=== PATIENT | female | born 1935 | race Two or more races ===

== ENCOUNTER 2018-07-23 11:12 | Inpatient (IN) | payer MEDICARE, OTHER ==
[~2018-07-23] VITALS: Ht 160 cm; Wt 68.5 kg
[~2018-07-23 11:12] MED LIST: AMLO2.5T5 PO; AMLO5TAB10 PO; ASPI325T8 PO; ATEN25TA PO; ATOR10TA60 PO; B12/1TAB PO; PANT40TA77 PO; SLOW RELEASE I142 MG PO; VALS320T2 PO
[2018-07-23 15:10] LABS: BILIRUBIN,URINE LARGE (NEG); CLARITY,URINE CLOUDY; COLOR,URINE ORANGE; PH,URINE 5.5; PROTEIN,URINE >=300 mg/dL (NEG-TRACE)
[2018-07-23 15:37] LABS: BACTERIA,URINE FEW /HPF (0-FEW); WBC,URINE OCC /HPF (0-4)
[2018-07-23 15:39] LABS: GRANULAR CASTS,URINE OCCASIONAL /HPF
[2018-07-23 16:00] LABS: BASO % 0 % (0-3); EOS # 0.1 x10^3/uL (0.0-0.7); EOS % 1 % (0-3); HEMATOCRIT 25.5 % (36.0-47.0); HEMOGLOBIN 8.8 g/dL (12.0-15.5); LYMPH # 0.7 x10^3/uL (1.0-4.8); LYMPH % 9 % (24-48); MEAN CORPUSCULAR HEMOGLOBIN 32 pg (25-35); MEAN CORPUSCULAR HGB CONC 35 g/dL (31-37); MEAN CORPUSCULAR VOLUME 92 fL (79-100); MONO # 0.7 x10^3/uL (0.0-1.1); MONO % 9 % (0-9); NEUT # 6.1 x10^3uL (1.8-7.7); NEUT % 81 % (31-73); PLATELET COUNT 27 x10^3/uL (140-400); RED BLOOD COUNT 2.77 x10^6/uL (3.50-5.40); WHITE BLOOD COUNT 7.6 x10^3/uL (4.0-11.0)
[2018-07-23 16:05] LABS: CALCIUM 8.5 mg/dL (8.5-10.1); CREATININE 2.9 mg/dL (0.6-1.0); GFR 15.5
[2018-07-23 16:11] LABS: ALBUMIN 2.8 g/dL (3.4-5.0); DIRECT BILIRUBIN 2.8 mg/dL (0.0-0.2); TOTAL BILIRUBIN 4.7 mg/dL (0.2-1.0); TOTAL PROTEIN 5.7 g/dL (6.4-8.2)
[2018-07-23] MEDS ORDERED: CONTRAST GIVEN. MC PRN (16:15)
[2018-07-23] MEDS ORDERED: IOHEXOL 300 MG/ML 100ML VIAL. IV ONE (16:15)
[2018-07-23 16:38] LABS: PLT ESTIMATE DECREASED (ADEQUATE)
--- NOTE | 2018-07-23 16:44 | RAD ---
PQRS Compliance Statement: One or more of the following individualized dose reduction techniques were utilized for this examination: 1. Automated exposure control 2. Adjustment of the mA and/or kV according to patient size 3. Use of iterative reconstruction technique CT ABDOMEN PELVIS WO CONTRAST Clinical Indication: ABD PAIN AND VOMITING Comparison: CT abdomen and pelvis with contrast May 25, 2012. Technique: Helical CT imaging of the abdomen and pelvis is performed without IV or oral contrast. Findings: Evaluation of solid organs and bowel is limited without oral and IV contrast, decreasing sensitivity for detection of pathology. Trace bilateral pleural effusions. Mild consolidations in the posterior lower lobes bilaterally may be compressive atelectasis or early pneumonia or scarring. There is coronary artery disease. Cardiac size upper limits of normal. Cholecystectomy. Liver, spleen, pancreas, adrenal glands, and kidneys are normal. Severe atherosclerotic calcification of the abdominal aorta and iliac arteries, no aneurysm. Stomach is not well distended, limiting evaluation. No dilated small bowel. Moderate sigmoid colon diverticulosis. The appendix is normal. There is scattered stool in the colon. No colon wall thickening. No abdominal adenopathy or free fluid. Urinary bladder is normal. Atrophic uterus. Mild pelvic free fluid, abnormal in a female patient of this age. Degenerative spondylosis of the thoracolumbar spine. There is minimal left convexity lumbar scoliosis. There is grade 1 anterolisthesis of L4 and L5 and L5 on S1. IMPRESSION: 1. Trace bilateral pleural effusions. 2. Mild consolidations in the posterior lower lobes may be compressive atelectasis or early pneumonia or scarring. 3. Mild pelvic free fluid, abnormal. Etiology uncertain. 4. Moderate sigmoid colon diverticulosis without diverticulitis. Electronically signed by: Lázaro Burns MD (07/23/2018 4:39 PM) [id number]
[2018-07-23] MEDS ORDERED: IV NORMAL SALINE 1000ML BAG 1,000 ML IV SCH (17:32)
[2018-07-23] MEDS ORDERED: MORPHINE SULFATE 4 MG/ML VIAL. IV PRN (17:45)
[2018-07-23] MEDS ORDERED: ONDANSETRON PF 4 MG/2 ML VIAL. IV PRN (17:45)
--- NOTE | 2018-07-23 18:44 | PHYS DOC ---
Past Medical History Past Medical History: Diabetes-Type II, High Cholesterol, Hypertension Past Surgical History: No Surgical History Additional Past Surgical Histo: cataract Alcohol Use: None Drug Use: None Adult General Chief Complaint Chief Complaint: BLOOD IN URINE HPI HPI 82-year-old female presenting to the emergency department today with hematuria worsening dark urine. She describes a lower abdominal pain is 3 out of 10 nonradiating earlier today but now does not have any pain. She is recently seen and had mild kidney injury without need from hypertension. But they reported she did not have a urinary tract infection before. Over the past 14 hours she has had a few episodes of nonbilious nonbloody vomiting. She denies any dark stool. Review of systems is negative for chest pain shortness of breath fevers chills. All other review of systems is negative unless otherwise noted in history of present illness. ED course: 82-year-old female presenting the emergency department today with darkening urine. CBC shows significant anemia. Platelet count is 27,000. Serum creatinine is elevated along with BUN. Bilirubin is elevated along with liver function tests. Urinalysis shows urine bilirubin and blood. I spoke with Dr. Wagoner who is on for Dr. cabral today. We will admit the patient to the hospital. Potentially ITP versus other thrombocytopenia etiologies. We will consult hematology oncology and nephrology. She accepted the patient for further treatment and care. CT showed atelectasis but no acute pathology. Review of Systems Review of Systems SEE ABOVE. Current Medications Current Medications Current Medications Medications (Trade) Dose Ordered Sig/[place] Start Time Stop Time Status Last Admin Dose Admin Info (CONTRAST GIVEN -- Rx MONITORING) 1 each PRN DAILY PRN 07/23/18 16:15 07/25/18 16:14 Iohexol (Omnipaque 300 Mg/ml) 75 ml 1X ONCE 07/23/18 16:15 07/23/18 16:16 DC Sodium Chloride 1,000 ml @ 100 mls/hr Q10H 07/23/18 17:32 07/23/18 23:31 Allergies Allergies Allergies Coded Allergies Type Severity Reaction Last Updated Verified Penicillins Allergy Intermediate RASH 07/23/18 Yes morphine Adverse Reaction Mild N/V 07/23/18 Yes Physical Exam Physical Exam SEE ABOVE Constitutional: Well developed, well nourished, no acute distress, non-toxic appearance. [] HENT: Normocephalic, atraumatic, bilateral external ears normal, oropharynx moist, no oral exudates, nose normal. [] Eyes: PERRLA, EOMI, conjunctiva normal, no discharge. [] Neck: Normal range of motion, no tenderness, supple, no stridor. [] Cardiovascular:Heart rate regular rhythm, no murmur [] Lungs & Thorax: Bilateral breath sounds clear to auscultation [] Abdomen: Bowel sounds normal, soft, no tenderness, no masses, no pulsatile masses. [] Skin: Warm, dry, no erythema, no rash. [] Back: No tenderness, no CVA tenderness. [] Extremities: No tenderness, no cyanosis, no clubbing, ROM intact, no edema. [] Neurologic: Alert and oriented X 3, normal motor function, normal sensory function, no focal deficits noted. [] Psychologic: Affect normal, judgement normal, mood normal. [] Current Patient Data Vital Signs Vital Signs Date Time Temp Pulse Resp B/P (MAP) Pulse Ox O2 Delivery O2 Flow Rate FiO2 07/23/18 16:03 60 157/70 (99) 94 Room Air 07/23/18 12:25 98.7 22 98.7 Lab Values Laboratory Tests Test 07/23/18 14:57 07/23/18 15:40 Urine Collection Type U cath Urine Color [place] Urine Clarity Cloudy Urine pH 5.5 Urine Specific [place] >=1.030 Urine Protein >=300 mg/dL (NEG-TRACE) Urine Glucose (UA) Negative mg/dL (NEG) Urine Ketones (Stick) Trace mg/dL (NEG) Urine Blood Large (NEG) Urine Nitrite (NEG) Urine Bilirubin Large (NEG) Urine Urobilinogen Dipstick 1.0 mg/dL (0.2 mg/dL) Urine Leukocyte Esterase (NEG) Urine RBC 6-10 /HPF (0-2) Urine WBC Occ /HPF (0-4) Urine Bacteria Few /HPF (0-FEW) Urine Granular Casts Occasional /HPF Urine Mucus Slight /LPF White Blood Count 7.6 x10^3/uL (4.0-11.0) Red Blood Count 2.77 x10^6/uL (3.50-5.40) L Hemoglobin 8.8 g/dL (12.0-15.5) L Hematocrit 25.5 % (36.0-47.0) L Mean Corpuscular Volume 92 fL (79-100) Mean Corpuscular Hemoglobin 32 pg (25-35) Mean Corpuscular Hemoglobin Concent 35 g/dL (31-37) Red Cell Distribution Width 14.0 % (11.5-14.5) Platelet Count 27 x10^3/uL (140-400) L Neutrophils (%) (Auto) 81 % (31-73) H Lymphocytes (%) (Auto) 9 % (24-48) L Monocytes (%) (Auto) 9 % (0-9) Eosinophils (%) (Auto) 1 % (0-3) Basophils (%) (Auto) 0 % (0-3) Neutrophils # (Auto) 6.1 x10^3uL (1.8-7.7) Lymphocytes # (Auto) 0.7 x10^3/uL (1.0-4.8) L Monocytes # (Auto) 0.7 x10^3/uL (0.0-1.1) Eosinophils # (Auto) 0.1 x10^3/uL (0.0-0.7) Basophils # (Auto) 0.0 x10^3/uL (0.0-0.2) Platelet Estimate Decreased (ADEQUATE) Sodium Level 134 mmol/L (136-145) L Potassium Level 5.0 mmol/L (3.5-5.1) Chloride Level 97 mmol/L (98-107) L Carbon Dioxide Level 27 mmol/L (21-32) Anion Gap 10 (6-14) Blood Urea Nitrogen 45 mg/dL (7-20) H Creatinine 2.9 mg/dL (0.6-1.0) H Estimated GFR (Cockcroft-Gault) 15.5 Glucose Level 93 mg/dL (70-99) Calcium Level 8.5 mg/dL (8.5-10.1) Total Bilirubin 4.7 mg/dL (0.2-1.0) H Direct Bilirubin 2.8 mg/dL (0.0-0.2) H Aspartate Amino Transferase (AST) 452 U/L (15-37) H Alanine Aminotransferase (ALT) 366 U/L (14-59) H Alkaline Phosphatase 244 U/L (46-116) H Total Protein 5.7 g/dL (6.4-8.2) L Albumin 2.8 g/dL (3.4-5.0) L Lipase 82 U/L (73-393) Laboratory Tests 07/23/18 15:40 Laboratory Tests 07/23/18 15:40 EKG EKG [] Radiology/Procedures Radiology/Procedures [] Course & Med Decision Making Course & Med Decision Making Pertinent Labs and Imaging studies reviewed. (See chart for details) [] Dragon Disclaimer Dragon Disclaimer This electronic medical record was generated, in whole or in part, using a voice recognition dictation system. Departure Departure Impression: Primary Impression: Thrombocytopenia Additional Impressions: Acute kidney injury Anemia Disposition: ADMITTED INPATIENT Admitting Physician: Sabina Wagoner Condition: STABLE Referrals: CATE VARELA MD (PCP) Problem Qualifiers TOSHA REEVES MD Jul 23, 2018 18:44
[2018-07-23 19:45] VITALS: BP 129/50
[2018-07-23] MEDS ORDERED: METO25TA4 PO (21:20)
[2018-07-23] MEDS: ACETAMINOPHEN 500 MG TABLET PO PRN (21:43)
--- NOTE | 2018-07-23 22:21 | NUR ---
Ernesto arrived around 1845 via bed from ED with Hematuria and FELIPE. She is Croatian speaking , but A/O x4. Several family members @ bedside. She can make most needs known.
[2018-07-23 23:00] VITALS: BP 149/52
[2018-07-24] MEDS ORDERED: CAND32TA4 PO (00:24)
[2018-07-24 03:00] VITALS: BP 141/55
[2018-07-24 05:23] LABS: BASO % 0 % (0-3); EOS # 0.2 x10^3/uL (0.0-0.7); EOS % 4 % (0-3); HEMATOCRIT 23.5 % (36.0-47.0); LYMPH # 0.8 x10^3/uL (1.0-4.8); LYMPH % 14 % (24-48); MEAN CORPUSCULAR HEMOGLOBIN 32 pg (25-35); MEAN CORPUSCULAR HGB CONC 34 g/dL (31-37); MEAN CORPUSCULAR VOLUME 93 fL (79-100); MONO # 0.6 x10^3/uL (0.0-1.1); MONO % 11 % (0-9); NEUT # 3.9 x10^3uL (1.8-7.7); NEUT % 72 % (31-73); RED BLOOD COUNT 2.53 x10^6/uL (3.50-5.40); RED CELL DISTRIBUTION WIDTH 14.2 % (11.5-14.5); WHITE BLOOD COUNT 5.5 x10^3/uL (4.0-11.0)
[2018-07-24 05:40] LABS: ALBUMIN 2.3 g/dL (3.4-5.0); ALBUMIN/GLOBULIN RATIO 0.8 (1.0-1.7); CALCIUM 8.2 mg/dL (8.5-10.1); CREATININE 3.2 mg/dL (0.6-1.0); GFR 13.8; POTASSIUM 4.3 mmol/L (3.5-5.1); TOTAL BILIRUBIN 3.4 mg/dL (0.2-1.0); TOTAL PROTEIN 5.1 g/dL (6.4-8.2)
[2018-07-24 06:19] LABS: PLATELET COUNT 21 x10^3/uL (140-400)
--- NOTE | 2018-07-24 06:36 | NUR ---
Around 0616 lab called w/ a critical platlet count of 21. Dr. Wagoner notified and gave no new orders. Since Dr. Rosales was consulted she wants them to take the lead.
[2018-07-24 07:00] VITALS: BP 158/55
[2018-07-24 09:59] LABS: LACTATE DEHYDROGENASE 466 U/L (81-234)
[2018-07-24 11:00] VITALS: BP 160/56
[2018-07-24] MEDS: IV NORMAL SALINE 1000ML BAG 1,000 ML IV SCH ×2 (11:45→15:18)
[2018-07-24] MEDS ORDERED: METO-239 PO (11:54)
[2018-07-24] MEDS ORDERED: CAND32TA19 PO (11:54)
--- NOTE | 2018-07-24 12:04 | PDOC ---
PROGRESS NOTES Subjective Subjective Patient reports some mild intermittent abdominal pain, no nausea or emesis. Objective Objective Vital Signs Date Time Temp Pulse Resp B/P (MAP) Pulse Ox O2 Delivery O2 Flow Rate FiO2 07/24/18 11:00 98.2 56 16 160/56 (90) 93 Room Air 98.2 Intake and Output 07/24/18 07:01 Intake Total 360 ml Balance 360 ml Intake Oral 360 ml # Voids 1 Physical Exam Abdomen: Normal bowel sounds, Soft, Other (mild diffuse TTP without guarding or rebound) Heart: Regular rate Extremities: No edema General: Alert, Oriented X3, No acute distress Lungs: Clear to auscultation Assessment Assessment Problems Medical Problems: (1) Acute kidney injury Status: Acute (2) Anemia Status: Acute (3) Thrombocytopenia Status: Acute Plan Plan of Care 1. Anemia with thrombocytopenia - new finding for her, mildly worse today compared to yesterday. Stable. Hold ASA, await Hematology consult. 2. Acute renal failure - no history of significant renal insufficiency, last Creatinine on office lab 06/15 was 0.8. Nursing reports patient does have good urine output and is continent. Continue IVF and po as tolerated, Renal consult pending. 3. Possible acute hepatitis - bilirubin and transaminases all elevated at admission, improved today. CT abdomen unremarkable for cause of this. Checking hepatitis panel. Consult GI for help with further management. 4. HTN - continue home meds. 5. DM2 - this has been diet-controlled for her, ADA diet ordered. Comment Review of Relevant I have reviewed the following items karen (where applicable) has been applied. Labs Laboratory Tests Test 07/23/18 14:57 07/23/18 15:40 07/24/18 04:05 07/24/18 07:00 Urine Collection Type U cath Urine Color [place] Urine Clarity Cloudy Urine pH 5.5 Urine Specific [place] >=1.030 Urine Protein >=300 mg/dL (NEG-TRACE) Urine Glucose (UA) Negative mg/dL (NEG) Urine Ketones (Stick) Trace mg/dL (NEG) Urine Blood Large (NEG) Urine Nitrite (NEG) Urine Bilirubin Large (NEG) Urine Urobilinogen Dipstick 1.0 mg/dL (0.2 mg/dL) Urine Leukocyte Esterase (NEG) Urine RBC 6-10 /HPF (0-2) Urine WBC Occ /HPF (0-4) Urine Bacteria Few /HPF (0-FEW) Urine Granular Casts Occasional /HPF Urine Mucus Slight /LPF White Blood Count 7.6 x10^3/uL (4.0-11.0) 5.5 x10^3/uL (4.0-11.0) Red Blood Count 2.77 x10^6/uL (3.50-5.40) 2.53 x10^6/uL (3.50-5.40) Hemoglobin 8.8 g/dL (12.0-15.5) 8.0 g/dL (12.0-15.5) Hematocrit 25.5 % (36.0-47.0) 23.5 % (36.0-47.0) Mean Corpuscular Volume 92 fL (79-100) 93 fL (79-100) Mean Corpuscular Hemoglobin 32 pg (25-35) 32 pg (25-35) Mean Corpuscular Hemoglobin Concent 35 g/dL (31-37) 34 g/dL (31-37) Red Cell Distribution Width 14.0 % (11.5-14.5) 14.2 % (11.5-14.5) Platelet Count 27 x10^3/uL (140-400) 21 x10^3/uL (140-400) Neutrophils (%) (Auto) 81 % (31-73) 72 % (31-73) Lymphocytes (%) (Auto) 9 % (24-48) 14 % (24-48) Monocytes (%) (Auto) 9 % (0-9) 11 % (0-9) Eosinophils (%) (Auto) 1 % (0-3) 4 % (0-3) Basophils (%) (Auto) 0 % (0-3) 0 % (0-3) Neutrophils # (Auto) 6.1 x10^3uL (1.8-7.7) 3.9 x10^3uL (1.8-7.7) Lymphocytes # (Auto) 0.7 x10^3/uL (1.0-4.8) 0.8 x10^3/uL (1.0-4.8) Monocytes # (Auto) 0.7 x10^3/uL (0.0-1.1) 0.6 x10^3/uL (0.0-1.1) Eosinophils # (Auto) 0.1 x10^3/uL (0.0-0.7) 0.2 x10^3/uL (0.0-0.7) Basophils # (Auto) 0.0 x10^3/uL (0.0-0.2) 0.0 x10^3/uL (0.0-0.2) Platelet Estimate Decreased (ADEQUATE) Sodium Level 134 mmol/L (136-145) 134 mmol/L (136-145) Potassium Level 5.0 mmol/L (3.5-5.1) 4.3 mmol/L (3.5-5.1) Chloride Level 97 mmol/L (98-107) 101 mmol/L (98-107) Carbon Dioxide Level 27 mmol/L (21-32) 26 mmol/L (21-32) Anion Gap 10 (6-14) 7 (6-14) Blood Urea Nitrogen 45 mg/dL (7-20) 51 mg/dL (7-20) Creatinine 2.9 mg/dL (0.6-1.0) 3.2 mg/dL (0.6-1.0) Estimated GFR (Cockcroft-Gault) 15.5 13.8 Glucose Level 93 mg/dL (70-99) 93 mg/dL (70-99) Calcium Level 8.5 mg/dL (8.5-10.1) 8.2 mg/dL (8.5-10.1) Total Bilirubin 4.7 mg/dL (0.2-1.0) 3.4 mg/dL (0.2-1.0) Direct Bilirubin 2.8 mg/dL (0.0-0.2) Aspartate Amino Transf (AST/SGOT) 452 U/L (15-37) 194 U/L (15-37) Alanine Aminotransferase (ALT/SGPT) 366 U/L (14-59) 231 U/L (14-59) Alkaline Phosphatase 244 U/L (46-116) 195 U/L (46-116) Total Protein 5.7 g/dL (6.4-8.2) 5.1 g/dL (6.4-8.2) Albumin 2.8 g/dL (3.4-5.0) 2.3 g/dL (3.4-5.0) Lipase 82 U/L (73-393) BUN/Creatinine Ratio 16 (6-20) Albumin/Globulin Ratio 0.8 (1.0-1.7) Reticulocyte Count (auto) 1.8 % (0.5-2.5) Iron Level 39 ug/dL (50-170) Total Iron Binding Capacity 219 ug/dL (250-450) Iron Saturation 18 % (15-34) Ferritin 425 ng/mL (8-252) Lactate Dehydrogenase 466 U/L (81-234) Laboratory Tests Test 07/23/18 14:57 07/23/18 15:40 07/24/18 04:05 07/24/18 07:00 Urine Collection Type U cath Urine Color [place] Urine Clarity Cloudy Urine pH 5.5 Urine Specific [place] >=1.030 Urine Protein >=300 mg/dL (NEG-TRACE) Urine Glucose (UA) Negative mg/dL (NEG) Urine Ketones (Stick) Trace mg/dL (NEG) Urine Blood Large (NEG) Urine Nitrite (NEG) Urine Bilirubin Large (NEG) Urine Urobilinogen Dipstick 1.0 mg/dL (0.2 mg/dL) Urine Leukocyte Esterase (NEG) Urine RBC 6-10 /HPF (0-2) Urine WBC Occ /HPF (0-4) Urine Bacteria Few /HPF (0-FEW) Urine Granular Casts Occasional /HPF Urine Mucus Slight /LPF White Blood Count 7.6 x10^3/uL (4.0-11.0) 5.5 x10^3/uL (4.0-11.0) Red Blood Count 2.77 x10^6/uL (3.50-5.40) 2.53 x10^6/uL (3.50-5.40) Hemoglobin 8.8 g/dL (12.0-15.5) 8.0 g/dL (12.0-15.5) Hematocrit 25.5 % (36.0-47.0) 23.5 % (36.0-47.0) Mean Corpuscular Volume 92 fL (79-100) 93 fL (79-100) Mean Corpuscular Hemoglobin 32 pg (25-35) 32 pg (25-35) Mean Corpuscular Hemoglobin Concent 35 g/dL (31-37) 34 g/dL (31-37) Red Cell Distribution Width 14.0 % (11.5-14.5) 14.2 % (11.5-14.5) Platelet Count 27 x10^3/uL (140-400) 21 x10^3/uL (140-400) Neutrophils (%) (Auto) 81 % (31-73) 72 % (31-73) Lymphocytes (%) (Auto) 9 % (24-48) 14 % (24-48) Monocytes (%) (Auto) 9 % (0-9) 11 % (0-9) Eosinophils (%) (Auto) 1 % (0-3) 4 % (0-3) Basophils (%) (Auto) 0 % (0-3) 0 % (0-3) Neutrophils # (Auto) 6.1 x10^3uL (1.8-7.7) 3.9 x10^3uL (1.8-7.7) Lymphocytes # (Auto) 0.7 x10^3/uL (1.0-4.8) 0.8 x10^3/uL (1.0-4.8) Monocytes # (Auto) 0.7 x10^3/uL (0.0-1.1) 0.6 x10^3/uL (0.0-1.1) Eosinophils # (Auto) 0.1 x10^3/uL (0.0-0.7) 0.2 x10^3/uL (0.0-0.7) Basophils # (Auto) 0.0 x10^3/uL (0.0-0.2) 0.0 x10^3/uL (0.0-0.2) Platelet Estimate Decreased (ADEQUATE) Sodium Level 134 mmol/L (136-145) 134 mmol/L (136-145) Potassium Level 5.0 mmol/L (3.5-5.1) 4.3 mmol/L (3.5-5.1) Chloride Level 97 mmol/L (98-107) 101 mmol/L (98-107) Carbon Dioxide Level 27 mmol/L (21-32) 26 mmol/L (21-32) Anion Gap 10 (6-14) 7 (6-14) Blood Urea Nitrogen 45 mg/dL (7-20) 51 mg/dL (7-20) Creatinine 2.9 mg/dL (0.6-1.0) 3.2 mg/dL (0.6-1.0) Estimated GFR (Cockcroft-Gault) 15.5 13.8 Glucose Level 93 mg/dL (70-99) 93 mg/dL (70-99) Calcium Level 8.5 mg/dL (8.5-10.1) 8.2 mg/dL (8.5-10.1) Total Bilirubin 4.7 mg/dL (0.2-1.0) 3.4 mg/dL (0.2-1.0) Direct Bilirubin 2.8 mg/dL (0.0-0.2) Aspartate Amino Transf (AST/SGOT) 452 U/L (15-37) 194 U/L (15-37) Alanine Aminotransferase (ALT/SGPT) 366 U/L (14-59) 231 U/L (14-59) Alkaline Phosphatase 244 U/L (46-116) 195 U/L (46-116) Total Protein 5.7 g/dL (6.4-8.2) 5.1 g/dL (6.4-8.2) Albumin 2.8 g/dL (3.4-5.0) 2.3 g/dL (3.4-5.0) Lipase 82 U/L (73-393) BUN/Creatinine Ratio 16 (6-20) Albumin/Globulin Ratio 0.8 (1.0-1.7) Reticulocyte Count (auto) 1.8 % (0.5-2.5) Iron Level 39 ug/dL (50-170) Total Iron Binding Capacity 219 ug/dL (250-450) Iron Saturation 18 % (15-34) Ferritin 425 ng/mL (8-252) Lactate Dehydrogenase 466 U/L (81-234) Medications Current Medications Iohexol (Omnipaque 300 Mg/ml) 75 ml 1X ONCE IV ; Start 07/23/18 at 16:15; Stop 07/23/18 at 16:16; Status DC Info (CONTRAST GIVEN -- Rx MONITORING) 1 each PRN DAILY PRN MC SEE COMMENTS; Start 07/23/18 at 16:15; Stop 07/25/18 at 16:14 Ondansetron HCl (Zofran) 4 mg PRN Q8HRS PRN IV NAUSEA/VOMITING Last administered on 07/23/18at 20:56; Start 07/23/18 at 17:45; Stop 07/24/18 at 17:44 Morphine Sulfate (Morphine Sulfate) 2 mg PRN Q2HR PRN IV PAIN; Start 07/23/18 at 17:45; Stop 07/23/18 at 17:45; Status DC Sodium Chloride 1,000 ml @ 100 mls/hr Q10H IV Last administered on 07/23/18at 20:57; Start 07/23/18 at 17:32; Stop 07/23/18 at 23:31; Status DC Acetaminophen (Tylenol) 1,000 mg PRN Q6HRS PRN PO MILD PAIN / TEMP Last administered on 07/23/18at 21:43; Start 07/23/18 at 21:30 Sodium Chloride 1,000 ml @ 100 mls/hr Q10H IV ; Start 07/24/18 at 11:45 Amlodipine Besylate (Norvasc) 5 mg DAILY PO ; Start 07/25/18 at 09:00; Status UNV Metoprolol Succinate (Toprol Xl) 25 mg DAILY PO ; Start 07/25/18 at 09:00; Status UNV Pantoprazole Sodium (Protonix) 40 mg DAILY PO ; Start 07/25/18 at 09:00; Status UNV Non-Formulary Medication (Candesartan Cilexetil (Atacand)) 1 tab DAILY PO ; Start 07/25/18 at 09:00; Status UNV Active Scripts Active Metoprolol Succinate ( Xl ) (Metoprolol Succinate) 25 Mg Tab.er.24h 1 Tab PO DAILY 30 Days Atacand (Candesartan Cilexetil) 32 Mg Tablet 1 Tab PO DAILY 30 Days Amlodipine Besylate 5 Mg Tablet 5 Mg PO DAILY Foltx Tablet (B12/Levomefolate Calcium/B-6) 1 Each Tablet 1 Each PO DAILY Reported Aspirin 325 Mg Tablet 1 Tab PO DAILY Atorvastatin Calcium 10 Mg Tablet 10 Mg PO HS Pantoprazole Sodium 40 Mg Tablet.dr 40 Mg PO DAILY Vitals/I & O Vital Sign - Last 24 Hours 07/23/18 07/23/18 07/23/18 07/23/18 12:25 12:39 13:03 13:33 Temp 98.7 98.7 Pulse 62 60 62 58 Resp 22 B/P (MAP) 167/72 (103) 152/64 (93) 146/67 (93) 121/58 (79) Pulse Ox 97 95 95 96 O2 Delivery Room Air Room Air Room Air Room Air 07/23/18 07/23/18 07/23/18 07/23/18 14:03 14:33 15:03 15:33 Pulse 58 60 62 62 B/P (MAP) 126/60 (82) 115/56 (75) 158/67 (97) 154/67 (96) Pulse Ox 97 95 93 94 O2 Delivery Room Air Room Air Room Air Room Air 07/23/18 07/23/18 07/23/18 07/23/18 16:03 18:05 19:45 20:22 Temp 98.7 98.7 Pulse 60 66 64 Resp 18 B/P (MAP) 157/70 (99) 163/69 (100) 129/50 (76) Pulse Ox 94 94 92 O2 Delivery Room Air Room Air Room Air Room Air 07/23/18 07/24/18 07/24/18 07/24/18 23:00 03:00 07:00 08:00 Temp 98.5 98.7 98.3 98.5 98.7 98.3 Pulse 61 59 61 Resp 16 18 16 B/P (MAP) 149/52 (84) 141/55 (83) 158/55 (89) Pulse Ox 94 95 93 O2 Delivery Room Air Room Air Room Air Room Air 07/24/18 11:00 Temp 98.2 98.2 Pulse 56 Resp 16 B/P (MAP) 160/56 (90) Pulse Ox 93 O2 Delivery Room Air Intake and Output 07/23/18 07/23/18 07/24/18 15:01 23:01 07:01 Intake Total 120 ml 240 ml Balance 120 ml 240 ml VIVIAN SINGLETARY MD Jul 24, 2018 12:04
[2018-07-24] MEDS ORDERED: NAPR-683 PO (12:05)
[2018-07-24] MEDS: PANTOPRAZOLE 40 MG TABLET.DR. PO SCH (12:24)
[2018-07-24] MEDS: METOPROLOL SUCC 24HR ER 25 MG TAB.ER.24H. PO SCH (12:24)
[2018-07-24] MEDS: amLODIPine BESYLATE 5 MG TABLET PO SCH (12:25)
--- NOTE | 2018-07-24 12:34 | HP ---
ADMIT DATE: 07/23/2018 CHIEF COMPLAINT: Hematuria. HISTORY OF PRESENT ILLNESS: The patient is an 82-year-old female who presented to the Emergency Room with the above complaint. She reported the onset of bright red blood in her urine on the day of admission. She had also been experiencing approximately 1-week history of some abdominal discomfort. This was sometimes on the left side and sometimes on the right side. She had occasional nausea, but no significant emesis with this. She also noticed that her urine seemed darker than normal. Initial evaluation in the Emergency Room included lab, which showed the patient to have a hemoglobin of 8.8 and a platelet count of 27, she was also found to be in acute renal failure with a BUN of 45 and a creatinine of 2.9. She also had significantly elevated bilirubin and liver transaminases. Treatment was started and she was admitted for further care. PAST MEDICAL HISTORY: Hypertension; diabetes mellitus type 2, diet controlled; GERD; hyperlipidemia; chronic back pain. PAST SURGICAL HISTORY: Laparoscopic cholecystectomy, cataract removal. ALLERGIES: The patient is allergic to PENICILLIN and MORPHINE. HOME MEDICATIONS: Atacand 32 mg daily, Norvasc 5 mg daily, Toprol-XL 25 mg daily, atorvastatin 10 mg daily, pantoprazole 40 mg daily, aspirin 325 mg daily, multivitamin daily, naproxen 375 mg 1 b.i.[address].- Dr. Pedraza started this medication at an office visit last month for treatment of the patient's chronic back pain. FAMILY HISTORY: Noncontributory. SOCIAL HISTORY: The patient is and lives with her daughter. She does not smoke cigarettes or drink alcohol to excess. REVIEW OF SYSTEMS: The patient denies fever or chills. She denies cough or shortness of breath. She denies chest pain or palpitations. She has very little abdominal pain at this time and denies nausea. She has not had a bowel movement for 2 days. She denies dysuria or increased urinary frequency. She has been taking her medications daily as prescribed. PHYSICAL EXAMINATION: GENERAL: The patient is alert and oriented x 3, resting comfortably in bed in no acute distress. HEENT: PERRL, EOMI, sclerae clear. Oropharynx: Mucous membranes moist. NECK: Supple, without lymphadenopathy. CHEST: Breath sounds clear to auscultation. CARDIOVASCULAR: Regular rhythm without murmur. ABDOMEN: Soft, normoactive bowel sounds are present. There is mild diffuse tenderness to palpation without guarding or rebound. EXTREMITIES: Bilateral lower extremities are without edema. ASSESSMENT AND PLAN: 1. Anemia with thrombocytopenia. This is a new finding for her. Her hemoglobin was 10.8 on office lab last month with platelets of 170, her counts are slightly worse today compared to yesterday. We will hold aspirin and await Hematology consult. 2. Acute renal failure. The patient does not have a history of significant renal insufficiency. Her last creatinine in our office lab was 0.8. Nursing reports that the patient does have a good urine output and is continent of her urine. We will continue IV fluids for hydration and encourage oral fluids also, a renal consult is pending. Urinalysis at admission was significant for blood and bilirubin in the urine, but only occasional white blood cells were seen. A urine culture has been ordered. No antibiotics are indicated at this time. 3. Possible acute hepatitis. The patient's bilirubin and transaminases were all significantly elevated at admission. They have improved overnight. A CT of the abdomen was unremarkable for possible cause for this. Hepatitis panel has been ordered. We will consult GI for help with further management. One possible cause of the patient's laboratory abnormalities could be the naproxen that she started taking last month as it can cause thrombocytopenia and transaminitis. We will hold this and follow her lab. 4. Hypertension. Continue home medication. 5. Diabetes mellitus type 2. This has been diet controlled for her. An ADA diet is ordered. VIVIAN SINGLETARY MD DR: MERCEDES/violet JOB#: [id number] / [id number] DOREEN
--- NOTE | 2018-07-24 14:04 | PDOC ---
GI PROGRESS NOTES Date Date/Time DATE: 07/24/18 TIME: 14:02 Objective Vitals Vital Signs Date Time Temp Pulse Resp B/P (MAP) Pulse Ox O2 Delivery O2 Flow Rate FiO2 07/24/18 12:25 56 160/56 07/24/18 12:24 56 160/56 07/24/18 11:00 98.2 56 16 160/56 (90) 93 Room Air 98.2 07/24/18 08:00 Room Air 07/24/18 07:00 98.3 61 16 158/55 (89) 93 Room Air 98.3 07/24/18 03:00 98.7 59 18 141/55 (83) 95 Room Air 98.7 07/23/18 23:00 98.5 61 16 149/52 (84) 94 Room Air 98.5 07/23/18 20:22 Room Air 07/23/18 19:45 98.7 64 18 129/50 (76) 92 Room Air 98.7 07/23/18 18:05 66 163/69 (100) 94 Room Air 07/23/18 16:03 60 157/70 (99) 94 Room Air 07/23/18 15:33 62 154/67 (96) 94 Room Air 07/23/18 15:03 62 158/67 (97) 93 Room Air 07/23/18 14:33 60 115/56 (75) 95 Room Air 07/23/18 14:03 58 126/60 (82) 97 Room Air Labs Labs Laboratory Tests Test 07/23/18 14:57 07/23/18 15:40 07/24/18 04:05 07/24/18 07:00 Urine Collection Type U cath Urine Color [place] Urine Clarity Cloudy Urine pH 5.5 Urine Specific [place] >=1.030 Urine Protein >=300 mg/dL (NEG-TRACE) Urine Glucose (UA) Negative mg/dL (NEG) Urine Ketones (Stick) Trace mg/dL (NEG) Urine Blood Large (NEG) Urine Nitrite (NEG) Urine Bilirubin Large (NEG) Urine Urobilinogen Dipstick 1.0 mg/dL (0.2 mg/dL) Urine Leukocyte Esterase (NEG) Urine RBC 6-10 /HPF (0-2) Urine WBC Occ /HPF (0-4) Urine Bacteria Few /HPF (0-FEW) Urine Granular Casts Occasional /HPF Urine Mucus Slight /LPF White Blood Count 7.6 x10^3/uL (4.0-11.0) 5.5 x10^3/uL (4.0-11.0) Red Blood Count 2.77 x10^6/uL (3.50-5.40) 2.53 x10^6/uL (3.50-5.40) Hemoglobin 8.8 g/dL (12.0-15.5) 8.0 g/dL (12.0-15.5) Hematocrit 25.5 % (36.0-47.0) 23.5 % (36.0-47.0) Mean Corpuscular Volume 92 fL (79-100) 93 fL (79-100) Mean Corpuscular Hemoglobin 32 pg (25-35) 32 pg (25-35) Mean Corpuscular Hemoglobin Concent 35 g/dL (31-37) 34 g/dL (31-37) Red Cell Distribution Width 14.0 % (11.5-14.5) 14.2 % (11.5-14.5) Platelet Count 27 x10^3/uL (140-400) 21 x10^3/uL (140-400) Neutrophils (%) (Auto) 81 % (31-73) 72 % (31-73) Lymphocytes (%) (Auto) 9 % (24-48) 14 % (24-48) Monocytes (%) (Auto) 9 % (0-9) 11 % (0-9) Eosinophils (%) (Auto) 1 % (0-3) 4 % (0-3) Basophils (%) (Auto) 0 % (0-3) 0 % (0-3) Neutrophils # (Auto) 6.1 x10^3uL (1.8-7.7) 3.9 x10^3uL (1.8-7.7) Lymphocytes # (Auto) 0.7 x10^3/uL (1.0-4.8) 0.8 x10^3/uL (1.0-4.8) Monocytes # (Auto) 0.7 x10^3/uL (0.0-1.1) 0.6 x10^3/uL (0.0-1.1) Eosinophils # (Auto) 0.1 x10^3/uL (0.0-0.7) 0.2 x10^3/uL (0.0-0.7) Basophils # (Auto) 0.0 x10^3/uL (0.0-0.2) 0.0 x10^3/uL (0.0-0.2) Platelet Estimate Decreased (ADEQUATE) Sodium Level 134 mmol/L (136-145) 134 mmol/L (136-145) Potassium Level 5.0 mmol/L (3.5-5.1) 4.3 mmol/L (3.5-5.1) Chloride Level 97 mmol/L (98-107) 101 mmol/L (98-107) Carbon Dioxide Level 27 mmol/L (21-32) 26 mmol/L (21-32) Anion Gap 10 (6-14) 7 (6-14) Blood Urea Nitrogen 45 mg/dL (7-20) 51 mg/dL (7-20) Creatinine 2.9 mg/dL (0.6-1.0) 3.2 mg/dL (0.6-1.0) Estimated GFR (Cockcroft-Gault) 15.5 13.8 Glucose Level 93 mg/dL (70-99) 93 mg/dL (70-99) Calcium Level 8.5 mg/dL (8.5-10.1) 8.2 mg/dL (8.5-10.1) Total Bilirubin 4.7 mg/dL (0.2-1.0) 3.4 mg/dL (0.2-1.0) Direct Bilirubin 2.8 mg/dL (0.0-0.2) Aspartate Amino Transf (AST/SGOT) 452 U/L (15-37) 194 U/L (15-37) Alanine Aminotransferase (ALT/SGPT) 366 U/L (14-59) 231 U/L (14-59) Alkaline Phosphatase 244 U/L (46-116) 195 U/L (46-116) Total Protein 5.7 g/dL (6.4-8.2) 5.1 g/dL (6.4-8.2) Albumin 2.8 g/dL (3.4-5.0) 2.3 g/dL (3.4-5.0) Lipase 82 U/L (73-393) BUN/Creatinine Ratio 16 (6-20) Albumin/Globulin Ratio 0.8 (1.0-1.7) Reticulocyte Count (auto) 1.8 % (0.5-2.5) Iron Level 39 ug/dL (50-170) Total Iron Binding Capacity 219 ug/dL (250-450) Iron Saturation 18 % (15-34) Ferritin 425 ng/mL (8-252) Lactate Dehydrogenase 466 U/L (81-234) Test 07/24/18 12:35 Prothrombin Time 16.0 SEC (11.7-14.0) Prothromb Time International Ratio 1.3 (0.8-1.1) Activated Partial Thromboplast Time 44 SEC (24-38) Assessment Assessment acute LFT abnormal with thrombocytopenia and ARF - etiology unclear but suggests drug or viral cause- full consult dictated RACHAEL BUSTOS MD Jul 24, 2018 14:04
[2018-07-24 15:00] VITALS: BP 141/57
[2018-07-24] MEDS: PSYLLIUM HUSK (SUGAR FREE) 1 PKT PACKET PO SCH (15:18)
[2018-07-24] MEDS: LOSARTAN POTASSIUM 50 MG TABLET. PO SCH (15:18)
--- NOTE | 2018-07-24 15:18 | PDOC2 ---
CONSULT Date of Consult Date of Consult DATE: 07/24/18 TIME: 15:07 Reason for Consult Reason for Consult: FELIPE Referring Physician Referring Physician: GEMINI Identification/Chief Complaint Chief Complaint THIS IS AN 82 YR WITH SOME ABD PAIN WITH NO DIARRHEA. SHE IS NOTED TO HAVE HEMATURIA WELL. IMAGING OF THE ABD IS NEGATIVE. SHE DOES NOTE HAVE ANY CKD OR PLATELET ABNORMALITIES FROM LABS A MONTH AGO. CURRENTLY HAS CR OF 3.2 AND THROMBOCYTOPENIA ALONG WITH ABNORMAL LFT'S. HOME MEDS HAVE INCLUDED NAPROXEN AND ATACAND. UA POS FOR BLOOD AND PROTEIN. NO OTHER HX. NO SKIN PROBLEMS REPORTED Source Source: Chart review, Patient History of Present Illness Reason for Visit: ABOVE Past Medical History Cardiovascular: HTN, Hyperlipidemia GI: Constipation, GERD Social History ALCOHOL: none Drugs: None Current Problem List Problem List Problems Medical Problems: (1) Acute kidney injury Status: Acute (2) Anemia Status: Acute (3) Thrombocytopenia Status: Acute Current Medications Current Medications Current Medications Iohexol (Omnipaque 300 Mg/ml) 75 ml 1X ONCE IV ; Start 07/23/18 at 16:15; Stop 07/23/18 at 16:16; Status DC Info (CONTRAST GIVEN -- Rx MONITORING) 1 each PRN DAILY PRN MC SEE COMMENTS; Start 07/23/18 at 16:15; Stop 07/25/18 at 16:14 Ondansetron HCl (Zofran) 4 mg PRN Q8HRS PRN IV NAUSEA/VOMITING Last administered on 07/23/18at 20:56; Start 07/23/18 at 17:45; Stop 07/24/18 at 17:44 Morphine Sulfate (Morphine Sulfate) 2 mg PRN Q2HR PRN IV PAIN; Start 07/23/18 at 17:45; Stop 07/23/18 at 17:45; Status DC Sodium Chloride 1,000 ml @ 100 mls/hr Q10H IV Last administered on 07/23/18at 20:57; Start 07/23/18 at 17:32; Stop 07/23/18 at 23:31; Status DC Acetaminophen (Tylenol) 1,000 mg PRN Q6HRS PRN PO MILD PAIN / TEMP Last administered on 07/23/18at 21:43; Start 07/23/18 at 21:30 Sodium Chloride 1,000 ml @ 100 mls/hr Q10H IV Last administered on 07/24/18at 11:45; Start 07/24/18 at 11:45 Amlodipine Besylate (Norvasc) 5 mg DAILY PO Last administered on 07/24/18at 12: 25; Start 07/24/18 at 12:30 Metoprolol Succinate (Toprol Xl) 25 mg DAILY PO Last administered on 07/24/18at 12:24; Start 07/24/18 at 12:30 Pantoprazole Sodium (Protonix) 40 mg DAILYAC PO Last administered on 07/24/18at 12:24; Start 07/24/18 at 12:30 Losartan Potassium (Cozaar) 100 mg DAILY PO ; Start 07/24/18 at 12:30 Psyllium Hydrophilic Mucilloid (Metamucil Fiber Packet) 1 pkt DAILY PO ; Start 07/24/18 at 16:00 Active Scripts Active Naprosyn (Naproxen) 500 Mg Tablet 1 Tab PO BID Metoprolol Succinate ( Xl ) (Metoprolol Succinate) 25 Mg Tab.er.24h 1 Tab PO DAILY 30 Days Atacand (Candesartan Cilexetil) 32 Mg Tablet 1 Tab PO DAILY 30 Days Amlodipine Besylate 5 Mg Tablet 5 Mg PO DAILY Foltx Tablet (B12/Levomefolate Calcium/B-6) 1 Each Tablet 1 Each PO DAILY Reported Aspirin 325 Mg Tablet 1 Tab PO DAILY Atorvastatin Calcium 10 Mg Tablet 10 Mg PO HS Pantoprazole Sodium 40 Mg Tablet.dr 40 Mg PO DAILY Allergies Allergies: Coded Allergies: Penicillins (Verified Allergy, Intermediate, RASH, 07/23/18) morphine (Verified Adverse Reaction, Mild, N/V, 07/23/18) ROS General: YES: Fatigue, Malaise, Appetite PSYCHOLOGICAL ROS: YES: Anxiety Eyes: Yes Decreased vision HEENT: YES: Neil ALLERGY AND IMMUNOLOGY: YES: Seasonal Allergies Respiratory: YES: Cough Cardiovascular: yes Lt [place] Gastrointestinal: Yes Nausea, Yes Constipation Genitourinary: YES Hematuria Musculoskeletal: Yes Muscular Weakness Neurological: Yes Weakness Skin: Yes Dry Skin Physical Exam General: Alert, Oriented X3, Cooperative, No acute distress HEENT: Atraumatic, PERRLA, EOMI, Mucous membr. moist/pink Lungs: Clear to auscultation Heart: Regular rate, Normal S1, Normal S2 Abdomen: Normal bowel sounds, Soft, No tenderness Skin: No rashes, No breakdown, No significant lesion Neuro: Normal speech Psych/Mental Status: Mental status NL, Mood NL MUSCULOSKELETAL: No joint tenderness, No deformity, No swelling Vitals VITALS Vital Signs Date Time Temp Pulse Resp B/P (MAP) Pulse Ox O2 Delivery O2 Flow Rate FiO2 07/24/18 12:25 56 160/56 07/24/18 11:00 98.2 16 93 Room Air 98.2 Labs Labs Laboratory Tests Test 07/23/18 14:57 07/23/18 15:40 07/24/18 04:05 07/24/18 07:00 Urine Collection Type U cath Urine Color [place] Urine Clarity Cloudy Urine pH 5.5 Urine Specific [place] >=1.030 Urine Protein >=300 mg/dL (NEG-TRACE) Urine Glucose (UA) Negative mg/dL (NEG) Urine Ketones (Stick) Trace mg/dL (NEG) Urine Blood Large (NEG) Urine Nitrite (NEG) Urine Bilirubin Large (NEG) Urine Urobilinogen Dipstick 1.0 mg/dL (0.2 mg/dL) Urine Leukocyte Esterase (NEG) Urine RBC 6-10 /HPF (0-2) Urine WBC Occ /HPF (0-4) Urine Bacteria Few /HPF (0-FEW) Urine Granular Casts Occasional /HPF Urine Mucus Slight /LPF White Blood Count 7.6 x10^3/uL (4.0-11.0) 5.5 x10^3/uL (4.0-11.0) Red Blood Count 2.77 x10^6/uL (3.50-5.40) 2.53 x10^6/uL (3.50-5.40) Hemoglobin 8.8 g/dL (12.0-15.5) 8.0 g/dL (12.0-15.5) Hematocrit 25.5 % (36.0-47.0) 23.5 % (36.0-47.0) Mean Corpuscular Volume 92 fL (79-100) 93 fL (79-100) Mean Corpuscular Hemoglobin 32 pg (25-35) 32 pg (25-35) Mean Corpuscular Hemoglobin Concent 35 g/dL (31-37) 34 g/dL (31-37) Red Cell Distribution Width 14.0 % (11.5-14.5) 14.2 % (11.5-14.5) Platelet Count 27 x10^3/uL (140-400) 21 x10^3/uL (140-400) Neutrophils (%) (Auto) 81 % (31-73) 72 % (31-73) Lymphocytes (%) (Auto) 9 % (24-48) 14 % (24-48) Monocytes (%) (Auto) 9 % (0-9) 11 % (0-9) Eosinophils (%) (Auto) 1 % (0-3) 4 % (0-3) Basophils (%) (Auto) 0 % (0-3) 0 % (0-3) Neutrophils # (Auto) 6.1 x10^3uL (1.8-7.7) 3.9 x10^3uL (1.8-7.7) Lymphocytes # (Auto) 0.7 x10^3/uL (1.0-4.8) 0.8 x10^3/uL (1.0-4.8) Monocytes # (Auto) 0.7 x10^3/uL (0.0-1.1) 0.6 x10^3/uL (0.0-1.1) Eosinophils # (Auto) 0.1 x10^3/uL (0.0-0.7) 0.2 x10^3/uL (0.0-0.7) Basophils # (Auto) 0.0 x10^3/uL (0.0-0.2) 0.0 x10^3/uL (0.0-0.2) Platelet Estimate Decreased (ADEQUATE) Sodium Level 134 mmol/L (136-145) 134 mmol/L (136-145) Potassium Level 5.0 mmol/L (3.5-5.1) 4.3 mmol/L (3.5-5.1) Chloride Level 97 mmol/L (98-107) 101 mmol/L (98-107) Carbon Dioxide Level 27 mmol/L (21-32) 26 mmol/L (21-32) Anion Gap 10 (6-14) 7 (6-14) Blood Urea Nitrogen 45 mg/dL (7-20) 51 mg/dL (7-20) Creatinine 2.9 mg/dL (0.6-1.0) 3.2 mg/dL (0.6-1.0) Estimated GFR (Cockcroft-Gault) 15.5 13.8 Glucose Level 93 mg/dL (70-99) 93 mg/dL (70-99) Calcium Level 8.5 mg/dL (8.5-10.1) 8.2 mg/dL (8.5-10.1) Total Bilirubin 4.7 mg/dL (0.2-1.0) 3.4 mg/dL (0.2-1.0) Direct Bilirubin 2.8 mg/dL (0.0-0.2) Aspartate Amino Transf (AST/SGOT) 452 U/L (15-37) 194 U/L (15-37) Alanine Aminotransferase (ALT/SGPT) 366 U/L (14-59) 231 U/L (14-59) Alkaline Phosphatase 244 U/L (46-116) 195 U/L (46-116) Total Protein 5.7 g/dL (6.4-8.2) 5.1 g/dL (6.4-8.2) Albumin 2.8 g/dL (3.4-5.0) 2.3 g/dL (3.4-5.0) Lipase 82 U/L (73-393) BUN/Creatinine Ratio 16 (6-20) Albumin/Globulin Ratio 0.8 (1.0-1.7) Reticulocyte Count (auto) 1.8 % (0.5-2.5) Iron Level 39 ug/dL (50-170) Total Iron Binding Capacity 219 ug/dL (250-450) Iron Saturation 18 % (15-34) Ferritin 425 ng/mL (8-252) Lactate Dehydrogenase 466 U/L (81-234) Test 07/24/18 12:35 Prothrombin Time 16.0 SEC (11.7-14.0) Prothromb Time International Ratio 1.3 (0.8-1.1) Activated Partial Thromboplast Time 44 SEC (24-38) Laboratory Tests Test 07/23/18 15:40 07/24/18 04:05 07/24/18 07:00 07/24/18 12:35 White Blood Count 7.6 x10^3/uL (4.0-11.0) 5.5 x10^3/uL (4.0-11.0) Red Blood Count 2.77 x10^6/uL (3.50-5.40) 2.53 x10^6/uL (3.50-5.40) Hemoglobin 8.8 g/dL (12.0-15.5) 8.0 g/dL (12.0-15.5) Hematocrit 25.5 % (36.0-47.0) 23.5 % (36.0-47.0) Mean Corpuscular Volume 92 fL (79-100) 93 fL (79-100) Mean Corpuscular Hemoglobin 32 pg (25-35) 32 pg (25-35) Mean Corpuscular Hemoglobin Concent 35 g/dL (31-37) 34 g/dL (31-37) Red Cell Distribution Width 14.0 % (11.5-14.5) 14.2 % (11.5-14.5) Platelet Count 27 x10^3/uL (140-400) 21 x10^3/uL (140-400) Neutrophils (%) (Auto) 81 % (31-73) 72 % (31-73) Lymphocytes (%) (Auto) 9 % (24-48) 14 % (24-48) Monocytes (%) (Auto) 9 % (0-9) 11 % (0-9) Eosinophils (%) (Auto) 1 % (0-3) 4 % (0-3) Basophils (%) (Auto) 0 % (0-3) 0 % (0-3) Neutrophils # (Auto) 6.1 x10^3uL (1.8-7.7) 3.9 x10^3uL (1.8-7.7) Lymphocytes # (Auto) 0.7 x10^3/uL (1.0-4.8) 0.8 x10^3/uL (1.0-4.8) Monocytes # (Auto) 0.7 x10^3/uL (0.0-1.1) 0.6 x10^3/uL (0.0-1.1) Eosinophils # (Auto) 0.1 x10^3/uL (0.0-0.7) 0.2 x10^3/uL (0.0-0.7) Basophils # (Auto) 0.0 x10^3/uL (0.0-0.2) 0.0 x10^3/uL (0.0-0.2) Platelet Estimate Decreased (ADEQUATE) Sodium Level 134 mmol/L (136-145) 134 mmol/L (136-145) Potassium Level 5.0 mmol/L (3.5-5.1) 4.3 mmol/L (3.5-5.1) Chloride Level 97 mmol/L (98-107) 101 mmol/L (98-107) Carbon Dioxide Level 27 mmol/L (21-32) 26 mmol/L (21-32) Anion Gap 10 (6-14) 7 (6-14) Blood Urea Nitrogen 45 mg/dL (7-20) 51 mg/dL (7-20) Creatinine 2.9 mg/dL (0.6-1.0) 3.2 mg/dL (0.6-1.0) Estimated GFR (Cockcroft-Gault) 15.5 13.8 Glucose Level 93 mg/dL (70-99) 93 mg/dL (70-99) Calcium Level 8.5 mg/dL (8.5-10.1) 8.2 mg/dL (8.5-10.1) Total Bilirubin 4.7 mg/dL (0.2-1.0) 3.4 mg/dL (0.2-1.0) Direct Bilirubin 2.8 mg/dL (0.0-0.2) Aspartate Amino Transf (AST/SGOT) 452 U/L (15-37) 194 U/L (15-37) Alanine Aminotransferase (ALT/SGPT) 366 U/L (14-59) 231 U/L (14-59) Alkaline Phosphatase 244 U/L (46-116) 195 U/L (46-116) Total Protein 5.7 g/dL (6.4-8.2) 5.1 g/dL (6.4-8.2) Albumin 2.8 g/dL (3.4-5.0) 2.3 g/dL (3.4-5.0) Lipase 82 U/L (73-393) BUN/Creatinine Ratio 16 (6-20) Albumin/Globulin Ratio 0.8 (1.0-1.7) Reticulocyte Count (auto) 1.8 % (0.5-2.5) Iron Level 39 ug/dL (50-170) Total Iron Binding Capacity 219 ug/dL (250-450) Iron Saturation 18 % (15-34) Ferritin 425 ng/mL (8-252) Lactate Dehydrogenase 466 U/L (81-234) Prothrombin Time 16.0 SEC (11.7-14.0) Prothromb Time International Ratio 1.3 (0.8-1.1) Activated Partial Thromboplast Time 44 SEC (24-38) Assessment/Plan Assessment/Plan IMP FELIPE-NO CKD ANEMIA THROMBOCYTOPENIA HEMATURIA PROTEINURIA ABNORMAL LFTS'S PLAN HYDRATE HOLD HOME NAPROXEN AND ATACAND CONCERNED ABOUT ONE OF THE TMA'S HEME/ONC TO SEE PT RENAL MORPHOLOGY WNL ON CT WILL FOLLOW REID APPLE MD Jul 24, 2018 15:18
[2018-07-24 19:00] VITALS: BP 165/61
[2018-07-24 23:00] VITALS: BP 155/57
[2018-07-24] MEDS: ACETAMINOPHEN 500 MG TABLET PO PRN (23:10)
[2018-07-24] MEDS: ONDANSETRON PF 4 MG/2 ML VIAL. IV PRN (23:10)
[2018-07-25] MEDS: IV NORMAL SALINE 1000ML BAG 1,000 ML IV SCH ×2 (02:39→11:54)
--- NOTE | 2018-07-25 02:52 | CONS ---
DATE OF CONSULTATION: 07/24/2018 TYPE OF REPORT: GI consultation. REFERRING PHYSICIAN: Sabina Wagoner M.D. CHIEF COMPLAINT: Abnormal liver function studies and abdominal discomfort. HISTORY OF PRESENT ILLNESS: This is an 82-year-old female who has no prior history of liver test abnormalities and describes a negative colonoscopy in the recent past. She has had recently some vague abdominal discomfort, not really severe pain and recently has had apparently dark stools and some blood in her urine. She also had an episode of nausea and vomiting over the last 2 days with some emesis that they thought might be dark, but no obvious bleeding was noted. These are all new findings and at time of admission was found to have some critical labs including kidney dysfunction, a critically low platelet count of 21,000 with a hemoglobin of 8 and chemistries that showed a bilirubin of 4.7, direct is 2.8, AST of 452, ALT of 344, alkaline phosphatase of 244 with a normal lipase and an elevated lactate dehydrogenase of 466. Her iron studies were borderline low. We were asked to see her regarding these issues. She and the family deny any history of hepatitis or liver function abnormalities and this is supported by laboratories. In reviewing her liver function studies from 2 years ago, they were essentially normal. Also, the platelet count, which was dramatically abnormal on this admission was normal back in 2017. Her discomfort is mostly in the mid or lower abdomen. She denies fever, chills or previous jaundice. PAST MEDICAL HISTORY: Diabetes, hypertension, history of GERD, hyperlipidemia, and back pain. PAST SURGICAL HISTORY: Cholecystectomy and cataract extraction. ALLERGIES: PENICILLIN and MORPHINE. MEDICATIONS: Include Atacand, Norvasc, atorvastatin, pantoprazole, aspirin and Naprosyn which was recently started. FAMILY HISTORY: Noncontributory. SOCIAL HISTORY: Does not smoke. Does not drink regularly. REVIEW OF SYSTEMS: CONSTITUTIONAL: No fever or chills. HEENT: No headache or blurred vision. PULMONARY: No shortness of breath or productive cough. CARDIOVASCULAR: No chest pain or pedal edema. GENITOURINARY: She has had hematuria without dysuria. NEUROLOGICAL: Denies seizures or paralysis. MUSCULOSKELETAL: Does have a history of chronic arthritis. PHYSICAL EXAMINATION: GENERAL: She is awake and alert. HEENT: Mildly icteric. VITAL SIGNS: Blood pressure is 160/56, pulse 56, respirations 16 and she is afebrile. CHEST: Clear. HEART: Regular rate and rhythm. ABDOMEN: Bowel sounds are present, soft, very minimal tenderness in the right mid abdomen. No point tenderness, no masses and no rebound. No obvious bruising or ecchymoses. EXTREMITIES: No cyanosis, clubbing or edema. Again, no petechiae or bruising is noted. NEUROLOGICAL: Alert and oriented. No gross deficits. LABORATORY DATA: Hemoglobin 8; white blood cell count is 5500 and platelet count is 21,000 and elevated monocytes at 11% is noted. Chemistries show sodium 134. The rest of the electrolytes are normal. BUN is 51 and creatinine 3.2. Iron 39, saturation 18%. Bilirubin was 4.7, now 3.4. Liver functions otherwise elevated as mentioned above. IMAGING STUDIES: Included a CT scan of the abdomen and pelvis. This was done without contrast due to renal dysfunction. It reveals some atelectasis and small pleural effusions. Sigmoid diverticulosis without inflammatory change. No other masses are noted. In particular, the liver appeared normal. ASSESSMENT: 1. Elevated transaminases, bilirubin in a pattern that is nonspecific. It does not appear to show any features of acute viral hepatitis, but this certainly needs to be excluded. More likely, this could be a drug reaction, particularly when you are putting a perspective of a new thrombocytopenia. Also, her renal function is also abnormal as well and this apparently is new and could be reflective of the recent use of nonsteroidal anti-inflammatory drugs or some other underlying cause. 2. Nausea, vomiting and some what appears to be coffee-ground emesis. This is stable now and is likely related to some underlying viral illness, medications and the bleeding itself is more likely spontaneous from a profoundly low platelet count. Underlying gastritis or peptic disease certainly is possible and empiric treatment is recommended with Protonix or similar agent. PLAN: 1. Agree with hepatitis panel. 2. We will defer to Hematology regarding further workup of her dramatically abnormal platelet count. I am suspicious this may be a drug or bowel related illness. 3. We will monitor her labs, but we will hold on any further GI testing at this time. RACHAEL BUSTOS MD DR: FEDERICA/violet JOB#: [id number] / [id number]
[2018-07-25 03:20] VITALS: BP 150/66
[2018-07-25 05:05] LABS: HEMATOCRIT 22.4 % (36.0-47.0); HEMOGLOBIN 7.5 g/dL (12.0-15.5); RED BLOOD COUNT 2.4 x10^6/uL (3.50-5.40); RED CELL DISTRIBUTION WIDTH 14.4 % (11.5-14.5); WHITE BLOOD COUNT 6.1 x10^3/uL (4.0-11.0)
[2018-07-25 05:34] LABS: ALBUMIN 2.2 g/dL (3.4-5.0); CALCIUM 7.4 mg/dL (8.5-10.1); CREATININE 3.3 mg/dL (0.6-1.0); GFR 13.3; POTASSIUM 4.2 mmol/L (3.5-5.1); TOTAL BILIRUBIN 1.7 mg/dL (0.2-1.0); TOTAL PROTEIN 4.4 g/dL (6.4-8.2)
--- NOTE | 2018-07-25 05:34 | CONS ---
DATE OF CONSULTATION: 07/24/2018 HEMATOLOGY ONCOLOGY CONSULTATION REQUESTING PHYSICIAN: Dr. Sabina Wagoner. REASON FOR CONSULTATION: Thrombocytopenia, anemia, elevated liver function tests and renal failure. HISTORY OF PRESENT ILLNESS: The patient is an 82-year-old female who reports having had back pain and she was evaluated by Dr. Nikko Pedraza in May 2018 and she was started on naproxen twice a day. She started developing abdominal discomfort, which is getting progressively worse, particularly in the right upper quadrant and hence, she stopped taking naproxen on 07/22/2018. She started noticing dark urine and possible hematuria. She has had nausea and vomiting. She denies any burning urination. She underwent evaluation in the Emergency Room on 07/23/2018, which revealed a hemoglobin of 8.8 with a platelet count of 27,000 and her liver function tests were significantly elevated with a total bilirubin of 4.7, direct bilirubin of 2.8, AST 452, ALT 366 and alkaline phosphatase of 244 with a total protein of 5.7 and albumin 2.8 and LDH of 466. Her creatinine was also elevated at 2.9 with a BUN of 45. I was asked to see the patient for further evaluation of thrombocytopenia. She denies hematemesis, melena or hematochezia. No hemoptysis. No significant loss of weight or loss of appetite. No fevers, chills or night sweats. PAST MEDICAL HISTORY: Diabetes, hypercholesterolemia, hypertension, cataracts. SOCIAL HISTORY: No smoking or alcohol abuse. FAMILY HISTORY: Positive for breast cancer in her sister. REVIEW OF SYSTEMS: A 12-point review of system was performed. Pertinent positives are mentioned in the history of present illness. Rest of the system review is negative. PHYSICAL EXAMINATION: GENERAL APPEARANCE: The patient is an 82-year-old female who is in no acute cardiorespiratory distress. VITAL SIGNS: Blood pressure 160/56, temperature 98.2, heart rate is 56. HEENT: Head: Atraumatic, normocephalic. Eyes: She has evidence of icterus. NECK: Supple. CHEST: Bilaterally symmetrical. No crepitations or rhonchi heard. HEART: S1, S2 normal. ABDOMEN: Soft. No tenderness, guarding or rigidity. No hepatosplenomegaly. CENTRAL NERVOUS SYSTEM: No focal deficits. LYMPHATICS: No lymphadenopathy. SKIN: No rashes. PSYCHOLOGIC: Mood and affect are appropriate. LABORATORY DATA: Her WBC and platelet counts were normal in May 2018. I reviewed the records from Dr. Sabina Wagoner. CBC on 07/23/2018 revealed a WBC of 7.6, hemoglobin 8.8, platelet count 27 and a followup CBC on 07/24/2018 revealed a hemoglobin of 8, platelet count 21 with a retic count of 1.8. Review of the chemistry revealed a creatinine of 2.9 on 07/23/2018 and 3.2 on 07/24/2018. Liver function tests on 07/23/2018 revealed a total bilirubin of 4.7, direct bilirubin of 2.8, AST 452, ALT 366, alkaline phosphatase 244, total protein of 5.7, albumin 2.8. Followup liver function tests on 07/24/2018 showed improvement with a total bilirubin of 3.4, AST 194, ALT 231, alkaline phosphatase is 195, total protein 5.1, albumin 2.3. LDH 466, ferritin 425. Iron 39, TIBC 219, iron saturation 18, ferritin 425. IMPRESSION AND PLAN: 1. Acute thrombocytopenia. Platelet counts were normal in May 2018. Reticulocyte count is normal and hence, I do not suspect a hemolytic process. I do not suspect thrombotic thrombocytopenic purpura or disseminated intravascular coagulation. Peripheral smear does not reveal any evidence of immature white cells or fragmented red cells. No clinical evidence of disseminated intravascular coagulation. I suspect the acute thrombocytopenia is a side effect of naproxen. She also has associated renal failure and hepatic failure, which could also be related to naproxen. Liver function tests have already been improving since the discontinuation of naproxen on 07/22/2018. I would continue to monitor for bleeding. There is no active bleeding at this time and hence, I would not transfuse platelets. I do not suspect a primary bone marrow disorder and hence, I will defer bone marrow biopsy for now. I discussed with Dr. Sabina Wagoner and I discussed with multiple family members. 2. Anemia. The patient has mild chronic anemia. Hemoglobin in May 2018 was about 10.2. I would continue to monitor iron studies performed on 07/24/2018 suggestive of anemia of chronic disease. I would continue to monitor. 3. B12 deficiency. Her B12 was 164 on 05/05/2016. I will check her B12 level today and if it is still low, I will initiate B12 supplementation. 4. Acute renal failure, which I suspect is due to naproxen. I agree to consult Nephrology to evaluate for other reasons. 5. Acute hepatitis, which I suspect is also likely from naproxen. However, I would consult Gastroenterology for an opinion. LUIGI BETTS MD DR: BIBI/violet JOB#: [id number] / [id number] SABINA Martinez MD
[2018-07-25] MEDS: PANTOPRAZOLE 40 MG TABLET.DR. PO SCH (07:27)
[2018-07-25] MEDS: ACETAMINOPHEN 500 MG TABLET PO PRN ×2 (07:27→21:44)
[2018-07-25 07:40] VITALS: BP 166/69
[2018-07-25] MEDS: LOSARTAN POTASSIUM 50 MG TABLET. PO SCH (09:17)
[2018-07-25] MEDS: amLODIPine BESYLATE 5 MG TABLET PO SCH (09:17)
[2018-07-25] MEDS: PSYLLIUM HUSK (SUGAR FREE) 1 PKT PACKET PO SCH (09:18)
[2018-07-25] MEDS: METOPROLOL SUCC 24HR ER 25 MG TAB.ER.24H. PO SCH (09:18)
[2018-07-25] MEDS ORDERED: MAGNESIUM HYDROXIDE 2,400 MG/30 ML ORAL.SUSP. PO PRN (10:15)
--- NOTE | 2018-07-25 10:22 | PDOC ---
GI PROGRESS NOTES Date Date/Time DATE: 07/25/18 TIME: 10:15 Subjective Subjective feeling better- still with some abd bloating and poor appetite but no n/v NO BM yet agree with Heme and Renal- likely drug reaction/side effect from Naprosyn including likely gastritis or PUD but such liver abnormalities are a little unusual Objective Vitals Vital Signs Date Time Temp Pulse Resp B/P (MAP) Pulse Ox O2 Delivery O2 Flow Rate FiO2 07/25/18 09:18 62 166/69 07/25/18 09:17 62 166/69 07/25/18 09:17 62 166/69 07/25/18 08:00 Room Air 07/25/18 07:40 97.7 62 20 166/69 (101) 95 Room Air 97.7 07/25/18 03:20 98.4 65 20 150/66 (94) 96 Room Air 98.4 07/24/18 23:00 97.9 69 20 155/57 (89) 95 Room Air 97.9 07/24/18 20:26 Room Air 07/24/18 19:00 98.3 62 20 165/61 (95) 95 Room Air 98.3 07/24/18 15:18 62 141/57 07/24/18 15:00 98.3 62 16 141/57 (85) 93 Room Air 98.3 07/24/18 12:25 56 160/56 07/24/18 12:24 56 160/56 07/24/18 11:00 98.2 56 16 160/56 (90) 93 Room Air 98.2 Labs Labs Laboratory Tests Test 07/24/18 12:35 07/25/18 04:25 07/25/18 05:00 07/25/18 07:57 Prothrombin Time 16.0 SEC (11.7-14.0) Prothromb Time International Ratio 1.3 (0.8-1.1) Activated Partial Thromboplast Time 44 SEC (24-38) Sodium Level 135 mmol/L (136-145) Potassium Level 4.2 mmol/L (3.5-5.1) Chloride Level 103 mmol/L (98-107) Carbon Dioxide Level 22 mmol/L (21-32) Anion Gap 10 (6-14) Blood Urea Nitrogen 52 mg/dL (7-20) Creatinine 3.3 mg/dL (0.6-1.0) Estimated GFR (Cockcroft-Gault) 13.3 BUN/Creatinine Ratio 16 (6-20) Glucose Level 98 mg/dL (70-99) Calcium Level 7.4 mg/dL (8.5-10.1) Magnesium Level 1.8 mg/dL (1.8-2.4) Total Bilirubin 1.7 mg/dL (0.2-1.0) Aspartate Amino Transf (AST/SGOT) 72 U/L (15-37) Alanine Aminotransferase (ALT/SGPT) 141 U/L (14-59) Alkaline Phosphatase 162 U/L (46-116) Lactate Dehydrogenase 344 U/L (81-234) Total Protein 4.4 g/dL (6.4-8.2) Albumin 2.2 g/dL (3.4-5.0) Albumin/Globulin Ratio 1.0 (1.0-1.7) White Blood Count 6.1 x10^3/uL (4.0-11.0) Red Blood Count 2.40 x10^6/uL (3.50-5.40) Hemoglobin 7.5 g/dL (12.0-15.5) Hematocrit 22.4 % (36.0-47.0) Mean Corpuscular Volume 93 fL (79-100) Mean Corpuscular Hemoglobin 31 pg (25-35) Mean Corpuscular Hemoglobin Concent 34 g/dL (31-37) Red Cell Distribution Width 14.4 % (11.5-14.5) Platelet Count 32 x10^3/uL (140-400) Glucose (Fingerstick) 90 mg/dL (70-99) Physical Exam Physical Exam chest- clear abd- soft mildly distended only mildly tender upper abd o/w normal - good bowel sounds Assessment Assessment acute LFT abnormal with thrombocytopenia and ARF - etiology unclear but suggests drug ( Naprosyn) or viral cause- CT was negative- await hepatitis profile but expect likely negative- recheck lfts in AM Dyspepsia- likely NSAIDS related gastritis or PUD- treat with PPI and stop NSAIDs- holding on EGD due to severe thrombocytopenia- but if not improved, would consider EGD once platelets over 40K Plan Plan recheck LFTs monitor RACHAEL BUSTOS MD Jul 25, 2018 10:22
[2018-07-25 10:47] VITALS: BP 147/66
--- NOTE | 2018-07-25 11:35 | PDOC ---
PROGRESS NOTES Subjective Subjective HPI - f/u of Acute thrombocytopenia ROS - had bloating and abd discomfort Objective Objective Vital Signs Date Time Temp Pulse Resp B/P (MAP) Pulse Ox O2 Delivery O2 Flow Rate FiO2 07/25/18 10:47 97.9 66 16 147/66 (93) 96 Room Air 97.9 Intake and Output 07/25/18 07:01 Intake Total 460 ml Output Total 300 ml Balance 160 ml Intake Oral 460 ml Output Urine Total 300 ml # Voids 4 Physical Exam Heart: Normal S1, Normal S2 General: Alert, Oriented X3 Lungs: Clear to auscultation Neuro: Normal speech Psych/Mental Status: Mental status NL Assessment Assessment Problems Medical Problems: (1) Acute kidney injury Status: Acute (2) Anemia Status: Acute (3) Thrombocytopenia Status: Acute IMPRESSION AND PLAN: 1. Acute thrombocytopenia. Platelet counts were normal in May 2018. Reticulocyte count is normal and hence, I do not suspect a hemolytic process. I do not suspect thrombotic thrombocytopenic purpura or disseminated intravascular coagulation. Peripheral smear does not reveal any evidence of immature white cells or fragmented red cells. No clinical evidence of disseminated intravascular coagulation. I suspect the acute thrombocytopenia is a side effect of naproxen. She also has associated renal failure and hepatic failure, which could also be related to naproxen. Liver function tests have already been improving since the discontinuation of naproxen on 07/22/2018. I would continue to monitor for bleeding. There is no active bleeding at this time and hence, I would not transfuse platelets. I do not suspect a primary bone marrow disorder and hence, I will defer bone marrow biopsy for now. I discussed with Dr. Sabina Wagoner and I discussed with multiple family members. Plt better at 32 on 07/25/18 2. Anemia. The patient has mild chronic anemia. Hemoglobin in May 2018 was about 10.2. I would continue to monitor iron studies performed on 07/24/2018 suggestive of anemia of chronic disease. I would continue to monitor. Hb 7.5, Retic 1.8 (hence no hemolysis), Low haptoglobin and mildly elevated LDH due to hepatitis. 3. B12 deficiency. Her B12 was 164 on 05/05/2016. Now normal. 4. Acute renal failure, which I suspect is due to naproxen. I d/w Dr Perdomo. 5. Acute hepatitis, which I suspect is also likely from naproxen. I d/w Dr Alford. Improving. Comment Review of Relevant I have reviewed the following items karen (where applicable) has been applied. Labs Laboratory Tests Test 07/23/18 14:57 07/23/18 15:40 07/24/18 04:05 07/24/18 07:00 Urine Collection Type U cath Urine Color [place] Urine Clarity Cloudy Urine pH 5.5 Urine Specific [place] >=1.030 Urine Protein >=300 mg/dL (NEG-TRACE) Urine Glucose (UA) Negative mg/dL (NEG) Urine Ketones (Stick) Trace mg/dL (NEG) Urine Blood Large (NEG) Urine Nitrite (NEG) Urine Bilirubin Large (NEG) Urine Urobilinogen Dipstick 1.0 mg/dL (0.2 mg/dL) Urine Leukocyte Esterase (NEG) Urine RBC 6-10 /HPF (0-2) Urine WBC Occ /HPF (0-4) Urine Bacteria Few /HPF (0-FEW) Urine Granular Casts Occasional /HPF Urine Mucus Slight /LPF White Blood Count 7.6 x10^3/uL (4.0-11.0) 5.5 x10^3/uL (4.0-11.0) Red Blood Count 2.77 x10^6/uL (3.50-5.40) 2.53 x10^6/uL (3.50-5.40) Hemoglobin 8.8 g/dL (12.0-15.5) 8.0 g/dL (12.0-15.5) Hematocrit 25.5 % (36.0-47.0) 23.5 % (36.0-47.0) Mean Corpuscular Volume 92 fL (79-100) 93 fL (79-100) Mean Corpuscular Hemoglobin 32 pg (25-35) 32 pg (25-35) Mean Corpuscular Hemoglobin Concent 35 g/dL (31-37) 34 g/dL (31-37) Red Cell Distribution Width 14.0 % (11.5-14.5) 14.2 % (11.5-14.5) Platelet Count 27 x10^3/uL (140-400) 21 x10^3/uL (140-400) Neutrophils (%) (Auto) 81 % (31-73) 72 % (31-73) Lymphocytes (%) (Auto) 9 % (24-48) 14 % (24-48) Monocytes (%) (Auto) 9 % (0-9) 11 % (0-9) Eosinophils (%) (Auto) 1 % (0-3) 4 % (0-3) Basophils (%) (Auto) 0 % (0-3) 0 % (0-3) Neutrophils # (Auto) 6.1 x10^3uL (1.8-7.7) 3.9 x10^3uL (1.8-7.7) Lymphocytes # (Auto) 0.7 x10^3/uL (1.0-4.8) 0.8 x10^3/uL (1.0-4.8) Monocytes # (Auto) 0.7 x10^3/uL (0.0-1.1) 0.6 x10^3/uL (0.0-1.1) Eosinophils # (Auto) 0.1 x10^3/uL (0.0-0.7) 0.2 x10^3/uL (0.0-0.7) Basophils # (Auto) 0.0 x10^3/uL (0.0-0.2) 0.0 x10^3/uL (0.0-0.2) Platelet Estimate Decreased (ADEQUATE) Sodium Level 134 mmol/L (136-145) 134 mmol/L (136-145) Potassium Level 5.0 mmol/L (3.5-5.1) 4.3 mmol/L (3.5-5.1) Chloride Level 97 mmol/L (98-107) 101 mmol/L (98-107) Carbon Dioxide Level 27 mmol/L (21-32) 26 mmol/L (21-32) Anion Gap 10 (6-14) 7 (6-14) Blood Urea Nitrogen 45 mg/dL (7-20) 51 mg/dL (7-20) Creatinine 2.9 mg/dL (0.6-1.0) 3.2 mg/dL (0.6-1.0) Estimated GFR (Cockcroft-Gault) 15.5 13.8 Glucose Level 93 mg/dL (70-99) 93 mg/dL (70-99) Calcium Level 8.5 mg/dL (8.5-10.1) 8.2 mg/dL (8.5-10.1) Total Bilirubin 4.7 mg/dL (0.2-1.0) 3.4 mg/dL (0.2-1.0) Direct Bilirubin 2.8 mg/dL (0.0-0.2) Aspartate Amino Transf (AST/SGOT) 452 U/L (15-37) 194 U/L (15-37) Alanine Aminotransferase (ALT/SGPT) 366 U/L (14-59) 231 U/L (14-59) Alkaline Phosphatase 244 U/L (46-116) 195 U/L (46-116) Total Protein 5.7 g/dL (6.4-8.2) 5.1 g/dL (6.4-8.2) Albumin 2.8 g/dL (3.4-5.0) 2.3 g/dL (3.4-5.0) Lipase 82 U/L (73-393) BUN/Creatinine Ratio 16 (6-20) Albumin/Globulin Ratio 0.8 (1.0-1.7) Reticulocyte Count (auto) 1.8 % (0.5-2.5) Haptoglobin <10 mg/dL (34-200) Iron Level 39 ug/dL (50-170) Total Iron Binding Capacity 219 ug/dL (250-450) Iron Saturation 18 % (15-34) Ferritin 425 ng/mL (8-252) Lactate Dehydrogenase 466 U/L (81-234) Vitamin B12 Level 1124 pg/mL (232-1245) Test 07/24/18 12:35 07/25/18 04:25 07/25/18 05:00 07/25/18 07:57 Prothrombin Time 16.0 SEC (11.7-14.0) Prothromb Time International Ratio 1.3 (0.8-1.1) Activated Partial Thromboplast Time 44 SEC (24-38) Sodium Level 135 mmol/L (136-145) Potassium Level 4.2 mmol/L (3.5-5.1) Chloride Level 103 mmol/L (98-107) Carbon Dioxide Level 22 mmol/L (21-32) Anion Gap 10 (6-14) Blood Urea Nitrogen 52 mg/dL (7-20) Creatinine 3.3 mg/dL (0.6-1.0) Estimated GFR (Cockcroft-Gault) 13.3 BUN/Creatinine Ratio 16 (6-20) Glucose Level 98 mg/dL (70-99) Calcium Level 7.4 mg/dL (8.5-10.1) Magnesium Level 1.8 mg/dL (1.8-2.4) Total Bilirubin 1.7 mg/dL (0.2-1.0) Aspartate Amino Transf (AST/SGOT) 72 U/L (15-37) Alanine Aminotransferase (ALT/SGPT) 141 U/L (14-59) Alkaline Phosphatase 162 U/L (46-116) Lactate Dehydrogenase 344 U/L (81-234) Total Protein 4.4 g/dL (6.4-8.2) Albumin 2.2 g/dL (3.4-5.0) Albumin/Globulin Ratio 1.0 (1.0-1.7) White Blood Count 6.1 x10^3/uL (4.0-11.0) Red Blood Count 2.40 x10^6/uL (3.50-5.40) Hemoglobin 7.5 g/dL (12.0-15.5) Hematocrit 22.4 % (36.0-47.0) Mean Corpuscular Volume 93 fL (79-100) Mean Corpuscular Hemoglobin 31 pg (25-35) Mean Corpuscular Hemoglobin Concent 34 g/dL (31-37) Red Cell Distribution Width 14.4 % (11.5-14.5) Platelet Count 32 x10^3/uL (140-400) Glucose (Fingerstick) 90 mg/dL (70-99) Laboratory Tests Test 07/24/18 12:35 07/25/18 04:25 07/25/18 05:00 07/25/18 07:57 Prothrombin Time 16.0 SEC (11.7-14.0) Prothromb Time International Ratio 1.3 (0.8-1.1) Activated Partial Thromboplast Time 44 SEC (24-38) Sodium Level 135 mmol/L (136-145) Potassium Level 4.2 mmol/L (3.5-5.1) Chloride Level 103 mmol/L (98-107) Carbon Dioxide Level 22 mmol/L (21-32) Anion Gap 10 (6-14) Blood Urea Nitrogen 52 mg/dL (7-20) Creatinine 3.3 mg/dL (0.6-1.0) Estimated GFR (Cockcroft-Gault) 13.3 BUN/Creatinine Ratio 16 (6-20) Glucose Level 98 mg/dL (70-99) Calcium Level 7.4 mg/dL (8.5-10.1) Magnesium Level 1.8 mg/dL (1.8-2.4) Total Bilirubin 1.7 mg/dL (0.2-1.0) Aspartate Amino Transf (AST/SGOT) 72 U/L (15-37) Alanine Aminotransferase (ALT/SGPT) 141 U/L (14-59) Alkaline Phosphatase 162 U/L (46-116) Lactate Dehydrogenase 344 U/L (81-234) Total Protein 4.4 g/dL (6.4-8.2) Albumin 2.2 g/dL (3.4-5.0) Albumin/Globulin Ratio 1.0 (1.0-1.7) White Blood Count 6.1 x10^3/uL (4.0-11.0) Red Blood Count 2.40 x10^6/uL (3.50-5.40) Hemoglobin 7.5 g/dL (12.0-15.5) Hematocrit 22.4 % (36.0-47.0) Mean Corpuscular Volume 93 fL (79-100) Mean Corpuscular Hemoglobin 31 pg (25-35) Mean Corpuscular Hemoglobin Concent 34 g/dL (31-37) Red Cell Distribution Width 14.4 % (11.5-14.5) Platelet Count 32 x10^3/uL (140-400) Glucose (Fingerstick) 90 mg/dL (70-99) Medications Current Medications Iohexol (Omnipaque 300 Mg/ml) 75 ml 1X ONCE IV ; Start 07/23/18 at 16:15; Stop 07/23/18 at 16:16; Status DC Info (CONTRAST GIVEN -- Rx MONITORING) 1 each PRN DAILY PRN MC SEE COMMENTS; Start 07/23/18 at 16:15; Stop 07/25/18 at 16:14 Ondansetron HCl (Zofran) 4 mg PRN Q8HRS PRN IV NAUSEA/VOMITING Last administered on 07/23/18at 20:56; Start 07/23/18 at 17:45; Stop 07/24/18 at 17:44 ; Status DC Morphine Sulfate (Morphine Sulfate) 2 mg PRN Q2HR PRN IV PAIN; Start 07/23/18 at 17:45; Stop 07/23/18 at 17:45; Status DC Sodium Chloride 1,000 ml @ 100 mls/hr Q10H IV Last administered on 07/23/18at 20:57; Start 07/23/18 at 17:32; Stop 07/23/18 at 23:31; Status DC Acetaminophen (Tylenol) 1,000 mg PRN Q6HRS PRN PO MILD PAIN / TEMP Last administered on 07/25/18 07:27; Start 07/23/18 at 21:30 Sodium Chloride 1,000 ml @ 100 mls/hr Q10H IV Last administered on 07/25/18 02:39; Start 07/24/18 at 11:45 Amlodipine Besylate (Norvasc) 5 mg DAILY PO Last administered on 07/25/18 09: 17; Start 07/24/18 at 12:30 Metoprolol Succinate (Toprol Xl) 25 mg DAILY PO Last administered on 07/25/18 09:18; Start 07/24/18 at 12:30 Pantoprazole Sodium (Protonix) 40 mg DAILYAC PO Last administered on 07/25/18 07:27; Start 07/24/18 at 12:30 Losartan Potassium (Cozaar) 100 mg DAILY PO Last administered on 07/25/18 09: 17; Start 07/24/18 at 12:30 Psyllium Hydrophilic Mucilloid (Metamucil Fiber Packet) 1 pkt DAILY PO Last administered on 07/25/18 09:18; Start 07/24/18 at 16:00 Ondansetron HCl (Zofran) 4 mg PRN Q8HRS PRN IV NAUSEA/VOMITING Last administered on 07/24/18at 23:10; Start 07/24/18 at 23:15 Magnesium Hydroxide (Milk Of Magnesia) 2,400 mg PRN DAILY PRN PO CONSTIPATION; Start 07/25/18 at 10:15 Active Scripts Active Naprosyn (Naproxen) 500 Mg Tablet 1 Tab PO BID Metoprolol Succinate ( Xl ) (Metoprolol Succinate) 25 Mg Tab.er.24h 1 Tab PO DAILY 30 Days Atacand (Candesartan Cilexetil) 32 Mg Tablet 1 Tab PO DAILY 30 Days Amlodipine Besylate 5 Mg Tablet 5 Mg PO DAILY Foltx Tablet (B12/Levomefolate Calcium/B-6) 1 Each Tablet 1 Each PO DAILY Reported Aspirin 325 Mg Tablet 1 Tab PO DAILY Atorvastatin Calcium 10 Mg Tablet 10 Mg PO HS Pantoprazole Sodium 40 Mg Tablet.dr 40 Mg PO DAILY Vitals/I & O Vital Sign - Last 24 Hours 07/24/18 07/24/18 07/24/18 07/24/18 12:24 12:25 15:00 15:18 Temp 98.3 98.3 Pulse 56 56 62 62 Resp 16 B/P (MAP) 160/56 160/56 141/57 (85) 141/57 Pulse Ox 93 O2 Delivery Room Air 07/24/18 07/24/18 07/24/18 07/25/18 19:00 20:26 23:00 03:20 Temp 98.3 97.9 98.4 98.3 97.9 98.4 Pulse 62 69 65 Resp 20 20 20 B/P (MAP) 165/61 (95) 155/57 (89) 150/66 (94) Pulse Ox 95 95 96 O2 Delivery Room Air Room Air Room Air Room Air 07/25/18 07/25/18 07/25/18 07/25/18 07:40 08:00 09:17 09:17 Temp 97.7 97.7 Pulse 62 62 62 Resp 20 B/P (MAP) 166/69 (101) 166/69 166/69 Pulse Ox 95 O2 Delivery Room Air Room Air 07/25/18 07/25/18 09:18 10:47 Temp 97.9 97.9 Pulse 62 66 Resp 16 B/P (MAP) 166/69 147/66 (93) Pulse Ox 96 O2 Delivery Room Air Intake and Output 07/24/18 07/24/18 07/25/18 15:01 23:01 07:01 Intake Total 220 ml 240 ml Output Total 300 ml Balance 220 ml 240 ml -300 ml LUIGI BETTS MD Jul 25, 2018 11:35
--- NOTE | 2018-07-25 11:43 | PDOC ---
Renal-Progress Notes Subjective Notes Notes NONE History of Present Illness Hx of present illness STABLE Vitals Vitals Vital Signs Date Time Temp Pulse Resp B/P (MAP) Pulse Ox O2 Delivery O2 Flow Rate FiO2 07/25/18 10:47 97.9 66 16 147/66 (93) 96 Room Air 97.9 Weight Weight [ ] I.O. Intake and Output Intake and Output 07/25/18 07:01 Intake Total 460 ml Output Total 300 ml Balance 160 ml Intake Oral 460 ml Output Urine Total 300 ml # Voids 4 Labs Labs Laboratory Tests Test 07/24/18 12:35 07/25/18 04:25 07/25/18 05:00 07/25/18 07:57 Prothrombin Time 16.0 SEC (11.7-14.0) Prothromb Time International Ratio 1.3 (0.8-1.1) Activated Partial Thromboplast Time 44 SEC (24-38) Sodium Level 135 mmol/L (136-145) Potassium Level 4.2 mmol/L (3.5-5.1) Chloride Level 103 mmol/L (98-107) Carbon Dioxide Level 22 mmol/L (21-32) Anion Gap 10 (6-14) Blood Urea Nitrogen 52 mg/dL (7-20) Creatinine 3.3 mg/dL (0.6-1.0) Estimated GFR (Cockcroft-Gault) 13.3 BUN/Creatinine Ratio 16 (6-20) Glucose Level 98 mg/dL (70-99) Calcium Level 7.4 mg/dL (8.5-10.1) Magnesium Level 1.8 mg/dL (1.8-2.4) Total Bilirubin 1.7 mg/dL (0.2-1.0) Aspartate Amino Transf (AST/SGOT) 72 U/L (15-37) Alanine Aminotransferase (ALT/SGPT) 141 U/L (14-59) Alkaline Phosphatase 162 U/L (46-116) Lactate Dehydrogenase 344 U/L (81-234) Total Protein 4.4 g/dL (6.4-8.2) Albumin 2.2 g/dL (3.4-5.0) Albumin/Globulin Ratio 1.0 (1.0-1.7) White Blood Count 6.1 x10^3/uL (4.0-11.0) Red Blood Count 2.40 x10^6/uL (3.50-5.40) Hemoglobin 7.5 g/dL (12.0-15.5) Hematocrit 22.4 % (36.0-47.0) Mean Corpuscular Volume 93 fL (79-100) Mean Corpuscular Hemoglobin 31 pg (25-35) Mean Corpuscular Hemoglobin Concent 34 g/dL (31-37) Red Cell Distribution Width 14.4 % (11.5-14.5) Platelet Count 32 x10^3/uL (140-400) Glucose (Fingerstick) 90 mg/dL (70-99) Review of Systems Constitutional: yes: weakness, alert, oriented Ears/Nose/Throat: Yes: no symptom reported Pulmonary: Yes no symptom reported Cardiovascular: Yes no symptom reported Gastrointestional: Yes: no symptom reported Genitourinary: Yes: hematuria Musculoskeletal: Yes: no symptom reported Skin: Yes no symptom reported Endocrine: Yes: no symptom reported Physical Exam General Appearance: no apparent distress Skin: warm Respiratory: bilateral CTA Heart: S1S2, RRR Abdomen: soft Genitourinary: bladder flat Extremities: pulses present Neurology: alert, oriented Assessment Assessment IMP FELIPE DUE TO NSAID AND ARB-NO CKD NOTED-CR AT 3.3 INCREASED LFTS'S DUE TO NSAIDS - BETTER HEMATURIA DUE TO ABOVE THROMBOCYTOPENIA PLAN AVOID NSAIDS STOP HER ARB ADD NORVASC IVF'S TO CONTINUE D/W ATTENDING WILL FOLLOW HEME/ONC FOLLOWING REID APPLE MD Jul 25, 2018 11:43
[2018-07-25] MEDS: BISACODYL 5 MG TABLET.DR. PO PRN (12:38)
--- NOTE | 2018-07-25 12:43 | PDOC ---
PROGRESS NOTES Subjective Subjective Patient reports abdominal bloating as no BM yet. Objective Objective Vital Signs Date Time Temp Pulse Resp B/P (MAP) Pulse Ox O2 Delivery O2 Flow Rate FiO2 07/25/18 10:47 97.9 66 16 147/66 (93) 96 Room Air 97.9 Intake and Output 07/25/18 07:01 Intake Total 460 ml Output Total 300 ml Balance 160 ml Intake Oral 460 ml Output Urine Total 300 ml # Voids 4 Physical Exam Abdomen: Normal bowel sounds, Soft, No tenderness Heart: Regular rate Extremities: No edema General: Alert, Oriented X3, No acute distress Lungs: Clear to auscultation Assessment Assessment Problems Medical Problems: (1) Acute kidney injury Status: Acute (2) Anemia Status: Acute (3) Thrombocytopenia Status: Acute Plan Plan of Care 1. Acute renal failure - lab stable but not much improvement, continue IVF per Renal. Holding ARB. 2. Acute hepatic failure - lab much improved. Hepatitis panel pending. 3. Thrombocytopenia - mildly better on lab. Dr Rosales following, feels Naprosyn may have caused her present problems. No evidence of active bleeding at this time. 4. constipation - continue fiber daily and add Dulcolax prn. 5. HTN - BP elevated without her ARB, will increase Amlodipine and follow. Comment Review of Relevant I have reviewed the following items karen (where applicable) has been applied. Labs Laboratory Tests Test 07/23/18 14:57 07/23/18 15:40 07/24/18 04:05 07/24/18 07:00 Urine Collection Type U cath Urine Color [place] Urine Clarity Cloudy Urine pH 5.5 Urine Specific [place] >=1.030 Urine Protein >=300 mg/dL (NEG-TRACE) Urine Glucose (UA) Negative mg/dL (NEG) Urine Ketones (Stick) Trace mg/dL (NEG) Urine Blood Large (NEG) Urine Nitrite (NEG) Urine Bilirubin Large (NEG) Urine Urobilinogen Dipstick 1.0 mg/dL (0.2 mg/dL) Urine Leukocyte Esterase (NEG) Urine RBC 6-10 /HPF (0-2) Urine WBC Occ /HPF (0-4) Urine Bacteria Few /HPF (0-FEW) Urine Granular Casts Occasional /HPF Urine Mucus Slight /LPF White Blood Count 7.6 x10^3/uL (4.0-11.0) 5.5 x10^3/uL (4.0-11.0) Red Blood Count 2.77 x10^6/uL (3.50-5.40) 2.53 x10^6/uL (3.50-5.40) Hemoglobin 8.8 g/dL (12.0-15.5) 8.0 g/dL (12.0-15.5) Hematocrit 25.5 % (36.0-47.0) 23.5 % (36.0-47.0) Mean Corpuscular Volume 92 fL (79-100) 93 fL (79-100) Mean Corpuscular Hemoglobin 32 pg (25-35) 32 pg (25-35) Mean Corpuscular Hemoglobin Concent 35 g/dL (31-37) 34 g/dL (31-37) Red Cell Distribution Width 14.0 % (11.5-14.5) 14.2 % (11.5-14.5) Platelet Count 27 x10^3/uL (140-400) 21 x10^3/uL (140-400) Neutrophils (%) (Auto) 81 % (31-73) 72 % (31-73) Lymphocytes (%) (Auto) 9 % (24-48) 14 % (24-48) Monocytes (%) (Auto) 9 % (0-9) 11 % (0-9) Eosinophils (%) (Auto) 1 % (0-3) 4 % (0-3) Basophils (%) (Auto) 0 % (0-3) 0 % (0-3) Neutrophils # (Auto) 6.1 x10^3uL (1.8-7.7) 3.9 x10^3uL (1.8-7.7) Lymphocytes # (Auto) 0.7 x10^3/uL (1.0-4.8) 0.8 x10^3/uL (1.0-4.8) Monocytes # (Auto) 0.7 x10^3/uL (0.0-1.1) 0.6 x10^3/uL (0.0-1.1) Eosinophils # (Auto) 0.1 x10^3/uL (0.0-0.7) 0.2 x10^3/uL (0.0-0.7) Basophils # (Auto) 0.0 x10^3/uL (0.0-0.2) 0.0 x10^3/uL (0.0-0.2) Platelet Estimate Decreased (ADEQUATE) Sodium Level 134 mmol/L (136-145) 134 mmol/L (136-145) Potassium Level 5.0 mmol/L (3.5-5.1) 4.3 mmol/L (3.5-5.1) Chloride Level 97 mmol/L (98-107) 101 mmol/L (98-107) Carbon Dioxide Level 27 mmol/L (21-32) 26 mmol/L (21-32) Anion Gap 10 (6-14) 7 (6-14) Blood Urea Nitrogen 45 mg/dL (7-20) 51 mg/dL (7-20) Creatinine 2.9 mg/dL (0.6-1.0) 3.2 mg/dL (0.6-1.0) Estimated GFR (Cockcroft-Gault) 15.5 13.8 Glucose Level 93 mg/dL (70-99) 93 mg/dL (70-99) Calcium Level 8.5 mg/dL (8.5-10.1) 8.2 mg/dL (8.5-10.1) Total Bilirubin 4.7 mg/dL (0.2-1.0) 3.4 mg/dL (0.2-1.0) Direct Bilirubin 2.8 mg/dL (0.0-0.2) Aspartate Amino Transf (AST/SGOT) 452 U/L (15-37) 194 U/L (15-37) Alanine Aminotransferase (ALT/SGPT) 366 U/L (14-59) 231 U/L (14-59) Alkaline Phosphatase 244 U/L (46-116) 195 U/L (46-116) Total Protein 5.7 g/dL (6.4-8.2) 5.1 g/dL (6.4-8.2) Albumin 2.8 g/dL (3.4-5.0) 2.3 g/dL (3.4-5.0) Lipase 82 U/L (73-393) BUN/Creatinine Ratio 16 (6-20) Albumin/Globulin Ratio 0.8 (1.0-1.7) Reticulocyte Count (auto) 1.8 % (0.5-2.5) Haptoglobin <10 mg/dL (34-200) Iron Level 39 ug/dL (50-170) Total Iron Binding Capacity 219 ug/dL (250-450) Iron Saturation 18 % (15-34) Ferritin 425 ng/mL (8-252) Lactate Dehydrogenase 466 U/L (81-234) Vitamin B12 Level 1124 pg/mL (232-1245) Test 07/24/18 12:35 07/25/18 04:25 07/25/18 05:00 07/25/18 07:57 Prothrombin Time 16.0 SEC (11.7-14.0) Prothromb Time International Ratio 1.3 (0.8-1.1) Activated Partial Thromboplast Time 44 SEC (24-38) Sodium Level 135 mmol/L (136-145) Potassium Level 4.2 mmol/L (3.5-5.1) Chloride Level 103 mmol/L (98-107) Carbon Dioxide Level 22 mmol/L (21-32) Anion Gap 10 (6-14) Blood Urea Nitrogen 52 mg/dL (7-20) Creatinine 3.3 mg/dL (0.6-1.0) Estimated GFR (Cockcroft-Gault) 13.3 BUN/Creatinine Ratio 16 (6-20) Glucose Level 98 mg/dL (70-99) Calcium Level 7.4 mg/dL (8.5-10.1) Magnesium Level 1.8 mg/dL (1.8-2.4) Total Bilirubin 1.7 mg/dL (0.2-1.0) Aspartate Amino Transf (AST/SGOT) 72 U/L (15-37) Alanine Aminotransferase (ALT/SGPT) 141 U/L (14-59) Alkaline Phosphatase 162 U/L (46-116) Lactate Dehydrogenase 344 U/L (81-234) Total Protein 4.4 g/dL (6.4-8.2) Albumin 2.2 g/dL (3.4-5.0) Albumin/Globulin Ratio 1.0 (1.0-1.7) White Blood Count 6.1 x10^3/uL (4.0-11.0) Red Blood Count 2.40 x10^6/uL (3.50-5.40) Hemoglobin 7.5 g/dL (12.0-15.5) Hematocrit 22.4 % (36.0-47.0) Mean Corpuscular Volume 93 fL (79-100) Mean Corpuscular Hemoglobin 31 pg (25-35) Mean Corpuscular Hemoglobin Concent 34 g/dL (31-37) Red Cell Distribution Width 14.4 % (11.5-14.5) Platelet Count 32 x10^3/uL (140-400) Glucose (Fingerstick) 90 mg/dL (70-99) Laboratory Tests Test 07/25/18 04:25 07/25/18 05:00 07/25/18 07:57 Sodium Level 135 mmol/L (136-145) Potassium Level 4.2 mmol/L (3.5-5.1) Chloride Level 103 mmol/L (98-107) Carbon Dioxide Level 22 mmol/L (21-32) Anion Gap 10 (6-14) Blood Urea Nitrogen 52 mg/dL (7-20) Creatinine 3.3 mg/dL (0.6-1.0) Estimated GFR (Cockcroft-Gault) 13.3 BUN/Creatinine Ratio 16 (6-20) Glucose Level 98 mg/dL (70-99) Calcium Level 7.4 mg/dL (8.5-10.1) Magnesium Level 1.8 mg/dL (1.8-2.4) Total Bilirubin 1.7 mg/dL (0.2-1.0) Aspartate Amino Transf (AST/SGOT) 72 U/L (15-37) Alanine Aminotransferase (ALT/SGPT) 141 U/L (14-59) Alkaline Phosphatase 162 U/L (46-116) Lactate Dehydrogenase 344 U/L (81-234) Total Protein 4.4 g/dL (6.4-8.2) Albumin 2.2 g/dL (3.4-5.0) Albumin/Globulin Ratio 1.0 (1.0-1.7) White Blood Count 6.1 x10^3/uL (4.0-11.0) Red Blood Count 2.40 x10^6/uL (3.50-5.40) Hemoglobin 7.5 g/dL (12.0-15.5) Hematocrit 22.4 % (36.0-47.0) Mean Corpuscular Volume 93 fL (79-100) Mean Corpuscular Hemoglobin 31 pg (25-35) Mean Corpuscular Hemoglobin Concent 34 g/dL (31-37) Red Cell Distribution Width 14.4 % (11.5-14.5) Platelet Count 32 x10^3/uL (140-400) Glucose (Fingerstick) 90 mg/dL (70-99) Medications Current Medications Iohexol (Omnipaque 300 Mg/ml) 75 ml 1X ONCE IV ; Start 07/23/18 at 16:15; Stop 07/23/18 at 16:16; Status DC Info (CONTRAST GIVEN -- Rx MONITORING) 1 each PRN DAILY PRN MC SEE COMMENTS; Start 07/23/18 at 16:15; Stop 07/25/18 at 16:14 Ondansetron HCl (Zofran) 4 mg PRN Q8HRS PRN IV NAUSEA/VOMITING Last administered on 07/23/18at 20:56; Start 07/23/18 at 17:45; Stop 07/24/18 at 17:44 ; Status DC Morphine Sulfate (Morphine Sulfate) 2 mg PRN Q2HR PRN IV PAIN; Start 07/23/18 at 17:45; Stop 07/23/18 at 17:45; Status DC Sodium Chloride 1,000 ml @ 100 mls/hr Q10H IV Last administered on 07/23/18at 20:57; Start 07/23/18 at 17:32; Stop 07/23/18 at 23:31; Status DC Acetaminophen (Tylenol) 1,000 mg PRN Q6HRS PRN PO MILD PAIN / TEMP Last administered on 07/25/18at 07:27; Start 07/23/18 at 21:30 Sodium Chloride 1,000 ml @ 100 mls/hr Q10H IV Last administered on 07/25/18at 11:54; Start 07/24/18 at 11:45 Amlodipine Besylate (Norvasc) 5 mg DAILY PO Last administered on 07/25/18at 09: 17; Start 07/24/18 at 12:30; Stop 07/25/18 at 11:47; Status DC Metoprolol Succinate (Toprol Xl) 25 mg DAILY PO Last administered on 07/25/18at 09:18; Start 07/24/18 at 12:30 Pantoprazole Sodium (Protonix) 40 mg DAILYAC PO Last administered on 07/25/18at 07:27; Start 07/24/18 at 12:30 Losartan Potassium (Cozaar) 100 mg DAILY PO Last administered on 07/25/18at 09: 17; Start 07/24/18 at 12:30; Stop 07/25/18 at 11:44; Status DC Psyllium Hydrophilic Mucilloid (Metamucil Fiber Packet) 1 pkt DAILY PO Last administered on 07/25/18at 09:18; Start 07/24/18 at 16:00 Ondansetron HCl (Zofran) 4 mg PRN Q8HRS PRN IV NAUSEA/VOMITING Last administered on 07/24/18at 23:10; Start 07/24/18 at 23:15 Magnesium Hydroxide (Milk Of Magnesia) 2,400 mg PRN DAILY PRN PO CONSTIPATION; Start 07/25/18 at 10:15 Amlodipine Besylate (Norvasc) 5 mg DAILY PO ; Start 07/26/18 at 09:00 Bisacodyl (Dulcolax Tab) 10 mg PRN DAILY PRN PO CONSTIPATION; Start 07/25/18 at 12:30 Active Scripts Active Naprosyn (Naproxen) 500 Mg Tablet 1 Tab PO BID Metoprolol Succinate ( Xl ) (Metoprolol Succinate) 25 Mg Tab.er.24h 1 Tab PO DAILY 30 Days Atacand (Candesartan Cilexetil) 32 Mg Tablet 1 Tab PO DAILY 30 Days Amlodipine Besylate 5 Mg Tablet 5 Mg PO DAILY Foltx Tablet (B12/Levomefolate Calcium/B-6) 1 Each Tablet 1 Each PO DAILY Reported Aspirin 325 Mg Tablet 1 Tab PO DAILY Atorvastatin Calcium 10 Mg Tablet 10 Mg PO HS Pantoprazole Sodium 40 Mg Tablet.dr 40 Mg PO DAILY Vitals/I & O Vital Sign - Last 24 Hours 07/24/18 07/24/18 07/24/18 07/24/18 15:00 15:18 19:00 20:26 Temp 98.3 98.3 98.3 98.3 Pulse 62 62 62 Resp 16 20 B/P (MAP) 141/57 (85) 141/57 165/61 (95) Pulse Ox 93 95 O2 Delivery Room Air Room Air Room Air 07/24/18 07/25/18 07/25/18 07/25/18 23:00 03:20 07:40 08:00 Temp 97.9 98.4 97.7 97.9 98.4 97.7 Pulse 69 65 62 Resp 20 20 20 B/P (MAP) 155/57 (89) 150/66 (94) 166/69 (101) Pulse Ox 95 96 95 O2 Delivery Room Air Room Air Room Air Room Air 07/25/18 07/25/18 07/25/18 07/25/18 09:17 09:17 09:18 10:47 Temp 97.9 97.9 Pulse 62 62 62 66 Resp 16 B/P (MAP) 166/69 166/69 166/69 147/66 (93) Pulse Ox 96 O2 Delivery Room Air Intake and Output 07/24/18 07/24/18 07/25/18 15:01 23:01 07:01 Intake Total 220 ml 240 ml Output Total 300 ml Balance 220 ml 240 ml -300 ml VIVIAN SINGLETARY MD Jul 25, 2018 12:43
[2018-07-25] MEDS ORDERED: amLODIPine BESYLATE 5 MG TABLET PO ONE (12:45)
[2018-07-25 19:00] VITALS: BP 163/57
[2018-07-25] MEDS: ONDANSETRON PF 4 MG/2 ML VIAL. IV PRN (21:45)
[2018-07-25 23:12] VITALS: BP 178/70
[2018-07-26 03:14] VITALS: BP 119/68
[2018-07-26] MEDS: IV NORMAL SALINE 1000ML BAG 1,000 ML IV SCH ×3 (05:50→19:23)
[2018-07-26 07:00] VITALS: BP 124/84
[2018-07-26] MEDS: PANTOPRAZOLE 40 MG TABLET.DR. PO SCH (07:33)
[2018-07-26 07:35] LABS: HEMOGLOBIN 7.7 g/dL (12.0-15.5); RED BLOOD COUNT 2.46 x10^6/uL (3.50-5.40); RED CELL DISTRIBUTION WIDTH 14.2 % (11.5-14.5); WHITE BLOOD COUNT 5.5 x10^3/uL (4.0-11.0)
[2018-07-26 08:09] LABS: ALBUMIN 2.2 g/dL (3.4-5.0); CALCIUM 7.8 mg/dL (8.5-10.1); DIRECT BILIRUBIN 0.9 mg/dL (0.0-0.2); GFR 14.9; POTASSIUM 4.3 mmol/L (3.5-5.1); TOTAL BILIRUBIN 1.3 mg/dL (0.2-1.0)
[2018-07-26] MEDS ORDERED: amLODIPine BESYLATE 5 MG TABLET PO SCH (09:00)
--- NOTE | 2018-07-26 09:00 | PDOC ---
PROGRESS NOTES Subjective Subjective f/u of Acute thrombocytopenia. ROS - abd pain better Objective Objective Vital Signs Date Time Temp Pulse Resp B/P (MAP) Pulse Ox O2 Delivery O2 Flow Rate FiO2 07/26/18 07:00 99.7 86 16 124/84 (97) 99.7 07/26/18 03:14 93 Room Air Intake and Output 07/26/18 07:01 Intake Total 540 ml Output Total 740 ml Balance -200 ml Intake Oral 540 ml Output Urine Total 740 ml # Voids 1 Physical Exam Heart: Normal S1, Normal S2 General: Alert, Oriented X3 Lungs: Clear to auscultation Neuro: Normal speech Psych/Mental Status: Mental status NL Assessment Assessment Problems Medical Problems: (1) Acute kidney injury Status: Acute (2) Anemia Status: Acute (3) Thrombocytopenia Status: Acute IMPRESSION AND PLAN: 1. Acute thrombocytopenia. Platelet counts were normal in May 2018. Reticulocyte count is normal and hence, I do not suspect a hemolytic process. I do not suspect thrombotic thrombocytopenic purpura or disseminated intravascular coagulation. Peripheral smear does not reveal any evidence of immature white cells or fragmented red cells. No clinical evidence of disseminated intravascular coagulation. I suspect the acute thrombocytopenia is a side effect of naproxen. She also has associated renal failure and hepatic failure, which could also be related to naproxen. Liver function tests have already been improving since the discontinuation of naproxen on 07/22/2018. I would continue to monitor for bleeding. There is no active bleeding at this time and hence, I would not transfuse platelets. I do not suspect a primary bone marrow disorder and hence, I will defer bone marrow biopsy for now. I discussed with Dr. Sabina Wagoner and I discussed with multiple family members. Plt better at 47 on 07/26/18. Retic 1.9, no hemolysis. 2. Anemia. The patient has mild chronic anemia. Hemoglobin in May 2018 was about 10.2. I would continue to monitor iron studies performed on 07/24/2018 suggestive of anemia of chronic disease. I would continue to monitor. Low haptoglobin and mildly elevated LDH due to hepatitis. 3. B12 deficiency. Her B12 was 164 on 05/05/2016. Now normal. 4. Acute renal failure, which I suspect is due to naproxen. I d/w Dr Perdomo. 5. Acute hepatitis, which I suspect is also likely from naproxen. I d/w Dr Alford. Improving. Comment Review of Relevant I have reviewed the following items karen (where applicable) has been applied. Labs Laboratory Tests Test 07/24/18 12:35 07/25/18 04:25 07/25/18 05:00 07/25/18 07:57 Prothrombin Time 16.0 SEC (11.7-14.0) Prothromb Time International Ratio 1.3 (0.8-1.1) Activated Partial Thromboplast Time 44 SEC (24-38) Sodium Level 135 mmol/L (136-145) Potassium Level 4.2 mmol/L (3.5-5.1) Chloride Level 103 mmol/L (98-107) Carbon Dioxide Level 22 mmol/L (21-32) Anion Gap 10 (6-14) Blood Urea Nitrogen 52 mg/dL (7-20) Creatinine 3.3 mg/dL (0.6-1.0) Estimated GFR (Cockcroft-Gault) 13.3 BUN/Creatinine Ratio 16 (6-20) Glucose Level 98 mg/dL (70-99) Calcium Level 7.4 mg/dL (8.5-10.1) Magnesium Level 1.8 mg/dL (1.8-2.4) Total Bilirubin 1.7 mg/dL (0.2-1.0) Aspartate Amino Transf (AST/SGOT) 72 U/L (15-37) Alanine Aminotransferase (ALT/SGPT) 141 U/L (14-59) Alkaline Phosphatase 162 U/L (46-116) Lactate Dehydrogenase 344 U/L (81-234) Total Protein 4.4 g/dL (6.4-8.2) Albumin 2.2 g/dL (3.4-5.0) Albumin/Globulin Ratio 1.0 (1.0-1.7) White Blood Count 6.1 x10^3/uL (4.0-11.0) Red Blood Count 2.40 x10^6/uL (3.50-5.40) Hemoglobin 7.5 g/dL (12.0-15.5) Hematocrit 22.4 % (36.0-47.0) Mean Corpuscular Volume 93 fL (79-100) Mean Corpuscular Hemoglobin 31 pg (25-35) Mean Corpuscular Hemoglobin Concent 34 g/dL (31-37) Red Cell Distribution Width 14.4 % (11.5-14.5) Platelet Count 32 x10^3/uL (140-400) Glucose (Fingerstick) 90 mg/dL (70-99) Test 07/25/18 20:23 07/26/18 06:45 07/26/18 06:54 07/26/18 07:17 Glucose (Fingerstick) 102 mg/dL (70-99) 86 mg/dL (70-99) Sodium Level 135 mmol/L (136-145) Potassium Level 4.3 mmol/L (3.5-5.1) Chloride Level 105 mmol/L (98-107) Carbon Dioxide Level 20 mmol/L (21-32) Anion Gap 10 (6-14) Blood Urea Nitrogen 47 mg/dL (7-20) Creatinine 3.0 mg/dL (0.6-1.0) Estimated GFR (Cockcroft-Gault) 14.9 Glucose Level 89 mg/dL (70-99) Calcium Level 7.8 mg/dL (8.5-10.1) Total Bilirubin 1.3 mg/dL (0.2-1.0) Direct Bilirubin 0.9 mg/dL (0.0-0.2) Aspartate Amino Transf (AST/SGOT) 39 U/L (15-37) Alanine Aminotransferase (ALT/SGPT) 100 U/L (14-59) Alkaline Phosphatase 148 U/L (46-116) Total Protein 5.0 g/dL (6.4-8.2) Albumin 2.2 g/dL (3.4-5.0) White Blood Count 5.5 x10^3/uL (4.0-11.0) Red Blood Count 2.46 x10^6/uL (3.50-5.40) Hemoglobin 7.7 g/dL (12.0-15.5) Hematocrit 23.0 % (36.0-47.0) Mean Corpuscular Volume 94 fL (79-100) Mean Corpuscular Hemoglobin 32 pg (25-35) Mean Corpuscular Hemoglobin Concent 34 g/dL (31-37) Red Cell Distribution Width 14.2 % (11.5-14.5) Platelet Count 47 x10^3/uL (140-400) Reticulocyte Count (auto) 1.9 % (0.5-2.5) Laboratory Tests Test 07/25/18 20:23 07/26/18 06:45 07/26/18 06:54 07/26/18 07:17 Glucose (Fingerstick) 102 mg/dL (70-99) 86 mg/dL (70-99) Sodium Level 135 mmol/L (136-145) Potassium Level 4.3 mmol/L (3.5-5.1) Chloride Level 105 mmol/L (98-107) Carbon Dioxide Level 20 mmol/L (21-32) Anion Gap 10 (6-14) Blood Urea Nitrogen 47 mg/dL (7-20) Creatinine 3.0 mg/dL (0.6-1.0) Estimated GFR (Cockcroft-Gault) 14.9 Glucose Level 89 mg/dL (70-99) Calcium Level 7.8 mg/dL (8.5-10.1) Total Bilirubin 1.3 mg/dL (0.2-1.0) Direct Bilirubin 0.9 mg/dL (0.0-0.2) Aspartate Amino Transf (AST/SGOT) 39 U/L (15-37) Alanine Aminotransferase (ALT/SGPT) 100 U/L (14-59) Alkaline Phosphatase 148 U/L (46-116) Total Protein 5.0 g/dL (6.4-8.2) Albumin 2.2 g/dL (3.4-5.0) White Blood Count 5.5 x10^3/uL (4.0-11.0) Red Blood Count 2.46 x10^6/uL (3.50-5.40) Hemoglobin 7.7 g/dL (12.0-15.5) Hematocrit 23.0 % (36.0-47.0) Mean Corpuscular Volume 94 fL (79-100) Mean Corpuscular Hemoglobin 32 pg (25-35) Mean Corpuscular Hemoglobin Concent 34 g/dL (31-37) Red Cell Distribution Width 14.2 % (11.5-14.5) Platelet Count 47 x10^3/uL (140-400) Reticulocyte Count (auto) 1.9 % (0.5-2.5) Microbiology 07/23/18 Urine Culture - Final, Complete 07/23/18 Urine Culture Result 1 (MARTHA) - Final, Complete Medications Current Medications Iohexol (Omnipaque 300 Mg/ml) 75 ml 1X ONCE IV ; Start 07/23/18 at 16:15; Stop 07/23/18 at 16:16; Status DC Info (CONTRAST GIVEN -- Rx MONITORING) 1 each PRN DAILY PRN MC SEE COMMENTS; Start 07/23/18 at 16:15; Stop 07/25/18 at 16:14; Status DC Ondansetron HCl (Zofran) 4 mg PRN Q8HRS PRN IV NAUSEA/VOMITING Last administered on 07/23/18at 20:56; Start 07/23/18 at 17:45; Stop 07/24/18 at 17:44 ; Status DC Morphine Sulfate (Morphine Sulfate) 2 mg PRN Q2HR PRN IV PAIN; Start 07/23/18 at 17:45; Stop 07/23/18 at 17:45; Status DC Sodium Chloride 1,000 ml @ 100 mls/hr Q10H IV Last administered on 07/23/18at 20:57; Start 07/23/18 at 17:32; Stop 07/23/18 at 23:31; Status DC Acetaminophen (Tylenol) 1,000 mg PRN Q6HRS PRN PO MILD PAIN / TEMP Last administered on 07/25/18at 21:44; Start 07/23/18 at 21:30 Sodium Chloride 1,000 ml @ 100 mls/hr Q10H IV Last administered on 07/26/18at 05:50; Start 07/24/18 at 11:45 Amlodipine Besylate (Norvasc) 5 mg DAILY PO Last administered on 07/25/18at 09: 17; Start 07/24/18 at 12:30; Stop 07/25/18 at 11:47; Status DC Metoprolol Succinate (Toprol Xl) 25 mg DAILY PO Last administered on 07/25/18at 09:18; Start 07/24/18 at 12:30 Pantoprazole Sodium (Protonix) 40 mg DAILYAC PO Last administered on 07/26/18at 07:33; Start 07/24/18 at 12:30 Losartan Potassium (Cozaar) 100 mg DAILY PO Last administered on 07/25/18at 09: 17; Start 07/24/18 at 12:30; Stop 07/25/18 at 11:44; Status DC Psyllium Hydrophilic Mucilloid (Metamucil Fiber Packet) 1 pkt DAILY PO Last administered on 07/25/18at 09:18; Start 07/24/18 at 16:00 Ondansetron HCl (Zofran) 4 mg PRN Q8HRS PRN IV NAUSEA/VOMITING Last administered on 07/25/18at 21:45; Start 07/24/18 at 23:15 Magnesium Hydroxide (Milk Of Magnesia) 2,400 mg PRN DAILY PRN PO CONSTIPATION 1ST CHOICE Last administered on 07/25/18at 13:18; Start 07/25/18 at 10:15 Amlodipine Besylate (Norvasc) 5 mg DAILY PO ; Start 07/26/18 at 09:00; Stop at 09:00; Status DC Bisacodyl (Dulcolax Tab) 10 mg PRN DAILY PRN PO CONSTIPATION 2ND CHOICE Last administered on 07/25/18at 12:38; Start 07/25/18 at 12:30 Amlodipine Besylate (Norvasc) 10 mg DAILY PO ; Start 07/26/18 at 09:00 Amlodipine Besylate (Norvasc) 5 mg 1X ONCE PO Last administered on 07/25/18at 12:38; Start 07/25/18 at 12:45; Stop 07/25/18 at 12:46; Status DC Active Scripts Active Naprosyn (Naproxen) 500 Mg Tablet 1 Tab PO BID Metoprolol Succinate ( Xl ) (Metoprolol Succinate) 25 Mg Tab.er.24h 1 Tab PO DAILY 30 Days Atacand (Candesartan Cilexetil) 32 Mg Tablet 1 Tab PO DAILY 30 Days Amlodipine Besylate 5 Mg Tablet 5 Mg PO DAILY Foltx Tablet (B12/Levomefolate Calcium/B-6) 1 Each Tablet 1 Each PO DAILY Reported Aspirin 325 Mg Tablet 1 Tab PO DAILY Atorvastatin Calcium 10 Mg Tablet 10 Mg PO HS Pantoprazole Sodium 40 Mg Tablet.dr 40 Mg PO DAILY Vitals/I & O Vital Sign - Last 24 Hours 07/25/18 07/25/18 07/25/18 07/25/18 09:17 09:17 09:18 10:47 Temp 97.9 97.9 Pulse 62 62 62 66 Resp 16 B/P (MAP) 166/69 166/69 166/69 147/66 (93) Pulse Ox 96 O2 Delivery Room Air 07/25/18 07/25/18 07/25/18 07/25/18 12:38 15:00 19:00 20:24 Temp 98.6 98.6 Pulse 66 63 Resp 20 B/P (MAP) 147/66 163/57 (92) Pulse Ox 93 O2 Delivery Room Air Room Air 07/25/18 07/26/18 07/26/18 23:12 03:14 07:00 Temp 98.0 98.5 99.7 98.0 98.5 99.7 Pulse 72 71 86 Resp 20 20 16 B/P (MAP) 178/70 (106) 119/68 (85) 124/84 (97) Pulse Ox 95 93 O2 Delivery Room Air Room Air Intake and Output 07/25/18 07/25/18 07/26/18 15:01 23:01 07:01 Intake Total 300 ml 240 ml Output Total 240 ml 500 ml Balance 300 ml 0 ml -500 ml LUIGI BETTS MD Jul 26, 2018 09:00
[2018-07-26] MEDS: PSYLLIUM HUSK (SUGAR FREE) 1 PKT PACKET PO SCH (09:03)
[2018-07-26] MEDS: amLODIPine BESYLATE 10 MG TABLET PO SCH (09:03)
[2018-07-26] MEDS: METOPROLOL SUCC 24HR ER 25 MG TAB.ER.24H. PO SCH (09:03)
[2018-07-26 11:00] VITALS: BP 132/60
--- NOTE | 2018-07-26 12:07 | PDOC ---
Subjective: Subjective: Family provides some translation - says she feels better, ate a little, does not have abd pain, and has stooled a couple times. Objective: Vital Signs: Vital Signs Date Time Temp Pulse Resp B/P (MAP) Pulse Ox O2 Delivery O2 Flow Rate FiO2 07/26/18 09:03 86 124/84 07/26/18 07:00 99.7 16 99.7 07/26/18 03:14 93 Room Air Labs: Laboratory Tests Test 07/25/18 20:23 07/26/18 06:45 07/26/18 06:54 07/26/18 07:17 Glucose (Fingerstick) 102 mg/dL 86 mg/dL Sodium Level 135 mmol/L Potassium Level 4.3 mmol/L Chloride Level 105 mmol/L Carbon Dioxide Level 20 mmol/L Anion Gap 10 Blood Urea Nitrogen 47 mg/dL Creatinine 3.0 mg/dL Estimated GFR (Cockcroft-Gault) 14.9 Glucose Level 89 mg/dL Calcium Level 7.8 mg/dL Total Bilirubin 1.3 mg/dL Direct Bilirubin 0.9 mg/dL Aspartate Amino Transf (AST/SGOT) 39 U/L Alanine Aminotransferase (ALT/SGPT) 100 U/L Alkaline Phosphatase 148 U/L Lactate Dehydrogenase 304 U/L Total Protein 5.0 g/dL Albumin 2.2 g/dL White Blood Count 5.5 x10^3/uL Red Blood Count 2.46 x10^6/uL Hemoglobin 7.7 g/dL Hematocrit 23.0 % Mean Corpuscular Volume 94 fL Mean Corpuscular Hemoglobin 32 pg Mean Corpuscular Hemoglobin Concent 34 g/dL Red Cell Distribution Width 14.2 % Platelet Count 47 x10^3/uL Reticulocyte Count (auto) 1.9 % Test 07/26/18 11:52 Glucose (Fingerstick) 93 mg/dL PE: GEN: NAD LUNGS: room air NEURO/PSYCH: sleeping, not awakened A/P: Abnormal LFTs - better, viral Hep neg, liver unremarkable on CT, s/p cholecystectomy Thrombocytopenia - better (plt 47) FELIPE Dyspepsia - better, on PPI and off NSAIDs Chronic anemia - denies bleeding -- ?all related to Naproxen - labs and abd discomfort improving Other per Dr. Rivera. NETTA WEEKS Jul 26, 2018 12:07
--- NOTE | 2018-07-26 14:30 | PDOC ---
PROGRESS NOTES Subjective Subjective Patient c/o abd fullness. patient Hgb slowly improved. Objective Objective Vital Signs Date Time Temp Pulse Resp B/P (MAP) Pulse Ox O2 Delivery O2 Flow Rate FiO2 07/26/18 11:00 98.1 72 16 132/60 (84) 95 98.1 07/26/18 03:14 Room Air Intake and Output 07/26/18 07:01 Intake Total 540 ml Output Total 740 ml Balance -200 ml Intake Oral 540 ml Output Urine Total 740 ml # Voids 1 Physical Exam Abdomen: Normal bowel sounds, Other (mild tender) Heart: Regular rate General: Alert Lungs: Clear to auscultation Assessment Assessment Problems Medical Problems: (1) Acute kidney injury Status: Acute (2) Anemia Status: Acute (3) Thrombocytopenia Status: Acute Acute renal failure Acute hepatic failure Thrombocytopenia Debilitation HTN Plan Plan of Care Increase activity PT/OT eval and treat recheck labs in am Comment Review of Relevant I have reviewed the following items karen (where applicable) has been applied. Labs Laboratory Tests Test 07/25/18 04:25 07/25/18 05:00 07/25/18 07:57 07/25/18 20:23 Sodium Level 135 mmol/L (136-145) Potassium Level 4.2 mmol/L (3.5-5.1) Chloride Level 103 mmol/L (98-107) Carbon Dioxide Level 22 mmol/L (21-32) Anion Gap 10 (6-14) Blood Urea Nitrogen 52 mg/dL (7-20) Creatinine 3.3 mg/dL (0.6-1.0) Estimated GFR (Cockcroft-Gault) 13.3 BUN/Creatinine Ratio 16 (6-20) Glucose Level 98 mg/dL (70-99) Calcium Level 7.4 mg/dL (8.5-10.1) Magnesium Level 1.8 mg/dL (1.8-2.4) Total Bilirubin 1.7 mg/dL (0.2-1.0) Aspartate Amino Transf (AST/SGOT) 72 U/L (15-37) Alanine Aminotransferase (ALT/SGPT) 141 U/L (14-59) Alkaline Phosphatase 162 U/L (46-116) Lactate Dehydrogenase 344 U/L (81-234) Total Protein 4.4 g/dL (6.4-8.2) Albumin 2.2 g/dL (3.4-5.0) Albumin/Globulin Ratio 1.0 (1.0-1.7) White Blood Count 6.1 x10^3/uL (4.0-11.0) Red Blood Count 2.40 x10^6/uL (3.50-5.40) Hemoglobin 7.5 g/dL (12.0-15.5) Hematocrit 22.4 % (36.0-47.0) Mean Corpuscular Volume 93 fL (79-100) Mean Corpuscular Hemoglobin 31 pg (25-35) Mean Corpuscular Hemoglobin Concent 34 g/dL (31-37) Red Cell Distribution Width 14.4 % (11.5-14.5) Platelet Count 32 x10^3/uL (140-400) Glucose (Fingerstick) 90 mg/dL (70-99) 102 mg/dL (70-99) Test 07/26/18 06:45 07/26/18 06:54 07/26/18 07:17 07/26/18 11:52 Sodium Level 135 mmol/L (136-145) Potassium Level 4.3 mmol/L (3.5-5.1) Chloride Level 105 mmol/L (98-107) Carbon Dioxide Level 20 mmol/L (21-32) Anion Gap 10 (6-14) Blood Urea Nitrogen 47 mg/dL (7-20) Creatinine 3.0 mg/dL (0.6-1.0) Estimated GFR (Cockcroft-Gault) 14.9 Glucose Level 89 mg/dL (70-99) Calcium Level 7.8 mg/dL (8.5-10.1) Total Bilirubin 1.3 mg/dL (0.2-1.0) Direct Bilirubin 0.9 mg/dL (0.0-0.2) Aspartate Amino Transf (AST/SGOT) 39 U/L (15-37) Alanine Aminotransferase (ALT/SGPT) 100 U/L (14-59) Alkaline Phosphatase 148 U/L (46-116) Lactate Dehydrogenase 304 U/L (81-234) Total Protein 5.0 g/dL (6.4-8.2) Albumin 2.2 g/dL (3.4-5.0) White Blood Count 5.5 x10^3/uL (4.0-11.0) Red Blood Count 2.46 x10^6/uL (3.50-5.40) Hemoglobin 7.7 g/dL (12.0-15.5) Hematocrit 23.0 % (36.0-47.0) Mean Corpuscular Volume 94 fL (79-100) Mean Corpuscular Hemoglobin 32 pg (25-35) Mean Corpuscular Hemoglobin Concent 34 g/dL (31-37) Red Cell Distribution Width 14.2 % (11.5-14.5) Platelet Count 47 x10^3/uL (140-400) Reticulocyte Count (auto) 1.9 % (0.5-2.5) Glucose (Fingerstick) 86 mg/dL (70-99) 93 mg/dL (70-99) Laboratory Tests Test 07/25/18 20:23 07/26/18 06:45 07/26/18 06:54 07/26/18 07:17 Glucose (Fingerstick) 102 mg/dL (70-99) 86 mg/dL (70-99) Sodium Level 135 mmol/L (136-145) Potassium Level 4.3 mmol/L (3.5-5.1) Chloride Level 105 mmol/L (98-107) Carbon Dioxide Level 20 mmol/L (21-32) Anion Gap 10 (6-14) Blood Urea Nitrogen 47 mg/dL (7-20) Creatinine 3.0 mg/dL (0.6-1.0) Estimated GFR (Cockcroft-Gault) 14.9 Glucose Level 89 mg/dL (70-99) Calcium Level 7.8 mg/dL (8.5-10.1) Total Bilirubin 1.3 mg/dL (0.2-1.0) Direct Bilirubin 0.9 mg/dL (0.0-0.2) Aspartate Amino Transf (AST/SGOT) 39 U/L (15-37) Alanine Aminotransferase (ALT/SGPT) 100 U/L (14-59) Alkaline Phosphatase 148 U/L (46-116) Lactate Dehydrogenase 304 U/L (81-234) Total Protein 5.0 g/dL (6.4-8.2) Albumin 2.2 g/dL (3.4-5.0) White Blood Count 5.5 x10^3/uL (4.0-11.0) Red Blood Count 2.46 x10^6/uL (3.50-5.40) Hemoglobin 7.7 g/dL (12.0-15.5) Hematocrit 23.0 % (36.0-47.0) Mean Corpuscular Volume 94 fL (79-100) Mean Corpuscular Hemoglobin 32 pg (25-35) Mean Corpuscular Hemoglobin Concent 34 g/dL (31-37) Red Cell Distribution Width 14.2 % (11.5-14.5) Platelet Count 47 x10^3/uL (140-400) Reticulocyte Count (auto) 1.9 % (0.5-2.5) Test 07/26/18 11:52 Glucose (Fingerstick) 93 mg/dL (70-99) Microbiology 07/23/18 Urine Culture - Final, Complete 07/23/18 Urine Culture Result 1 (MARTHA) - Final, Complete Medications Current Medications Iohexol (Omnipaque 300 Mg/ml) 75 ml 1X ONCE IV ; Start 07/23/18 at 16:15; Stop 07/23/18 at 16:16; Status DC Info (CONTRAST GIVEN -- Rx MONITORING) 1 each PRN DAILY PRN MC SEE COMMENTS; Start 07/23/18 at 16:15; Stop 07/25/18 at 16:14; Status DC Ondansetron HCl (Zofran) 4 mg PRN Q8HRS PRN IV NAUSEA/VOMITING Last administered on 07/23/18at 20:56; Start 07/23/18 at 17:45; Stop 07/24/18 at 17:44 ; Status DC Morphine Sulfate (Morphine Sulfate) 2 mg PRN Q2HR PRN IV PAIN; Start 07/23/18 at 17:45; Stop 07/23/18 at 17:45; Status DC Sodium Chloride 1,000 ml @ 100 mls/hr Q10H IV Last administered on 07/23/18at 20:57; Start 07/23/18 at 17:32; Stop 07/23/18 at 23:31; Status DC Acetaminophen (Tylenol) 1,000 mg PRN Q6HRS PRN PO MILD PAIN / TEMP Last administered on 07/25/18at 21:44; Start 07/23/18 at 21:30 Sodium Chloride 1,000 ml @ 100 mls/hr Q10H IV Last administered on 07/26/18 09:01; Start 07/24/18 at 11:45 Amlodipine Besylate (Norvasc) 5 mg DAILY PO Last administered on 07/25/18 09: 17; Start 07/24/18 at 12:30; Stop 07/25/18 at 11:47; Status DC Metoprolol Succinate (Toprol Xl) 25 mg DAILY PO Last administered on 07/26/18 09:03; Start 07/24/18 at 12:30 Pantoprazole Sodium (Protonix) 40 mg DAILYAC PO Last administered on 07/26/18 07:33; Start 07/24/18 at 12:30 Losartan Potassium (Cozaar) 100 mg DAILY PO Last administered on 07/25/18 09: 17; Start 07/24/18 at 12:30; Stop 07/25/18 at 11:44; Status DC Psyllium Hydrophilic Mucilloid (Metamucil Fiber Packet) 1 pkt DAILY PO Last administered on 07/26/18 09:03; Start 07/24/18 at 16:00 Ondansetron HCl (Zofran) 4 mg PRN Q8HRS PRN IV NAUSEA/VOMITING Last administered on 07/25/18 21:45; Start 07/24/18 at 23:15 Magnesium Hydroxide (Milk Of Magnesia) 2,400 mg PRN DAILY PRN PO CONSTIPATION 1ST CHOICE Last administered on 07/25/18 13:18; Start 07/25/18 at 10:15 Amlodipine Besylate (Norvasc) 5 mg DAILY PO ; Start 07/26/18 at 09:00; Stop at 09:00; Status DC Bisacodyl (Dulcolax Tab) 10 mg PRN DAILY PRN PO CONSTIPATION 2ND CHOICE Last administered on 07/25/18 12:38; Start 07/25/18 at 12:30 Amlodipine Besylate (Norvasc) 10 mg DAILY PO Last administered on 07/26/18 09: 03; Start 07/26/18 at 09:00 Amlodipine Besylate (Norvasc) 5 mg 1X ONCE PO Last administered on 07/25/18 12:38; Start 07/25/18 at 12:45; Stop 1/27/19 at 12:46; Status DC Active Scripts Active Naprosyn (Naproxen) 500 Mg Tablet 1 Tab PO BID Metoprolol Succinate ( Xl ) (Metoprolol Succinate) 25 Mg Tab.er.24h 1 Tab PO DAILY 30 Days Atacand (Candesartan Cilexetil) 32 Mg Tablet 1 Tab PO DAILY 30 Days Amlodipine Besylate 5 Mg Tablet 5 Mg PO DAILY Foltx Tablet (B12/Levomefolate Calcium/B-6) 1 Each Tablet 1 Each PO DAILY Reported Aspirin 325 Mg Tablet 1 Tab PO DAILY Atorvastatin Calcium 10 Mg Tablet 10 Mg PO HS Pantoprazole Sodium 40 Mg Tablet.dr 40 Mg PO DAILY Vitals/I & O Vital Sign - Last 24 Hours 07/25/18 07/25/18 07/25/18 07/25/18 15:00 19:00 20:24 23:12 Temp 98.6 98.0 98.6 98.0 Pulse 63 72 Resp 20 20 B/P (MAP) 163/57 (92) 178/70 (106) Pulse Ox 93 95 O2 Delivery Room Air Room Air Room Air 07/26/18 07/26/18 07/26/18 07/26/18 03:14 07:00 09:03 09:03 Temp 98.5 99.7 98.5 99.7 Pulse 71 86 86 86 Resp 20 16 B/P (MAP) 119/68 (85) 124/84 (97) 124/84 124/84 Pulse Ox 93 O2 Delivery Room Air 07/26/18 11:00 Temp 98.1 98.1 Pulse 72 Resp 16 B/P (MAP) 132/60 (84) Pulse Ox 95 Intake and Output 07/25/18 07/25/18 07/26/18 15:01 23:01 07:01 Intake Total 300 ml 240 ml Output Total 240 ml 500 ml Balance 300 ml 0 ml -500 ml CATE VARELA MD Jul 26, 2018 14:30
[2018-07-26 15:00] VITALS: BP 130/66
[2018-07-26 19:00] VITALS: BP 172/64
[2018-07-26] MEDS: ACETAMINOPHEN 500 MG TABLET PO PRN (20:26)
[2018-07-26 23:00] VITALS: BP 112/58
[2018-07-27 03:00] VITALS: BP 146/58
[2018-07-27] MEDS: IV NORMAL SALINE 1000ML BAG 1,000 ML IV SCH ×2 (06:35→19:45)
[2018-07-27 06:39] LABS: HEMATOCRIT 22.9 % (36.0-47.0); HEMOGLOBIN 7.6 g/dL (12.0-15.5); RED BLOOD COUNT 2.44 x10^6/uL (3.50-5.40); RED CELL DISTRIBUTION WIDTH 14.5 % (11.5-14.5); WHITE BLOOD COUNT 4.5 x10^3/uL (4.0-11.0)
[2018-07-27 07:00] VITALS: BP 166/63
[2018-07-27 07:03] LABS: ALBUMIN 2.3 g/dL (3.4-5.0); ALBUMIN/GLOBULIN RATIO 0.9 (1.0-1.7); GFR 14.9; POTASSIUM 4.6 mmol/L (3.5-5.1); TOTAL BILIRUBIN 1.2 mg/dL (0.2-1.0)
--- NOTE | 2018-07-27 08:28 | NUR ---
SW following pt for anticipated dc needs. Chart reviewed and DW RN. Pt lives at home with family and is on Room Air. PT recommends HH. SW will set up HH if ordered by Physician.
[2018-07-27] MEDS: amLODIPine BESYLATE 10 MG TABLET PO SCH (08:29)
[2018-07-27] MEDS: BISACODYL 5 MG TABLET.DR. PO PRN (08:30)
[2018-07-27] MEDS: METOPROLOL SUCC 24HR ER 25 MG TAB.ER.24H. PO SCH (08:30)
[2018-07-27] MEDS: PSYLLIUM HUSK (SUGAR FREE) 1 PKT PACKET PO SCH (08:30)
[2018-07-27] MEDS: PANTOPRAZOLE 40 MG TABLET.DR. PO SCH (08:30)
--- NOTE | 2018-07-27 08:59 | PDOC ---
PROGRESS NOTES Subjective Subjective HPI - f/u of Acute thrombocytopenia ROS - had bloating Objective Objective Vital Signs Date Time Temp Pulse Resp B/P (MAP) Pulse Ox O2 Delivery O2 Flow Rate FiO2 07/27/18 08:30 72 166/63 07/27/18 07:00 98.5 20 95 Room Air 98.5 Intake and Output 07/27/18 07:01 Intake Total 2960 ml Balance 2960 ml Intake Oral 760 ml IV Total 2200 ml # Voids 2 # Bowel Movements 1 Physical Exam Heart: Normal S1, Normal S2 General: Alert, Oriented X3 Lungs: Clear to auscultation Neuro: Normal speech Psych/Mental Status: Mental status NL Assessment Assessment Problems Medical Problems: (1) Acute kidney injury Status: Acute (2) Anemia Status: Acute (3) Thrombocytopenia Status: Acute IMPRESSION AND PLAN: 1. Acute thrombocytopenia. Platelet counts were normal in May 2018. Reticulocyte count is normal and hence, I do not suspect a hemolytic process. I do not suspect thrombotic thrombocytopenic purpura or disseminated intravascular coagulation. Peripheral smear does not reveal any evidence of immature white cells or fragmented red cells. No clinical evidence of disseminated intravascular coagulation. I suspect the acute thrombocytopenia is a side effect of naproxen. She also has associated renal failure and hepatic failure, which could also be related to naproxen. Liver function tests have already been improving since the discontinuation of naproxen on 07/22/2018. I would continue to monitor for bleeding. There is no active bleeding at this time and hence, I would not transfuse platelets. I do not suspect a primary bone marrow disorder and hence, I will defer bone marrow biopsy for now. I discussed with Dr. Sabina Wagoner and I discussed with multiple family members. Plt better at 47 on 07/26/18. Retic 1.9, no hemolysis. Plt better at 55 on 07/27/18 2. Anemia. The patient has mild chronic anemia. Hemoglobin in May 2018 was about 10.2. I would continue to monitor iron studies performed on 07/24/2018 suggestive of anemia of chronic disease. I would continue to monitor. Low haptoglobin and mildly elevated LDH due to hepatitis. 3. B12 deficiency. Her B12 was 164 on 05/05/2016. Now normal. 4. Acute renal failure, which I suspect is due to naproxen. I d/w Dr Perdomo. 5. Acute hepatitis, which I suspect is also likely from naproxen. I d/w Dr Alford. Improving. T bili now 1.2 Comment Review of Relevant I have reviewed the following items karen (where applicable) has been applied. Labs Laboratory Tests Test 07/25/18 20:23 07/26/18 06:45 07/26/18 06:54 07/26/18 07:17 Glucose (Fingerstick) 102 mg/dL (70-99) 86 mg/dL (70-99) Sodium Level 135 mmol/L (136-145) Potassium Level 4.3 mmol/L (3.5-5.1) Chloride Level 105 mmol/L (98-107) Carbon Dioxide Level 20 mmol/L (21-32) Anion Gap 10 (6-14) Blood Urea Nitrogen 47 mg/dL (7-20) Creatinine 3.0 mg/dL (0.6-1.0) Estimated GFR (Cockcroft-Gault) 14.9 Glucose Level 89 mg/dL (70-99) Calcium Level 7.8 mg/dL (8.5-10.1) Total Bilirubin 1.3 mg/dL (0.2-1.0) Direct Bilirubin 0.9 mg/dL (0.0-0.2) Aspartate Amino Transf (AST/SGOT) 39 U/L (15-37) Alanine Aminotransferase (ALT/SGPT) 100 U/L (14-59) Alkaline Phosphatase 148 U/L (46-116) Lactate Dehydrogenase 304 U/L (81-234) Total Protein 5.0 g/dL (6.4-8.2) Albumin 2.2 g/dL (3.4-5.0) White Blood Count 5.5 x10^3/uL (4.0-11.0) Red Blood Count 2.46 x10^6/uL (3.50-5.40) Hemoglobin 7.7 g/dL (12.0-15.5) Hematocrit 23.0 % (36.0-47.0) Mean Corpuscular Volume 94 fL (79-100) Mean Corpuscular Hemoglobin 32 pg (25-35) Mean Corpuscular Hemoglobin Concent 34 g/dL (31-37) Red Cell Distribution Width 14.2 % (11.5-14.5) Platelet Count 47 x10^3/uL (140-400) Reticulocyte Count (auto) 1.9 % (0.5-2.5) Test 07/26/18 11:52 07/26/18 16:57 07/26/18 20:52 07/27/18 05:32 Glucose (Fingerstick) 93 mg/dL (70-99) 92 mg/dL (70-99) 104 mg/dL (70-99) White Blood Count 4.5 x10^3/uL (4.0-11.0) Red Blood Count 2.44 x10^6/uL (3.50-5.40) Hemoglobin 7.6 g/dL (12.0-15.5) Hematocrit 22.9 % (36.0-47.0) Mean Corpuscular Volume 94 fL (79-100) Mean Corpuscular Hemoglobin 31 pg (25-35) Mean Corpuscular Hemoglobin Concent 33 g/dL (31-37) Red Cell Distribution Width 14.5 % (11.5-14.5) Platelet Count 55 x10^3/uL (140-400) Test 07/27/18 05:35 07/27/18 07:55 Sodium Level 138 mmol/L (136-145) Potassium Level 4.6 mmol/L (3.5-5.1) Chloride Level 107 mmol/L (98-107) Carbon Dioxide Level 22 mmol/L (21-32) Anion Gap 9 (6-14) Blood Urea Nitrogen 45 mg/dL (7-20) Creatinine 3.0 mg/dL (0.6-1.0) Estimated GFR (Cockcroft-Gault) 14.9 BUN/Creatinine Ratio 15 (6-20) Glucose Level 94 mg/dL (70-99) Calcium Level 8.0 mg/dL (8.5-10.1) Total Bilirubin 1.2 mg/dL (0.2-1.0) Aspartate Amino Transf (AST/SGOT) 30 U/L (15-37) Alanine Aminotransferase (ALT/SGPT) 78 U/L (14-59) Alkaline Phosphatase 146 U/L (46-116) Total Protein 5.0 g/dL (6.4-8.2) Albumin 2.3 g/dL (3.4-5.0) Albumin/Globulin Ratio 0.9 (1.0-1.7) Glucose (Fingerstick) 95 mg/dL (70-99) Laboratory Tests Test 07/26/18 11:52 07/26/18 16:57 07/26/18 20:52 07/27/18 05:32 Glucose (Fingerstick) 93 mg/dL (70-99) 92 mg/dL (70-99) 104 mg/dL (70-99) White Blood Count 4.5 x10^3/uL (4.0-11.0) Red Blood Count 2.44 x10^6/uL (3.50-5.40) Hemoglobin 7.6 g/dL (12.0-15.5) Hematocrit 22.9 % (36.0-47.0) Mean Corpuscular Volume 94 fL (79-100) Mean Corpuscular Hemoglobin 31 pg (25-35) Mean Corpuscular Hemoglobin Concent 33 g/dL (31-37) Red Cell Distribution Width 14.5 % (11.5-14.5) Platelet Count 55 x10^3/uL (140-400) Test 07/27/18 05:35 07/27/18 07:55 Sodium Level 138 mmol/L (136-145) Potassium Level 4.6 mmol/L (3.5-5.1) Chloride Level 107 mmol/L (98-107) Carbon Dioxide Level 22 mmol/L (21-32) Anion Gap 9 (6-14) Blood Urea Nitrogen 45 mg/dL (7-20) Creatinine 3.0 mg/dL (0.6-1.0) Estimated GFR (Cockcroft-Gault) 14.9 BUN/Creatinine Ratio 15 (6-20) Glucose Level 94 mg/dL (70-99) Calcium Level 8.0 mg/dL (8.5-10.1) Total Bilirubin 1.2 mg/dL (0.2-1.0) Aspartate Amino Transf (AST/SGOT) 30 U/L (15-37) Alanine Aminotransferase (ALT/SGPT) 78 U/L (14-59) Alkaline Phosphatase 146 U/L (46-116) Total Protein 5.0 g/dL (6.4-8.2) Albumin 2.3 g/dL (3.4-5.0) Albumin/Globulin Ratio 0.9 (1.0-1.7) Glucose (Fingerstick) 95 mg/dL (70-99) Microbiology 07/23/18 Urine Culture - Final, Complete 07/23/18 Urine Culture Result 1 (MARTHA) - Final, Complete Medications Current Medications Iohexol (Omnipaque 300 Mg/ml) 75 ml 1X ONCE IV ; Start 07/23/18 at 16:15; Stop 07/23/18 at 16:16; Status DC Info (CONTRAST GIVEN -- Rx MONITORING) 1 each PRN DAILY PRN MC SEE COMMENTS; Start 07/23/18 at 16:15; Stop 07/25/18 at 16:14; Status DC Ondansetron HCl (Zofran) 4 mg PRN Q8HRS PRN IV NAUSEA/VOMITING Last administered on 07/23/18at 20:56; Start 07/23/18 at 17:45; Stop 07/24/18 at 17:44 ; Status DC Morphine Sulfate (Morphine Sulfate) 2 mg PRN Q2HR PRN IV PAIN; Start 07/23/18 at 17:45; Stop 07/23/18 at 17:45; Status DC Sodium Chloride 1,000 ml @ 100 mls/hr Q10H IV Last administered on 07/23/18at 20:57; Start 07/23/18 at 17:32; Stop 07/23/18 at 23:31; Status DC Acetaminophen (Tylenol) 1,000 mg PRN Q6HRS PRN PO MILD PAIN / TEMP Last administered on 07/26/18at 20:26; Start 07/23/18 at 21:30 Sodium Chloride 1,000 ml @ 100 mls/hr Q10H IV Last administered on 07/27/18at 06:35; Start 07/24/18 at 11:45 Amlodipine Besylate (Norvasc) 5 mg DAILY PO Last administered on 07/25/18at 09: 17; Start 07/24/18 at 12:30; Stop 07/25/18 at 11:47; Status DC Metoprolol Succinate (Toprol Xl) 25 mg DAILY PO Last administered on 07/27/18at 08:30; Start 07/24/18 at 12:30 Pantoprazole Sodium (Protonix) 40 mg DAILYAC PO Last administered on 07/27/18at 08:30; Start 07/24/18 at 12:30 Losartan Potassium (Cozaar) 100 mg DAILY PO Last administered on 07/25/18 09: 17; Start 07/24/18 at 12:30; Stop 07/25/18 at 11:44; Status DC Psyllium Hydrophilic Mucilloid (Metamucil Fiber Packet) 1 pkt DAILY PO Last administered on 07/27/18at 08:30; Start 07/24/18 at 16:00 Ondansetron HCl (Zofran) 4 mg PRN Q8HRS PRN IV NAUSEA/VOMITING Last administered on 07/25/18at 21:45; Start 07/24/18 at 23:15 Magnesium Hydroxide (Milk Of Magnesia) 2,400 mg PRN DAILY PRN PO CONSTIPATION 1ST CHOICE Last administered on 07/25/18at 13:18; Start 07/25/18 at 10:15 Amlodipine Besylate (Norvasc) 5 mg DAILY PO ; Start 07/26/18 at 09:00; Stop at 09:00; Status DC Bisacodyl (Dulcolax Tab) 10 mg PRN DAILY PRN PO CONSTIPATION 2ND CHOICE Last administered on 07/27/18at 08:30; Start 07/25/18 at 12:30 Amlodipine Besylate (Norvasc) 10 mg DAILY PO Last administered on 07/27/18at 08: 29; Start 07/26/18 at 09:00 Amlodipine Besylate (Norvasc) 5 mg 1X ONCE PO Last administered on 07/25/18at 12:38; Start 07/25/18 at 12:45; Stop 07/25/18 at 12:46; Status DC Active Scripts Active Naprosyn (Naproxen) 500 Mg Tablet 1 Tab PO BID Metoprolol Succinate ( Xl ) (Metoprolol Succinate) 25 Mg Tab.er.24h 1 Tab PO DAILY 30 Days Atacand (Candesartan Cilexetil) 32 Mg Tablet 1 Tab PO DAILY 30 Days Amlodipine Besylate 5 Mg Tablet 5 Mg PO DAILY Foltx Tablet (B12/Levomefolate Calcium/B-6) 1 Each Tablet 1 Each PO DAILY Reported Aspirin 325 Mg Tablet 1 Tab PO DAILY Atorvastatin Calcium 10 Mg Tablet 10 Mg PO HS Pantoprazole Sodium 40 Mg Tablet.dr 40 Mg PO DAILY Vitals/I & O Vital Sign - Last 24 Hours 07/26/18 07/26/18 07/26/18 07/26/18 09:03 09:03 11:00 15:00 Temp 98.1 98.4 98.1 98.4 Pulse 86 86 72 80 Resp 16 B/P (MAP) 124/84 124/84 132/60 (84) 130/66 (87) Pulse Ox 95 96 O2 Delivery Room Air 07/26/18 07/26/18 07/26/18 07/27/18 19:00 20:00 23:00 03:00 Temp 100.9 97.7 99.1 100.9 97.7 99.1 Pulse 72 63 69 Resp 20 20 20 B/P (MAP) 172/64 (100) 112/58 (76) 146/58 (87) Pulse Ox 95 97 95 O2 Delivery Room Air Room Air Room Air Room Air 07/27/18 07/27/18 07/27/18 07:00 08:29 08:30 Temp 98.5 98.5 Pulse 72 72 72 Resp 20 B/P (MAP) 166/63 (97) 166/63 166/63 Pulse Ox 95 O2 Delivery Room Air Intake and Output 07/26/18 07/26/18 07/27/18 15:01 23:01 07:01 Intake Total 1440 ml 1180 ml 340 ml Balance 1440 ml 1180 ml 340 ml LUIGI BETTS MD Jul 27, 2018 08:59
--- NOTE | 2018-07-27 10:15 | PDOC ---
SUBJECTIVE ROS Welsh speaking , son in the room as well c/o swelling in her hands and feet Rt > Lt . No Other complaints OBJECTIVE Vital Signs Vital Signs Date Time Temp Pulse Resp B/P (MAP) Pulse Ox O2 Delivery O2 Flow Rate FiO2 07/27/18 08:30 72 166/63 07/27/18 07:00 98.5 20 95 Room Air 98.5 I & 0 Intake and Output 07/27/18 07:01 Intake Total 2960 ml Balance 2960 ml Intake Oral 760 ml IV Total 2200 ml # Voids 2 # Bowel Movements 1 PHYSICAL EXAM Physical Exam GENERAL: no acute distress. HEENT: Mucous membranes moist. NECK: Supple, CHEST: clear to auscultation. CARDIOVASCULAR: Regular rhythm without murmur. ABDOMEN: Soft, EXTREMITIES: bilat LE + trace Rt > Lt , Rt hand swollen >Lt Skin No rash No Page DIAGNOSIS/ASSESSMENT Assessment & Plan FELIPE- Suspect ATN , stable renal function , may have Plateaued Due to NSAID(naproxen) along with Atacand at home Ct scan bdomen negative , UA positive for Blood , protein and few granular cast No past hx of CKD Repeat UA , monitor Edema- Still on IVF Stop IVF , encourage po intake Strict daily standing weight Abnormal LFT's- improving Thrombocytopenia - Plat low Hem following Discussed at great length with Pt and son with the help of RN COMMENT/RELEVANT DATA Meds Current Medications Medications (Trade) Dose Ordered Sig/[place] Start Time Stop Time Status Last Admin Dose Admin Acetaminophen (Tylenol) 1,000 mg PRN Q6HRS PRN 07/23/18 21:30 07/26/18 20:26 1,000 MG Amlodipine Besylate (Norvasc) 5 mg 1X ONCE 07/25/18 12:45 07/25/18 12:46 DC 07/25/18 12:38 5 MG Bisacodyl (Dulcolax Tab) 10 mg PRN DAILY PRN 07/25/18 12:30 07/27/18 08:30 10 MG Info (CONTRAST GIVEN -- Rx MONITORING) 1 each PRN DAILY PRN 07/23/18 16:15 07/25/18 16:14 DC Iohexol (Omnipaque 300 Mg/ml) 75 ml 1X ONCE 07/23/18 16:15 07/23/18 16:16 DC Losartan Potassium (Cozaar) 100 mg DAILY 07/24/18 12:30 07/25/18 11:44 DC 07/25/18 09:17 100 MG Magnesium Hydroxide (Milk Of Magnesia) 2,400 mg PRN DAILY PRN 07/25/18 10:15 07/25/18 13:18 2,400 MG Metoprolol Succinate (Toprol Xl) 25 mg DAILY 07/24/18 12:30 07/27/18 08:30 25 MG Morphine Sulfate (Morphine Sulfate) 2 mg PRN Q2HR PRN 07/23/18 17:45 07/23/18 17:45 DC Ondansetron HCl (Zofran) 4 mg PRN Q8HRS PRN 07/24/18 23:15 07/25/18 21:45 4 MG Pantoprazole Sodium (Protonix) 40 mg DAILYAC 07/24/18 12:30 07/27/18 08:30 40 MG Psyllium Hydrophilic Mucilloid (Metamucil Fiber Packet) 1 pkt DAILY 07/24/18 16:00 07/27/18 08:30 1 PKT Sodium Chloride 1,000 ml @ 100 mls/hr Q10H 07/24/18 11:45 07/27/18 06:35 100 MLS/HR Lab Laboratory Tests Test 07/26/18 11:52 07/26/18 16:57 07/26/18 20:52 07/27/18 05:32 Glucose (Fingerstick) 93 mg/dL (70-99) 92 mg/dL (70-99) 104 mg/dL (70-99) White Blood Count 4.5 x10^3/uL (4.0-11.0) Red Blood Count 2.44 x10^6/uL (3.50-5.40) Hemoglobin 7.6 g/dL (12.0-15.5) Hematocrit 22.9 % (36.0-47.0) Mean Corpuscular Volume 94 fL (79-100) Mean Corpuscular Hemoglobin 31 pg (25-35) Mean Corpuscular Hemoglobin Concent 33 g/dL (31-37) Red Cell Distribution Width 14.5 % (11.5-14.5) Platelet Count 55 x10^3/uL (140-400) Test 07/27/18 05:35 07/27/18 07:55 Sodium Level 138 mmol/L (136-145) Potassium Level 4.6 mmol/L (3.5-5.1) Chloride Level 107 mmol/L (98-107) Carbon Dioxide Level 22 mmol/L (21-32) Anion Gap 9 (6-14) Blood Urea Nitrogen 45 mg/dL (7-20) Creatinine 3.0 mg/dL (0.6-1.0) Estimated GFR (Cockcroft-Gault) 14.9 BUN/Creatinine Ratio 15 (6-20) Glucose Level 94 mg/dL (70-99) Calcium Level 8.0 mg/dL (8.5-10.1) Total Bilirubin 1.2 mg/dL (0.2-1.0) Aspartate Amino Transf (AST/SGOT) 30 U/L (15-37) Alanine Aminotransferase (ALT/SGPT) 78 U/L (14-59) Alkaline Phosphatase 146 U/L (46-116) Total Protein 5.0 g/dL (6.4-8.2) Albumin 2.3 g/dL (3.4-5.0) Albumin/Globulin Ratio 0.9 (1.0-1.7) Glucose (Fingerstick) 95 mg/dL (70-99) Results All relevant outside records, renal labs, imaging studies, telemetry/EKG's were reviewed. VANESSA ROMANO MD Jul 27, 2018 10:15
[2018-07-27 11:00] VITALS: BP 138/56
--- NOTE | 2018-07-27 11:49 | PDOC ---
Subjective: Subjective: Translation per family - feels bloated, has dark brown stools, ate a little, denies pain. Objective: Objective: Per RN - stooling daily, flushes before staff can see. Vital Signs: Vital Signs Date Time Temp Pulse Resp B/P (MAP) Pulse Ox O2 Delivery O2 Flow Rate FiO2 07/27/18 08:30 72 166/63 07/27/18 08:00 Room Air 07/27/18 07:00 98.5 20 95 98.5 Labs: Laboratory Tests Test 07/26/18 11:52 07/26/18 16:57 07/26/18 20:52 07/27/18 05:32 Glucose (Fingerstick) 93 mg/dL 92 mg/dL 104 mg/dL White Blood Count 4.5 x10^3/uL Red Blood Count 2.44 x10^6/uL Hemoglobin 7.6 g/dL Hematocrit 22.9 % Mean Corpuscular Volume 94 fL Mean Corpuscular Hemoglobin 31 pg Mean Corpuscular Hemoglobin Concent 33 g/dL Red Cell Distribution Width 14.5 % Platelet Count 55 x10^3/uL Test 07/27/18 05:35 07/27/18 07:55 Sodium Level 138 mmol/L Potassium Level 4.6 mmol/L Chloride Level 107 mmol/L Carbon Dioxide Level 22 mmol/L Anion Gap 9 Blood Urea Nitrogen 45 mg/dL Creatinine 3.0 mg/dL Estimated GFR (Cockcroft-Gault) 14.9 BUN/Creatinine Ratio 15 Glucose Level 94 mg/dL Calcium Level 8.0 mg/dL Total Bilirubin 1.2 mg/dL Aspartate Amino Transf (AST/SGOT) 30 U/L Alanine Aminotransferase (ALT/SGPT) 78 U/L Alkaline Phosphatase 146 U/L Total Protein 5.0 g/dL Albumin 2.3 g/dL Albumin/Globulin Ratio 0.9 Glucose (Fingerstick) 95 mg/dL PE: GEN: NAD, walking around room, family present LUNGS: room air HEART: RRR ABD: round, ?distended, non-tender NEURO/PSYCH: A & O �3 A/P: Abnormal LFTs - continuing to improve -viral Hep neg, liver unremarkable on CT, s/p cholecystectomy Thrombocytopenia - better (plt 55) FELIPE - stable (Cr 3) Chronic anemia - stable -denies bleeding, "dark brown stool" Bloating -- Feels more bloated today, will check KUB. NETTA WEEKS Jul 27, 2018 11:48
--- NOTE | 2018-07-27 13:02 | PDOC ---
PROGRESS NOTES Subjective Subjective Patient feeling somewhat better. Patient still having abdominal bloating but now tolerating diet. Patient having less nausea. Patient's laboratories have improved except for renal function has still remained poor despite IV hydration and discontinuation of nonsteroidal anti-inflammatories. Objective Objective Vital Signs Date Time Temp Pulse Resp B/P (MAP) Pulse Ox O2 Delivery O2 Flow Rate FiO2 07/27/18 11:00 98.2 63 18 138/56 (83) 96 Room Air 98.2 Intake and Output 07/27/18 07:01 Intake Total 2960 ml Balance 2960 ml Intake Oral 760 ml IV Total 2200 ml # Voids 2 # Bowel Movements 1 Physical Exam Abdomen: Normal bowel sounds Heart: Regular rate Extremities: No edema General: Alert Lungs: Clear to auscultation Assessment Assessment Problems Medical Problems: (1) Acute kidney injury Status: Acute (2) Anemia Status: Acute (3) Thrombocytopenia Status: Acute Acute renal failure Acute hepatic failure Thrombocytopenia Debilitation HTN Plan Plan of Care Advance diet PT/OT eval and treat Continue to monitor improvement of liver functions platelets and renal function Possible snow eval versus discharge with home health. Comment Review of Relevant I have reviewed the following items karen (where applicable) has been applied. Labs Laboratory Tests Test 07/25/18 20:23 07/26/18 06:45 07/26/18 06:54 07/26/18 07:17 Glucose (Fingerstick) 102 mg/dL (70-99) 86 mg/dL (70-99) Sodium Level 135 mmol/L (136-145) Potassium Level 4.3 mmol/L (3.5-5.1) Chloride Level 105 mmol/L (98-107) Carbon Dioxide Level 20 mmol/L (21-32) Anion Gap 10 (6-14) Blood Urea Nitrogen 47 mg/dL (7-20) Creatinine 3.0 mg/dL (0.6-1.0) Estimated GFR (Cockcroft-Gault) 14.9 Glucose Level 89 mg/dL (70-99) Calcium Level 7.8 mg/dL (8.5-10.1) Total Bilirubin 1.3 mg/dL (0.2-1.0) Direct Bilirubin 0.9 mg/dL (0.0-0.2) Aspartate Amino Transf (AST/SGOT) 39 U/L (15-37) Alanine Aminotransferase (ALT/SGPT) 100 U/L (14-59) Alkaline Phosphatase 148 U/L (46-116) Lactate Dehydrogenase 304 U/L (81-234) Total Protein 5.0 g/dL (6.4-8.2) Albumin 2.2 g/dL (3.4-5.0) White Blood Count 5.5 x10^3/uL (4.0-11.0) Red Blood Count 2.46 x10^6/uL (3.50-5.40) Hemoglobin 7.7 g/dL (12.0-15.5) Hematocrit 23.0 % (36.0-47.0) Mean Corpuscular Volume 94 fL (79-100) Mean Corpuscular Hemoglobin 32 pg (25-35) Mean Corpuscular Hemoglobin Concent 34 g/dL (31-37) Red Cell Distribution Width 14.2 % (11.5-14.5) Platelet Count 47 x10^3/uL (140-400) Reticulocyte Count (auto) 1.9 % (0.5-2.5) Test 07/26/18 11:52 07/26/18 16:57 07/26/18 20:52 07/27/18 05:32 Glucose (Fingerstick) 93 mg/dL (70-99) 92 mg/dL (70-99) 104 mg/dL (70-99) White Blood Count 4.5 x10^3/uL (4.0-11.0) Red Blood Count 2.44 x10^6/uL (3.50-5.40) Hemoglobin 7.6 g/dL (12.0-15.5) Hematocrit 22.9 % (36.0-47.0) Mean Corpuscular Volume 94 fL (79-100) Mean Corpuscular Hemoglobin 31 pg (25-35) Mean Corpuscular Hemoglobin Concent 33 g/dL (31-37) Red Cell Distribution Width 14.5 % (11.5-14.5) Platelet Count 55 x10^3/uL (140-400) Test 07/27/18 05:35 07/27/18 07:55 07/27/18 11:27 Sodium Level 138 mmol/L (136-145) Potassium Level 4.6 mmol/L (3.5-5.1) Chloride Level 107 mmol/L (98-107) Carbon Dioxide Level 22 mmol/L (21-32) Anion Gap 9 (6-14) Blood Urea Nitrogen 45 mg/dL (7-20) Creatinine 3.0 mg/dL (0.6-1.0) Estimated GFR (Cockcroft-Gault) 14.9 BUN/Creatinine Ratio 15 (6-20) Glucose Level 94 mg/dL (70-99) Calcium Level 8.0 mg/dL (8.5-10.1) Total Bilirubin 1.2 mg/dL (0.2-1.0) Aspartate Amino Transf (AST/SGOT) 30 U/L (15-37) Alanine Aminotransferase (ALT/SGPT) 78 U/L (14-59) Alkaline Phosphatase 146 U/L (46-116) Total Protein 5.0 g/dL (6.4-8.2) Albumin 2.3 g/dL (3.4-5.0) Albumin/Globulin Ratio 0.9 (1.0-1.7) Glucose (Fingerstick) 95 mg/dL (70-99) 99 mg/dL (70-99) Laboratory Tests Test 07/26/18 16:57 07/26/18 20:52 07/27/18 05:32 07/27/18 05:35 Glucose (Fingerstick) 92 mg/dL (70-99) 104 mg/dL (70-99) White Blood Count 4.5 x10^3/uL (4.0-11.0) Red Blood Count 2.44 x10^6/uL (3.50-5.40) Hemoglobin 7.6 g/dL (12.0-15.5) Hematocrit 22.9 % (36.0-47.0) Mean Corpuscular Volume 94 fL (79-100) Mean Corpuscular Hemoglobin 31 pg (25-35) Mean Corpuscular Hemoglobin Concent 33 g/dL (31-37) Red Cell Distribution Width 14.5 % (11.5-14.5) Platelet Count 55 x10^3/uL (140-400) Sodium Level 138 mmol/L (136-145) Potassium Level 4.6 mmol/L (3.5-5.1) Chloride Level 107 mmol/L (98-107) Carbon Dioxide Level 22 mmol/L (21-32) Anion Gap 9 (6-14) Blood Urea Nitrogen 45 mg/dL (7-20) Creatinine 3.0 mg/dL (0.6-1.0) Estimated GFR (Cockcroft-Gault) 14.9 BUN/Creatinine Ratio 15 (6-20) Glucose Level 94 mg/dL (70-99) Calcium Level 8.0 mg/dL (8.5-10.1) Total Bilirubin 1.2 mg/dL (0.2-1.0) Aspartate Amino Transf (AST/SGOT) 30 U/L (15-37) Alanine Aminotransferase (ALT/SGPT) 78 U/L (14-59) Alkaline Phosphatase 146 U/L (46-116) Total Protein 5.0 g/dL (6.4-8.2) Albumin 2.3 g/dL (3.4-5.0) Albumin/Globulin Ratio 0.9 (1.0-1.7) Test 07/27/18 07:55 07/27/18 11:27 Glucose (Fingerstick) 95 mg/dL (70-99) 99 mg/dL (70-99) Microbiology 07/23/18 Urine Culture - Final, Complete 07/23/18 Urine Culture Result 1 (MARTHA) - Final, Complete Medications Current Medications Iohexol (Omnipaque 300 Mg/ml) 75 ml 1X ONCE IV ; Start 07/23/18 at 16:15; Stop 07/23/18 at 16:16; Status DC Info (CONTRAST GIVEN -- Rx MONITORING) 1 each PRN DAILY PRN MC SEE COMMENTS; Start 07/23/18 at 16:15; Stop 07/25/18 at 16:14; Status DC Ondansetron HCl (Zofran) 4 mg PRN Q8HRS PRN IV NAUSEA/VOMITING Last administered on 07/23/18at 20:56; Start 07/23/18 at 17:45; Stop 07/24/18 at 17:44 ; Status DC Morphine Sulfate (Morphine Sulfate) 2 mg PRN Q2HR PRN IV PAIN; Start 07/23/18 at 17:45; Stop 07/23/18 at 17:45; Status DC Sodium Chloride 1,000 ml @ 100 mls/hr Q10H IV Last administered on 07/23/18at 20:57; Start 07/23/18 at 17:32; Stop 07/23/18 at 23:31; Status DC Acetaminophen (Tylenol) 1,000 mg PRN Q6HRS PRN PO MILD PAIN / TEMP Last administered on 07/26/18 20:26; Start 07/23/18 at 21:30 Sodium Chloride 1,000 ml @ 100 mls/hr Q10H IV Last administered on 07/27/18 06:35; Start 07/24/18 at 11:45 Amlodipine Besylate (Norvasc) 5 mg DAILY PO Last administered on 07/25/18 09: 17; Start 07/24/18 at 12:30; Stop 07/25/18 at 11:47; Status DC Metoprolol Succinate (Toprol Xl) 25 mg DAILY PO Last administered on 07/27/18 08:30; Start 07/24/18 at 12:30 Pantoprazole Sodium (Protonix) 40 mg DAILYAC PO Last administered on 07/27/18 08:30; Start 07/24/18 at 12:30 Losartan Potassium (Cozaar) 100 mg DAILY PO Last administered on 07/25/18 09: 17; Start 07/24/18 at 12:30; Stop 07/25/18 at 11:44; Status DC Psyllium Hydrophilic Mucilloid (Metamucil Fiber Packet) 1 pkt DAILY PO Last administered on 07/27/18 08:30; Start 07/24/18 at 16:00 Ondansetron HCl (Zofran) 4 mg PRN Q8HRS PRN IV NAUSEA/VOMITING Last administered on 07/25/18 21:45; Start 07/24/18 at 23:15 Magnesium Hydroxide (Milk Of Magnesia) 2,400 mg PRN DAILY PRN PO CONSTIPATION 1ST CHOICE Last administered on 07/25/18 13:18; Start 07/25/18 at 10:15 Amlodipine Besylate (Norvasc) 5 mg DAILY PO ; Start 07/26/18 at 09:00; Stop at 09:00; Status DC Bisacodyl (Dulcolax Tab) 10 mg PRN DAILY PRN PO CONSTIPATION 2ND CHOICE Last administered on 07/27/18 08:30; Start 07/25/18 at 12:30 Amlodipine Besylate (Norvasc) 10 mg DAILY PO Last administered on 1/29/19at 08: 29; Start 07/26/18 at 09:00 Amlodipine Besylate (Norvasc) 5 mg 1X ONCE PO Last administered on 07/25/18at 12:38; Start 07/25/18 at 12:45; Stop 07/25/18 at 12:46; Status DC Active Scripts Active Naprosyn (Naproxen) 500 Mg Tablet 1 Tab PO BID Metoprolol Succinate ( Xl ) (Metoprolol Succinate) 25 Mg Tab.er.24h 1 Tab PO DAILY 30 Days Atacand (Candesartan Cilexetil) 32 Mg Tablet 1 Tab PO DAILY 30 Days Amlodipine Besylate 5 Mg Tablet 5 Mg PO DAILY Foltx Tablet (B12/Levomefolate Calcium/B-6) 1 Each Tablet 1 Each PO DAILY Reported Aspirin 325 Mg Tablet 1 Tab PO DAILY Atorvastatin Calcium 10 Mg Tablet 10 Mg PO HS Pantoprazole Sodium 40 Mg Tablet.dr 40 Mg PO DAILY Vitals/I & O Vital Sign - Last 24 Hours 07/26/18 07/26/18 07/26/18 07/26/18 15:00 19:00 20:00 23:00 Temp 98.4 100.9 97.7 98.4 100.9 97.7 Pulse 80 72 63 Resp 20 20 B/P (MAP) 130/66 (87) 172/64 (100) 112/58 (76) Pulse Ox 96 95 97 O2 Delivery Room Air Room Air Room Air Room Air 07/27/18 07/27/18 07/27/18 07/27/18 03:00 07:00 08:00 08:29 Temp 99.1 98.5 99.1 98.5 Pulse 69 72 72 Resp 20 20 B/P (MAP) 146/58 (87) 166/63 (97) 166/63 Pulse Ox 95 95 O2 Delivery Room Air Room Air Room Air 07/27/18 07/27/18 08:30 11:00 Temp 98.2 98.2 Pulse 72 63 Resp 18 B/P (MAP) 166/63 138/56 (83) Pulse Ox 96 O2 Delivery Room Air Intake and Output 07/26/18 07/26/18 07/27/18 15:01 23:01 07:01 Intake Total 1440 ml 1180 ml 340 ml Balance 1440 ml 1180 ml 340 ml CATE VARELA MD Jul 27, 2018 13:02
--- NOTE | 2018-07-27 14:17 | RAD ---
EXAM: Chest, single view. HISTORY: Short of breath. COMPARISON: 07/01/2016 FINDINGS: A frontal view of the chest is obtained. There are small left greater than right pleural effusions with bilateral basilar atelectasis or interstitial infiltrate. There is no pneumothorax. The heart is normal in size. IMPRESSION: Small left greater than right pleural effusions with bilateral basilar atelectasis or interstitial infiltrate. Electronically signed by: Marita Hair MD (07/27/2018 2:13 PM) [place] [id number]
[2018-07-27 15:00] VITALS: BP 149/50
--- NOTE | 2018-07-27 15:12 | RAD ---
EXAM: Supine AP view of the abdomen DATE: 07/27/2018 11:49 AM INDICATION: bloating COMPARISON: 07/23/2018 FINDINGS: No abnormal small or large bowel dilatation. No evidence for bowel obstruction. Moderate colonic stool content. No abnormal soft tissue mass effect. No suspicious calcifications are seen. Evaluation for free intraperitoneal gas is limited on this supine exam. Cholecystectomy clips are seen. Degenerative changes of the spine are noted. IMPRESSION: 1. No evidence for bowel obstruction. Electronically signed by: Jamarcus Mccullough MD (07/27/2018 3:07 PM) [id number]
[2018-07-27 15:36] LABS: BILIRUBIN,URINE SMALL (NEG); CLARITY,URINE CLEAR; COLOR,URINE YELLOW; NITRITE,URINE NEGATIVE (NEG); PH,URINE 5.5; PROTEIN,URINE >=300 mg/dL (NEG-TRACE)
[2018-07-27 15:57] LABS: BACTERIA,URINE 0 /HPF (0-FEW); SQUAMOUS EPITHELIAL CELL,UR OCC /LPF; WBC,URINE OCC /HPF (0-4)
[2018-07-27 15:58] LABS: GRANULAR CASTS,URINE OCCASIONAL /HPF; HYALINE CASTS, URINE OCCASIONAL /HPF
[2018-07-27 15:59] LABS: RBC,URINE 20-40 /HPF (0-2)
[2018-07-27 19:00] VITALS: BP 156/63
[2018-07-27 23:00] VITALS: BP 151/55
[2018-07-28 03:00] VITALS: BP 140/41
[2018-07-28] MEDS: PANTOPRAZOLE 40 MG TABLET.DR. PO SCH (07:24)
[2018-07-28 07:39] VITALS: BP 170/61
[2018-07-28] MEDS: ACETAMINOPHEN 500 MG TABLET PO PRN (08:42)
[2018-07-28] MEDS: amLODIPine BESYLATE 10 MG TABLET PO SCH (08:42)
[2018-07-28] MEDS: PSYLLIUM HUSK (SUGAR FREE) 1 PKT PACKET PO SCH (08:43)
[2018-07-28] MEDS: BISACODYL 5 MG TABLET.DR. PO PRN (08:43)
[2018-07-28] MEDS: METOPROLOL SUCC 24HR ER 25 MG TAB.ER.24H. PO SCH (08:43)
[2018-07-28 10:11] LABS: HEMATOCRIT 23.7 % (36.0-47.0); RED BLOOD COUNT 2.5 x10^6/uL (3.50-5.40); RED CELL DISTRIBUTION WIDTH 14.6 % (11.5-14.5); WHITE BLOOD COUNT 5.2 x10^3/uL (4.0-11.0)
[2018-07-28 10:28] LABS: CALCIUM 8.2 mg/dL (8.5-10.1); CREATININE 2.6 mg/dL (0.6-1.0); GFR 17.5; POTASSIUM 4.5 mmol/L (3.5-5.1)
--- NOTE | 2018-07-28 10:29 | RAD ---
2 view chest 07/28/2018 CLINICAL INDICATION: Short of air. COMPARISON: Single view chest 07/27/2018 FINDINGS: Poor depth of inspiration. Slight worsening of bilateral pleural effusions with adjacent compressive atelectasis. No pneumothorax. No focal consolidation. There is multilevel thoracic and lumbar spondylosis with grade 1 anterolisthesis L4-L5. Calcified atheromatous plaque of the thoracic aorta. IMPRESSION: 1. Slight progression in small bilateral pleural effusions. 2. Bibasilar atelectasis. Electronically signed by: Cliff Ugalde MD (07/28/2018 10:24 AM) [facility]
[2018-07-28] MEDS ORDERED: POLYETHYLENE GLYCOL 3350 17 GM PACKET. PO PRN (11:30)
--- NOTE | 2018-07-28 11:31 | PDOC ---
Subjective: Subjective: Family translates - feels a little bloated after eating. No abd pain - feels better overall. Hasn't stooled yet today but did yesterday. Objective: Vital Signs: Vital Signs Date Time Temp Pulse Resp B/P (MAP) Pulse Ox O2 Delivery O2 Flow Rate FiO2 07/28/18 08:43 75 170/61 07/28/18 08:00 Room Air 07/28/18 07:39 98.2 18 94 98.2 Labs: Laboratory Tests Test 07/27/18 15:01 07/28/18 09:57 Urine Collection Type Unknown Urine Color Yellow Urine Clarity Clear Urine pH 5.5 Urine Specific [place] 1.020 Urine Protein >=300 mg/dL Urine Glucose (UA) Negative mg/dL Urine Ketones (Stick) Negative mg/dL Urine Blood Large Urine Nitrite Negative Urine Bilirubin Small Urine Urobilinogen Dipstick 1.0 mg/dL Urine Leukocyte Esterase Negative Urine RBC 20-40 /HPF Urine WBC Occ /HPF Urine Squamous Epithelial Cells Occ /LPF Urine Bacteria 0 /HPF Urine Hyaline Casts Occasional /HPF Urine Granular Casts Occasional /HPF Urine Mucus Slight /LPF White Blood Count 5.2 x10^3/uL Red Blood Count 2.50 x10^6/uL Hemoglobin 8.0 g/dL Hematocrit 23.7 % Mean Corpuscular Volume 95 fL Mean Corpuscular Hemoglobin 32 pg Mean Corpuscular Hemoglobin Concent 34 g/dL Red Cell Distribution Width 14.6 % Platelet Count 81 x10^3/uL Sodium Level 137 mmol/L Potassium Level 4.5 mmol/L Chloride Level 107 mmol/L Carbon Dioxide Level 22 mmol/L Anion Gap 8 Blood Urea Nitrogen 41 mg/dL Creatinine 2.6 mg/dL Estimated GFR (Cockcroft-Gault) 17.5 Glucose Level 106 mg/dL Calcium Level 8.2 mg/dL Imaging: CXR IMPRESSION: 1. Slight progression in small bilateral pleural effusions. 2. Bibasilar atelectasis. KUB FINDINGS: No abnormal small or large bowel dilatation. No evidence for bowel obstruction. Moderate colonic stool content. No abnormal soft tissue mass effect. No suspicious calcifications are seen. Evaluation for free intraperitoneal gas is limited on this supine exam. Cholecystectomy clips are seen. Degenerative changes of the spine are noted. IMPRESSION: 1. No evidence for bowel obstruction. PE: GEN: NAD, up to recliner LUNGS: CTAB HEART: RRR ABD: ?distended (stable compared to yesterday), soft, non-tender NEURO/PSYCH: A & O �3 A/P: Abnormal LFTs - improved (last checked 07/27) Thrombocytopenia, FELIPE - improving Chronic anemia - stable Post-prandial bloating - on PPI -- Monitor LFTs, continue PPI, add Miralax if she wants. NETTA WEEKS Jul 28, 2018 11:31
[2018-07-28 11:41] VITALS: BP 155/58
[2018-07-28 12:01] LABS: ALBUMIN 2.4 g/dL (3.4-5.0); DIRECT BILIRUBIN 0.7 mg/dL (0.0-0.2); TOTAL BILIRUBIN 1.2 mg/dL (0.2-1.0)
--- NOTE | 2018-07-28 12:54 | PDOC2 ---
KATIA GALARZA GUEST SERVICES COORDINATOR 07/28/18 1254: UROLOGY CONSULT Date of Consult Date of Consult DATE: 07/28/18 TIME: 12:49 Reason for Consult Reason for Consult: Gross Hematuria Identification/Chief Complaint Chief Complaint Gross Hematuria Source Source: Caregiver, Chart review, Patient History of Present Illness Reason for Visit: This pleasant 82 year old female was admitted through the ER for complaints of bright red urine, abd pain, and FELIPE. A CT scan was done without contrast but they could find no obvious causes on the imaging for the gross hematuria. She had this problem for almost two weeks and then the last time she saw it was on Thursday. Despite the gross hematuria, she does not have any pain with urination, frequency, nocturia or feelings of incomplete bladder emptying. She denies a history of kidney stones or other kidney problems until just this admission. Presently she is feeling quite well, but would like to know why she has blood in her urine. Past Medical History Cardiovascular: HTN, Hyperlipidemia GI: Constipation, GERD Social History No ALCOHOL: none Drugs: None Current Problem List Problems: (1) Hematuria Current Medications Current Medications Current Medications Polyethylene Glycol (miraLAX PACKET) 17 gm PRN DAILY PRN PO CONSTIPATION; Start 07/28/18 at 11:30 Allergies Allergies: Coded Allergies: Penicillins (Verified Allergy, Intermediate, RASH, 07/23/18) morphine (Verified Adverse Reaction, Mild, N/V, 07/23/18) ROS Review Of Systems: CONSTITUTIONAL: No fever or chills EYES: No recent changes SKIN: No rash or itching CARDIOVASCULAR: No chest pain, syncope, palpitations, or edema RESPIRATORY: No SOB or cough GASTROINTESTINAL: No nausea, vomiting or abdominal pain NEUROLOGICAL: No headaches or weakness ENDOCRINE: No cold or heat intolerance GENITOURINARY: + Gross Hematuria, currently resolved. MUSCULOSKELETAL: No back pain or joint pain LYMPHATICS: No enlarged lymph nodes PSYCHIATRIC: No anxiety or depression Physical Exam Physical Exam: General: Pleasant, no acute distress, well groomed Eyes: conjunctiva anicteric, eyes full range of motion ENT: moist oral mucosa, normal dentition Neck: Trachea midline, no masses Respiratory: unlabored breathing, not using accessory muscles Abdomen: nontender, nondistended, no hepatosplenomegaly, no masses Skin: no rashes or skin lesions on visualized skin Psych: normal mood, affect. Alert and oriented x 3. Vitals VITALS Vital Signs Date Time Temp Pulse Resp B/P (MAP) Pulse Ox O2 Delivery O2 Flow Rate FiO2 07/28/18 11:41 98.4 65 18 155/58 (90) 97 Room Air 98.4 Labs Labs Laboratory Tests Test 07/26/18 16:57 07/26/18 20:52 07/27/18 05:32 07/27/18 05:35 Glucose (Fingerstick) 92 mg/dL (70-99) 104 mg/dL (70-99) White Blood Count 4.5 x10^3/uL (4.0-11.0) Red Blood Count 2.44 x10^6/uL (3.50-5.40) Hemoglobin 7.6 g/dL (12.0-15.5) Hematocrit 22.9 % (36.0-47.0) Mean Corpuscular Volume 94 fL (79-100) Mean Corpuscular Hemoglobin 31 pg (25-35) Mean Corpuscular Hemoglobin Concent 33 g/dL (31-37) Red Cell Distribution Width 14.5 % (11.5-14.5) Platelet Count 55 x10^3/uL (140-400) Sodium Level 138 mmol/L (136-145) Potassium Level 4.6 mmol/L (3.5-5.1) Chloride Level 107 mmol/L (98-107) Carbon Dioxide Level 22 mmol/L (21-32) Anion Gap 9 (6-14) Blood Urea Nitrogen 45 mg/dL (7-20) Creatinine 3.0 mg/dL (0.6-1.0) Estimated GFR (Cockcroft-Gault) 14.9 BUN/Creatinine Ratio 15 (6-20) Glucose Level 94 mg/dL (70-99) Calcium Level 8.0 mg/dL (8.5-10.1) Total Bilirubin 1.2 mg/dL (0.2-1.0) Aspartate Amino Transf (AST/SGOT) 30 U/L (15-37) Alanine Aminotransferase (ALT/SGPT) 78 U/L (14-59) Alkaline Phosphatase 146 U/L (46-116) Total Protein 5.0 g/dL (6.4-8.2) Albumin 2.3 g/dL (3.4-5.0) Albumin/Globulin Ratio 0.9 (1.0-1.7) Test 07/27/18 07:55 07/27/18 11:27 07/27/18 15:01 07/28/18 09:57 Glucose (Fingerstick) 95 mg/dL (70-99) 99 mg/dL (70-99) Urine Collection Type Unknown Urine Color Yellow Urine Clarity Clear Urine pH 5.5 Urine Specific [place] 1.020 Urine Protein >=300 mg/dL (NEG-TRACE) Urine Glucose (UA) Negative mg/dL (NEG) Urine Ketones (Stick) Negative mg/dL (NEG) Urine Blood Large (NEG) Urine Nitrite Negative (NEG) Urine Bilirubin Small (NEG) Urine Urobilinogen Dipstick 1.0 mg/dL (0.2 mg/dL) Urine Leukocyte Esterase Negative (NEG) Urine RBC 20-40 /HPF (0-2) Urine WBC Occ /HPF (0-4) Urine Squamous Epithelial Cells Occ /LPF Urine Bacteria 0 /HPF (0-FEW) Urine Hyaline Casts Occasional /HPF Urine Granular Casts Occasional /HPF Urine Mucus Slight /LPF White Blood Count 5.2 x10^3/uL (4.0-11.0) Red Blood Count 2.50 x10^6/uL (3.50-5.40) Hemoglobin 8.0 g/dL (12.0-15.5) Hematocrit 23.7 % (36.0-47.0) Mean Corpuscular Volume 95 fL (79-100) Mean Corpuscular Hemoglobin 32 pg (25-35) Mean Corpuscular Hemoglobin Concent 34 g/dL (31-37) Red Cell Distribution Width 14.6 % (11.5-14.5) Platelet Count 81 x10^3/uL (140-400) Sodium Level 137 mmol/L (136-145) Potassium Level 4.5 mmol/L (3.5-5.1) Chloride Level 107 mmol/L (98-107) Carbon Dioxide Level 22 mmol/L (21-32) Anion Gap 8 (6-14) Blood Urea Nitrogen 41 mg/dL (7-20) Creatinine 2.6 mg/dL (0.6-1.0) Estimated GFR (Cockcroft-Gault) 17.5 Glucose Level 106 mg/dL (70-99) Calcium Level 8.2 mg/dL (8.5-10.1) Total Bilirubin 1.2 mg/dL (0.2-1.0) Direct Bilirubin 0.7 mg/dL (0.0-0.2) Aspartate Amino Transf (AST/SGOT) 28 U/L (15-37) Alanine Aminotransferase (ALT/SGPT) 66 U/L (14-59) Alkaline Phosphatase 152 U/L (46-116) Total Protein 5.0 g/dL (6.4-8.2) Albumin 2.4 g/dL (3.4-5.0) Laboratory Tests Test 07/27/18 15:01 07/28/18 09:57 Urine Collection Type Unknown Urine Color Yellow Urine Clarity Clear Urine pH 5.5 Urine Specific [place] 1.020 Urine Protein >=300 mg/dL (NEG-TRACE) Urine Glucose (UA) Negative mg/dL (NEG) Urine Ketones (Stick) Negative mg/dL (NEG) Urine Blood Large (NEG) Urine Nitrite Negative (NEG) Urine Bilirubin Small (NEG) Urine Urobilinogen Dipstick 1.0 mg/dL (0.2 mg/dL) Urine Leukocyte Esterase Negative (NEG) Urine RBC 20-40 /HPF (0-2) Urine WBC Occ /HPF (0-4) Urine Squamous Epithelial Cells Occ /LPF Urine Bacteria 0 /HPF (0-FEW) Urine Hyaline Casts Occasional /HPF Urine Granular Casts Occasional /HPF Urine Mucus Slight /LPF White Blood Count 5.2 x10^3/uL (4.0-11.0) Red Blood Count 2.50 x10^6/uL (3.50-5.40) Hemoglobin 8.0 g/dL (12.0-15.5) Hematocrit 23.7 % (36.0-47.0) Mean Corpuscular Volume 95 fL (79-100) Mean Corpuscular Hemoglobin 32 pg (25-35) Mean Corpuscular Hemoglobin Concent 34 g/dL (31-37) Red Cell Distribution Width 14.6 % (11.5-14.5) Platelet Count 81 x10^3/uL (140-400) Sodium Level 137 mmol/L (136-145) Potassium Level 4.5 mmol/L (3.5-5.1) Chloride Level 107 mmol/L (98-107) Carbon Dioxide Level 22 mmol/L (21-32) Anion Gap 8 (6-14) Blood Urea Nitrogen 41 mg/dL (7-20) Creatinine 2.6 mg/dL (0.6-1.0) Estimated GFR (Cockcroft-Gault) 17.5 Glucose Level 106 mg/dL (70-99) Calcium Level 8.2 mg/dL (8.5-10.1) Total Bilirubin 1.2 mg/dL (0.2-1.0) Direct Bilirubin 0.7 mg/dL (0.0-0.2) Aspartate Amino Transf (AST/SGOT) 28 U/L (15-37) Alanine Aminotransferase (ALT/SGPT) 66 U/L (14-59) Alkaline Phosphatase 152 U/L (46-116) Total Protein 5.0 g/dL (6.4-8.2) Albumin 2.4 g/dL (3.4-5.0) Images Images IMPRESSION: 1. Trace bilateral pleural effusions. 2. Mild consolidations in the posterior lower lobes may be compressive atelectasis or early pneumonia or scarring. 3. Mild pelvic free fluid, abnormal. Etiology uncertain. 4. Moderate sigmoid colon diverticulosis without diverticulitis. Assessment/Plan Assessment/Plan Gross Hematuria with negative urine culture-Recommend cystoscopy as an outpatient. Will coordinate with medical scheduler to arrange. CTU not possible at this point due to elevated creatinine. LUZ ALARCON MD 07/28/18 1637: UROLOGY CONSULT Assessment/Plan Assessment/Plan agree w h/p. will send urine cytology. fu for cysto as OP next week. KATIA GALARZA APRN Jul 28, 2018 12:54 LUZ ALARCON MD Jul 28, 2018 16:37
--- NOTE | 2018-07-28 13:45 | PDOC ---
SUBJECTIVE ROS Serbian speaking , family in room No new complaints, feels hand swelling btter Both feet swelling +, OBJECTIVE Vital Signs Vital Signs Date Time Temp Pulse Resp B/P (MAP) Pulse Ox O2 Delivery O2 Flow Rate FiO2 07/28/18 11:41 98.4 65 18 155/58 (90) 97 Room Air 98.4 I & 0 Intake and Output 07/28/18 07:01 Intake Total 720 ml Balance 720 ml Intake Oral 720 ml # Voids 3 # Bowel Movements 1 PHYSICAL EXAM Physical Exam GENERAL: no acute distress. HEENT: Mucous membranes moist. NECK: Supple, CHEST: clear to auscultation. CARDIOVASCULAR: Regular rhythm without murmur. ABDOMEN: Soft, EXTREMITIES: bilat LE edema trace Skin No rash No Page DIAGNOSIS/ASSESSMENT Assessment & Plan FELIPE- Suspect ATN , improved today Due to NSAID(naproxen) along with Atacand at home Ct scan abdomen negative , No past hx of CKD , I had discussed possibility of renal bx with family and Pt if no improvement in renal function Currently has low Plat, Cr improving Repeat UA - micr hematuria +, Protein +, Few Granular cast Edema- Stopped IVF yesterday Stable Micr hematuria- Repeat UA as well CT scan unremarkable, consulted urology Abnormal LFT's- improving Thrombocytopenia - Plat low , stable Hem following Discussed at great length with family, Pt and RN As per RN anticipated dc today- recommend close follow up of renal function with PCP Follow COMMENT/RELEVANT DATA Meds Current Medications Medications (Trade) Dose Ordered Sig/[place] Start Time Stop Time Status Last Admin Dose Admin Acetaminophen (Tylenol) 1,000 mg PRN Q6HRS PRN 07/23/18 21:30 07/28/18 08:42 1,000 MG Amlodipine Besylate (Norvasc) 5 mg 1X ONCE 07/25/18 12:45 07/25/18 12:46 DC 07/25/18 12:38 5 MG Bisacodyl (Dulcolax Tab) 10 mg PRN DAILY PRN 07/25/18 12:30 07/28/18 08:43 10 MG Info (CONTRAST GIVEN -- Rx MONITORING) 1 each PRN DAILY PRN 07/23/18 16:15 07/25/18 16:14 DC Iohexol (Omnipaque 300 Mg/ml) 75 ml 1X ONCE 07/23/18 16:15 07/23/18 16:16 DC Losartan Potassium (Cozaar) 100 mg DAILY 07/24/18 12:30 07/25/18 11:44 DC 07/25/18 09:17 100 MG Magnesium Hydroxide (Milk Of Magnesia) 2,400 mg PRN DAILY PRN 07/25/18 10:15 07/25/18 13:18 2,400 MG Metoprolol Succinate (Toprol Xl) 25 mg DAILY 07/24/18 12:30 07/28/18 08:43 25 MG Morphine Sulfate (Morphine Sulfate) 2 mg PRN Q2HR PRN 07/23/18 17:45 07/23/18 17:45 DC Ondansetron HCl (Zofran) 4 mg PRN Q8HRS PRN 07/24/18 23:15 07/25/18 21:45 4 MG Pantoprazole Sodium (Protonix) 40 mg DAILYAC 07/24/18 12:30 07/28/18 07:24 40 MG Polyethylene Glycol (miraLAX PACKET) 17 gm PRN DAILY PRN 07/28/18 11:30 Psyllium Hydrophilic Mucilloid (Metamucil Fiber Packet) 1 pkt DAILY 07/24/18 16:00 07/28/18 08:43 1 PKT Sodium Chloride 1,000 ml @ 100 mls/hr Q10H 07/24/18 11:45 07/27/18 20:09 DC 07/27/18 06:35 100 MLS/HR Lab Laboratory Tests Test 07/27/18 15:01 07/28/18 09:57 Urine Collection Type Unknown Urine Color Yellow Urine Clarity Clear Urine pH 5.5 Urine Specific [place] 1.020 Urine Protein >=300 mg/dL (NEG-TRACE) Urine Glucose (UA) Negative mg/dL (NEG) Urine Ketones (Stick) Negative mg/dL (NEG) Urine Blood Large (NEG) Urine Nitrite Negative (NEG) Urine Bilirubin Small (NEG) Urine Urobilinogen Dipstick 1.0 mg/dL (0.2 mg/dL) Urine Leukocyte Esterase Negative (NEG) Urine RBC 20-40 /HPF (0-2) Urine WBC Occ /HPF (0-4) Urine Squamous Epithelial Cells Occ /LPF Urine Bacteria 0 /HPF (0-FEW) Urine Hyaline Casts Occasional /HPF Urine Granular Casts Occasional /HPF Urine Mucus Slight /LPF White Blood Count 5.2 x10^3/uL (4.0-11.0) Red Blood Count 2.50 x10^6/uL (3.50-5.40) Hemoglobin 8.0 g/dL (12.0-15.5) Hematocrit 23.7 % (36.0-47.0) Mean Corpuscular Volume 95 fL (79-100) Mean Corpuscular Hemoglobin 32 pg (25-35) Mean Corpuscular Hemoglobin Concent 34 g/dL (31-37) Red Cell Distribution Width 14.6 % (11.5-14.5) Platelet Count 81 x10^3/uL (140-400) Sodium Level 137 mmol/L (136-145) Potassium Level 4.5 mmol/L (3.5-5.1) Chloride Level 107 mmol/L (98-107) Carbon Dioxide Level 22 mmol/L (21-32) Anion Gap 8 (6-14) Blood Urea Nitrogen 41 mg/dL (7-20) Creatinine 2.6 mg/dL (0.6-1.0) Estimated GFR (Cockcroft-Gault) 17.5 Glucose Level 106 mg/dL (70-99) Calcium Level 8.2 mg/dL (8.5-10.1) Total Bilirubin 1.2 mg/dL (0.2-1.0) Direct Bilirubin 0.7 mg/dL (0.0-0.2) Aspartate Amino Transf (AST/SGOT) 28 U/L (15-37) Alanine Aminotransferase (ALT/SGPT) 66 U/L (14-59) Alkaline Phosphatase 152 U/L (46-116) Total Protein 5.0 g/dL (6.4-8.2) Albumin 2.4 g/dL (3.4-5.0) Results All relevant outside records, renal labs, imaging studies, telemetry/EKG's were reviewed. VANESSA ROMANO MD Jul 28, 2018 13:45
--- NOTE | 2018-07-28 17:04 | DS ---
DATE OF DISCHARGE: 07/28/2018 ADMITTING DIAGNOSIS: Acute renal failure. SECONDARY DIAGNOSIS: 1. Severe thrombocytopenia. 2. Anemia. 3. Liver failure. 4. Hypertension. 5. Type 2 diabetes. 6. Osteoarthritis. DISMISSAL DIAGNOSIS: 1. Acute renal failure. 2. Severe thrombocytopenia. 3. Anemia. 4. Liver failure. 5. Hypertension. 6. Type 2 diabetes. 7. Osteoarthritis. HISTORY OF PRESENT ILLNESS AND HOSPITAL COURSE: The patient is an 82-year-old female who presented with hematuria, abdominal discomfort and constipation. She was found to be in renal failure upon evaluation of laboratories as well to have significant thrombocytopenia and anemia. Due to these findings, she was admitted for further evaluation. Initial evaluation showed the only reason for renal failure, thrombocytopenia and liver abnormalities was medication reaction to naproxen sodium. This medication was discontinued and the patient was hydrated and PT and OT modalities were begun. She returned to the point where she was able to take care of herself with family assistance and discharge with home health was planned. The patient's renal function improved to a creatinine of 2.6 from a high creatinine of 3.3. The patient's CBC revealed platelet count of 81,000 from a low of 21,000 and hemoglobin improved from a low of 7.5 at 8 prior to discharge. The patient was now tolerating diet and having bowel movements. DISCHARGE MEDICATIONS: The patient will be discharged to home on the following medications: Amlodipine 5 mg daily, atorvastatin 10 mg daily, folic acid, vitamins daily, metoprolol 25 mg extended release daily, pantoprazole 40 mg daily. Aspirin, Atacand and Naprosyn were discontinued. DISCHARGE INSTRUCTIONS: She will follow up in the office in 1-2 weeks for recheck of laboratory. CATE VARELA MD DR: REESE/violet JOB#: [id number] / [id number]
[2018-08-16] MEDS ORDERED: HYDR-2868 PO (18:06)
[2018-08-16] MEDS ORDERED: FURO40TA4 PO (18:06)
[2018-08-17] MEDS ORDERED: FERR325T72 PO (09:21)
[2018-08-17] MEDS ORDERED: HYDR-2868 PO (10:44)
[2018-08-17] MEDS ORDERED: FURO40TA4 PO (10:44)
== END 2018-07-28 15:13 | disposition home health service (06) | DRG 441 ==
LOC: ER 11:12 → 5 NORTH 17:35
PROVIDERS: ADMIT Family Medicine; ATTEND Family Medicine
DX: K71.10 Toxic liver disease with hepatic necrosis, without coma (principal); N17.0 Acute kidney failure with tubular necrosis; J98.11 Atelectasis; D69.6 Thrombocytopenia, unspecified; D64.9 Anemia, unspecified; I12.9 Hypertensive chronic kidney disease with stage 1 through stage 4 chronic kidney disease, or unspecified chronic kidney disease; E11.22 Type 2 diabetes mellitus with diabetic chronic kidney disease; R80.9 Proteinuria, unspecified; E53.8 Deficiency of other specified B group vitamins; E78.00 Pure hypercholesterolemia, unspecified; E78.5 Hyperlipidemia, unspecified; G89.29 Other chronic pain; K21.9 Gastro-esophageal reflux disease without esophagitis; K57.30 Diverticulosis of large intestine without perforation or abscess without bleeding; M54.9 Dorsalgia, unspecified; K29.70 Gastritis, unspecified, without bleeding; Z90.49 Acquired absence of other specified parts of digestive tract; K59.00 Constipation, unspecified; M19.90 Unspecified osteoarthritis, unspecified site; R31.0 Gross hematuria; T39.395A Adverse effect of other nonsteroidal anti-inflammatory drugs [NSAID], initial encounter; Z80.3 Family history of malignant neoplasm of breast; T39.315A Adverse effect of propionic acid derivatives, initial encounter
CPT/HCPCS: 36415; 71045; 71046; 74018; 74176; 80048; 80053; 80076; 81001; 82607; 82728; 82962; 83010; 83540; 83550; 83615; 83690; 83735; 85025; 85027; 85045; 85610; 85730; 86705; 86709; 86803; 87086; 87340; J2405; J7030; 97116; 97530; 97535; G0378

== ENCOUNTER 2018-08-31 18:16 | Inpatient (IN) | payer MEDICARE, OTHER ==
[~2018-08-31] VITALS: Ht 142.2 cm; Wt 61.3 kg
[~2018-08-31 18:16] MED LIST changes: +CAND32TA19 PO; +CAND32TA4 PO; +FERR325T72 PO; +FURO40TA4 PO; +HYDR-2868 PO; +METO-239 PO; +METO25TA4 PO; +NAPR-683 PO; +PANT40TA5 PO; -PANT40TA77 PO
[2018-08-31 18:40] LABS: BASO % 1 % (0-3); EOS # 0.1 x10^3/uL (0.0-0.7); EOS % 2 % (0-3); HEMATOCRIT 30.6 % (36.0-47.0); HEMOGLOBIN 10.3 g/dL (12.0-15.5); LYMPH # 1.2 x10^3/uL (1.0-4.8); LYMPH % 17 % (24-48); MEAN CORPUSCULAR HEMOGLOBIN 33 pg (25-35); MEAN CORPUSCULAR HGB CONC 34 g/dL (31-37); MEAN CORPUSCULAR VOLUME 98 fL (79-100); MONO # 0.5 x10^3/uL (0.0-1.1); MONO % 7 % (0-9); NEUT # 5.2 x10^3uL (1.8-7.7); NEUT % 74 % (31-73); PLATELET COUNT 142 x10^3/uL (140-400); RED BLOOD COUNT 3.12 x10^6/uL (3.50-5.40); RED CELL DISTRIBUTION WIDTH 15.9 % (11.5-14.5); WHITE BLOOD COUNT 7.1 x10^3/uL (4.0-11.0)
[2018-08-31] MEDS ORDERED: cloNIDine HCL 0.1 MG TABLET PO ONE (18:45)
[2018-08-31] MEDS ORDERED: LABETALOL 20 MG/4 ML DISP.SYRIN. IVP ONE (18:45)
[2018-08-31 18:48] LABS: CALCIUM 9.1 mg/dL (8.5-10.1); CREATININE 0.9 mg/dL (0.6-1.0); GFR 59.7; POTASSIUM 4.1 mmol/L (3.5-5.1)
--- NOTE | 2018-08-31 18:49 | RAD ---
CT HEAD WO CONTRAST History: Headache, hypertension Comparison: July 01, 2016 Technique: Noncontrast CT imaging was performed of the head. Exposure: One or more of the following individualized dose reduction techniques were utilized for this examination: 1. Automated exposure control 2. Adjustment of the mA and/or kV according to patient size 3. Use of iterative reconstruction technique. Findings: No acute extra-axial or parenchymal hemorrhage is identified. There is no significant intra-axial mass effect, midline shift, or extra-axial fluid collection. The pearl-white differentiation of the major vascular territories is preserved. The ventricles, sulci, and cisterns are within normal limits in size and configuration. The mastoid air cells and the visualized paranasal sinuses are aerated. No acute calvarial abnormality is identified. There is atherosclerotic calcification carotid siphons bilaterally. Impression: 1. No acute intracranial abnormality is identified. Electronically signed by: John Casiano MD (08/31/2018 6:46 PM) [facility]
[2018-08-31 18:55] LABS: ALBUMIN 3.2 g/dL (3.4-5.0); ALBUMIN/GLOBULIN RATIO 0.9 (1.0-1.7); TOTAL BILIRUBIN 0.3 mg/dL (0.2-1.0); TOTAL PROTEIN 6.8 g/dL (6.4-8.2)
[2018-08-31 19:02] LABS: CREATINE KINASE 68 U/L (26-192)
[2018-08-31 19:13] LABS: BILIRUBIN,URINE NEGATIVE (NEG); CLARITY,URINE CLEAR; COLOR,URINE YELLOW; NITRITE,URINE NEGATIVE (NEG); PROTEIN,URINE >=300 mg/dL (NEG-TRACE); UROBILINOGEN,URINE 0.2 mg/dL (0.2 mg/dL)
[2018-08-31] MEDS ORDERED: hydrALAZINE 20 MG/ML VIAL. IVP ONE (19:15)
[2018-08-31 19:24] LABS: BACTERIA,URINE 0 /HPF (0-FEW); RBC,URINE >40 /HPF (0-2); SQUAMOUS EPITHELIAL CELL,UR OCC /LPF
[2018-08-31] MEDS ORDERED: ONDANSETRON PF 4 MG/2 ML VIAL. IV PRN (19:45)
[2018-08-31] MEDS ORDERED: fentaNYL PF VIAL 100 MCG/2 ML VIAL IV PRN (19:45)
[2018-08-31] MEDS ORDERED: ASPIRIN 325 MG TABLET PO ONE (19:45)
--- NOTE | 2018-08-31 19:47 | RAD ---
CHEST AP ONLY History: Hypertension Comparison: 08/16/2017 Findings: Single view of the chest is submitted. There is no infiltrate, pneumothorax, or effusion. The pericardial cardiac silhouette is somewhat enlarged although similar. There is again tortuous and possibly ectatic thoracic aorta, atherosclerotic calcification near the aortic arch. Impression: 1. There is again enlargement of the pericardial cardiac silhouette. There is again tortuous, possibly ectatic thoracic aorta. Electronically signed by: John Casiano MD (08/31/2018 7:44 PM) [facility]
--- NOTE | 2018-08-31 19:52 | PHYS DOC ---
Past Medical History Past Medical History: Diabetes-Type II, High Cholesterol, Hypertension Past Surgical History: Other Additional Past Surgical Histo: cataract Alcohol Use: None Drug Use: None Adult General Chief Complaint Chief Complaint: HYPERTENSION HPI HPI 82 y/o female presents with family with report of headache and left sided neck pain which started at 1000 today. Family reports checking patient's blood pressure and noting it was 215/90s. Patient denies trauma. Denies fever/ chills. Denies nausea or vomiting. Review of Systems Review of Systems Constitutional: Denies fever or chills [] Eyes: Denies change in visual acuity, redness, or eye pain [] HENT: Denies nasal congestion or sore throat [] Respiratory: Denies cough or shortness of breath [] Cardiovascular: Denies chest pain or palpitations GI: Denies abdominal pain, nausea, vomiting, or diarrhea [] : Denies dysuria or hematuria [] Musculoskeletal: Denies back pain or joint pain; reports neck pain Integument: Denies rash or skin lesions [] Neurologic: Reports headache; denies focal weakness or sensory changes [] Complete systems were reviewed and found to be within normal limits, except as documented in this note. Current Medications Current Medications Current Medications Medications (Trade) Dose Ordered Sig/[place] Start Time Stop Time Status Last Admin Dose Admin Aspirin (Darlyn Aspirin) 325 mg 1X ONCE 08/31/18 19:45 08/31/18 19:52 DC 08/31/18 20:33 325 MG Clonidine HCl (Catapres) 0.1 mg 1X ONCE 08/31/18 18:45 08/31/18 18:46 DC 08/31/18 19:10 0.1 MG Fentanyl Citrate (Fentanyl 2ml Vial) 25 mcg PRN Q2HRS PRN 08/31/18 19:45 09/01/18 09:16 DC Hydralazine HCl (Apresoline Inj) 10 mg PRN Q4HRS PRN 08/31/18 19:45 09/03/18 20:04 DC 09/02/18 18:40 10 MG Labetalol HCl (Normodyne Iv Push) 20 mg 1X ONCE 08/31/18 18:45 08/31/18 18:46 DC 08/31/18 19:11 20 MG Ondansetron HCl (Zofran) 4 mg PRN Q8HRS PRN 08/31/18 19:45 09/01/18 19:44 DC Allergies Allergies Allergies Coded Allergies Type Severity Reaction Last Updated Verified Penicillins Allergy Intermediate RASH 07/23/18 Yes morphine Adverse Reaction Mild N/V 07/23/18 Yes Physical Exam Physical Exam Constitutional: Well developed, well nourished, no acute distress, non-toxic appearance. [] HENT: Normocephalic, atraumatic, bilateral TMs normal, oropharynx moist, Eyes: PERRL, EOMI, conjunctiva normal, no discharge. [] Neck: Normal range of motion, no tenderness, supple Cardiovascular: Heart rate regular rhythm, no murmur [] Lungs & Thorax: Bilateral breath sounds clear to auscultation [] Abdomen: Soft, no tenderness Skin: Warm, dry, no erythema, no rash. [] Back: No tenderness, no CVA tenderness. [] Extremities: No tenderness, ROM intact Neurologic: Alert and oriented X 3, normal motor function, normal sensory function, no focal deficits noted. [] Psychologic: Affect normal, judgement normal, mood normal. [] Current Patient Data Vital Signs Vital Signs Date Time Temp Pulse Resp B/P (MAP) Pulse Ox O2 Delivery O2 Flow Rate FiO2 08/31/18 19:34 70 18 97 08/31/18 19:11 237/104 08/31/18 18:32 98.4 Room Air 98.4 Lab Values Laboratory Tests Test 08/31/18 18:25 08/31/18 19:03 White Blood Count 7.1 x10^3/uL (4.0-11.0) Red Blood Count 3.12 x10^6/uL (3.50-5.40) L Hemoglobin 10.3 g/dL (12.0-15.5) L Hematocrit 30.6 % (36.0-47.0) L Mean Corpuscular Volume 98 fL (79-100) Mean Corpuscular Hemoglobin 33 pg (25-35) Mean Corpuscular Hemoglobin Concent 34 g/dL (31-37) Red Cell Distribution Width 15.9 % (11.5-14.5) H Platelet Count 142 x10^3/uL (140-400) Neutrophils (%) (Auto) 74 % (31-73) H Lymphocytes (%) (Auto) 17 % (24-48) L Monocytes (%) (Auto) 7 % (0-9) Eosinophils (%) (Auto) 2 % (0-3) Basophils (%) (Auto) 1 % (0-3) Neutrophils # (Auto) 5.2 x10^3uL (1.8-7.7) Lymphocytes # (Auto) 1.2 x10^3/uL (1.0-4.8) Monocytes # (Auto) 0.5 x10^3/uL (0.0-1.1) Eosinophils # (Auto) 0.1 x10^3/uL (0.0-0.7) Basophils # (Auto) 0.0 x10^3/uL (0.0-0.2) Sodium Level 136 mmol/L (136-145) Potassium Level 4.1 mmol/L (3.5-5.1) Chloride Level 100 mmol/L (98-107) Carbon Dioxide Level 27 mmol/L (21-32) Anion Gap 9 (6-14) Blood Urea Nitrogen 11 mg/dL (7-20) Creatinine 0.9 mg/dL (0.6-1.0) Estimated GFR (Cockcroft-Gault) 59.7 BUN/Creatinine Ratio 12 (6-20) Glucose Level 114 mg/dL (70-99) H Calcium Level 9.1 mg/dL (8.5-10.1) Magnesium Level 2.0 mg/dL (1.8-2.4) Total Bilirubin 0.3 mg/dL (0.2-1.0) Aspartate Amino Transferase (AST) 24 U/L (15-37) Alanine Aminotransferase (ALT) 17 U/L (14-59) Alkaline Phosphatase 107 U/L (46-116) Creatine Kinase 68 U/L (26-192) Creatine Kinase MB (Mass) 1.0 ng/mL (0.0-3.6) Creatine Kinase MB Relative Index % (0-4) Troponin I Quantitative 0.121 ng/mL (0.000-0.055) Total Protein 6.8 g/dL (6.4-8.2) Albumin 3.2 g/dL (3.4-5.0) L Albumin/Globulin Ratio 0.9 (1.0-1.7) L Urine Collection Type Unknown Urine Color Yellow Urine Clarity Clear Urine pH 7.0 Urine Specific [place] <=1.005 Urine Protein >=300 mg/dL (NEG-TRACE) Urine Glucose (UA) Negative mg/dL (NEG) Urine Ketones (Stick) Negative mg/dL (NEG) Urine Blood Moderate (NEG) Urine Nitrite Negative (NEG) Urine Bilirubin Negative (NEG) Urine Urobilinogen Dipstick 0.2 mg/dL (0.2 mg/dL) Urine Leukocyte Esterase Negative (NEG) Urine RBC >40 /HPF (0-2) Urine WBC 1-4 /HPF (0-4) Urine Squamous Epithelial Cells Occ /LPF Urine Bacteria 0 /HPF (0-FEW) Laboratory Tests 08/31/18 18:25 Laboratory Tests 08/31/18 18:25 EKG EKG @1828 NSR at 80bpm, NO ST elevation Radiology/Procedures Radiology/Procedures PROCEDURE: CT HEAD WO CONTRAST CT HEAD WO CONTRAST History: Headache, hypertension Comparison: July 01, 2016 Technique: Noncontrast CT imaging was performed of the head. Exposure: One or more of the following individualized dose reduction techniques were utilized for this examination: 1. Automated exposure control 2. Adjustment of the mA and/or kV according to patient size 3. Use of iterative reconstruction technique. Findings: No acute extra-axial or parenchymal hemorrhage is identified. There is no significant intra-axial mass effect, midline shift, or extra-axial fluid collection. The pearl-white differentiation of the major vascular territories is preserved. The ventricles, sulci, and cisterns are within normal limits in size and configuration. The mastoid air cells and the visualized paranasal sinuses are aerated. No acute calvarial abnormality is identified. There is atherosclerotic calcification carotid siphons bilaterally. Impression: 1. No acute intracranial abnormality is identified. Electronically signed by: John Casiano MD (08/31/2018 6:46 PM) [facility] PROCEDURE: CHEST AP ONLY CHEST AP ONLY History: Hypertension Comparison: 08/16/2017 Findings: Single view of the chest is submitted. There is no infiltrate, pneumothorax, or effusion. The pericardial cardiac silhouette is somewhat enlarged although similar. There is again tortuous and possibly ectatic thoracic aorta, atherosclerotic calcification near the aortic arch. Impression: 1. There is again enlargement of the pericardial cardiac silhouette. There is again tortuous, possibly ectatic thoracic aorta. Electronically signed by: John Casiano MD (08/31/2018 7:44 PM) [facility] Course & Med Decision Making Course & Med Decision Making Pertinent Labs and Imaging studies reviewed. (See chart for details) Elderly patient presents with repot of headache and left sided neck pain with associated elevated blood pressure. Patient neurologically intact. NIHSS 0. Labs obtained and posted to chart. CT head without acute process. CXR stable. Patient requiring admission for further evaluation and treatment. Discussed with Dr. Wagoner (who is covering for PCP- Dr. Pedraza) who is in agreement with admit. Discussed findings and plan with patient, who acknowledges understanding and agreement. Dragon Disclaimer Dragon Disclaimer This electronic medical record was generated, in whole or in part, using a voice recognition dictation system. Departure Departure Impression: Primary Impression: Hypertensive urgency Additional Impression: Elevated troponin Disposition: ADMITTED INPATIENT Admitting Physician: Sabina Wagoner (covering for Dr. Pedraza (PCP)) Condition: GUARDED Referrals: CATE PEDRAZA MD (PCP) Scripts Chlorthalidone (CHLORTHALIDONE ) 25 Mg Tablet 25 MG PO DAILY for DIURETIC for 30 Days, #30 TAB Prov: CATE PEDRAZA MD 09/02/18 Aspirin (ASPIRIN) 81 Mg Tab.chew 1 TAB PO DAILY for cad, #30 TAB 3 Refills Prov: CATE PEDRAZA MD 09/02/18 Candesartan Cilexetil (ATACAND) 32 Mg Tablet 32 MG PO DAILY for htn for 30 Days, #30 TAB Prov: CATE PEDRAZA MD 09/02/18 Amlodipine Besylate (AMLODIPINE BESYLATE) 5 Mg Tablet 5 MG PO DAILY for htn for 30 Days, #30 TAB Prov: CATE PEDRAZA MD 09/02/18 Critical Care Time Critical care time was 30 minutes which includes time at bedside, spent in discussion of patient's care with specialists and/or family members, with interpretation of laboratory and/or radiological studies and is exclusive of procedures. NIHSS Stroke Scale NIH Stroke Scale: NIH Stroke Scale Response (Comments) Value Level of Consciousness: 0 Alert/Responsive 0 LOC Questions: 0 Answers both correctly 0 LOC Commands: 0 Performs both tasks 0 Best Gaze: 0 Normal 0 Visual: 0 No visual loss 0 Facial Palsy: 0 Normal, symmetrical 0 Motor - Left Arm 0 No drift 0 Motor - Right Arm 0 No drift 0 Motor - Left Leg 0 No drift 0 Motor: Right Leg 0 No drift 0 Limb Ataxia: 0 Absent 0 Sensory: 0 No loss 0 Best Language: 0 Normal 0 Dysathria: 0 Normal 0 Extinction and Inattention: 0 Normal 0 Total 0 Problem Qualifiers CATE LOPEZ DO Aug 31, 2018 19:52
[2018-08-31 21:00] VITALS: BP 174/61
[2018-08-31] MEDS ORDERED: DEXTROSE 50% 25 GM / 50ML DISP.SYRIN. IV PRN (22:30)
[2018-08-31 22:45] VITALS: BP 125/62
[2018-08-31] MEDS ORDERED: CAND1TAB PO (22:58)
[2018-08-31 23:10] VITALS: BP 103/46
[2018-09-01] VITALS (9 sets, daily range): BP systolic 109–181; BP diastolic 44–76
--- NOTE | 2018-09-01 07:10 | EKG ---
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
[2018-09-01] MEDS ORDERED: INSULIN LISPRO 300 UNITS/3 ML INSULN.PEN. SQ SCH (08:00)
[2018-09-01] MEDS: ACETAMINOPHEN 500 MG TABLET PO PRN ×2 (09:32→21:05)
[2018-09-01] MEDS ORDERED: CAND32TA19 PO (09:34)
--- NOTE | 2018-09-01 09:40 | PDOC ---
PROGRESS NOTES Subjective Subjective Patient without complaint, denies pain. Objective Objective Vital Signs Date Time Temp Pulse Resp B/P (MAP) Pulse Ox O2 Delivery O2 Flow Rate FiO2 09/01/18 07:29 98.3 66 20 113/51 (71) 96 Room Air 98.3 Intake and Output 09/01/18 07:00 Intake Total 100 ml Balance 100 ml Intake Oral 100 ml Physical Exam Abdomen: Normal bowel sounds, Soft, No tenderness Heart: Regular rate Extremities: No edema General: Alert, Oriented X3, No acute distress Lungs: Clear to auscultation Assessment Assessment Problems Medical Problems: (1) Elevated troponin Status: Acute (2) Hypertensive urgency Status: Acute Plan Plan of Care 1. Hypertensive urgency - BP much improved overnight with prn meds. Will resume her usual Atacand today and add Amlodipine as patient reports home BP's for past week have been 170's to 180's on the Atacand alone. 2. elevated troponin - mild elevation, suspect due to strain with elevated BP. Patient without chest pain. No recent hx CAD. Recent echo was WNL. Will check one more troponin now. 3. DM2 - diet-controlled. 4. hx renal insufficiency - Lasix and HCTZ were d/c previously due to this. Renal function good on admit lab. 5. anemia - mild, stable. Comment Review of Relevant I have reviewed the following items karen (where applicable) has been applied. Labs Laboratory Tests Test 08/31/18 18:25 08/31/18 19:03 08/31/18 22:55 09/01/18 01:35 White Blood Count 7.1 x10^3/uL (4.0-11.0) Red Blood Count 3.12 x10^6/uL (3.50-5.40) Hemoglobin 10.3 g/dL (12.0-15.5) Hematocrit 30.6 % (36.0-47.0) Mean Corpuscular Volume 98 fL (79-100) Mean Corpuscular Hemoglobin 33 pg (25-35) Mean Corpuscular Hemoglobin Concent 34 g/dL (31-37) Red Cell Distribution Width 15.9 % (11.5-14.5) Platelet Count 142 x10^3/uL (140-400) Neutrophils (%) (Auto) 74 % (31-73) Lymphocytes (%) (Auto) 17 % (24-48) Monocytes (%) (Auto) 7 % (0-9) Eosinophils (%) (Auto) 2 % (0-3) Basophils (%) (Auto) 1 % (0-3) Neutrophils # (Auto) 5.2 x10^3uL (1.8-7.7) Lymphocytes # (Auto) 1.2 x10^3/uL (1.0-4.8) Monocytes # (Auto) 0.5 x10^3/uL (0.0-1.1) Eosinophils # (Auto) 0.1 x10^3/uL (0.0-0.7) Basophils # (Auto) 0.0 x10^3/uL (0.0-0.2) Sodium Level 136 mmol/L (136-145) Potassium Level 4.1 mmol/L (3.5-5.1) Chloride Level 100 mmol/L (98-107) Carbon Dioxide Level 27 mmol/L (21-32) Anion Gap 9 (6-14) Blood Urea Nitrogen 11 mg/dL (7-20) Creatinine 0.9 mg/dL (0.6-1.0) Estimated GFR (Cockcroft-Gault) 59.7 BUN/Creatinine Ratio 12 (6-20) Glucose Level 114 mg/dL (70-99) Calcium Level 9.1 mg/dL (8.5-10.1) Magnesium Level 2.0 mg/dL (1.8-2.4) Total Bilirubin 0.3 mg/dL (0.2-1.0) Aspartate Amino Transf (AST/SGOT) 24 U/L (15-37) Alanine Aminotransferase (ALT/SGPT) 17 U/L (14-59) Alkaline Phosphatase 107 U/L (46-116) Creatine Kinase 68 U/L (26-192) Creatine Kinase MB (Mass) 1.0 ng/mL (0.0-3.6) Creatine Kinase MB Relative Index % (0-4) Troponin I Quantitative 0.121 ng/mL (0.000-0.055) 0.143 ng/mL (0.000-0.055) 0.187 ng/mL (0.000-0.055) Total Protein 6.8 g/dL (6.4-8.2) Albumin 3.2 g/dL (3.4-5.0) Albumin/Globulin Ratio 0.9 (1.0-1.7) Urine Collection Type Unknown Urine Color Yellow Urine Clarity Clear Urine pH 7.0 Urine Specific [place] <=1.005 Urine Protein >=300 mg/dL (NEG-TRACE) Urine Glucose (UA) Negative mg/dL (NEG) Urine Ketones (Stick) Negative mg/dL (NEG) Urine Blood Moderate (NEG) Urine Nitrite Negative (NEG) Urine Bilirubin Negative (NEG) Urine Urobilinogen Dipstick 0.2 mg/dL (0.2 mg/dL) Urine Leukocyte Esterase Negative (NEG) Urine RBC >40 /HPF (0-2) Urine WBC 1-4 /HPF (0-4) Urine Squamous Epithelial Cells Occ /LPF Urine Bacteria 0 /HPF (0-FEW) Test 09/01/18 07:21 Glucose (Fingerstick) 82 mg/dL (70-99) Laboratory Tests Test 08/31/18 18:25 08/31/18 19:03 08/31/18 22:55 09/01/18 01:35 White Blood Count 7.1 x10^3/uL (4.0-11.0) Red Blood Count 3.12 x10^6/uL (3.50-5.40) Hemoglobin 10.3 g/dL (12.0-15.5) Hematocrit 30.6 % (36.0-47.0) Mean Corpuscular Volume 98 fL (79-100) Mean Corpuscular Hemoglobin 33 pg (25-35) Mean Corpuscular Hemoglobin Concent 34 g/dL (31-37) Red Cell Distribution Width 15.9 % (11.5-14.5) Platelet Count 142 x10^3/uL (140-400) Neutrophils (%) (Auto) 74 % (31-73) Lymphocytes (%) (Auto) 17 % (24-48) Monocytes (%) (Auto) 7 % (0-9) Eosinophils (%) (Auto) 2 % (0-3) Basophils (%) (Auto) 1 % (0-3) Neutrophils # (Auto) 5.2 x10^3uL (1.8-7.7) Lymphocytes # (Auto) 1.2 x10^3/uL (1.0-4.8) Monocytes # (Auto) 0.5 x10^3/uL (0.0-1.1) Eosinophils # (Auto) 0.1 x10^3/uL (0.0-0.7) Basophils # (Auto) 0.0 x10^3/uL (0.0-0.2) Sodium Level 136 mmol/L (136-145) Potassium Level 4.1 mmol/L (3.5-5.1) Chloride Level 100 mmol/L (98-107) Carbon Dioxide Level 27 mmol/L (21-32) Anion Gap 9 (6-14) Blood Urea Nitrogen 11 mg/dL (7-20) Creatinine 0.9 mg/dL (0.6-1.0) Estimated GFR (Cockcroft-Gault) 59.7 BUN/Creatinine Ratio 12 (6-20) Glucose Level 114 mg/dL (70-99) Calcium Level 9.1 mg/dL (8.5-10.1) Magnesium Level 2.0 mg/dL (1.8-2.4) Total Bilirubin 0.3 mg/dL (0.2-1.0) Aspartate Amino Transf (AST/SGOT) 24 U/L (15-37) Alanine Aminotransferase (ALT/SGPT) 17 U/L (14-59) Alkaline Phosphatase 107 U/L (46-116) Creatine Kinase 68 U/L (26-192) Creatine Kinase MB (Mass) 1.0 ng/mL (0.0-3.6) Creatine Kinase MB Relative Index % (0-4) Troponin I Quantitative 0.121 ng/mL (0.000-0.055) 0.143 ng/mL (0.000-0.055) 0.187 ng/mL (0.000-0.055) Total Protein 6.8 g/dL (6.4-8.2) Albumin 3.2 g/dL (3.4-5.0) Albumin/Globulin Ratio 0.9 (1.0-1.7) Urine Collection Type Unknown Urine Color Yellow Urine Clarity Clear Urine pH 7.0 Urine Specific [place] <=1.005 Urine Protein >=300 mg/dL (NEG-TRACE) Urine Glucose (UA) Negative mg/dL (NEG) Urine Ketones (Stick) Negative mg/dL (NEG) Urine Blood Moderate (NEG) Urine Nitrite Negative (NEG) Urine Bilirubin Negative (NEG) Urine Urobilinogen Dipstick 0.2 mg/dL (0.2 mg/dL) Urine Leukocyte Esterase Negative (NEG) Urine RBC >40 /HPF (0-2) Urine WBC 1-4 /HPF (0-4) Urine Squamous Epithelial Cells Occ /LPF Urine Bacteria 0 /HPF (0-FEW) Test 09/01/18 07:21 Glucose (Fingerstick) 82 mg/dL (70-99) Medications Current Medications Labetalol HCl (Normodyne Iv Push) 20 mg 1X ONCE IVP Last administered on at 19:11; Start 08/31/18 at 18:45; Stop 08/31/18 at 18:46; Status DC Clonidine HCl (Catapres) 0.1 mg 1X ONCE PO Last administered on 08/31/18at 19:10 ; Start 08/31/18 at 18:45; Stop 08/31/18 at 18:46; Status DC Hydralazine HCl (Apresoline Inj) 20 mg 1X ONCE IVP Last administered on at 21:30; Start 08/31/18 at 19:15; Stop 08/31/18 at 19:16; Status DC Ondansetron HCl (Zofran) 4 mg PRN Q8HRS PRN IV NAUSEA/VOMITING; Start 08/31/18 at 19:45; Stop 09/01/18 at 19:44 Fentanyl Citrate (Fentanyl 2ml Vial) 25 mcg PRN Q2HRS PRN IV PAIN; Start at 19:45; Stop 09/01/18 at 09:16; Status DC Hydralazine HCl (Apresoline Inj) 10 mg PRN Q4HRS PRN IVP ELEVATED BP, SEE COMMENTS; Start 08/31/18 at 19:45 Aspirin (Darlyn Aspirin) 325 mg 1X ONCE PO Last administered on 08/31/18at 20:33 ; Start 08/31/18 at 19:45; Stop 08/31/18 at 19:52; Status DC Insulin Human Lispro (HumaLOG) 0-5 UNITS TIDWMEALS SQ ; Start 09/01/18 at 08:00; Stop 09/01/18 at 09:16; Status DC Dextrose (Dextrose 50%-Water Syringe) 12.5 gm PRN Q15MIN PRN IV SEE COMMENTS; Start 08/31/18 at 22:30; Stop 09/01/18 at 09:16; Status DC Acetaminophen (Tylenol) 1,000 mg PRN Q6HRS PRN PO pain Last administered on 09/01at 09:32; Start 09/01/18 at 09:15 Atorvastatin Calcium (Lipitor) 10 mg HS PO ; Start 09/01/18 at 21:00; Status UNV Ferrous Sulfate (Feosol) 325 mg BID PO ; Start 09/01/18 at 21:00; Status UNV Pantoprazole Sodium (Protonix) 40 mg DAILY PO ; Start 09/02/18 at 09:00; Status UNV Non-Formulary Medication (B12/ Levomefolate Calcium/B-6 (Foltx Tablet)) 1 each DAILY PO ; Start 09/02/18 at 09:00; Status UNV Non-Formulary Medication (Candesartan Cilexetil (Atacand)) 16 mg DAILY PO ; Start 09/02/18 at 09:00; Status UNV Active Scripts Active Atacand (Candesartan Cilexetil) 32 Mg Tablet 16 Mg PO DAILY 30 Days Feosol (Ferrous Sulfate) 325 Mg Tablet 325 Mg PO BID 30 Days Foltx Tablet (B12/Levomefolate Calcium/B-6) 1 Each Tablet 1 Each PO DAILY Reported Atorvastatin Calcium 10 Mg Tablet 10 Mg PO HS Pantoprazole Sodium 40 Mg Tablet.dr 40 Mg PO DAILY Vitals/I & O Vital Sign - Last 24 Hours 08/31/18 08/31/18 08/31/18 08/31/18 18:32 19:04 19:10 19:11 Temp 98.4 98.4 Pulse 85 77 76 97 Resp 13 B/P (MAP) 252/116 (161) 237/104 237/104 Pulse Ox 99 O2 Delivery Room Air 08/31/18 08/31/18 08/31/18 08/31/18 19:19 19:34 19:49 20:04 Pulse 67 70 66 65 Resp 16 18 17 17 Pulse Ox 97 97 96 96 08/31/18 08/31/18 08/31/18 08/31/18 20:19 21:00 21:30 21:40 Temp 98.2 98.2 Pulse 64 63 63 Resp 19 20 B/P (MAP) 174/61 (98) 174/61 Pulse Ox 96 97 O2 Delivery Room Air Room Air 08/31/18 09/01/18 09/01/18 23:10 03:20 07:29 Temp 97.9 98.0 98.3 97.9 98.0 98.3 Pulse 75 69 66 Resp 18 20 20 B/P (MAP) 103/46 (65) 117/50 (72) 113/51 (71) Pulse Ox 97 96 96 O2 Delivery Room Air Room Air Room Air Intake and Output 08/31/18 08/31/18 09/01/18 15:00 23:00 07:00 Intake Total 0 ml 100 ml Balance 0 ml 100 ml VIVIAN SINGLETARY MD Sep 01, 2018 09:40
[2018-09-01] MEDS ORDERED: LOSARTAN POTASSIUM 50 MG TABLET. PO SCH ×2 (10:30)
[2018-09-01] MEDS: VITAMIN B12,B9,B6 COMPLEX 1 TABLET. PO SCH (10:45)
[2018-09-01] MEDS: FERROUS SULFATE 325 MG TABLET. PO SCH ×2 (10:45→21:05)
[2018-09-01] MEDS: PANTOPRAZOLE 40 MG TABLET.DR. PO SCH (10:46)
[2018-09-01] MEDS: amLODIPine BESYLATE 5 MG TABLET PO SCH (10:47)
--- NOTE | 2018-09-01 11:19 | HP ---
ADMIT DATE: 08/31/2018 CHIEF COMPLAINT: Elevated blood pressure. HISTORY OF PRESENT ILLNESS: The patient is an 82-year-old female who came to the Emergency Room with the above complaint. The patient had seen Dr. Pedraza for an office visit last month and had some adjustment of her hypertensive medication at that time. She had been taking the Atacand 16 mg daily as advised. Her home blood pressures had been in the 170s to 180s systolic. On the day of admission, her blood pressures were quite elevated and when the home health nurse saw her, they found her to have a systolic blood pressure over 200. They were advised to have the patient come to the Emergency Room. Initial evaluation there showed her to have a systolic blood pressure of 252. Treatment was started, and she was admitted for further care. PAST MEDICAL HISTORY: Hypertension, hyperlipidemia, congestive heart failure with mild diastolic dysfunction. Diabetes mellitus type 2, diet controlled. History of previous renal insufficiency, coronary artery disease, osteoarthritis. PAST SURGICAL HISTORY: Laparoscopic cholecystectomy, cataract surgery. FAMILY HISTORY: Noncontributory. SOCIAL HISTORY: The patient is a nonsmoker. She is . She lives at home with family members. REVIEW OF SYSTEMS: The patient has not had fever or chills. She has not had cough or shortness of breath. She has not had chest pain or palpitations. She denies abdominal pain, nausea or vomiting. PHYSICAL EXAMINATION: GENERAL: The patient is alert and oriented, resting comfortably in bed, in no acute distress, family member and the patient's nurse provide translation. HEENT: PERRL, EOMI, sclerae clear. Oropharynx: Mucous membranes moist. NECK: Supple, without lymphadenopathy. CHEST: Clear to auscultation. HEART: Regular rhythm without murmur. ABDOMEN: Soft, nontender, normoactive bowel sounds are present. EXTREMITIES: Without edema. ASSESSMENT AND PLAN: 1. Hypertensive urgency. The patient's blood pressure is much improved overnight with the use of p.r.n. medications. We will resume her Atacand today, substituting losartan at an equivalent dose per hospital formulary. We will add amlodipine 5 mg daily as the patient's blood pressure at home was apparently not well controlled with the Atacand previously. 2. Elevated troponin. The patient's troponin is very mildly elevated. It has increased to 0.187. The patient is without chest pain. Suspect that this elevation is due to cardiac strain with her elevated blood pressure. We will check 1 more troponin. Further evaluation only if troponin continues to increase. 3. Diabetes mellitus type 2. This is diet controlled. An ADA diet is ordered. 4. History of renal insufficiency. The patient's Lasix and hydrochlorothiazide were discontinued due to this. She has also been taken off all anti-inflammatory medication. Lab at admission shows a good renal function with a creatinine of 0.9 and an estimated GFR of 59.7. We will continue her with Tylenol for pain as needed. 5. Anemia. The patient was started on iron for this at her last hospitalization. Her hemoglobin is significantly improved. We will continue iron. VIVIAN SINGLETARY MD DR: MERCEDES/violet JOB#: [id number] / [id number] DOREEN
--- NOTE | 2018-09-01 12:19 | NUR ---
SS following for discharge planning. SS reviewed pt chart. Pt is from home and is currently on room air. Pt's RN informed SS that pt was previously on services with [facility]. SS will continue to follow for discharge planning.
--- NOTE | 2018-09-01 15:39 | PDOC ---
CARDIO Progress Notes Date and Time Date of Service 09/01/2018 Time of Evaluation 1510 Subjective Subjective: No Chest Pain, No shortness of breath, No Palpitations Vitals Vitals Vital Signs Date Time Temp Pulse Resp B/P (MAP) Pulse Ox O2 Delivery O2 Flow Rate FiO2 09/01/18 14:46 98.0 64 20 122/46 (71) 96 Room Air 98.0 Weight Weight [ ] Input and Output Intake and Output Intake and Output 09/01/18 07:00 Intake Total 100 ml Balance 100 ml Intake Oral 100 ml Laboratory Labs Laboratory Tests Test 08/31/18 18:25 08/31/18 19:03 08/31/18 22:55 09/01/18 01:35 White Blood Count 7.1 x10^3/uL (4.0-11.0) Red Blood Count 3.12 x10^6/uL (3.50-5.40) Hemoglobin 10.3 g/dL (12.0-15.5) Hematocrit 30.6 % (36.0-47.0) Mean Corpuscular Volume 98 fL (79-100) Mean Corpuscular Hemoglobin 33 pg (25-35) Mean Corpuscular Hemoglobin Concent 34 g/dL (31-37) Red Cell Distribution Width 15.9 % (11.5-14.5) Platelet Count 142 x10^3/uL (140-400) Neutrophils (%) (Auto) 74 % (31-73) Lymphocytes (%) (Auto) 17 % (24-48) Monocytes (%) (Auto) 7 % (0-9) Eosinophils (%) (Auto) 2 % (0-3) Basophils (%) (Auto) 1 % (0-3) Neutrophils # (Auto) 5.2 x10^3uL (1.8-7.7) Lymphocytes # (Auto) 1.2 x10^3/uL (1.0-4.8) Monocytes # (Auto) 0.5 x10^3/uL (0.0-1.1) Eosinophils # (Auto) 0.1 x10^3/uL (0.0-0.7) Basophils # (Auto) 0.0 x10^3/uL (0.0-0.2) Sodium Level 136 mmol/L (136-145) Potassium Level 4.1 mmol/L (3.5-5.1) Chloride Level 100 mmol/L (98-107) Carbon Dioxide Level 27 mmol/L (21-32) Anion Gap 9 (6-14) Blood Urea Nitrogen 11 mg/dL (7-20) Creatinine 0.9 mg/dL (0.6-1.0) Estimated GFR (Cockcroft-Gault) 59.7 BUN/Creatinine Ratio 12 (6-20) Glucose Level 114 mg/dL (70-99) Calcium Level 9.1 mg/dL (8.5-10.1) Magnesium Level 2.0 mg/dL (1.8-2.4) Total Bilirubin 0.3 mg/dL (0.2-1.0) Aspartate Amino Transf (AST/SGOT) 24 U/L (15-37) Alanine Aminotransferase (ALT/SGPT) 17 U/L (14-59) Alkaline Phosphatase 107 U/L (46-116) Creatine Kinase 68 U/L (26-192) Creatine Kinase MB (Mass) 1.0 ng/mL (0.0-3.6) Creatine Kinase MB Relative Index % (0-4) Troponin I Quantitative 0.121 ng/mL (0.000-0.055) 0.143 ng/mL (0.000-0.055) 0.187 ng/mL (0.000-0.055) Total Protein 6.8 g/dL (6.4-8.2) Albumin 3.2 g/dL (3.4-5.0) Albumin/Globulin Ratio 0.9 (1.0-1.7) Urine Collection Type Unknown Urine Color Yellow Urine Clarity Clear Urine pH 7.0 Urine Specific [place] <=1.005 Urine Protein >=300 mg/dL (NEG-TRACE) Urine Glucose (UA) Negative mg/dL (NEG) Urine Ketones (Stick) Negative mg/dL (NEG) Urine Blood Moderate (NEG) Urine Nitrite Negative (NEG) Urine Bilirubin Negative (NEG) Urine Urobilinogen Dipstick 0.2 mg/dL (0.2 mg/dL) Urine Leukocyte Esterase Negative (NEG) Urine RBC >40 /HPF (0-2) Urine WBC 1-4 /HPF (0-4) Urine Squamous Epithelial Cells Occ /LPF Urine Bacteria 0 /HPF (0-FEW) Test 09/01/18 07:21 09/01/18 11:00 Glucose (Fingerstick) 82 mg/dL (70-99) Troponin I Quantitative 0.699 ng/mL (0.000-0.055) Physical Exam HEENT: Neck Supple W Full Motion Chest: Symmetric LUNGS: Clear to Auscultation Heart: S1S2, RRR (SR) Abdomen: Soft N/T Extremities: No Calf Tenderness Neurology: alert, oriented, follow commands Assessment Assessment HPI: This is a pleasant 82 yo female admitted for complains high BP with home health nurse noted her SBP>200 and at some point noted at 252/116 initially at ED. She was only on atacand at home. She was discharge with hydralazine and norvasc and this appeared to be discontinued as an outpt due to leg swelling and placed on atacand. No further lasix as an outpt. I saw her recently due to minimal elevation in troponin in 08/17/18 when she was admitted noted with anemia ruled to be YASH and hypoglycemia with BG as low as 17. She has not been having any dizzy spells at home and actually doing well with home health therapy. No Cp even with exertion and no PARDO. No palpitations, nausea, jaw or arm pain. She had a fall prior to admission due to passing out but no trauma. GI evaluated her at that time but during that she did not have any intention for any endoscopy. She was also recently noted with significant thrombocytopenia which was deemed likely related to acute hepatitis and NSAID use. Per my recent conversation with her the last time It has been 7 yrs when she was told that she has CAD via [facility] but no intervention per her description. Again no cardiac symptoms disclosed and upon clarifying with her daughter and her they do want ischemic workup if it is warranted. There was probably a disconnect in terms of goals of care due to language barrier. Her BP overnight improved with hydralazine/labetolol IV and clonidine. She is currently on losartan and norvasc and her BP have been controlled. Assessments 1. Elevated troponin: 0.69 EKG SR without acute changes by comparison, suspect demand mediated. No cardiac symptoms. Recent EF and WM nml 2. HTN urgency: BB was not given before due to episodes of bradycardia. Hydralazine and lasix, norvasc from prior discharge. uncontrolled due to inadequate coverage. 3. CAD: LHC>7 yrs no intervention 4. Hx of Anemia: deemed from YASH. Hgb stable at 10 5. Hx of thrombocytopenia: deemed from acute hepatitis and NSAID. nml. 6. Hx of syncope: due to hypoglycemia 7. DM2; diet controlled, no episodes of hypoglycemia like before. 8. HLP: controlled now 9. Chronic diastolic CHF: compensated 10. Suspecting CKD3 with macroalbuminuria Recommendations 1. Trend troponin. Will consider for ischemic workup likely as MPI unless significant rise on troponin. 2. Orthostatic reading. Start on compression stocking. 3. Continue with losartan and norvasc. 4. Discussed with daughter in regards to their intentions in regards to goals of care and I believe there is a big disconnect in regards to this due to language barrier. Consider palliative team to be consulted to clarify goals of care with the pt and family moving forward 5. Pending intentions of family/pt in regards to conservative measures vs aggressive measures. outpt stress test and event monitor is a consideration. 6. Start on ECASA 81 mg and continue on statin. <Conclusion> The left ventricular systolic function is normal and the ejection fraction is within normal range. The Ejection Fraction is >55%. There is normal LV segmental wall motion. Doppler and Color Flow revealed mild aortic regurgitation. DATE: 08/17/18 1147 HARIS BROOKS APRN Sep 01, 2018 15:39
--- NOTE | 2018-09-01 16:15 | EKG ---
[facility] [address] [place] [address] Test Date: 2018-09-01 Test Time: 16:00:08 Pat Name: DEMI ZAVALA Department: Room: 209 1 Gender: F Security Threat Analyst: AT : 1935 Requested By: HARIS BROKOS Order Number: [id number] Reading MD: Ankit Zimmer MD Measurements Intervals [place] Rate: 67 P: 22 [place]: 214 QRS: -21 QRSD: 80 T: 37 QT: 412 QTc: 438 Interpretive Statements SINUS RHYTHM Electronically Signed On 09-02-2018 11:11:37 ADMINISTRATION SPECIALIST by Ankit Zimmer MD
[2018-09-01] MEDS: ASPIRIN ENTERIC COATED 81 MG TABLET.DR. PO SCH (17:37)
[2018-09-01] MEDS: ATORVASTATIN CALCIUM 10 MG TABLET. PO SCH (21:05)
[2018-09-02 03:00] VITALS: BP 193/73
[2018-09-02] MEDS: hydrALAZINE 20 MG/ML VIAL. IVP PRN ×2 (04:11→18:40)
[2018-09-02 07:00] VITALS: BP 118/48
[2018-09-02] MEDS ORDERED: REGADENOSON 0.4 MG/5 ML DISP.SYRIN. IV ONE (08:30)
[2018-09-02 11:00] VITALS: BP 166/70
[2018-09-02] MEDS: ACETAMINOPHEN 500 MG TABLET PO PRN ×2 (12:01→21:23)
[2018-09-02] MEDS: VITAMIN B12,B9,B6 COMPLEX 1 TABLET. PO SCH (12:01)
[2018-09-02] MEDS: ASPIRIN ENTERIC COATED 81 MG TABLET.DR. PO SCH (12:01)
[2018-09-02] MEDS: PANTOPRAZOLE 40 MG TABLET.DR. PO SCH (12:01)
[2018-09-02] MEDS: LOSARTAN POTASSIUM 50 MG TABLET. PO SCH (12:01)
[2018-09-02] MEDS: FERROUS SULFATE 325 MG TABLET. PO SCH ×2 (12:01→21:15)
[2018-09-02] MEDS: CHLORTHALIDONE 25 MG TABLET. PO SCH (12:02)
[2018-09-02] MEDS: amLODIPine BESYLATE 5 MG TABLET PO SCH (12:02)
--- NOTE | 2018-09-02 12:02 | RAD ---
MR#: [id number] Date of Study: 09/02/2018 Ordering Physician: HARIS BROOKS, Referring Physician: JAMES WRIGHT Tech: RUBÉN Mauro, ARRT (R) (N) APPROVED REPORT Test Type: Pharmacological Stress Nurse/Tech: Yolanda Tripp RN Test Indications: Elevated Trop, Chest Pain Cardiac History: Hypertension Medications: See Electronic Medical Record Medical History: See Electronic Medical Record Resting ECG: NSR Resting Heart Rate: 62 bpm Resting Blood Pressure: 167/55mmHg Pretest Chest Pain: No chest pain Nurse/Tech Notes S1S2, Lungs CTA Consent: The procedure was explained to the patient in lay terms. Informed consent was witnessed. Carlito eout was entered into [employer]. History and Stress Test performed by RT Kia (R) (N) Pharm. Details Pharmacologic stress testing was performed using 0.4mg per 5ml of regadenoson given intravenously ove r 7-10 seconds. Stress Symptoms Dyspnea, Nausea POST EXERCISE Reason for Termination: Infusion complete Max HR: 117 bpm Max Blood Pressure: 167/47mmHg Blood Pressure response to exercise: Normal blood pressure response during stress. Chest Pain: No. Arrhythmia: No. ST Change: No. INTERPRETATION Stress EKG Conclusion: Baseline EKG showed sinus rhythm. No ischemic changes at peak stress. No arr hythmias. Imaging Protocol IMAGE PROTOCOL: Rest Tc-99m/stress Tc-99m 1 day Rest: Stress: Viability: Radiopharm.Tc99m [id number] Sestamibi [id number] 33mCi Img Date 09/02/2018 09/02/2018 Inj-Img Mncd34gwy. 60min. Rest Admin Site:IV - Left WristAdministrator:RT Raisa Adam)(N) Stress Admin Site: IV - Left WristAdministrator: RT Raisa Adam)(N) STRESS DATA End Diast. Vol.76.0mlLVEDV index BSA45.0ml End Syst. Vol.18.0mlLVESV index BSA11.0ml Myocardial Emfz325.0gEject. Avetbkce55.0% Stress Scores Regional WT0.00Summed WT4.00 Regional WM0.00Summed WM0.00 Study quality was . Left Ventricular size was Normal at Rest and Stress. Lung uptake was . Left Ventricular ejection fraction is 67%. The rest and stress images show normal perfusion, normal contraction and thickening. LV Perf. Quant 17 Seg. SSS3.00 17 Seg. SRS3.00 17 Seg. SDS1.00 Stress Defect Extent (% LAD)0.00Rest Defect Extent (% LAD)0.00Rev. Defect Extent (% LAD)0.00 Stress Defect Extent (% LCX) 37.50Rest Defect Extent (% LCX)33.80Rev. Defect Extent (% LCX)0.00 Stress Defect Extent (% RCA)0.00Rest Defect Extent (% RCA)0.00Rev. Defect Extent (% RCA)0.00 Stress Defect Extent (% YADIRA)6.50Rest Defect Extent (% YADIRA)5.90Rev. Defect Extent (% YADIRA)0.00 Conclusion 1. Regadenoson cardioisotope stress test did not show any evidence of ischemia or infarct. 2. Normal left ventricular systolic function with ejection fraction calculated at 67%. 3. Low risk for cardiac events. Signed by : Marquise Dasilva, Electronically Approved : 09/02/2018 12:02:06
[2018-09-02] MEDS ORDERED: AMLO5TAB10 PO (13:29)
[2018-09-02 15:00] VITALS: BP 163/68
--- NOTE | 2018-09-02 16:59 | PDOC ---
PROGRESS NOTES Subjective Subjective Patient seen and examined She looks and feels better today. Objective Objective Vital Signs Date Time Temp Pulse Resp B/P (MAP) Pulse Ox O2 Delivery O2 Flow Rate FiO2 09/02/18 15:00 98.0 64 18 163/68 (99) 97 Room Air 98.0 Intake and Output 09/02/18 07:00 Intake Total 800 ml Output Total 700 ml Balance 100 ml Intake Oral 800 ml Output Urine Total 700 ml # Voids 1 Physical Exam Abdomen: Normal bowel sounds Heart: Regular rate General: No acute distress Lungs: Other (mildly decreased breath sounds) Assessment Assessment Problems Medical Problems: (1) Elevated troponin Status: Acute (2) Hypertensive urgency Status: Acute 1. Elevated troponin: 0.69 EKG SR without acute changes by comparison, demand mediated. Recent EF and WM nml. MPI testing today shows no reversible ischemia or previous infarct. Continuing medical treatment. 2. HTN urgency: BB was not given before due to episodes of bradycardia. Hydralazine and lasix, norvasc from prior discharge. Improving on present treatment. 3. CAD: LHC>7 yrs no intervention. Normal MPI. 4. Hx of Anemia: deemed from YASH. Hgb stable at 10 5. Hx of thrombocytopenia: deemed from acute hepatitis and NSAID. nml. 6. Hx of syncope: due to hypoglycemia 7. DM2; diet controlled, no episodes of hypoglycemia like before. 8. HLP: controlled now 9. Chronic diastolic CHF: compensated 10. Suspecting CKD3 with macroalbuminuria Comment Review of Relevant I have reviewed the following items karen (where applicable) has been applied. Labs Laboratory Tests Test 08/31/18 18:25 08/31/18 19:03 08/31/18 22:55 09/01/18 01:35 White Blood Count 7.1 x10^3/uL (4.0-11.0) Red Blood Count 3.12 x10^6/uL (3.50-5.40) Hemoglobin 10.3 g/dL (12.0-15.5) Hematocrit 30.6 % (36.0-47.0) Mean Corpuscular Volume 98 fL (79-100) Mean Corpuscular Hemoglobin 33 pg (25-35) Mean Corpuscular Hemoglobin Concent 34 g/dL (31-37) Red Cell Distribution Width 15.9 % (11.5-14.5) Platelet Count 142 x10^3/uL (140-400) Neutrophils (%) (Auto) 74 % (31-73) Lymphocytes (%) (Auto) 17 % (24-48) Monocytes (%) (Auto) 7 % (0-9) Eosinophils (%) (Auto) 2 % (0-3) Basophils (%) (Auto) 1 % (0-3) Neutrophils # (Auto) 5.2 x10^3uL (1.8-7.7) Lymphocytes # (Auto) 1.2 x10^3/uL (1.0-4.8) Monocytes # (Auto) 0.5 x10^3/uL (0.0-1.1) Eosinophils # (Auto) 0.1 x10^3/uL (0.0-0.7) Basophils # (Auto) 0.0 x10^3/uL (0.0-0.2) Sodium Level 136 mmol/L (136-145) Potassium Level 4.1 mmol/L (3.5-5.1) Chloride Level 100 mmol/L (98-107) Carbon Dioxide Level 27 mmol/L (21-32) Anion Gap 9 (6-14) Blood Urea Nitrogen 11 mg/dL (7-20) Creatinine 0.9 mg/dL (0.6-1.0) Estimated GFR (Cockcroft-Gault) 59.7 BUN/Creatinine Ratio 12 (6-20) Glucose Level 114 mg/dL (70-99) Calcium Level 9.1 mg/dL (8.5-10.1) Magnesium Level 2.0 mg/dL (1.8-2.4) Total Bilirubin 0.3 mg/dL (0.2-1.0) Aspartate Amino Transf (AST/SGOT) 24 U/L (15-37) Alanine Aminotransferase (ALT/SGPT) 17 U/L (14-59) Alkaline Phosphatase 107 U/L (46-116) Creatine Kinase 68 U/L (26-192) Creatine Kinase MB (Mass) 1.0 ng/mL (0.0-3.6) Creatine Kinase MB Relative Index % (0-4) Troponin I Quantitative 0.121 ng/mL (0.000-0.055) 0.143 ng/mL (0.000-0.055) 0.187 ng/mL (0.000-0.055) Total Protein 6.8 g/dL (6.4-8.2) Albumin 3.2 g/dL (3.4-5.0) Albumin/Globulin Ratio 0.9 (1.0-1.7) Urine Collection Type Unknown Urine Color Yellow Urine Clarity Clear Urine pH 7.0 Urine Specific [place] <=1.005 Urine Protein >=300 mg/dL (NEG-TRACE) Urine Glucose (UA) Negative mg/dL (NEG) Urine Ketones (Stick) Negative mg/dL (NEG) Urine Blood Moderate (NEG) Urine Nitrite Negative (NEG) Urine Bilirubin Negative (NEG) Urine Urobilinogen Dipstick 0.2 mg/dL (0.2 mg/dL) Urine Leukocyte Esterase Negative (NEG) Urine RBC >40 /HPF (0-2) Urine WBC 1-4 /HPF (0-4) Urine Squamous Epithelial Cells Occ /LPF Urine Bacteria 0 /HPF (0-FEW) Test 09/01/18 07:21 09/01/18 11:00 09/01/18 16:00 09/01/18 21:55 Glucose (Fingerstick) 82 mg/dL (70-99) Troponin I Quantitative 0.699 ng/mL (0.000-0.055) 0.803 ng/mL (0.000-0.055) 0.760 ng/mL (0.000-0.055) Laboratory Tests Test 09/01/18 21:55 Troponin I Quantitative 0.760 ng/mL (0.000-0.055) Medications Current Medications Labetalol HCl (Normodyne Iv Push) 20 mg 1X ONCE IVP Last administered on at 19:11; Start 08/31/18 at 18:45; Stop 08/31/18 at 18:46; Status DC Clonidine HCl (Catapres) 0.1 mg 1X ONCE PO Last administered on 08/31/18at 19:10 ; Start 08/31/18 at 18:45; Stop 08/31/18 at 18:46; Status DC Hydralazine HCl (Apresoline Inj) 20 mg 1X ONCE IVP Last administered on at 21:30; Start 08/31/18 at 19:15; Stop 08/31/18 at 19:16; Status DC Ondansetron HCl (Zofran) 4 mg PRN Q8HRS PRN IV NAUSEA/VOMITING; Start 08/31/18 at 19:45; Stop 09/01/18 at 19:44; Status DC Fentanyl Citrate (Fentanyl 2ml Vial) 25 mcg PRN Q2HRS PRN IV PAIN; Start at 19:45; Stop 09/01/18 at 09:16; Status DC Hydralazine HCl (Apresoline Inj) 10 mg PRN Q4HRS PRN IVP ELEVATED BP, SEE COMMENTS Last administered on 09/02/18 04:11; Start 08/31/18 at 19:45 Aspirin (Darlyn Aspirin) 325 mg 1X ONCE PO Last administered on 08/31/18 20:33 ; Start 08/31/18 at 19:45; Stop 08/31/18 at 19:52; Status DC Insulin Human Lispro (HumaLOG) 0-5 UNITS TIDWMEALS SQ ; Start 09/01/18 at 08:00; Stop 09/01/18 at 09:16; Status DC Dextrose (Dextrose 50%-Water Syringe) 12.5 gm PRN Q15MIN PRN IV SEE COMMENTS; Start 08/31/18 at 22:30; Stop 09/01/18 at 09:16; Status DC Acetaminophen (Tylenol) 1,000 mg PRN Q6HRS PRN PO pain Last administered on 09/02 12:01; Start 09/01/18 at 09:15 Atorvastatin Calcium (Lipitor) 10 mg HS PO Last administered on 09/01/18at 21:05 ; Start 09/01/18 at 21:00 Ferrous Sulfate (Feosol) 325 mg BID PO Last administered on 09/02/18 12:01; Start 09/01/18 at 10:30 Pantoprazole Sodium (Protonix) 40 mg DAILYAC PO Last administered on 09/02/18 12:01; Start 09/01/18 at 10:30 Vitamin B Complex (Folbic Tablet) 1 tab DAILY PO Last administered on 09/02/18 12:01; Start 09/01/18 at 10:30 Losartan Potassium (Cozaar) 100 mg DAILY PO ; Start 09/01/18 at 10:30; Stop at 10:30; Status DC Amlodipine Besylate (Norvasc) 5 mg DAILY PO Last administered on 09/02/18at 12:02 ; Start 09/01/18 at 10:30 Losartan Potassium (Cozaar) 50 mg DAILY PO Last administered on 09/01/18at 10:47 ; Start 09/01/18 at 10:30; Stop 09/02/18 at 06:57; Status DC Aspirin (Ecotrin) 81 mg DAILYWBKFT PO Last administered on 09/02/18at 12:01; Start 09/01/18 at 17:00 Losartan Potassium (Cozaar) 100 mg DAILY PO Last administered on 09/02/18 12:01 ; Start 09/02/18 at 09:00 Chlorthalidone (Thalitone) 25 mg DAILY PO Last administered on 09/02/18 12:02; Start 09/02/18 at 09:00 Regadenoson (Lexiscan) 0.4 mg 1X ONCE IV Last administered on 09/02/18 08:30; Start 09/02/18 at 08:30; Stop 09/02/18 at 08:31; Status DC Active Scripts Active Amlodipine Besylate 5 Mg Tablet 5 Mg PO DAILY 30 Days Atacand (Candesartan Cilexetil) 32 Mg Tablet 16 Mg PO DAILY 30 Days Feosol (Ferrous Sulfate) 325 Mg Tablet 325 Mg PO BID 30 Days Foltx Tablet (B12/Levomefolate Calcium/B-6) 1 Each Tablet 1 Each PO DAILY Reported Atorvastatin Calcium 10 Mg Tablet 10 Mg PO HS Pantoprazole Sodium 40 Mg Tablet.dr 40 Mg PO DAILY Vitals/I & O Vital Sign - Last 24 Hours 09/01/18 09/01/18 09/01/18 09/01/18 17:05 17:10 17:15 19:00 Temp 97.9 97.9 Pulse 64 66 66 65 Resp 18 B/P (MAP) 165/72 (103) 155/73 (100) 150/73 (98) 181/76 (111) Pulse Ox 97 O2 Delivery Room Air 09/01/18 09/01/18 09/02/18 09/02/18 20:00 22:20 03:00 04:11 Temp 98.2 97.8 98.2 97.8 Pulse 59 60 60 Resp 18 18 B/P (MAP) 161/73 (102) 193/73 (113) 193/73 Pulse Ox 97 97 O2 Delivery Room Air Room Air Room Air 09/02/18 09/02/18 09/02/18 09/02/18 07:00 08:00 11:00 12:01 Temp 98.1 97.7 98.1 97.7 Pulse 66 61 61 Resp 18 18 B/P (MAP) 118/48 (71) 166/70 (102) 166/70 Pulse Ox 96 98 O2 Delivery Room Air Room Air Room Air 09/02/18 09/02/18 12:02 15:00 Temp 98.0 98.0 Pulse 61 64 Resp 18 B/P (MAP) 166/70 163/68 (99) Pulse Ox 97 O2 Delivery Room Air Intake and Output 09/01/18 09/01/18 09/02/18 15:00 23:00 07:00 Intake Total 800 ml 0 ml Output Total 300 ml 400 ml Balance 500 ml -400 ml SOPHIA ANTONIO MD Sep 02, 2018 16:59
--- NOTE | 2018-09-02 18:30 | NUR ---
While explaining discharge instructions patient requested for me to check her blood pressure. Blood pressure on the right 185/82 and 204/72 on the left. Discussed with Dr. Pedraza, discharge canceled. PRN hydralazine given.
[2018-09-02] MEDS ORDERED: CAND32TA19 PO (19:10)
[2018-09-02] MEDS ORDERED: ASPI-630 PO (19:12)
[2018-09-02] MEDS ORDERED: CHLO25TA10 PO (19:12)
[2018-09-02 19:57] VITALS: BP 158/69
--- NOTE | 2018-09-02 21:05 | DS ---
DATE OF DISCHARGE: 09/02/2018 ADMITTING DIAGNOSIS: Hypertensive urgency. DISMISSAL DIAGNOSIS: Hypertensive urgency. SECONDARY DIAGNOSES: 1. Elevated troponin. 2. Type 2 diabetes, diet controlled. 3. History of renal insufficiency. 4. Mild anemia. HISTORY OF PRESENT ILLNESS AND HOSPITAL COURSE: This patient is an 82-year-old female, came in with elevated blood pressures and elevated troponin. Due to the elevated troponin, she was admitted for cardiac evaluation. She underwent stress testing, which was negative with thallium stress test. Her blood pressure came down well with addition blood pressure medication of amlodipine. She was back to baseline; therefore, plans to discharge to home were made. DISCHARGE MEDICATIONS: She was discharged on the following medications: Amlodipine 5 mg daily, atorvastatin 10 mg daily, Atacand 16 mg daily, vitamin B complex daily, iron 325 b.i.d., pantoprazole 40 mg daily. DISCHARGE INSTRUCTIONS: She will [facility] in 1-2 weeks. CATE VARELA MD DR: REESE/violet JOB#: [id number] / [id number]
[2018-09-02] MEDS: ATORVASTATIN CALCIUM 10 MG TABLET. PO SCH (21:15)
[2018-09-02 22:19] VITALS: BP 132/64
[2018-09-03 02:48] VITALS: BP 127/71
[2018-09-03 07:00] VITALS: BP_SYST 189; BP_SYST 83; BP_DIAS 46; BP_DIAS 83
[2018-09-03] MEDS: PANTOPRAZOLE 40 MG TABLET.DR. PO SCH (09:45)
[2018-09-03] MEDS: ASPIRIN ENTERIC COATED 81 MG TABLET.DR. PO SCH (09:46)
[2018-09-03] MEDS: VITAMIN B12,B9,B6 COMPLEX 1 TABLET. PO SCH (09:46)
[2018-09-03] MEDS: amLODIPine BESYLATE 5 MG TABLET PO SCH (09:46)
[2018-09-03] MEDS: FERROUS SULFATE 325 MG TABLET. PO SCH (09:47)
[2018-09-03] MEDS: CHLORTHALIDONE 25 MG TABLET. PO SCH (09:48)
[2018-09-03] MEDS: LOSARTAN POTASSIUM 50 MG TABLET. PO SCH (09:48)
[2018-09-03 11:20] VITALS: BP 158/71
[2018-09-03 15:22] VITALS: BP 163/72
--- NOTE | 2018-09-03 15:59 | NUR ---
SS following up with discharge planning. SS phoned and faxed clinical to [facility], ; fax [phone]. If discharge med list received pt's RN instructed to fax discharge orders to [facility].
[2018-09-03 16:23] VITALS: BP 159/74
[2018-09-03] MEDS ORDERED: amLODIPine BESYLATE 5 MG TABLET PO ONE (16:30)
[2018-09-04] MEDS ORDERED: amLODIPine BESYLATE 10 MG TABLET PO SCH (09:00)
== END 2018-09-03 18:00 | disposition home health service (06) | DRG 305 ==
LOC: ER 18:16 → 2 NORTH 19:48
PROVIDERS: ADMIT Family Medicine; ATTEND Family Medicine
DX: I16.0 Hypertensive urgency (principal); I50.32 Chronic diastolic (congestive) heart failure; I11.0 Hypertensive heart disease with heart failure; D64.9 Anemia, unspecified; D69.6 Thrombocytopenia, unspecified; E11.22 Type 2 diabetes mellitus with diabetic chronic kidney disease; E78.00 Pure hypercholesterolemia, unspecified; E78.5 Hyperlipidemia, unspecified; I13.0 Hypertensive heart and chronic kidney disease with heart failure and stage 1 through stage 4 chronic kidney disease, or unspecified chronic kidney disease; I25.10 Atherosclerotic heart disease of native coronary artery without angina pectoris; N18.9 Chronic kidney disease, unspecified; M19.90 Unspecified osteoarthritis, unspecified site; Z88.0 Allergy status to penicillin; Z88.8 Allergy status to other drugs, medicaments and biological substances
CPT/HCPCS: 36415; 70450; 71045; 78452; 80053; 81001; 82553; 82962; 83735; 84484; 85025; 93005; 93017; 96374; A9500; J0360; J1815; J2785; J3490; 99291-25

== ENCOUNTER 2018-09-04 20:46 | Emergency (ER) | payer MEDICARE, OTHER ==
[~2018-09-04] VITALS: Ht 152.4 cm; Wt 61.2 kg
[~2018-09-04 20:46] MED LIST changes: +ASPI-630 PO; +CAND1TAB PO; +CHLO25TA10 PO
[2018-09-04] MEDS ORDERED: amLODIPine BESYLATE 5 MG TABLET PO ONE (22:45)
[2018-09-04 22:53] LABS: BASO # 0.1 x10^3/uL (0.0-0.2); BASO % 1 % (0-3); EOS # 0.1 x10^3/uL (0.0-0.7); EOS % 2 % (0-3); HEMATOCRIT 30.7 % (36.0-47.0); HEMOGLOBIN 10.7 g/dL (12.0-15.5); LYMPH # 1.3 x10^3/uL (1.0-4.8); LYMPH % 17 % (24-48); MEAN CORPUSCULAR HEMOGLOBIN 34 pg (25-35); MEAN CORPUSCULAR HGB CONC 35 g/dL (31-37); MEAN CORPUSCULAR VOLUME 97 fL (79-100); MONO # 0.5 x10^3/uL (0.0-1.1); MONO % 7 % (0-9); NEUT # 5.8 x10^3uL (1.8-7.7); NEUT % 74 % (31-73); PLATELET COUNT 175 x10^3/uL (140-400); RED BLOOD COUNT 3.17 x10^6/uL (3.50-5.40); RED CELL DISTRIBUTION WIDTH 15.1 % (11.5-14.5); WHITE BLOOD COUNT 7.8 x10^3/uL (4.0-11.0)
--- NOTE | 2018-09-04 22:58 | PHYS DOC ---
Past Medical History Past Medical History: Diabetes-Type II, High Cholesterol, Hypertension Past Surgical History: Other Additional Past Surgical Histo: cataract Alcohol Use: None Drug Use: None Adult General Chief Complaint Chief Complaint: HYPERTENSION HPI HPI Patient is a 82 year old female presenting with hypertension. She was just in the hospital recently for hypertensive urgency she tonight had a mild headache on the right side of her head and then at one point she had just felt weak and was comes lightheaded no chest pain feeling checked her blood pressure was over 200 to the emergency room for evaluation he feels a little bit better. Review of Systems Review of Systems Constitutional: Denies fever or chills [] Eyes: Denies change in visual acuity, redness, or eye pain [] HENT: Denies nasal congestion or sore throat [] Respiratory: Denies cough or shortness of breath [] Cardiovascular: No additional information not addressed in HPI [] All other systems were reviewed and found to be within normal limits, except as documented in this note. Current Medications Current Medications Current Medications Medications (Trade) Dose Ordered Sig/[place] Start Time Stop Time Status Last Admin Dose Admin Amlodipine Besylate (Norvasc) 10 mg 1X ONCE 09/04/18 22:45 09/04/18 22:46 DC 09/04/18 22:50 10 MG Allergies Allergies Allergies Coded Allergies Type Severity Reaction Last Updated Verified Penicillins Allergy Intermediate RASH 07/23/18 Yes morphine Adverse Reaction Mild N/V 07/23/18 Yes Physical Exam Physical Exam Constitutional: Well developed, well nourished, no acute distress, non-toxic appearance. [] HENT: Normocephalic, atraumatic, bilateral external ears normal, oropharynx moist, no oral exudates, nose normal. [] Eyes: PERRLA, EOMI, conjunctiva normal, no discharge. [] Neck: Normal range of motion, no tenderness, supple, no stridor. [] Cardiovascular:Heart rate regular rhythm, no murmur [] Lungs & Thorax: Bilateral breath sounds clear to auscultation [] Abdomen: Bowel sounds normal, soft, no tenderness, no masses, no pulsatile masses. [] Skin: Warm, dry, no erythema, no rash. [] Back: No tenderness, no CVA tenderness. [] Extremities: No tenderness, no cyanosis, no clubbing, ROM intact, no edema. [] Neurologic: Alert and oriented X 3, normal motor function, normal sensory function, no focal deficits noted. [] Psychologic: Affect normal, judgement normal, mood normal. [] Current Patient Data Vital Signs Vital Signs Date Time Temp Pulse Resp B/P (MAP) Pulse Ox O2 Delivery O2 Flow Rate FiO2 09/04/18 23:40 60 18 97 09/04/18 22:50 206/93 09/04/18 20:50 97.9 Room Air 97.9 Lab Values Laboratory Tests Test 09/04/18 21:15 White Blood Count 7.8 x10^3/uL (4.0-11.0) Red Blood Count 3.17 x10^6/uL (3.50-5.40) L Hemoglobin 10.7 g/dL (12.0-15.5) L Hematocrit 30.7 % (36.0-47.0) L Mean Corpuscular Volume 97 fL (79-100) Mean Corpuscular Hemoglobin 34 pg (25-35) Mean Corpuscular Hemoglobin Concent 35 g/dL (31-37) Red Cell Distribution Width 15.1 % (11.5-14.5) H Platelet Count 175 x10^3/uL (140-400) Neutrophils (%) (Auto) 74 % (31-73) H Lymphocytes (%) (Auto) 17 % (24-48) L Monocytes (%) (Auto) 7 % (0-9) Eosinophils (%) (Auto) 2 % (0-3) Basophils (%) (Auto) 1 % (0-3) Neutrophils # (Auto) 5.8 x10^3uL (1.8-7.7) Lymphocytes # (Auto) 1.3 x10^3/uL (1.0-4.8) Monocytes # (Auto) 0.5 x10^3/uL (0.0-1.1) Eosinophils # (Auto) 0.1 x10^3/uL (0.0-0.7) Basophils # (Auto) 0.1 x10^3/uL (0.0-0.2) Sodium Level 126 mmol/L (136-145) L Potassium Level 4.1 mmol/L (3.5-5.1) Chloride Level 90 mmol/L (98-107) L Carbon Dioxide Level 26 mmol/L (21-32) Anion Gap 10 (6-14) Blood Urea Nitrogen 13 mg/dL (7-20) Creatinine 0.6 mg/dL (0.6-1.0) Estimated GFR (Cockcroft-Gault) 95.2 BUN/Creatinine Ratio 22 (6-20) H Glucose Level 132 mg/dL (70-99) H Calcium Level 8.8 mg/dL (8.5-10.1) Total Bilirubin 0.7 mg/dL (0.2-1.0) Aspartate Amino Transferase (AST) 39 U/L (15-37) H Alanine Aminotransferase (ALT) 21 U/L (14-59) Alkaline Phosphatase 127 U/L (46-116) H Troponin I Quantitative 0.628 ng/mL (0.000-0.055) Total Protein 6.8 g/dL (6.4-8.2) Albumin 3.4 g/dL (3.4-5.0) Albumin/Globulin Ratio 1.0 (1.0-1.7) Laboratory Tests 09/04/18 21:15 Laboratory Tests 09/04/18 21:15 EKG EKG @2111; Hr 70. Normal sinus rhythm. Possible inverted t waves in aVL however significant baseline artifact. Compared to previous EKG from 08/31/18 with inverted T waves in aVL.] Radiology/Procedures Radiology/Procedures [] Course & Med Decision Making Course & Med Decision Making Pertinent Labs and Imaging studies reviewed. (See chart for details) []82-year-old with long-standing poorly controlled hypertension presenting with elevated blood pressure, in the emergency room improve down to the 160's range. Troponin is better than it was just a couple of days ago patient had no chest pain no EKG changes. We gave BP agent in the emergency room and she improved. I recommended that she increase her amlodipine from 5-10 and that she follow-up with Dr. Pedraaz later this week for reevaluation of her blood pressure as well as her sodium which is mild to moderately low could be from chlorthalidone recommended a mild increase in her sodium intake recheck sodium later this week with her primary there comfortable with the plan she is ambulatory safely in the emergency room and will be discharged home with family. Dragon Disclaimer Dragon Disclaimer This electronic medical record was generated, in whole or in part, using a voice recognition dictation system. Departure Departure Impression: Primary Impression: Hypertension Disposition: 01 HOME, SELF-CARE Condition: STABLE Referrals: CATE PEDRAZA MD (PCP) Patient Instructions: Hypertension Additional Instructions: INCREASE AMLODIPINE FROM 5 TO TEN MG A DAY , AND THEN SEE YOUR DOCTOR IN THREE TO FOUR DAYS. DARREL PATIÑO MD Sep 04, 2018 22:58
[2018-09-04 23:00] LABS: CALCIUM 8.8 mg/dL (8.5-10.1); CREATININE 0.6 mg/dL (0.6-1.0); GFR 95.2; POTASSIUM 4.1 mmol/L (3.5-5.1)
[2018-09-04 23:06] LABS: ALBUMIN 3.4 g/dL (3.4-5.0); TOTAL BILIRUBIN 0.7 mg/dL (0.2-1.0); TOTAL PROTEIN 6.8 g/dL (6.4-8.2)
[2018-09-04 23:40] VITALS: BP 154/69
--- NOTE | 2018-09-05 08:44 | EKG ---
[facility] [address] [place] [id number] Test Date: 2018-09-04 Test Time: 21:11:30 Pat Name: DEMI ZAVALA Department: Room: Gender: F [employer]: : [id number] Requested By: DARREL PATIÑO Order Number: [id number] Reading MD: Ankit Zimmer MD Measurements Intervals Logan Rate: 70 P: 0 CT: 176 QRS: -26 QRSD: 96 T: 68 QT: 398 QTc: 433 Interpretive Statements SINUS RHYTHM NON-SPECIFIC ST/T CHANGES LAD Electronically Signed On 09-14-2018 22:10:28 CDT by Ankit Zimmer MD
== END 2018-09-04 23:44 | disposition home or self-care (01) ==
LOC: ER 20:46
DX: I10 Essential (primary) hypertension (principal); R51 Headache; R42 Dizziness and giddiness; E11.9 Type 2 diabetes mellitus without complications; E78.00 Pure hypercholesterolemia, unspecified; Z88.0 Allergy status to penicillin; Z88.5 Allergy status to narcotic agent
CPT/HCPCS: 36415; 80053; 84484; 85025; 93005; 99284

== ENCOUNTER 2018-09-14 00:52 | Inpatient (IN) | payer MEDICARE, OTHER ==
[2018-09-14] VITALS (9 sets, daily range): BP systolic 81–150; BP diastolic 32–75
[~2018-09-14] VITALS: Ht 160 cm; Wt 75.6 kg
--- NOTE | 2018-09-14 02:57 | PHYS DOC ---
Past Medical History Past Medical History: Diabetes-Type II, High Cholesterol, Hypertension Past Surgical History: Other Additional Past Surgical Histo: cataract Alcohol Use: None Drug Use: None Adult General Chief Complaint Chief Complaint: ABDOMINAL PAIN HPI HPI Patient is a 82 year old female, with a history of a lap cholecystectomy, HTN, dyslipidemia, and DM2, who presents with lower abdominal/pelvic pain and dizziness. Pt states that both have been present for at least the past month. The abdominal pain is described as "dull/achey/vague," and localized to her lower abdominal quadrants and pelvis. She notes new onset n/v starting 2 days ago, and has vomited multiple times since then. The only thing that changed before the abdominal pain started, that she can think of, is taking iron pills. The dizziness was present before she started taking the iron pills and having abdominal pain. It is worsened with walking, and she believes her legs are getting weak too. Her appetite has been lower than normal as well. She admits to n/v, constipation, weakness, LARSEN, and neck pain. She denies sick contacts, fevers/chills, blood in stool or urine, diarrhea, dysuria, chest pain, or shortness of breath. When asked if there were any other concerns or questions, pt relayed that she is concerned about her inability to sleep the past 2 days. Review of Systems Review of Systems Constitutional: Denies fever or chills Eyes: Denies change in visual acuity, redness, or eye pain HENT: Denies nasal congestion or sore throat Respiratory: Denies cough or shortness of breath Cardiovascular: No additional information not addressed in HPI GI: Admits abdominal pain, nausea, vomiting, and constipation. Denies bloody stools or diarrhea : Denies dysuria or hematuria Musculoskeletal: Admits neck/upper back pain Integument: Denies rash or skin lesions Neurologic: Denies focal weakness or sensory changes. Admits Headache All other systems were reviewed and found to be within normal limits, except as documented in this note. Current Medications Current Medications Current Medications Medications (Trade) Dose Ordered Sig/[place] Start Time Stop Time Status Last Admin Dose Admin Acetaminophen (Tylenol) 650 mg 1X ONCE 09/14/18 03:30 09/14/18 03:31 DC 09/14/18 03:15 650 MG Info (CONTRAST GIVEN -- Rx MONITORING) 1 each PRN DAILY PRN 09/14/18 04:00 09/16/18 03:59 Iohexol (Omnipaque 300 Mg/ml) 75 ml 1X ONCE 09/14/18 04:00 09/14/18 04:01 DC 09/14/18 04:02 75 ML Sodium Chloride 1,000 ml @ 1,000 mls/hr 1X ONCE 09/14/18 04:00 09/14/18 04:59 DC 09/14/18 04:02 1,000 MLS/HR Allergies Allergies Allergies Coded Allergies Type Severity Reaction Last Updated Verified Penicillins Allergy Intermediate RASH 07/23/18 Yes morphine Adverse Reaction Mild N/V 07/23/18 Yes Physical Exam Physical Exam Constitutional: Well developed, well nourished, no acute distress, non-toxic appearance. HENT: Normocephalic, atraumatic, bilateral external ears normal, oropharynx moist, no oral exudates, nose normal. Eyes: PERRLA, EOMI, conjunctiva normal, no discharge. Cardiovascular:Heart rate regular rhythm, no murmur Lungs & Thorax: Bilateral breath sounds clear to auscultation Abdomen: Bowel sounds normal x 4, soft, no masses, no pulsatile masses. Tender to palpation in LUQ, RLQ, and LLQ. Tenderness greatest on the left. Skin: Warm, dry, no erythema, no rash. Back: No tenderness, no CVA tenderness. Extremities: No tenderness, no cyanosis, no clubbing, ROM intact, no edema. Neurologic: Alert and oriented X 3, normal motor function, normal sensory function, no focal deficits noted. CN II-XII grossly intact b/l Current Patient Data Vital Signs Vital Signs Date Time Temp Pulse Resp B/P (MAP) Pulse Ox O2 Delivery O2 Flow Rate FiO2 09/14/18 01:43 97.4 83 18 147/69 (95) 98 Room Air 97.4 Lab Values Laboratory Tests Test 09/14/18 02:20 09/14/18 03:25 09/14/18 03:56 White Blood Count 8.3 x10^3/uL (4.0-11.0) Red Blood Count 3.32 x10^6/uL (3.50-5.40) L Hemoglobin 11.1 g/dL (12.0-15.5) L Hematocrit 30.2 % (36.0-47.0) L Mean Corpuscular Volume 91 fL (79-100) Mean Corpuscular Hemoglobin 34 pg (25-35) Mean Corpuscular Hemoglobin Concent 37 g/dL (31-37) Red Cell Distribution Width 15.1 % (11.5-14.5) H Platelet Count 181 x10^3/uL (140-400) Neutrophils (%) (Auto) 83 % (31-73) H Lymphocytes (%) (Auto) 10 % (24-48) L Monocytes (%) (Auto) 7 % (0-9) Eosinophils (%) (Auto) 0 % (0-3) Basophils (%) (Auto) 0 % (0-3) Neutrophils # (Auto) 6.9 x10^3uL (1.8-7.7) Lymphocytes # (Auto) 0.8 x10^3/uL (1.0-4.8) L Monocytes # (Auto) 0.6 x10^3/uL (0.0-1.1) Eosinophils # (Auto) 0.0 x10^3/uL (0.0-0.7) Basophils # (Auto) 0.0 x10^3/uL (0.0-0.2) Sodium Level 108 mmol/L (136-145) *L 109 mmol/L (136-145) *L Potassium Level 3.5 mmol/L (3.5-5.1) 3.7 mmol/L (3.5-5.1) Chloride Level 75 mmol/L (98-107) L 75 mmol/L (98-107) L Carbon Dioxide Level 24 mmol/L (21-32) 28 mmol/L (21-32) Anion Gap 9 (6-14) 6 (6-14) Blood Urea Nitrogen 11 mg/dL (7-20) 11 mg/dL (7-20) Creatinine 0.8 mg/dL (0.6-1.0) 0.8 mg/dL (0.6-1.0) Estimated GFR (Cockcroft-Gault) 68.3 68.3 BUN/Creatinine Ratio 14 (6-20) 14 (6-20) Glucose Level 136 mg/dL (70-99) H 124 mg/dL (70-99) H Calcium Level 8.5 mg/dL (8.5-10.1) 8.2 mg/dL (8.5-10.1) L Total Bilirubin 0.6 mg/dL (0.2-1.0) 0.6 mg/dL (0.2-1.0) Aspartate Amino Transferase (AST) 29 U/L (15-37) 28 U/L (15-37) Alanine Aminotransferase (ALT) 30 U/L (14-59) 27 U/L (14-59) Alkaline Phosphatase 84 U/L (46-116) 79 U/L (46-116) Troponin I Quantitative 0.158 ng/mL (0.000-0.055) Total Protein 6.1 g/dL (6.4-8.2) L 6.3 g/dL (6.4-8.2) L Albumin 3.5 g/dL (3.4-5.0) 3.0 g/dL (3.4-5.0) L Albumin/Globulin Ratio 1.3 (1.0-1.7) 0.9 (1.0-1.7) L Urine Collection Type Unknown Urine Color Yellow Urine Clarity Clear Urine pH 7.0 Urine Specific [place] 1.010 Urine Protein 100 mg/dL (NEG-TRACE) Urine Glucose (UA) Negative mg/dL (NEG) Urine Ketones (Stick) Negative mg/dL (NEG) Urine Blood Small (NEG) Urine Nitrite Negative (NEG) Urine Bilirubin Negative (NEG) Urine Urobilinogen Dipstick 0.2 mg/dL (0.2 mg/dL) Urine Leukocyte Esterase Negative (NEG) Urine RBC 3-5 /HPF (0-2) Urine WBC 0 /HPF (0-4) Urine Squamous Epithelial Cells Few /LPF Urine Bacteria 0 /HPF (0-FEW) Laboratory Tests 09/14/18 02:20 Laboratory Tests 09/14/18 02:20 09/14/18 03:56 EKG EKG nsr no stemi or ischemia noted.[] Radiology/Procedures Radiology/Procedures [] Impressions: IMPRESSION: 1. Right greater than left hydronephrosis with prominent extrarenal pelvis. 2. Severe calcific atherosclerosis. 3. Colonic diverticulosis. Electronically signed by: Dewayne Gruber MD (09/14/2018 4:40 AM) [facility] Course & Med Decision Making Course & Med Decision Making 82 year old female w/ a history of HTN, DM2, dyslipidemia, and a lap cholecystectomy, presents w/ chronic abdominal pain and dizziness. Pt TTP in LUQ , LLQ, and RLQ. Tenderness greatest on left, and stool appreciated on deep palpation on the left at the level of the umbilicus. She has vomited multiple times in the last 48 hours, low appetite, and admits to nausea, constipation, weakness/dizziness, LARSEN, and neck pain. Denies fever/ chills, sick contacts, CP, or SOB. final plan: 82-year-old female presenting with generalized weakness with some vomiting lower abdominal discomfort found to have a sodium of 108 likely from recent onset of chlorthalidone a couple weeks back. Patient was given a fluid bolus in the emergency room she is alert she ambulated to the bathroom without difficulty she has had no seizures. I spoke with Dr. stark at 5 am, plan to admit for further management and nephrology consultation. For now I just did give normal saline bolus and the patient remained stable in the emergency room. Dragon Disclaimer Dragon Disclaimer This electronic medical record was generated, in whole or in part, using a voice recognition dictation system. Departure Departure Impression: Primary Impression: Hyponatremia Disposition: ADMITTED INPATIENT Admitting Physician: Naveed Stark Condition: STABLE Referrals: CATE VARELA MD (PCP) DARREL PATIÑO MD Sep 14, 2018 02:57
[2018-09-14 03:02] LABS: BASO % 0 % (0-3); EOS % 0 % (0-3); HEMATOCRIT 30.2 % (36.0-47.0); HEMOGLOBIN 11.1 g/dL (12.0-15.5); LYMPH # 0.8 x10^3/uL (1.0-4.8); LYMPH % 10 % (24-48); MEAN CORPUSCULAR HEMOGLOBIN 34 pg (25-35); MEAN CORPUSCULAR HGB CONC 37 g/dL (31-37); MEAN CORPUSCULAR VOLUME 91 fL (79-100); MONO # 0.6 x10^3/uL (0.0-1.1); MONO % 7 % (0-9); NEUT # 6.9 x10^3uL (1.8-7.7); NEUT % 83 % (31-73); PLATELET COUNT 181 x10^3/uL (140-400); RED BLOOD COUNT 3.32 x10^6/uL (3.50-5.40); RED CELL DISTRIBUTION WIDTH 15.1 % (11.5-14.5); WHITE BLOOD COUNT 8.3 x10^3/uL (4.0-11.0)
[2018-09-14 03:25] LABS: ALBUMIN 3.5 g/dL (3.4-5.0); ALBUMIN/GLOBULIN RATIO 1.3 (1.0-1.7); CALCIUM 8.5 mg/dL (8.5-10.1); CREATININE 0.8 mg/dL (0.6-1.0); GFR 68.3; POTASSIUM 3.5 mmol/L (3.5-5.1); TOTAL BILIRUBIN 0.6 mg/dL (0.2-1.0); TOTAL PROTEIN 6.1 g/dL (6.4-8.2)
[2018-09-14] MEDS ORDERED: ACETAMINOPHEN 325 MG TABLET. PO ONE (03:30)
[2018-09-14 03:33] LABS: BILIRUBIN,URINE NEGATIVE (NEG); CLARITY,URINE CLEAR; COLOR,URINE YELLOW; NITRITE,URINE NEGATIVE (NEG); PROTEIN,URINE 100 mg/dL (NEG-TRACE); UROBILINOGEN,URINE 0.2 mg/dL (0.2 mg/dL)
[2018-09-14 03:48] LABS: BACTERIA,URINE 0 /HPF (0-FEW); SQUAMOUS EPITHELIAL CELL,UR FEW /LPF; WBC,URINE 0 /HPF (0-4)
[2018-09-14] MEDS ORDERED: IOHEXOL 300 MG/ML 100ML VIAL. IV ONE (04:00)
[2018-09-14] MEDS ORDERED: CONTRAST GIVEN. MC PRN (04:00)
[2018-09-14] MEDS ORDERED: IV NORMAL SALINE 1000ML BAG 1,000 ML IV ONE (04:00)
[2018-09-14 04:20] LABS: ALBUMIN/GLOBULIN RATIO 0.9 (1.0-1.7); CALCIUM 8.2 mg/dL (8.5-10.1); CREATININE 0.8 mg/dL (0.6-1.0); GFR 68.3; POTASSIUM 3.7 mmol/L (3.5-5.1); TOTAL BILIRUBIN 0.6 mg/dL (0.2-1.0); TOTAL PROTEIN 6.3 g/dL (6.4-8.2)
--- NOTE | 2018-09-14 04:43 | RAD ---
INDICATION: llq pain; Omni 300, 75ml COMPARISON: June 2018 TECHNIQUE: Axial CT images obtained through the abdomen and pelvis with contrast. One or more of the following individualized dose reduction techniques were utilized for this examination: 1. Automated exposure control; 2. Adjustment of the mA and/or kV according to patient size; 3. Use of iterative reconstruction technique. FINDINGS: Coronary artery calcific atherosclerosis. Small hiatal hernia versus mild distention distal esophagus. Severe calcific atherosclerosis. No intrahepatic bile duct dilation. Postcholecystectomy changes. No peripancreatic fluid collection. Spleen unremarkable. Urinary bladder somewhat distended at time of exam. Mild right greater than left hydronephrosis and distention of extrarenal pelvis. Colonic diverticulosis. The possible appendix does not appear grossly dilated. No dilated loops of bowel to suggest obstruction. Degenerative changes of the spine with scoliotic curvature multilevel central canal and neural foraminal stenosis. Small fat-containing umbilical hernia. Grade 1 anterolisthesis of L4 on 5. IMPRESSION: 1. Right greater than left hydronephrosis with prominent extrarenal pelvis. 2. Severe calcific atherosclerosis. 3. Colonic diverticulosis. Electronically signed by: Dewayne Gruber MD (09/14/2018 4:40 AM) [facility]
[2018-09-14] MEDS ORDERED: IV NORMAL SALINE 1000ML BAG 1,000 ML IV SCH (05:00)
--- NOTE | 2018-09-14 05:40 | NUR ---
PT ADMITTED TO ROOM 208 FROM ED VIA WC ACCOMPANIED BY DAUGHTER. ASSESSMENT AND HISTORY COMPLETE, EXPLAINED POC TO PT AND FAMILY. CALL LIGHT IN PLACE WILL CONT TO MONITOR. PMRN
--- NOTE | 2018-09-14 06:28 | EKG ---
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
[2018-09-14] MEDS ORDERED: DOCU-109 PO (07:30)
[2018-09-14] MEDS ORDERED: DEXTROSE 50% 25 GM / 50ML DISP.SYRIN. IV PRN (07:45)
--- NOTE | 2018-09-14 08:06 | RAD ---
PROCEDURE: PORTABLE CHEST 1V CLINICAL INDICATION: fever COMPARISON: None FINDINGS: Tortuous thoracic aorta. No pneumothorax identified. Cardiac and mediastinal contours unremarkable. No pulmonary consolidation or acute airspace disease. No acute osseous abnormalities identified. IMPRESSION: No pulmonary consolidation or acute airspace disease. Electronically signed by: Liborio Lopez DO (09/14/2018 8:03 AM) [facility]
[2018-09-14] MEDS: amLODIPine BESYLATE 5 MG TABLET PO SCH (09:18)
[2018-09-14] MEDS: DOCUSATE SODIUM 100 MG CAPSULE. PO SCH (09:45)
[2018-09-14] MEDS: PANTOPRAZOLE 40 MG TABLET.DR. PO SCH (09:45)
[2018-09-14] MEDS: ASPIRIN CHEWABLE 81 MG TABLET. PO SCH (09:46)
[2018-09-14] MEDS: FERROUS SULFATE 325 MG TABLET. PO SCH ×2 (09:46→20:39)
[2018-09-14] MEDS: VITAMIN B12,B9,B6 COMPLEX 1 TABLET. PO SCH (09:46)
[2018-09-14] MEDS ORDERED: LOSARTAN POTASSIUM 50 MG TABLET. PO SCH (10:00)
--- NOTE | 2018-09-14 11:40 | PDOC2 ---
CONSULT Date of Consult Date of Consult DATE: 09/14/18 TIME: 11:30 Reason for Consult Reason for Consult: Routine consult Ordered for severe Hyponatremia Source Source: Caregiver, Chart review History of Present Illness Reason for Visit: Pt is 82 year old female w/ a history of HTN, DM2, dyslipidemia, and a lap cholecystectomy, presents w/ chronic abdominal pain and dizziness.C/O pain in LUQ, LLQ, and RLQ. Tenderness greatest on left, She has vomited multiple times in the last 48 hours, low appetite, and admits to nausea, constipation, weakness/dizziness, LARSEN, and neck pain. Denies fever/ chills, sick contacts, CP, or SOB. She was starte don Chlorthalidone by primary recently as per daughter . She has been getting up by the side of bed to Void. As per daughters good UOP- voided multiple time this am. Denies tacho Symptoms of UTI as per daughter She may be mildly confused a sper daughter but overall doing better Past Medical History Cardiovascular: CAD, HTN, SD GI: Diverticulosis Hepatobiliary: Cholelithiasis Musculoskeletal: Osteoarthritis Past Surgical History Past Surgical History: Cholecystectomy, Cataract Removal Family History Family History: Coronary Artery Disease, Diabetes Social History ALCOHOL: none Drugs: None Lives: with Family Current Medications Current Medications Current Medications Acetaminophen (Tylenol) 650 mg 1X ONCE PO Last administered on 09/14/18at 03:15 ; Start 09/14/18 at 03:30; Stop 09/14/18 at 03:31; Status DC Sodium Chloride 1,000 ml @ 1,000 mls/hr 1X ONCE IV Last administered on at 04:02; Start 09/14/18 at 04:00; Stop 09/14/18 at 04:59; Status DC Iohexol (Omnipaque 300 Mg/ml) 75 ml 1X ONCE IV Last administered on 09/14/18at 04:02; Start 09/14/18 at 04:00; Stop 09/14/18 at 04:01; Status DC Info (CONTRAST GIVEN -- Rx MONITORING) 1 each PRN DAILY PRN MC SEE COMMENTS; Start 09/14/18 at 04:00; Stop 09/16/18 at 03:59 Sodium Chloride 1,000 ml @ 125 mls/hr Q8H IV Last administered on 09/14/18at 05 :44; Start 09/14/18 at 05:00; Stop 09/15/18 at 04:59 Dextrose (Dextrose 50%-Water Syringe) 12.5 gm PRN Q15MIN PRN IV SEE COMMENTS; Start 09/14/18 at 07:45 Amlodipine Besylate (Norvasc) 5 mg DAILY PO ; Start 09/14/18 at 10:00 Aspirin (Children'S Aspirin) 81 mg DAILY PO Last administered on 09/14/18at 09: 46; Start 09/14/18 at 10:00 Atorvastatin Calcium (Lipitor) 10 mg HS PO ; Start 09/14/18 at 21:00 Docusate Sodium (Colace) 100 mg DAILY PO Last administered on 09/14/18at 09:45; Start 09/14/18 at 10:00 Ferrous Sulfate (Feosol) 325 mg BID PO Last administered on 09/14/18 09:46; Start 09/14/18 at 10:00 Pantoprazole Sodium (Protonix) 40 mg DAILYAC PO Last administered on 09/14/18 09:45; Start 09/14/18 at 10:00 Vitamin B Complex (Folbic Tablet) 1 tab DAILY PO Last administered on 09:46; Start 09/14/18 at 10:00 Losartan Potassium (Cozaar) 100 mg DAILY PO ; Start 09/14/18 at 10:00 Active Scripts Active Chlorthalidone (Chlorthalidone) 25 Mg Tablet 25 Mg PO DAILY 30 Days Aspirin 81 Mg Tab.chew 1 Tab PO DAILY Atacand (Candesartan Cilexetil) 32 Mg Tablet 32 Mg PO DAILY 30 Days Amlodipine Besylate 5 Mg Tablet 5 Mg PO DAILY 30 Days Feosol (Ferrous Sulfate) 325 Mg Tablet 325 Mg PO BID 30 Days Foltx Tablet (B12/Levomefolate Calcium/B-6) 1 Each Tablet 1 Each PO DAILY Reported Colace (Docusate Sodium) 100 Mg Capsule 100 Mg PO DAILY Atorvastatin Calcium 10 Mg Tablet 10 Mg PO HS Pantoprazole Sodium 40 Mg Tablet.dr 40 Mg PO DAILY Allergies Allergies: Coded Allergies: Penicillins (Verified Allergy, Intermediate, RASH, 07/23/18) morphine (Verified Adverse Reaction, Mild, N/V, 07/23/18) ROS Review of System As per HPI Physical Exam Physical Exam GEN: NAD HEEN: OM dryish NECK: supple CVS: RRR RESP: CTA, No Acc. Muscle Use GI: BS + ve, NO Bruit, Non Tender, : No CVA tenderness, No Suprapubic Tenderness, No Page Skin No rash Neuro- No tremors, Mild confusion asper family Vital Signs Vital Signs Date Time Temp Pulse Resp B/P (MAP) Pulse Ox O2 Delivery O2 Flow Rate FiO2 09/14/18 09:18 69 81/32 09/14/18 08:00 Room Air 09/14/18 07:00 98.1 20 94 98.1 Assessment & Plan Hyponatremia- Severe , Mildly symptomatic Suspect secondary to Thiazide- recently was on Chlorthalidone and Poor PO intake Received IV NS in ED , No labs done after 3:45- 4 am Good UOP, will get Stat BMP Check Ur and S Osm, UrLytes and TSH Chlorthalidone dced Monitor Closely, Strict I/O Hypertension - On losartan Was on Thiazide at Home Currently BP Low, Monitor and Hold Antihypertensive accordingly Renal Function Creat Normal CT scan abdomen - Right greater than left hydronephrosis with prominent extrarenal pelvis. Consult urology Discussed A/P with Pt 's family and RN Labs Labs Laboratory Tests Test 09/14/18 02:20 09/14/18 03:25 09/14/18 03:56 09/14/18 07:54 White Blood Count 8.3 x10^3/uL (4.0-11.0) Red Blood Count 3.32 x10^6/uL (3.50-5.40) Hemoglobin 11.1 g/dL (12.0-15.5) Hematocrit 30.2 % (36.0-47.0) Mean Corpuscular Volume 91 fL (79-100) Mean Corpuscular Hemoglobin 34 pg (25-35) Mean Corpuscular Hemoglobin Concent 37 g/dL (31-37) Red Cell Distribution Width 15.1 % (11.5-14.5) Platelet Count 181 x10^3/uL (140-400) Neutrophils (%) (Auto) 83 % (31-73) Lymphocytes (%) (Auto) 10 % (24-48) Monocytes (%) (Auto) 7 % (0-9) Eosinophils (%) (Auto) 0 % (0-3) Basophils (%) (Auto) 0 % (0-3) Neutrophils # (Auto) 6.9 x10^3uL (1.8-7.7) Lymphocytes # (Auto) 0.8 x10^3/uL (1.0-4.8) Monocytes # (Auto) 0.6 x10^3/uL (0.0-1.1) Eosinophils # (Auto) 0.0 x10^3/uL (0.0-0.7) Basophils # (Auto) 0.0 x10^3/uL (0.0-0.2) Sodium Level 108 mmol/L (136-145) 109 mmol/L (136-145) Potassium Level 3.5 mmol/L (3.5-5.1) 3.7 mmol/L (3.5-5.1) Chloride Level 75 mmol/L (98-107) 75 mmol/L (98-107) Carbon Dioxide Level 24 mmol/L (21-32) 28 mmol/L (21-32) Anion Gap 9 (6-14) 6 (6-14) Blood Urea Nitrogen 11 mg/dL (7-20) 11 mg/dL (7-20) Creatinine 0.8 mg/dL (0.6-1.0) 0.8 mg/dL (0.6-1.0) Estimated GFR (Cockcroft-Gault) 68.3 68.3 BUN/Creatinine Ratio 14 (6-20) 14 (6-20) Glucose Level 136 mg/dL (70-99) 124 mg/dL (70-99) Calcium Level 8.5 mg/dL (8.5-10.1) 8.2 mg/dL (8.5-10.1) Total Bilirubin 0.6 mg/dL (0.2-1.0) 0.6 mg/dL (0.2-1.0) Aspartate Amino Transf (AST/SGOT) 29 U/L (15-37) 28 U/L (15-37) Alanine Aminotransferase (ALT/SGPT) 30 U/L (14-59) 27 U/L (14-59) Alkaline Phosphatase 84 U/L (46-116) 79 U/L (46-116) Troponin I Quantitative 0.158 ng/mL (0.000-0.055) Total Protein 6.1 g/dL (6.4-8.2) 6.3 g/dL (6.4-8.2) Albumin 3.5 g/dL (3.4-5.0) 3.0 g/dL (3.4-5.0) Albumin/Globulin Ratio 1.3 (1.0-1.7) 0.9 (1.0-1.7) Urine Collection Type Unknown Urine Color Yellow Urine Clarity Clear Urine pH 7.0 Urine Specific [place] 1.010 Urine Protein 100 mg/dL (NEG-TRACE) Urine Glucose (UA) Negative mg/dL (NEG) Urine Ketones (Stick) Negative mg/dL (NEG) Urine Blood Small (NEG) Urine Nitrite Negative (NEG) Urine Bilirubin Negative (NEG) Urine Urobilinogen Dipstick 0.2 mg/dL (0.2 mg/dL) Urine Leukocyte Esterase Negative (NEG) Urine RBC 3-5 /HPF (0-2) Urine WBC 0 /HPF (0-4) Urine Squamous Epithelial Cells Few /LPF Urine Bacteria 0 /HPF (0-FEW) Glucose (Fingerstick) 89 mg/dL (70-99) Test 09/14/18 08:30 Troponin I Quantitative 0.143 ng/mL (0.000-0.055) Laboratory Tests Test 09/14/18 02:20 09/14/18 03:25 09/14/18 03:56 09/14/18 07:54 White Blood Count 8.3 x10^3/uL (4.0-11.0) Red Blood Count 3.32 x10^6/uL (3.50-5.40) Hemoglobin 11.1 g/dL (12.0-15.5) Hematocrit 30.2 % (36.0-47.0) Mean Corpuscular Volume 91 fL (79-100) Mean Corpuscular Hemoglobin 34 pg (25-35) Mean Corpuscular Hemoglobin Concent 37 g/dL (31-37) Red Cell Distribution Width 15.1 % (11.5-14.5) Platelet Count 181 x10^3/uL (140-400) Neutrophils (%) (Auto) 83 % (31-73) Lymphocytes (%) (Auto) 10 % (24-48) Monocytes (%) (Auto) 7 % (0-9) Eosinophils (%) (Auto) 0 % (0-3) Basophils (%) (Auto) 0 % (0-3) Neutrophils # (Auto) 6.9 x10^3uL (1.8-7.7) Lymphocytes # (Auto) 0.8 x10^3/uL (1.0-4.8) Monocytes # (Auto) 0.6 x10^3/uL (0.0-1.1) Eosinophils # (Auto) 0.0 x10^3/uL (0.0-0.7) Basophils # (Auto) 0.0 x10^3/uL (0.0-0.2) Sodium Level 108 mmol/L (136-145) 109 mmol/L (136-145) Potassium Level 3.5 mmol/L (3.5-5.1) 3.7 mmol/L (3.5-5.1) Chloride Level 75 mmol/L (98-107) 75 mmol/L (98-107) Carbon Dioxide Level 24 mmol/L (21-32) 28 mmol/L (21-32) Anion Gap 9 (6-14) 6 (6-14) Blood Urea Nitrogen 11 mg/dL (7-20) 11 mg/dL (7-20) Creatinine 0.8 mg/dL (0.6-1.0) 0.8 mg/dL (0.6-1.0) Estimated GFR (Cockcroft-Gault) 68.3 68.3 BUN/Creatinine Ratio 14 (6-20) 14 (6-20) Glucose Level 136 mg/dL (70-99) 124 mg/dL (70-99) Calcium Level 8.5 mg/dL (8.5-10.1) 8.2 mg/dL (8.5-10.1) Total Bilirubin 0.6 mg/dL (0.2-1.0) 0.6 mg/dL (0.2-1.0) Aspartate Amino Transf (AST/SGOT) 29 U/L (15-37) 28 U/L (15-37) Alanine Aminotransferase (ALT/SGPT) 30 U/L (14-59) 27 U/L (14-59) Alkaline Phosphatase 84 U/L (46-116) 79 U/L (46-116) Troponin I Quantitative 0.158 ng/mL (0.000-0.055) Total Protein 6.1 g/dL (6.4-8.2) 6.3 g/dL (6.4-8.2) Albumin 3.5 g/dL (3.4-5.0) 3.0 g/dL (3.4-5.0) Albumin/Globulin Ratio 1.3 (1.0-1.7) 0.9 (1.0-1.7) Urine Collection Type Unknown Urine Color Yellow Urine Clarity Clear Urine pH 7.0 Urine Specific [place] 1.010 Urine Protein 100 mg/dL (NEG-TRACE) Urine Glucose (UA) Negative mg/dL (NEG) Urine Ketones (Stick) Negative mg/dL (NEG) Urine Blood Small (NEG) Urine Nitrite Negative (NEG) Urine Bilirubin Negative (NEG) Urine Urobilinogen Dipstick 0.2 mg/dL (0.2 mg/dL) Urine Leukocyte Esterase Negative (NEG) Urine RBC 3-5 /HPF (0-2) Urine WBC 0 /HPF (0-4) Urine Squamous Epithelial Cells Few /LPF Urine Bacteria 0 /HPF (0-FEW) Glucose (Fingerstick) 89 mg/dL (70-99) Test 09/14/18 08:30 Troponin I Quantitative 0.143 ng/mL (0.000-0.055) Review All relevant outside records, renal labs, imaging studies, telemetry/EKG's were reviewed. Images Images No pulmonary consolidation or acute airspace disease. VANESSA ROMANO MD Sep 14, 2018 11:40
--- NOTE | 2018-09-14 11:49 | NUR ---
SS following for discharge planning. SS reviewed pt chart. Pt is from home with family and is currently on room air. Pt has had previous home healthcare services with [facility], ; fax [phone]. SS will continue to follow for discharge planning.
[2018-09-14 12:24] LABS: CALCIUM 7.7 mg/dL (8.5-10.1); CREATININE 0.8 mg/dL (0.6-1.0); GFR 68.3; POTASSIUM 3.3 mmol/L (3.5-5.1)
--- NOTE | 2018-09-14 12:32 | NUR ---
Critical lab: Notified by Brenda in lab at 1226 of critical sodium of 118. Notified Dr. Fitzpatrick by phone at 1230. N/O's to DC IVF, and repeat BMP in 6H
--- NOTE | 2018-09-14 13:31 | PDOC2 ---
UROLOGY CONSULT Date of Consult Date of Consult DATE: 09/14/18 TIME: 13:23 Reason for Consult Reason for Consult: Hydronephrosis Identification/Chief Complaint Chief Complaint Hydronephrosis Source Source: Chart review, Patient History of Present Illness Reason for Visit: This 82 year old female is known to us. She was last evaluated by us June for Gross hematuria. At that time, we had recommended she follow up with Dr. Hauser for cystoscopy in the office but this did not happen. Today she complains of bladder frequency and nocturia, going as much as 10 times at night. She denies any visible blood in her urine or any dysuria/pain with urination. She presented last night to the ER with abdominal pain that she described as s "dull/achey/vague," and localized to her lower abdominal quadrants and pelvis; she is still having this pain, although it is somewhat improved since last night. She also had n/v and dizziness at the time of admission, which has since resolved. Denies a history of kidney stones and has not seen any blood in the urine this admission. She has some bilateral lower back pain but her CVA regions are negative on testing. Past Medical History Cardiovascular: CAD, HTN, ID GI: Diverticulosis Hepatobiliary: Cholelithiasis Musculoskeletal: Osteoarthritis Past Surgical History Past Surgical History: Cholecystectomy, Cataract Removal Family History Family History: Coronary Artery Disease, Diabetes Social History ALCOHOL: none Drugs: None Lives: with Family Current Problem List Problems: (1) Urinary retention Current Medications Current Medications Current Medications Acetaminophen (Tylenol) 650 mg 1X ONCE PO Last administered on 09/14/18at 03:15 ; Start 09/14/18 at 03:30; Stop 09/14/18 at 03:31; Status DC Amlodipine Besylate (Norvasc) 5 mg DAILY PO ; Start 09/14/18 at 10:00 Aspirin (Children'S Aspirin) 81 mg DAILY PO Last administered on 09/14/18at 09: 46; Start 09/14/18 at 10:00 Atorvastatin Calcium (Lipitor) 10 mg HS PO ; Start 09/14/18 at 21:00 Dextrose (Dextrose 50%-Water Syringe) 12.5 gm PRN Q15MIN PRN IV SEE COMMENTS; Start 09/14/18 at 07:45 Docusate Sodium (Colace) 100 mg DAILY PO Last administered on 09/14/18 09:45; Start 09/14/18 at 10:00 Ferrous Sulfate (Feosol) 325 mg BID PO Last administered on 09/14/18 09:46; Start 09/14/18 at 10:00 Info (CONTRAST GIVEN -- Rx MONITORING) 1 each PRN DAILY PRN MC SEE COMMENTS; Start 09/14/18 at 04:00; Stop 09/16/18 at 03:59 Iohexol (Omnipaque 300 Mg/ml) 75 ml 1X ONCE IV Last administered on 09/14/18at 04:02; Start 09/14/18 at 04:00; Stop 09/14/18 at 04:01; Status DC Losartan Potassium (Cozaar) 100 mg DAILY PO ; Start 09/14/18 at 10:00 Pantoprazole Sodium (Protonix) 40 mg DAILYAC PO Last administered on 09/14/18 09:45; Start 09/14/18 at 10:00 Sodium Chloride 1,000 ml @ 125 mls/hr Q8H IV Last administered on 09/14/18at 05 :44; Start 09/14/18 at 05:00; Stop 09/14/18 at 12:31; Status DC Sodium Chloride 1,000 ml @ 1,000 mls/hr 1X ONCE IV Last administered on at 04:02; Start 09/14/18 at 04:00; Stop 09/14/18 at 04:59; Status DC Vitamin B Complex (Folbic Tablet) 1 tab DAILY PO Last administered on at 09:46; Start 09/14/18 at 10:00 Allergies Allergies: Coded Allergies: Penicillins (Verified Allergy, Intermediate, RASH, 07/23/18) morphine (Verified Adverse Reaction, Mild, N/V, 07/23/18) ROS Review Of Systems: CONSTITUTIONAL: No fever or chills EYES: No recent changes SKIN: No rash or itching CARDIOVASCULAR: No chest pain, syncope, palpitations, or edema RESPIRATORY: No SOB or cough GASTROINTESTINAL: No nausea, vomiting or abdominal pain NEUROLOGICAL: No headaches or weakness ENDOCRINE: No cold or heat intolerance GENITOURINARY: + frequency, nocturia MUSCULOSKELETAL: + bilateral lower back pain LYMPHATICS: No enlarged lymph nodes PSYCHIATRIC: No anxiety or depression Physical Exam Physical Exam: General: Pleasant, no acute distress, well groomed Eyes: conjunctiva anicteric, eyes full range of motion ENT: moist oral mucosa, normal dentition Neck: Trachea midline, no masses Back: CVA testing negative bilat. Respiratory: unlabored breathing, not using accessory muscles, Abdomen: nontender, nondistended, no hepatosplenomegaly, no masses : PVR is 554; catheter insertion revealed 300 out and patient voided 300 just prior to insertion of Page catheter. Skin: no rashes or skin lesions on visualized skin Psych: normal mood, affect. Alert and oriented x 3. Vitals VITALS Vital Signs Date Time Temp Pulse Resp B/P (MAP) Pulse Ox O2 Delivery O2 Flow Rate FiO2 09/14/18 11:00 97.8 84 18 150/75 (100) 99 Room Air 97.8 Labs Labs Laboratory Tests Test 09/14/18 02:20 09/14/18 03:25 09/14/18 03:56 09/14/18 07:54 White Blood Count 8.3 x10^3/uL (4.0-11.0) Red Blood Count 3.32 x10^6/uL (3.50-5.40) Hemoglobin 11.1 g/dL (12.0-15.5) Hematocrit 30.2 % (36.0-47.0) Mean Corpuscular Volume 91 fL (79-100) Mean Corpuscular Hemoglobin 34 pg (25-35) Mean Corpuscular Hemoglobin Concent 37 g/dL (31-37) Red Cell Distribution Width 15.1 % (11.5-14.5) Platelet Count 181 x10^3/uL (140-400) Neutrophils (%) (Auto) 83 % (31-73) Lymphocytes (%) (Auto) 10 % (24-48) Monocytes (%) (Auto) 7 % (0-9) Eosinophils (%) (Auto) 0 % (0-3) Basophils (%) (Auto) 0 % (0-3) Neutrophils # (Auto) 6.9 x10^3uL (1.8-7.7) Lymphocytes # (Auto) 0.8 x10^3/uL (1.0-4.8) Monocytes # (Auto) 0.6 x10^3/uL (0.0-1.1) Eosinophils # (Auto) 0.0 x10^3/uL (0.0-0.7) Basophils # (Auto) 0.0 x10^3/uL (0.0-0.2) Sodium Level 108 mmol/L (136-145) 109 mmol/L (136-145) Potassium Level 3.5 mmol/L (3.5-5.1) 3.7 mmol/L (3.5-5.1) Chloride Level 75 mmol/L (98-107) 75 mmol/L (98-107) Carbon Dioxide Level 24 mmol/L (21-32) 28 mmol/L (21-32) Anion Gap 9 (6-14) 6 (6-14) Blood Urea Nitrogen 11 mg/dL (7-20) 11 mg/dL (7-20) Creatinine 0.8 mg/dL (0.6-1.0) 0.8 mg/dL (0.6-1.0) Estimated GFR (Cockcroft-Gault) 68.3 68.3 BUN/Creatinine Ratio 14 (6-20) 14 (6-20) Glucose Level 136 mg/dL (70-99) 124 mg/dL (70-99) Calcium Level 8.5 mg/dL (8.5-10.1) 8.2 mg/dL (8.5-10.1) Total Bilirubin 0.6 mg/dL (0.2-1.0) 0.6 mg/dL (0.2-1.0) Aspartate Amino Transf (AST/SGOT) 29 U/L (15-37) 28 U/L (15-37) Alanine Aminotransferase (ALT/SGPT) 30 U/L (14-59) 27 U/L (14-59) Alkaline Phosphatase 84 U/L (46-116) 79 U/L (46-116) Troponin I Quantitative 0.158 ng/mL (0.000-0.055) Total Protein 6.1 g/dL (6.4-8.2) 6.3 g/dL (6.4-8.2) Albumin 3.5 g/dL (3.4-5.0) 3.0 g/dL (3.4-5.0) Albumin/Globulin Ratio 1.3 (1.0-1.7) 0.9 (1.0-1.7) Urine Collection Type Unknown Urine Color Yellow Urine Clarity Clear Urine pH 7.0 Urine Specific [place] 1.010 Urine Protein 100 mg/dL (NEG-TRACE) Urine Glucose (UA) Negative mg/dL (NEG) Urine Ketones (Stick) Negative mg/dL (NEG) Urine Blood Small (NEG) Urine Nitrite Negative (NEG) Urine Bilirubin Negative (NEG) Urine Urobilinogen Dipstick 0.2 mg/dL (0.2 mg/dL) Urine Leukocyte Esterase Negative (NEG) Urine RBC 3-5 /HPF (0-2) Urine WBC 0 /HPF (0-4) Urine Squamous Epithelial Cells Few /LPF Urine Bacteria 0 /HPF (0-FEW) Glucose (Fingerstick) 89 mg/dL (70-99) Test 09/14/18 08:30 09/14/18 11:35 Troponin I Quantitative 0.143 ng/mL (0.000-0.055) Sodium Level 118 mmol/L (136-145) Potassium Level 3.3 mmol/L (3.5-5.1) Chloride Level 85 mmol/L (98-107) Carbon Dioxide Level 25 mmol/L (21-32) Anion Gap 8 (6-14) Blood Urea Nitrogen 9 mg/dL (7-20) Creatinine 0.8 mg/dL (0.6-1.0) Estimated GFR (Cockcroft-Gault) 68.3 Glucose Level 103 mg/dL (70-99) Calcium Level 7.7 mg/dL (8.5-10.1) Thyroid Stimulating Hormone (TSH) 1.642 uIU/mL (0.358-3.74) Laboratory Tests Test 09/14/18 02:20 09/14/18 03:25 09/14/18 03:56 09/14/18 07:54 White Blood Count 8.3 x10^3/uL (4.0-11.0) Red Blood Count 3.32 x10^6/uL (3.50-5.40) Hemoglobin 11.1 g/dL (12.0-15.5) Hematocrit 30.2 % (36.0-47.0) Mean Corpuscular Volume 91 fL (79-100) Mean Corpuscular Hemoglobin 34 pg (25-35) Mean Corpuscular Hemoglobin Concent 37 g/dL (31-37) Red Cell Distribution Width 15.1 % (11.5-14.5) Platelet Count 181 x10^3/uL (140-400) Neutrophils (%) (Auto) 83 % (31-73) Lymphocytes (%) (Auto) 10 % (24-48) Monocytes (%) (Auto) 7 % (0-9) Eosinophils (%) (Auto) 0 % (0-3) Basophils (%) (Auto) 0 % (0-3) Neutrophils # (Auto) 6.9 x10^3uL (1.8-7.7) Lymphocytes # (Auto) 0.8 x10^3/uL (1.0-4.8) Monocytes # (Auto) 0.6 x10^3/uL (0.0-1.1) Eosinophils # (Auto) 0.0 x10^3/uL (0.0-0.7) Basophils # (Auto) 0.0 x10^3/uL (0.0-0.2) Sodium Level 108 mmol/L (136-145) 109 mmol/L (136-145) Potassium Level 3.5 mmol/L (3.5-5.1) 3.7 mmol/L (3.5-5.1) Chloride Level 75 mmol/L (98-107) 75 mmol/L (98-107) Carbon Dioxide Level 24 mmol/L (21-32) 28 mmol/L (21-32) Anion Gap 9 (6-14) 6 (6-14) Blood Urea Nitrogen 11 mg/dL (7-20) 11 mg/dL (7-20) Creatinine 0.8 mg/dL (0.6-1.0) 0.8 mg/dL (0.6-1.0) Estimated GFR (Cockcroft-Gault) 68.3 68.3 BUN/Creatinine Ratio 14 (6-20) 14 (6-20) Glucose Level 136 mg/dL (70-99) 124 mg/dL (70-99) Calcium Level 8.5 mg/dL (8.5-10.1) 8.2 mg/dL (8.5-10.1) Total Bilirubin 0.6 mg/dL (0.2-1.0) 0.6 mg/dL (0.2-1.0) Aspartate Amino Transf (AST/SGOT) 29 U/L (15-37) 28 U/L (15-37) Alanine Aminotransferase (ALT/SGPT) 30 U/L (14-59) 27 U/L (14-59) Alkaline Phosphatase 84 U/L (46-116) 79 U/L (46-116) Troponin I Quantitative 0.158 ng/mL (0.000-0.055) Total Protein 6.1 g/dL (6.4-8.2) 6.3 g/dL (6.4-8.2) Albumin 3.5 g/dL (3.4-5.0) 3.0 g/dL (3.4-5.0) Albumin/Globulin Ratio 1.3 (1.0-1.7) 0.9 (1.0-1.7) Urine Collection Type Unknown Urine Color Yellow Urine Clarity Clear Urine pH 7.0 Urine Specific [place] 1.010 Urine Protein 100 mg/dL (NEG-TRACE) Urine Glucose (UA) Negative mg/dL (NEG) Urine Ketones (Stick) Negative mg/dL (NEG) Urine Blood Small (NEG) Urine Nitrite Negative (NEG) Urine Bilirubin Negative (NEG) Urine Urobilinogen Dipstick 0.2 mg/dL (0.2 mg/dL) Urine Leukocyte Esterase Negative (NEG) Urine RBC 3-5 /HPF (0-2) Urine WBC 0 /HPF (0-4) Urine Squamous Epithelial Cells Few /LPF Urine Bacteria 0 /HPF (0-FEW) Glucose (Fingerstick) 89 mg/dL (70-99) Test 09/14/18 08:30 09/14/18 11:35 Troponin I Quantitative 0.143 ng/mL (0.000-0.055) Sodium Level 118 mmol/L (136-145) Potassium Level 3.3 mmol/L (3.5-5.1) Chloride Level 85 mmol/L (98-107) Carbon Dioxide Level 25 mmol/L (21-32) Anion Gap 8 (6-14) Blood Urea Nitrogen 9 mg/dL (7-20) Creatinine 0.8 mg/dL (0.6-1.0) Estimated GFR (Cockcroft-Gault) 68.3 Glucose Level 103 mg/dL (70-99) Calcium Level 7.7 mg/dL (8.5-10.1) Thyroid Stimulating Hormone (TSH) 1.642 uIU/mL (0.358-3.74) Images Images CT ABD PELVIS: 1. Right greater than left hydronephrosis with prominent extrarenal pelvis. 2. Severe calcific atherosclerosis. 3. Colonic diverticulosis. Assessment/Plan Assessment/Plan Patient is Somali speaking. Interview conducted with Examiner's limited Somali along with help from family. Hydronephrosis: may be attributed to urinary retention, as PVR is 554 via scan. Orders were given for nursing to insert Page. Pt did void prior to catheter insertion. She voided 300 and then 300 came out once catheter was inserted. Encourage ambulation and a good bowel program; pt denies constipation at this time. Will coordinate with appointment scheduler to get her set up for cystoscopy, since this never happened as planned back in June and she still has blood in her UA. If she is still here in a couple of days may order CTU for hematuria workup and also to re-evaluate for hydronephrosis. Do not recommend Flomax as patient did complain of dizziness last night. Case discussed with supervising, Dr. Gordon, who will check on patient later today or tomorrow. KATIA GALARZA APRN Sep 14, 2018 13:31
--- NOTE | 2018-09-14 13:48 | NUR ---
PVR checked by Janeth RODRIGUEZ, 554cc. Pt requested to use BSC prior to akers placement, 300cc out. Per orders, 16FR akers placed , additional 300cc out.
[2018-09-14 14:48] LABS: SODIUM, URINE <60 mmol/L (Not Estab.); UR POTASSIUM 20.4 mmol/L (Not Estab.)
--- NOTE | 2018-09-14 15:24 | PDOC2 ---
CARDIAC CONSULT DATE OF CONSULT Date of Consult DATE: 09/14/18 TIME: 15:15 REASON FOR CONSULT Reason for Consult: hypotensive, HTN REFERRING PHYSICIAN Referring Physician: SOURCE Source: Chart review HISTORY OF PRESENT ILLNESS HISTORY OF PRESENT ILLNESS This is an 82 yo female admitted for multiple complains. she has been feeling weak and has anorexia. She has been having lower abdominal pain that goes to her lower back. Also she has been having nausea and vomiting and has been taking thiazide and losartan. She has not been drinking well. She has been having some dizziness. Positive for LARSEN and possibly constipation. No SOA , chest pain nor palpitations. She is known to our cardiology group and had difficulty controlling her BP before but has improved. She was noted with hypotension with this admission. PAST MEDICAL HISTORY Past Medical History Cardiovascular: CAD, HTN, CT GI: Diverticulosis Hepatobiliary: Cholelithiasis Musculoskeletal: Osteoarthritis ENT: Other (cataract) PAST SURGICAL HISTORY Past Surgical History Cholecystectomy, Cataract Removal FAMILY HISTORY Family History: Coronary Artery Disease SOCIAL HISTORY Smoke: No ALCOHOL: none Drugs: None Lives: with Family CURRENT MEDICATIONS CURRENT MEDICATIONS Current Medications Medications (Trade) Dose Ordered Sig/[place] Route PRN Reason Start Time Stop Time Status Last Admin Dose Admin Acetaminophen (Tylenol) 650 mg 1X ONCE PO 09/14/18 03:30 09/14/18 03:31 DC 09/14/18 03:15 Sodium Chloride 1,000 ml @ 1,000 mls/hr 1X ONCE IV 09/14/18 04:00 09/14/18 04:59 DC 09/14/18 04:02 Iohexol (Omnipaque 300 Mg/ml) 75 ml 1X ONCE IV 09/14/18 04:00 09/14/18 04:01 DC 09/14/18 04:02 Sodium Chloride 1,000 ml @ 125 mls/hr Q8H IV 09/14/18 05:00 09/14/18 12:31 DC 09/14/18 05:44 Aspirin (Children'S Aspirin) 81 mg DAILY PO 09/14/18 10:00 09/14/18 09:46 Docusate Sodium (Colace) 100 mg DAILY PO 09/14/18 10:00 09/14/18 09:45 Ferrous Sulfate (Feosol) 325 mg BID PO 09/14/18 10:00 09/14/18 09:46 Pantoprazole Sodium (Protonix) 40 mg DAILYAC PO 09/14/18 10:00 09/14/18 09:45 Vitamin B Complex (Folbic Tablet) 1 tab DAILY PO 09/14/18 10:00 09/14/18 09:46 ALLERGIES ALLERGIES: Coded Allergies: Penicillins (Verified Allergy, Intermediate, RASH, 07/23/18) morphine (Verified Adverse Reaction, Mild, N/V, 07/23/18) ROS Review of System limited, poor historian, discussed with daughter PHYSICAL EXAM General: Alert, Oriented X3, Cooperative, No acute distress HEENT: Atraumatic, Mucous membr. moist/pink Lungs: Clear to auscultation, Normal air movement Heart: Regular rate (SR), Normal S1, Normal S2, Other (2/6 systolic murmur to apex) Abdomen: Soft, No tenderness Extremities: No cyanosis, No edema Skin: No breakdown, No significant lesion Neuro: Normal speech, Sensation intact Psych/Mental Status: Mental status NL, Mood NL MUSCULOSKELETAL: Osteoarthritic changes both hands VITALS VITALS Vital Signs Date Time Temp Pulse Resp B/P (MAP) Pulse Ox O2 Delivery O2 Flow Rate FiO2 09/14/18 11:00 97.8 84 18 150/75 (100) 99 Room Air 97.8 LABS Lab: Laboratory Tests Test 09/14/18 02:20 09/14/18 03:25 09/14/18 03:56 09/14/18 07:54 White Blood Count 8.3 x10^3/uL (4.0-11.0) Red Blood Count 3.32 x10^6/uL (3.50-5.40) Hemoglobin 11.1 g/dL (12.0-15.5) Hematocrit 30.2 % (36.0-47.0) Mean Corpuscular Volume 91 fL (79-100) Mean Corpuscular Hemoglobin 34 pg (25-35) Mean Corpuscular Hemoglobin Concent 37 g/dL (31-37) Red Cell Distribution Width 15.1 % (11.5-14.5) Platelet Count 181 x10^3/uL (140-400) Neutrophils (%) (Auto) 83 % (31-73) Lymphocytes (%) (Auto) 10 % (24-48) Monocytes (%) (Auto) 7 % (0-9) Eosinophils (%) (Auto) 0 % (0-3) Basophils (%) (Auto) 0 % (0-3) Neutrophils # (Auto) 6.9 x10^3uL (1.8-7.7) Lymphocytes # (Auto) 0.8 x10^3/uL (1.0-4.8) Monocytes # (Auto) 0.6 x10^3/uL (0.0-1.1) Eosinophils # (Auto) 0.0 x10^3/uL (0.0-0.7) Basophils # (Auto) 0.0 x10^3/uL (0.0-0.2) Sodium Level 108 mmol/L (136-145) 109 mmol/L (136-145) Potassium Level 3.5 mmol/L (3.5-5.1) 3.7 mmol/L (3.5-5.1) Chloride Level 75 mmol/L (98-107) 75 mmol/L (98-107) Carbon Dioxide Level 24 mmol/L (21-32) 28 mmol/L (21-32) Anion Gap 9 (6-14) 6 (6-14) Blood Urea Nitrogen 11 mg/dL (7-20) 11 mg/dL (7-20) Creatinine 0.8 mg/dL (0.6-1.0) 0.8 mg/dL (0.6-1.0) Estimated GFR (Cockcroft-Gault) 68.3 68.3 BUN/Creatinine Ratio 14 (6-20) 14 (6-20) Glucose Level 136 mg/dL (70-99) 124 mg/dL (70-99) Calcium Level 8.5 mg/dL (8.5-10.1) 8.2 mg/dL (8.5-10.1) Total Bilirubin 0.6 mg/dL (0.2-1.0) 0.6 mg/dL (0.2-1.0) Aspartate Amino Transf (AST/SGOT) 29 U/L (15-37) 28 U/L (15-37) Alanine Aminotransferase (ALT/SGPT) 30 U/L (14-59) 27 U/L (14-59) Alkaline Phosphatase 84 U/L (46-116) 79 U/L (46-116) Troponin I Quantitative 0.158 ng/mL (0.000-0.055) Total Protein 6.1 g/dL (6.4-8.2) 6.3 g/dL (6.4-8.2) Albumin 3.5 g/dL (3.4-5.0) 3.0 g/dL (3.4-5.0) Albumin/Globulin Ratio 1.3 (1.0-1.7) 0.9 (1.0-1.7) Urine Collection Type Unknown Urine Color Yellow Urine Clarity Clear Urine pH 7.0 Urine Specific [place] 1.010 Urine Protein 100 mg/dL (NEG-TRACE) Urine Glucose (UA) Negative mg/dL (NEG) Urine Ketones (Stick) Negative mg/dL (NEG) Urine Blood Small (NEG) Urine Nitrite Negative (NEG) Urine Bilirubin Negative (NEG) Urine Urobilinogen Dipstick 0.2 mg/dL (0.2 mg/dL) Urine Leukocyte Esterase Negative (NEG) Urine RBC 3-5 /HPF (0-2) Urine WBC 0 /HPF (0-4) Urine Squamous Epithelial Cells Few /LPF Urine Bacteria 0 /HPF (0-FEW) Urine Sodium <60 mmol/L (Not Estab.) Urine Potassium 20.4 mmol/L (Not Estab.) Urine Chloride <60 mmol/L (Not Estab.) Glucose (Fingerstick) 89 mg/dL (70-99) Test 09/14/18 08:30 09/14/18 11:35 Troponin I Quantitative 0.143 ng/mL (0.000-0.055) Sodium Level 118 mmol/L (136-145) Potassium Level 3.3 mmol/L (3.5-5.1) Chloride Level 85 mmol/L (98-107) Carbon Dioxide Level 25 mmol/L (21-32) Anion Gap 8 (6-14) Blood Urea Nitrogen 9 mg/dL (7-20) Creatinine 0.8 mg/dL (0.6-1.0) Estimated GFR (Cockcroft-Gault) 68.3 Glucose Level 103 mg/dL (70-99) Calcium Level 7.7 mg/dL (8.5-10.1) Thyroid Stimulating Hormone (TSH) 1.642 uIU/mL (0.358-3.74) ECHOCARDIOGRAM ECHOCARDIOGRAM <Conclusion> The left ventricular systolic function is normal and the ejection fraction is within normal range. The Ejection Fraction is >55%. There is normal LV segmental wall motion. Doppler and Color Flow revealed mild aortic regurgitation. DATE: 08/17/18 1147 STRESS TEST STRESS TEST Conclusion 1. Regadenoson cardioisotope stress test did not show any evidence of ischemia or infarct. 2. Normal left ventricular systolic function with ejection fraction calculated at 67%. 3. Low risk for cardiac events. DATE: 09/02/18 1202 ASSESSMENT/PLAN ASSESSMENT/PLAN 1. Hypotension: volume depletion and hyponatremia contributing. Better after IVF. 2. Severe hyponatremia: multifactorial with vomiting/HCTZ/ARB. Defer to nephrology 3. Abdominal pain with bilateral Hydronephrosis: Page now in place. Urology following. 4. Chronic elevated troponin: 0.14 from 0.8, No EKG changes. No cardiac symptoms. Possibly from microvascular dysfunction. Recent normal MPI 5. DM2/HLP 6. refractory labile HTN could be related to her hydronephrosis. Bp is better. 7. Chronic diastolic CHF: compensated 8. Chronic anemia: Fe def. Hgb stable. 9. Hx of CAD: had LHC but no past intervention. Recommendations 1. DC ARB and thiazide for now. Hydralazine IV PRN 2. Continue ASA, statin, norvasc.May increase norvasc if need be. Supportive care. 3. Avoid AV eunice blocking agents as she was noted with bradycardia before. HARIS BROOKS APRN Sep 14, 2018 15:24
[2018-09-14] MEDS ORDERED: hydrALAZINE 20 MG/ML VIAL. IVP PRN (16:15)
--- NOTE | 2018-09-14 16:46 | PDOC1 ---
History and Physical Date of Admission Date of Admission 09/14/18 Identification/Chief Complaint Chief Complaint weakness, fatigue Source Source: Caregiver, Chart review, Patient History of Present Illness History of Present Illness She sees Dr. Pedraza with difficult to treat hypertension and recently started on thiazide diuretic but it lowered her sodium so switched to chlorthalidone and found in ER to be profoundly hyponatremic with a sodium of 108 and admitted, no seizures or other complications, she has just been weak and tired Past Medical History Cardiovascular: CAD, HTN, [place] GI: Diverticulosis Hepatobiliary: Cholelithiasis Past Surgical History Past Surgical History: Cholecystectomy, Cataract Removal Family History Family History: Coronary Artery Disease Social History Smoke: No ALCOHOL: none Drugs: None Current Medications Current Medications Current Medications Medications (Trade) Dose Ordered Sig/[place] Start Time Stop Time Status Last Admin Dose Admin Acetaminophen (Tylenol) 650 mg 1X ONCE 09/14/18 03:30 09/14/18 03:31 DC 09/14/18 03:15 650 MG Amlodipine Besylate (Norvasc) 5 mg DAILY 09/14/18 10:00 Aspirin (Children'S Aspirin) 81 mg DAILY 09/14/18 10:00 09/14/18 09:46 81 MG Atorvastatin Calcium (Lipitor) 10 mg HS 09/14/18 21:00 Dextrose (Dextrose 50%-Water Syringe) 12.5 gm PRN Q15MIN PRN 09/14/18 07:45 Docusate Sodium (Colace) 100 mg DAILY 09/14/18 10:00 09/14/18 09:45 100 MG Ferrous Sulfate (Feosol) 325 mg BID 09/14/18 10:00 09/14/18 09:46 325 MG Hydralazine HCl (Apresoline Inj) 10 mg PRN Q4HRS PRN 09/14/18 16:15 Info (CONTRAST GIVEN -- Rx MONITORING) 1 each PRN DAILY PRN 09/14/18 04:00 09/16/18 03:59 Iohexol (Omnipaque 300 Mg/ml) 75 ml 1X ONCE 09/14/18 04:00 09/14/18 04:01 DC 09/14/18 04:02 75 ML Losartan Potassium (Cozaar) 100 mg DAILY 09/14/18 10:00 09/14/18 15:24 DC Pantoprazole Sodium (Protonix) 40 mg DAILYAC 09/14/18 10:00 09/14/18 09:45 40 MG Sodium Chloride 1,000 ml @ 125 mls/hr Q8H 09/14/18 05:00 09/14/18 12:31 DC 09/14/18 05:44 125 MLS/HR Vitamin B Complex (Folbic Tablet) 1 tab DAILY 09/14/18 10:00 09/14/18 09:46 1 TAB Allergies Allergies Allergies Coded Allergies Type Severity Reaction Last Updated Verified Penicillins Allergy Intermediate RASH 07/23/18 Yes morphine Adverse Reaction Mild N/V 07/23/18 Yes ROS Review of System CONSTITUTIONAL: No fever or chills EYES: No recent changes SKIN: No rash or itching CARDIOVASCULAR: No chest pain, syncope, palpitations, or edema RESPIRATORY: No SOB or cough GASTROINTESTINAL: No nausea, vomiting or abdominal pain NEUROLOGICAL: No headaches, + weakness ENDOCRINE: No cold or heat intolerance GENITOURINARY: No urgency or frequency of urination MUSCULOSKELETAL: No back pain or joint pain LYMPHATICS: No enlarged lymph nodes PSYCHIATRIC: No anxiety or depression Physical Exam Physical Exam GEN.: looks tired, oriented. HEENT: Head is normocephalic, atraumatic NECK: Supple. LUNGS: Clear to auscultation. HEART: RRR, S1, S2 present. Peripheral pulses intact ABDOMEN: Soft, nontender. Positive bowel sounds. EXTREMITIES: Without any cyanosis. NEUROLOGIC: Normal speech, normal tone PSYCHIATRIC: Normal affect, normal mood. SKIN: No ulcerations Vitals Vitals Vital Signs Date Time Temp Pulse Resp B/P (MAP) Pulse Ox O2 Delivery O2 Flow Rate FiO2 09/14/18 15:00 98.3 62 18 118/58 (78) 99 Room Air 98.3 Labs Labs Laboratory Tests Test 09/14/18 02:20 09/14/18 03:25 09/14/18 03:56 09/14/18 07:54 White Blood Count 8.3 x10^3/uL (4.0-11.0) Red Blood Count 3.32 x10^6/uL (3.50-5.40) Hemoglobin 11.1 g/dL (12.0-15.5) Hematocrit 30.2 % (36.0-47.0) Mean Corpuscular Volume 91 fL (79-100) Mean Corpuscular Hemoglobin 34 pg (25-35) Mean Corpuscular Hemoglobin Concent 37 g/dL (31-37) Red Cell Distribution Width 15.1 % (11.5-14.5) Platelet Count 181 x10^3/uL (140-400) Neutrophils (%) (Auto) 83 % (31-73) Lymphocytes (%) (Auto) 10 % (24-48) Monocytes (%) (Auto) 7 % (0-9) Eosinophils (%) (Auto) 0 % (0-3) Basophils (%) (Auto) 0 % (0-3) Neutrophils # (Auto) 6.9 x10^3uL (1.8-7.7) Lymphocytes # (Auto) 0.8 x10^3/uL (1.0-4.8) Monocytes # (Auto) 0.6 x10^3/uL (0.0-1.1) Eosinophils # (Auto) 0.0 x10^3/uL (0.0-0.7) Basophils # (Auto) 0.0 x10^3/uL (0.0-0.2) Sodium Level 108 mmol/L (136-145) 109 mmol/L (136-145) Potassium Level 3.5 mmol/L (3.5-5.1) 3.7 mmol/L (3.5-5.1) Chloride Level 75 mmol/L (98-107) 75 mmol/L (98-107) Carbon Dioxide Level 24 mmol/L (21-32) 28 mmol/L (21-32) Anion Gap 9 (6-14) 6 (6-14) Blood Urea Nitrogen 11 mg/dL (7-20) 11 mg/dL (7-20) Creatinine 0.8 mg/dL (0.6-1.0) 0.8 mg/dL (0.6-1.0) Estimated GFR (Cockcroft-Gault) 68.3 68.3 BUN/Creatinine Ratio 14 (6-20) 14 (6-20) Glucose Level 136 mg/dL (70-99) 124 mg/dL (70-99) Calcium Level 8.5 mg/dL (8.5-10.1) 8.2 mg/dL (8.5-10.1) Total Bilirubin 0.6 mg/dL (0.2-1.0) 0.6 mg/dL (0.2-1.0) Aspartate Amino Transf (AST/SGOT) 29 U/L (15-37) 28 U/L (15-37) Alanine Aminotransferase (ALT/SGPT) 30 U/L (14-59) 27 U/L (14-59) Alkaline Phosphatase 84 U/L (46-116) 79 U/L (46-116) Troponin I Quantitative 0.158 ng/mL (0.000-0.055) Total Protein 6.1 g/dL (6.4-8.2) 6.3 g/dL (6.4-8.2) Albumin 3.5 g/dL (3.4-5.0) 3.0 g/dL (3.4-5.0) Albumin/Globulin Ratio 1.3 (1.0-1.7) 0.9 (1.0-1.7) Urine Collection Type Unknown Urine Color Yellow Urine Clarity Clear Urine pH 7.0 Urine Specific [place] 1.010 Urine Protein 100 mg/dL (NEG-TRACE) Urine Glucose (UA) Negative mg/dL (NEG) Urine Ketones (Stick) Negative mg/dL (NEG) Urine Blood Small (NEG) Urine Nitrite Negative (NEG) Urine Bilirubin Negative (NEG) Urine Urobilinogen Dipstick 0.2 mg/dL (0.2 mg/dL) Urine Leukocyte Esterase Negative (NEG) Urine RBC 3-5 /HPF (0-2) Urine WBC 0 /HPF (0-4) Urine Squamous Epithelial Cells Few /LPF Urine Bacteria 0 /HPF (0-FEW) Urine Sodium <60 mmol/L (Not Estab.) Urine Potassium 20.4 mmol/L (Not Estab.) Urine Chloride <60 mmol/L (Not Estab.) Glucose (Fingerstick) 89 mg/dL (70-99) Test 09/14/18 08:30 09/14/18 11:35 Troponin I Quantitative 0.143 ng/mL (0.000-0.055) Sodium Level 118 mmol/L (136-145) Potassium Level 3.3 mmol/L (3.5-5.1) Chloride Level 85 mmol/L (98-107) Carbon Dioxide Level 25 mmol/L (21-32) Anion Gap 8 (6-14) Blood Urea Nitrogen 9 mg/dL (7-20) Creatinine 0.8 mg/dL (0.6-1.0) Estimated GFR (Cockcroft-Gault) 68.3 Glucose Level 103 mg/dL (70-99) Calcium Level 7.7 mg/dL (8.5-10.1) Thyroid Stimulating Hormone (TSH) 1.642 uIU/mL (0.358-3.74) Laboratory Tests Test 09/14/18 02:20 09/14/18 03:25 09/14/18 03:56 09/14/18 07:54 White Blood Count 8.3 x10^3/uL (4.0-11.0) Red Blood Count 3.32 x10^6/uL (3.50-5.40) Hemoglobin 11.1 g/dL (12.0-15.5) Hematocrit 30.2 % (36.0-47.0) Mean Corpuscular Volume 91 fL (79-100) Mean Corpuscular Hemoglobin 34 pg (25-35) Mean Corpuscular Hemoglobin Concent 37 g/dL (31-37) Red Cell Distribution Width 15.1 % (11.5-14.5) Platelet Count 181 x10^3/uL (140-400) Neutrophils (%) (Auto) 83 % (31-73) Lymphocytes (%) (Auto) 10 % (24-48) Monocytes (%) (Auto) 7 % (0-9) Eosinophils (%) (Auto) 0 % (0-3) Basophils (%) (Auto) 0 % (0-3) Neutrophils # (Auto) 6.9 x10^3uL (1.8-7.7) Lymphocytes # (Auto) 0.8 x10^3/uL (1.0-4.8) Monocytes # (Auto) 0.6 x10^3/uL (0.0-1.1) Eosinophils # (Auto) 0.0 x10^3/uL (0.0-0.7) Basophils # (Auto) 0.0 x10^3/uL (0.0-0.2) Sodium Level 108 mmol/L (136-145) 109 mmol/L (136-145) Potassium Level 3.5 mmol/L (3.5-5.1) 3.7 mmol/L (3.5-5.1) Chloride Level 75 mmol/L (98-107) 75 mmol/L (98-107) Carbon Dioxide Level 24 mmol/L (21-32) 28 mmol/L (21-32) Anion Gap 9 (6-14) 6 (6-14) Blood Urea Nitrogen 11 mg/dL (7-20) 11 mg/dL (7-20) Creatinine 0.8 mg/dL (0.6-1.0) 0.8 mg/dL (0.6-1.0) Estimated GFR (Cockcroft-Gault) 68.3 68.3 BUN/Creatinine Ratio 14 (6-20) 14 (6-20) Glucose Level 136 mg/dL (70-99) 124 mg/dL (70-99) Calcium Level 8.5 mg/dL (8.5-10.1) 8.2 mg/dL (8.5-10.1) Total Bilirubin 0.6 mg/dL (0.2-1.0) 0.6 mg/dL (0.2-1.0) Aspartate Amino Transf (AST/SGOT) 29 U/L (15-37) 28 U/L (15-37) Alanine Aminotransferase (ALT/SGPT) 30 U/L (14-59) 27 U/L (14-59) Alkaline Phosphatase 84 U/L (46-116) 79 U/L (46-116) Troponin I Quantitative 0.158 ng/mL (0.000-0.055) Total Protein 6.1 g/dL (6.4-8.2) 6.3 g/dL (6.4-8.2) Albumin 3.5 g/dL (3.4-5.0) 3.0 g/dL (3.4-5.0) Albumin/Globulin Ratio 1.3 (1.0-1.7) 0.9 (1.0-1.7) Urine Collection Type Unknown Urine Color Yellow Urine Clarity Clear Urine pH 7.0 Urine Specific [place] 1.010 Urine Protein 100 mg/dL (NEG-TRACE) Urine Glucose (UA) Negative mg/dL (NEG) Urine Ketones (Stick) Negative mg/dL (NEG) Urine Blood Small (NEG) Urine Nitrite Negative (NEG) Urine Bilirubin Negative (NEG) Urine Urobilinogen Dipstick 0.2 mg/dL (0.2 mg/dL) Urine Leukocyte Esterase Negative (NEG) Urine RBC 3-5 /HPF (0-2) Urine WBC 0 /HPF (0-4) Urine Squamous Epithelial Cells Few /LPF Urine Bacteria 0 /HPF (0-FEW) Urine Sodium <60 mmol/L (Not Estab.) Urine Potassium 20.4 mmol/L (Not Estab.) Urine Chloride <60 mmol/L (Not Estab.) Glucose (Fingerstick) 89 mg/dL (70-99) Test 09/14/18 08:30 09/14/18 11:35 Troponin I Quantitative 0.143 ng/mL (0.000-0.055) Sodium Level 118 mmol/L (136-145) Potassium Level 3.3 mmol/L (3.5-5.1) Chloride Level 85 mmol/L (98-107) Carbon Dioxide Level 25 mmol/L (21-32) Anion Gap 8 (6-14) Blood Urea Nitrogen 9 mg/dL (7-20) Creatinine 0.8 mg/dL (0.6-1.0) Estimated GFR (Cockcroft-Gault) 68.3 Glucose Level 103 mg/dL (70-99) Calcium Level 7.7 mg/dL (8.5-10.1) Thyroid Stimulating Hormone (TSH) 1.642 uIU/mL (0.358-3.74) Images Images Axial CT images obtained through the abdomen and pelvis with contrast. One or more of the following individualized dose reduction techniques were utilized for this examination: 1. Automated exposure control; 2. Adjustment of the mA and/or kV according to patient size; 3. Use of iterative reconstruction technique. FINDINGS: Coronary artery calcific atherosclerosis. Small hiatal hernia versus mild distention distal esophagus. Severe calcific atherosclerosis. No intrahepatic bile duct dilation. Postcholecystectomy changes. No peripancreatic fluid collection. Spleen unremarkable. Urinary bladder somewhat distended at time of exam. Mild right greater than left hydronephrosis and distention of extrarenal pelvis. Colonic diverticulosis. The possible appendix does not appear grossly dilated. No dilated loops of bowel to suggest obstruction. Degenerative changes of the spine with scoliotic curvature multilevel central canal and neural foraminal stenosis. Small fat-containing umbilical hernia. Grade 1 anterolisthesis of L4 on 5. IMPRESSION: 1. Right greater than left hydronephrosis with prominent extrarenal pelvis. 2. Severe calcific atherosclerosis. 3. Colonic diverticulosis. VTE Prophylaxis Ordered VTE Prophylaxis Devices: No VTE Pharmacological Prophylaxi: Yes (lovenox) Assessment/Plan Assessment/Plan hyponatremia - replace slowly, renal to see, likely side effect of water pills labile hypertension - low BP this am, adjust meds abnormal troponin - repeat, cardiology referral hydronephrosis - urology to see calcific atherosclerosis - may have component of renal artery stenosis causing HTN Stefan JORGE MD Sep 14, 2018 16:46
[2018-09-14 18:43] LABS: CALCIUM 7.9 mg/dL (8.5-10.1); CREATININE 0.7 mg/dL (0.6-1.0); GFR 79.7; POTASSIUM 3.5 mmol/L (3.5-5.1)
[2018-09-14] MEDS: ATORVASTATIN CALCIUM 10 MG TABLET. PO SCH (20:39)
[2018-09-15 03:20] VITALS: BP 95/49
[2018-09-15 04:17] LABS: SODIUM, URINE <60 mmol/L (Not Estab.); UR POTASSIUM 6.7 mmol/L (Not Estab.)
[2018-09-15 05:20] LABS: BASO % 0 % (0-3); EOS # 0.1 x10^3/uL (0.0-0.7); EOS % 1 % (0-3); HEMOGLOBIN 9.4 g/dL (12.0-15.5); LYMPH # 0.9 x10^3/uL (1.0-4.8); LYMPH % 16 % (24-48); MEAN CORPUSCULAR HEMOGLOBIN 34 pg (25-35); MEAN CORPUSCULAR HGB CONC 36 g/dL (31-37); MEAN CORPUSCULAR VOLUME 93 fL (79-100); MONO # 0.4 x10^3/uL (0.0-1.1); MONO % 8 % (0-9); NEUT # 4.3 x10^3uL (1.8-7.7); NEUT % 75 % (31-73); PLATELET COUNT 131 x10^3/uL (140-400); RED BLOOD COUNT 2.79 x10^6/uL (3.50-5.40); RED CELL DISTRIBUTION WIDTH 14.9 % (11.5-14.5); WHITE BLOOD COUNT 5.6 x10^3/uL (4.0-11.0)
[2018-09-15 05:55] LABS: ALBUMIN 2.5 g/dL (3.4-5.0); ALBUMIN/GLOBULIN RATIO 0.9 (1.0-1.7); CREATININE 0.8 mg/dL (0.6-1.0); GFR 68.3; POTASSIUM 3.3 mmol/L (3.5-5.1); TOTAL BILIRUBIN 0.5 mg/dL (0.2-1.0); TOTAL PROTEIN 5.3 g/dL (6.4-8.2)
[2018-09-15 07:08] VITALS: BP 99/49
--- NOTE | 2018-09-15 08:45 | PDOC ---
SUBJECTIVE Subjective Pt had a good night, catheter not bothering her. Hasn't walked yet since coming to hospital, but daughter and patient are open to the idea. No problems with bowels today. OBJECTIVE Objective Physical Exam: General appearance: Alert and Oriented Head: Normocephalic, without obvious abnormality Eyes: conjunctivae/corneas clear. PERRL, EOM's intact. Fundi benign Lungs: Regular respirations, non labored breathing Pelvic: + Page catheter draining clear yellow urine. Device in good working order. Vital Signs Vital Signs Date Time Temp Pulse Resp B/P (MAP) Pulse Ox O2 Delivery O2 Flow Rate FiO2 09/15/18 07:08 97.3 59 18 99/49 (66) 99 Room Air 97.3 09/15/18 03:20 98.3 70 18 95/49 (64) 99 Room Air 98.3 09/14/18 22:54 98.5 67 18 103/49 (67) 98 Room Air 98.5 09/14/18 20:00 Room Air 09/14/18 19:17 98.5 75 18 116/55 (75) 99 Room Air 98.5 09/14/18 16:05 78 111/53 (72) 09/14/18 16:02 69 121/57 (78) 09/14/18 15:59 62 117/56 (76) 09/14/18 15:00 98.3 62 18 118/58 (78) 99 Room Air 98.3 09/14/18 11:00 97.8 84 18 150/75 (100) 99 Room Air 97.8 09/14/18 09:18 69 81/32 09/14/18 09:17 69 81/32 I & O Intake and Output 09/15/18 06:59 Output Total 2750 ml Balance -2750 ml Output Urine Total 2750 ml PHYSICAL EXAM Physical Exam Physical Exam: General appearance: Alert and Oriented Head: Normocephalic, without obvious abnormality Eyes: conjunctivae/corneas clear. PERRL, EOM's intact. Fundi benign Lungs: Regular respirations, non labored breathing Pelvic: + Page catheter draining clear yellow urine. Device in good working order. ASSESSMENT/PLAN Assessment/Plan Patient is Greek speaking. Interview conducted with Examiner's limited Greek along with help from family. She voided 300 and then 300 came out once catheter was inserted yesterday Encourage ambulation and a good bowel program; pt denies constipation at this time. Will coordinate with presentation specialist to get her set up for cystoscopy, since this never happened as planned back in June and she still has blood in her UA. If she is still here in a couple of days may order CTU for hematuria workup and also to re-evaluate for hydronephrosis. Do not recommend Flomax as patient did complain of dizziness last night. Tentative voiding trial on Thursday as long as she is walking well by then. Problems: (1) Urinary retention COMMENT Lab Laboratory Tests Test 09/14/18 11:35 09/14/18 13:30 09/14/18 18:00 09/15/18 05:05 Sodium Level 118 mmol/L (136-145) 123 mmol/L (136-145) 126 mmol/L (136-145) Potassium Level 3.3 mmol/L (3.5-5.1) 3.5 mmol/L (3.5-5.1) 3.3 mmol/L (3.5-5.1) Chloride Level 85 mmol/L (98-107) 90 mmol/L (98-107) 92 mmol/L (98-107) Carbon Dioxide Level 25 mmol/L (21-32) 26 mmol/L (21-32) 26 mmol/L (21-32) Anion Gap 8 (6-14) 7 (6-14) 8 (6-14) Blood Urea Nitrogen 9 mg/dL (7-20) 9 mg/dL (7-20) 8 mg/dL (7-20) Creatinine 0.8 mg/dL (0.6-1.0) 0.7 mg/dL (0.6-1.0) 0.8 mg/dL (0.6-1.0) Estimated GFR (Cockcroft-Gault) 68.3 79.7 68.3 Glucose Level 103 mg/dL (70-99) 94 mg/dL (70-99) 86 mg/dL (70-99) Calcium Level 7.7 mg/dL (8.5-10.1) 7.9 mg/dL (8.5-10.1) 8.0 mg/dL (8.5-10.1) Thyroid Stimulating Hormone (TSH) 1.642 uIU/mL (0.358-3.74) Urine Sodium <60 mmol/L (Not Estab.) Urine Potassium 6.7 mmol/L (Not Estab.) Urine Chloride <60 mmol/L (Not Estab.) White Blood Count 5.6 x10^3/uL (4.0-11.0) Red Blood Count 2.79 x10^6/uL (3.50-5.40) Hemoglobin 9.4 g/dL (12.0-15.5) Hematocrit 26.0 % (36.0-47.0) Mean Corpuscular Volume 93 fL (79-100) Mean Corpuscular Hemoglobin 34 pg (25-35) Mean Corpuscular Hemoglobin Concent 36 g/dL (31-37) Red Cell Distribution Width 14.9 % (11.5-14.5) Platelet Count 131 x10^3/uL (140-400) Neutrophils (%) (Auto) 75 % (31-73) Lymphocytes (%) (Auto) 16 % (24-48) Monocytes (%) (Auto) 8 % (0-9) Eosinophils (%) (Auto) 1 % (0-3) Basophils (%) (Auto) 0 % (0-3) Neutrophils # (Auto) 4.3 x10^3uL (1.8-7.7) Lymphocytes # (Auto) 0.9 x10^3/uL (1.0-4.8) Monocytes # (Auto) 0.4 x10^3/uL (0.0-1.1) Eosinophils # (Auto) 0.1 x10^3/uL (0.0-0.7) Basophils # (Auto) 0.0 x10^3/uL (0.0-0.2) BUN/Creatinine Ratio 10 (6-20) Magnesium Level 2.0 mg/dL (1.8-2.4) Total Bilirubin 0.5 mg/dL (0.2-1.0) Aspartate Amino Transf (AST/SGOT) 20 U/L (15-37) Alanine Aminotransferase (ALT/SGPT) 21 U/L (14-59) Alkaline Phosphatase 59 U/L (46-116) Total Protein 5.3 g/dL (6.4-8.2) Albumin 2.5 g/dL (3.4-5.0) Albumin/Globulin Ratio 0.9 (1.0-1.7) Nutrition Consultation Dietary Evaluation: Recommendations by RD: Protein supplementation Comments: Continue w/regular diet as ordered, honor food preferences, and provide snacks as requested REC Ensure BID (vanilla), will add to diet order Expected Outcomes/Goals: PO intake to meet >75% est needs Interpretation of weight loss: >10% in 6 months Malnutrition Findings: Food and Nutrition Intake (Sev: <50% est energy req 5days Weight Status: Appropriate KATIA GALARZA APRN Sep 15, 2018 08:45
[2018-09-15] MEDS: FERROUS SULFATE 325 MG TABLET. PO SCH ×2 (08:54→20:25)
[2018-09-15] MEDS: PANTOPRAZOLE 40 MG TABLET.DR. PO SCH (08:55)
[2018-09-15] MEDS: DOCUSATE SODIUM 100 MG CAPSULE. PO SCH (08:55)
[2018-09-15] MEDS: VITAMIN B12,B9,B6 COMPLEX 1 TABLET. PO SCH (08:55)
[2018-09-15] MEDS: ASPIRIN CHEWABLE 81 MG TABLET. PO SCH (08:55)
[2018-09-15] MEDS: amLODIPine BESYLATE 5 MG TABLET PO SCH (08:55)
[2018-09-15 11:26] VITALS: BP 101/49
--- NOTE | 2018-09-15 11:47 | PDOC ---
CARDIO Progress Notes Date and Time Date of Service 09/15/2018 Time of Evaluation 1130 Subjective Subjective: No Chest Pain, No shortness of breath, No Palpitations, Other (no dizziness with positional changes) Vitals Vitals Vital Signs Date Time Temp Pulse Resp B/P (MAP) Pulse Ox O2 Delivery O2 Flow Rate FiO2 09/15/18 11:26 97.9 62 16 101/49 (66) 100 Room Air 97.9 Weight Weight [ ] Input and Output Intake and Output Intake and Output 09/15/18 07:00 Output Total 2750 ml Balance -2750 ml Output Urine Total 2750 ml Laboratory Labs Laboratory Tests Test 09/14/18 13:30 09/14/18 18:00 09/15/18 05:05 Urine Sodium <60 mmol/L (Not Estab.) Urine Potassium 6.7 mmol/L (Not Estab.) Urine Chloride <60 mmol/L (Not Estab.) Sodium Level 123 mmol/L (136-145) 126 mmol/L (136-145) Potassium Level 3.5 mmol/L (3.5-5.1) 3.3 mmol/L (3.5-5.1) Chloride Level 90 mmol/L (98-107) 92 mmol/L (98-107) Carbon Dioxide Level 26 mmol/L (21-32) 26 mmol/L (21-32) Anion Gap 7 (6-14) 8 (6-14) Blood Urea Nitrogen 9 mg/dL (7-20) 8 mg/dL (7-20) Creatinine 0.7 mg/dL (0.6-1.0) 0.8 mg/dL (0.6-1.0) Estimated GFR (Cockcroft-Gault) 79.7 68.3 Glucose Level 94 mg/dL (70-99) 86 mg/dL (70-99) Calcium Level 7.9 mg/dL (8.5-10.1) 8.0 mg/dL (8.5-10.1) White Blood Count 5.6 x10^3/uL (4.0-11.0) Red Blood Count 2.79 x10^6/uL (3.50-5.40) Hemoglobin 9.4 g/dL (12.0-15.5) Hematocrit 26.0 % (36.0-47.0) Mean Corpuscular Volume 93 fL (79-100) Mean Corpuscular Hemoglobin 34 pg (25-35) Mean Corpuscular Hemoglobin Concent 36 g/dL (31-37) Red Cell Distribution Width 14.9 % (11.5-14.5) Platelet Count 131 x10^3/uL (140-400) Neutrophils (%) (Auto) 75 % (31-73) Lymphocytes (%) (Auto) 16 % (24-48) Monocytes (%) (Auto) 8 % (0-9) Eosinophils (%) (Auto) 1 % (0-3) Basophils (%) (Auto) 0 % (0-3) Neutrophils # (Auto) 4.3 x10^3uL (1.8-7.7) Lymphocytes # (Auto) 0.9 x10^3/uL (1.0-4.8) Monocytes # (Auto) 0.4 x10^3/uL (0.0-1.1) Eosinophils # (Auto) 0.1 x10^3/uL (0.0-0.7) Basophils # (Auto) 0.0 x10^3/uL (0.0-0.2) BUN/Creatinine Ratio 10 (6-20) Magnesium Level 2.0 mg/dL (1.8-2.4) Total Bilirubin 0.5 mg/dL (0.2-1.0) Aspartate Amino Transf (AST/SGOT) 20 U/L (15-37) Alanine Aminotransferase (ALT/SGPT) 21 U/L (14-59) Alkaline Phosphatase 59 U/L (46-116) Total Protein 5.3 g/dL (6.4-8.2) Albumin 2.5 g/dL (3.4-5.0) Albumin/Globulin Ratio 0.9 (1.0-1.7) Physical Exam HEENT: Neck Supple W Full Motion Chest: Symmetric LUNGS: Clear to Auscultation Heart: S1S2, RRR (SR) Abdomen: Soft N/T Extremities: No Calf Tenderness Neurology: alert, oriented, follow commands Assessment Assessment Poor hydration, Push fluids Na better BP low but stable. No symptoms with positional changes. Hold BP meds. 1. Hypotension: volume depletion and hyponatremia contributing. BP remains marginal but stable 2. Severe hyponatremia: improving. multifactorial with vomiting/HCTZ/ARB. Defer to nephrology 3. Abdominal pain with bilateral Hydronephrosis: Page now in place. Urology following. 4. Chronic elevated troponin: 0.14 from 0.8, No EKG changes. No cardiac symptoms. Possibly from microvascular dysfunction. Recent normal MPI 5. DM2/HLP 6. refractory labile HTN could be related to her hydronephrosis. Bp is better. 7. Chronic diastolic CHF: compensated 8. Chronic anemia: Fe def. Hgb stable. 9. Hx of CAD: had LHC but no past intervention. Recommendations 1. Continue to hold ARB and thiazideas well as norvasc. 2. Continue ASA, statin 3. Avoid AV eunice blocking agents as she was noted with bradycardia before. HARIS BROOKS APRN Sep 15, 2018 11:47
--- NOTE | 2018-09-15 12:40 | PDOC ---
SUBJECTIVE ROS Stable, propped up, eating Lunch. No complaints OBJECTIVE Vital Signs Vital Signs Date Time Temp Pulse Resp B/P (MAP) Pulse Ox O2 Delivery O2 Flow Rate FiO2 09/15/18 11:26 97.9 62 16 101/49 (66) 100 Room Air 97.9 I & 0 Intake and Output 09/15/18 07:00 Output Total 2750 ml Balance -2750 ml Output Urine Total 2750 ml PHYSICAL EXAM Physical Exam GEN: NAD HEEN: OM moist NECK: supple CVS: RRR RESP: CTA, No Acc. Muscle Use GI: BS + ve, NO Bruit, Non Tender, : No CVA tenderness, No Suprapubic Tenderness, Page + Skin No rash Neuro- No tremors, Mild confusion asper family DIAGNOSIS/ASSESSMENT Assessment & Plan Hyponatremia- Severe , Mildly symptomatic Suspect secondary to Thiazide- recently was on Chlorthalidone and Poor PO intake Received IV NS in ED , Good UOP, Stat BMP showed improving Na IVF Dced Ur and S Osm results pending Chlorthalidone dced Hypertension - On losartan Was on Thiazide at Home Currently BP Low, Monitor and Hold Antihypertensive Renal Function Creat Normal CT scan abdomen - Right greater than left hydronephrosis with prominent extrarenal pelvis. After reviewing Ct I consulted Urology , She voided 300 and then 300 came out once catheter was inserted. Discussed with Pt 's family COMMENT/RELEVANT DATA Meds Current Medications Medications (Trade) Dose Ordered Sig/[place] Start Time Stop Time Status Last Admin Dose Admin Acetaminophen (Tylenol) 650 mg 1X ONCE 09/14/18 03:30 09/14/18 03:31 DC 09/14/18 03:15 650 MG Amlodipine Besylate (Norvasc) 5 mg DAILY 09/14/18 10:00 Aspirin (Children'S Aspirin) 81 mg DAILY 09/14/18 10:00 09/15/18 08:55 81 MG Atorvastatin Calcium (Lipitor) 10 mg HS 09/14/18 21:00 09/14/18 20:39 10 MG Dextrose (Dextrose 50%-Water Syringe) 12.5 gm PRN Q15MIN PRN 09/14/18 07:45 Docusate Sodium (Colace) 100 mg DAILY 09/14/18 10:00 09/15/18 08:55 100 MG Ferrous Sulfate (Feosol) 325 mg BID 09/14/18 10:00 09/15/18 08:54 325 MG Hydralazine HCl (Apresoline Inj) 10 mg PRN Q4HRS PRN 09/14/18 16:15 Info (CONTRAST GIVEN -- Rx MONITORING) 1 each PRN DAILY PRN 09/14/18 04:00 09/16/18 03:59 Iohexol (Omnipaque 300 Mg/ml) 75 ml 1X ONCE 09/14/18 04:00 09/14/18 04:01 DC 09/14/18 04:02 75 ML Losartan Potassium (Cozaar) 100 mg DAILY 09/14/18 10:00 09/14/18 15:24 DC Pantoprazole Sodium (Protonix) 40 mg DAILYAC 09/14/18 10:00 09/15/18 08:55 40 MG Potassium Chloride (Klor-Con) 10 meq [id number] 09/15/18 11:30 Sodium Chloride 1,000 ml @ 125 mls/hr Q8H 09/14/18 05:00 09/14/18 12:31 DC 09/14/18 05:44 125 MLS/HR Vitamin B Complex (Folbic Tablet) 1 tab DAILY 09/14/18 10:00 09/15/18 08:55 1 TAB Lab Laboratory Tests Test 09/14/18 13:30 09/14/18 18:00 09/15/18 05:05 Urine Sodium <60 mmol/L (Not Estab.) Urine Potassium 6.7 mmol/L (Not Estab.) Urine Chloride <60 mmol/L (Not Estab.) Sodium Level 123 mmol/L (136-145) 126 mmol/L (136-145) Potassium Level 3.5 mmol/L (3.5-5.1) 3.3 mmol/L (3.5-5.1) Chloride Level 90 mmol/L (98-107) 92 mmol/L (98-107) Carbon Dioxide Level 26 mmol/L (21-32) 26 mmol/L (21-32) Anion Gap 7 (6-14) 8 (6-14) Blood Urea Nitrogen 9 mg/dL (7-20) 8 mg/dL (7-20) Creatinine 0.7 mg/dL (0.6-1.0) 0.8 mg/dL (0.6-1.0) Estimated GFR (Cockcroft-Gault) 79.7 68.3 Glucose Level 94 mg/dL (70-99) 86 mg/dL (70-99) Calcium Level 7.9 mg/dL (8.5-10.1) 8.0 mg/dL (8.5-10.1) White Blood Count 5.6 x10^3/uL (4.0-11.0) Red Blood Count 2.79 x10^6/uL (3.50-5.40) Hemoglobin 9.4 g/dL (12.0-15.5) Hematocrit 26.0 % (36.0-47.0) Mean Corpuscular Volume 93 fL (79-100) Mean Corpuscular Hemoglobin 34 pg (25-35) Mean Corpuscular Hemoglobin Concent 36 g/dL (31-37) Red Cell Distribution Width 14.9 % (11.5-14.5) Platelet Count 131 x10^3/uL (140-400) Neutrophils (%) (Auto) 75 % (31-73) Lymphocytes (%) (Auto) 16 % (24-48) Monocytes (%) (Auto) 8 % (0-9) Eosinophils (%) (Auto) 1 % (0-3) Basophils (%) (Auto) 0 % (0-3) Neutrophils # (Auto) 4.3 x10^3uL (1.8-7.7) Lymphocytes # (Auto) 0.9 x10^3/uL (1.0-4.8) Monocytes # (Auto) 0.4 x10^3/uL (0.0-1.1) Eosinophils # (Auto) 0.1 x10^3/uL (0.0-0.7) Basophils # (Auto) 0.0 x10^3/uL (0.0-0.2) BUN/Creatinine Ratio 10 (6-20) Magnesium Level 2.0 mg/dL (1.8-2.4) Total Bilirubin 0.5 mg/dL (0.2-1.0) Aspartate Amino Transf (AST/SGOT) 20 U/L (15-37) Alanine Aminotransferase (ALT/SGPT) 21 U/L (14-59) Alkaline Phosphatase 59 U/L (46-116) Total Protein 5.3 g/dL (6.4-8.2) Albumin 2.5 g/dL (3.4-5.0) Albumin/Globulin Ratio 0.9 (1.0-1.7) Results All relevant outside records, renal labs, imaging studies, telemetry/EKG's were reviewed. VANESSA ROMANO MD Sep 15, 2018 12:40
[2018-09-15] MEDS: POTASSIUM CHLORIDE 10 MEQ TABLET.ER. PO SCH (12:41)
--- NOTE | 2018-09-15 14:36 | PDOC ---
PROGRESS NOTES Subjective She feels better, more energetic, labs improved but more anemic after hydration , PT/OT in process of evaluating, no BP meds this am as BP in 90s, BP in 80s yesterday at time of pelvic pain and presumable vagal response to urinary retention and hydronephrosis, she now has a akers and pain has resolved Objective Afebrile General: A&O, pleasant Heart: RRR Lungs: CTA Abd: soft, non tender, non distended Ext: no C/C/E Na+ - 126 Hgb - 9.4 Vital Signs Vital Signs Date Time Temp Pulse Resp B/P (MAP) Pulse Ox O2 Delivery O2 Flow Rate FiO2 09/15/18 11:26 97.9 62 16 101/49 (66) 100 Room Air 97.9 I & O Intake and Output 09/15/18 07:00 Output Total 2750 ml Balance -2750 ml Output Urine Total 2750 ml Assessment and Plan hyponatremia - replace slowly, renal to see, likely side effect of water pills labile hypertension - low BP again this am, meds held abnormal troponin - no chest pain, no evidence of NSTEMI, cardiology following hydronephrosis - urology saw and placed Akers calcific atherosclerosis - may have component of renal artery stenosis causing HTN, study pending anemia of likely chronic disease - monitor deconditioning - PT/OT to see Nutrition Consultation Dietary Evaluation: Recommendations by RD: Protein supplementation Comments: Continue w/regular diet as ordered, honor food preferences, and provide snacks as requested REC Ensure BID (vanilla), will add to diet order Expected Outcomes/Goals: PO intake to meet >75% est needs Interpretation of weight loss: >10% in 6 months Malnutrition Findings: Food and Nutrition Intake (Sev: <50% est energy req 5days Weight Status: Appropriate Stefan JORGE MD Sep 15, 2018 14:36
[2018-09-15 15:00] VITALS: BP 101/53
--- NOTE | 2018-09-15 15:14 | RAD ---
Indication: Hypertension TECHNIQUE: Duplex renal ultrasound COMPARISON: None FINDINGS: The velocity in the aorta measures 124 cm/s. No aortic aneurysm. The right kidney measures 10.0 x 5.0 x 4.6 cm without hydronephrosis. The resistive index in the segmental right renal artery measures 0.75 to within normal limits. The systolic velocity in the proximal right renal artery measures 91 cm/s with resistive index of 0.79. The Systolic velocity in the middle right renal artery measures 67 cm/s with resistive index of 0.77. The systolic velocity in the distal right renal artery measures 105 cm/s with resistive index of 0.80. The renal artery to aortic velocity ratio is 0.85. The left kidney measures 9.1 x 4.7 x 4.7 cm without hydronephrosis. The resistive index in the segmental right renal artery measures 0.69 to within normal limits. The systolic velocity in the proximal right renal artery measures 96 cm/s with resistive index of 0.78. The Systolic velocity in the middle right renal artery measures 85 cm/s with resistive index of 0.83. The systolic velocity in the distal right renal artery measures 61 cm/s with resistive index of 0.76. The renal artery to aortic velocity ratio is 0.77. IMPRESSION: No elevated renal artery velocities, resistive indexes or renal artery to aortic velocity ratios to suggest hemodynamically significant stenosis. Electronically signed by: Liborio Lopez DO (09/15/2018 3:11 PM) [facility]
[2018-09-15 19:29] VITALS: BP 117/57
[2018-09-15] MEDS: ATORVASTATIN CALCIUM 10 MG TABLET. PO SCH (20:25)
[2018-09-15 22:28] VITALS: BP 143/58
[2018-09-16] VITALS (7 sets, daily range): BP systolic 101–159; BP diastolic 51–77
[2018-09-16 04:24] LABS: BASO % 0 % (0-3); EOS # 0.1 x10^3/uL (0.0-0.7); EOS % 1 % (0-3); HEMATOCRIT 27.9 % (36.0-47.0); LYMPH # 0.9 x10^3/uL (1.0-4.8); LYMPH % 16 % (24-48); MEAN CORPUSCULAR HEMOGLOBIN 34 pg (25-35); MEAN CORPUSCULAR HGB CONC 36 g/dL (31-37); MEAN CORPUSCULAR VOLUME 94 fL (79-100); MONO # 0.4 x10^3/uL (0.0-1.1); MONO % 8 % (0-9); NEUT # 4.1 x10^3uL (1.8-7.7); NEUT % 75 % (31-73); PLATELET COUNT 140 x10^3/uL (140-400); RED BLOOD COUNT 2.97 x10^6/uL (3.50-5.40); RED CELL DISTRIBUTION WIDTH 14.7 % (11.5-14.5); WHITE BLOOD COUNT 5.5 x10^3/uL (4.0-11.0)
[2018-09-16 05:01] LABS: CALCIUM 8.7 mg/dL (8.5-10.1); CREATININE 0.8 mg/dL (0.6-1.0); GFR 68.3; POTASSIUM 4.5 mmol/L (3.5-5.1)
[2018-09-16] MEDS: FERROUS SULFATE 325 MG TABLET. PO SCH ×2 (08:29→19:42)
[2018-09-16] MEDS: VITAMIN B12,B9,B6 COMPLEX 1 TABLET. PO SCH (08:29)
[2018-09-16] MEDS: ASPIRIN CHEWABLE 81 MG TABLET. PO SCH (08:29)
[2018-09-16] MEDS: DOCUSATE SODIUM 100 MG CAPSULE. PO SCH (08:29)
[2018-09-16] MEDS: POTASSIUM CHLORIDE 10 MEQ TABLET.ER. PO SCH (08:29)
[2018-09-16] MEDS: PANTOPRAZOLE 40 MG TABLET.DR. PO SCH (08:29)
[2018-09-16] MEDS: POLYETHYLENE GLYCOL 3350 17 GM PACKET. PO PRN (09:54)
[2018-09-16] MEDS ORDERED: ACETAMINOPHEN 325 MG TABLET. PO PRN (10:00)
[2018-09-16] MEDS: amLODIPine BESYLATE 5 MG TABLET PO SCH (10:11)
--- NOTE | 2018-09-16 12:47 | NUR ---
SS following up with discharge planning. PT/OT recommending home healthcare. Pt previously on services with [facility]. SS will continue to follow for discharge planning.
--- NOTE | 2018-09-16 12:52 | PDOC ---
CARDIO Progress Notes Date and Time Date of Service 09/16/18 Time of Evaluation 1215 Subjective Subjective: No Chest Pain, No shortness of breath, No Palpitations, Other (no dizziness with positional changes) Vitals Vitals Vital Signs Date Time Temp Pulse Resp B/P (MAP) Pulse Ox O2 Delivery O2 Flow Rate FiO2 09/16/18 10:52 97.9 72 16 126/51 (76) 97 Room Air 97.9 Weight Weight [ ] Input and Output Intake and Output Intake and Output 09/16/18 06:59 Intake Total 420 ml Output Total 1900 ml Balance -1480 ml Intake Oral 420 ml Output Urine Total 1900 ml Laboratory Labs Laboratory Tests Test 09/16/18 04:05 White Blood Count 5.5 x10^3/uL (4.0-11.0) Red Blood Count 2.97 x10^6/uL (3.50-5.40) Hemoglobin 10.0 g/dL (12.0-15.5) Hematocrit 27.9 % (36.0-47.0) Mean Corpuscular Volume 94 fL (79-100) Mean Corpuscular Hemoglobin 34 pg (25-35) Mean Corpuscular Hemoglobin Concent 36 g/dL (31-37) Red Cell Distribution Width 14.7 % (11.5-14.5) Platelet Count 140 x10^3/uL (140-400) Neutrophils (%) (Auto) 75 % (31-73) Lymphocytes (%) (Auto) 16 % (24-48) Monocytes (%) (Auto) 8 % (0-9) Eosinophils (%) (Auto) 1 % (0-3) Basophils (%) (Auto) 0 % (0-3) Neutrophils # (Auto) 4.1 x10^3uL (1.8-7.7) Lymphocytes # (Auto) 0.9 x10^3/uL (1.0-4.8) Monocytes # (Auto) 0.4 x10^3/uL (0.0-1.1) Eosinophils # (Auto) 0.1 x10^3/uL (0.0-0.7) Basophils # (Auto) 0.0 x10^3/uL (0.0-0.2) Sodium Level 130 mmol/L (136-145) Potassium Level 4.5 mmol/L (3.5-5.1) Chloride Level 95 mmol/L (98-107) Carbon Dioxide Level 28 mmol/L (21-32) Anion Gap 7 (6-14) Blood Urea Nitrogen 17 mg/dL (7-20) Creatinine 0.8 mg/dL (0.6-1.0) Estimated GFR (Cockcroft-Gault) 68.3 Glucose Level 113 mg/dL (70-99) Calcium Level 8.7 mg/dL (8.5-10.1) Physical Exam HEENT: Neck Supple W Full Motion Chest: Symmetric LUNGS: Clear to Auscultation Heart: S1S2, RRR (SR) Abdomen: Soft N/T Extremities: No Calf Tenderness Neurology: alert, oriented, follow commands Assessment Assessment 1. Hypotension: volume depletion and hyponatremia contributing. BP improved 2. Hyponatremia: improving. multifactorial with vomiting/HCTZ. Defer to nephrology 3. Abdominal pain with bilateral hydronephrosis: Page now in place. Urology following. 4. Chronic elevated troponin: peak 0.158. No EKG changes. No cardiac symptoms. Recent normal MPI 5. DM2/HLP 6. Chronic diastolic CHF: compensated 7. Hx of CAD: had LHC but no past intervention. Recommendations Continue to hold ARB and thiazide Continue ASA, statin Avoid AV eunice blocking agents given history of bradycardia KONRAD LEWIS APRN Sep 16, 2018 12:52
--- NOTE | 2018-09-16 13:25 | PDOC ---
PROGRESS NOTES Subjective Subjective Patient still weak but not dizzy. Page in place Objective Objective Vital Signs Date Time Temp Pulse Resp B/P (MAP) Pulse Ox O2 Delivery O2 Flow Rate FiO2 09/16/18 10:52 97.9 72 16 126/51 (76) 97 Room Air 97.9 Intake and Output 09/16/18 07:00 Intake Total 420 ml Output Total 1900 ml Balance -1480 ml Intake Oral 420 ml Output Urine Total 1900 ml Physical Exam Abdomen: Normal bowel sounds Heart: Regular rate Extremities: No edema General: Alert Lungs: Clear to auscultation Assessment Assessment HTN hyponatremia improving abnormal troponin urinary retention - hydronephrosis calcific atherosclerosis anemia of likely chronic disease deconditioning Plan Plan of Care D/C Page Check PVR labs in am home if stable in am with home health Comment Review of Relevant I have reviewed the following items karen (where applicable) has been applied. Labs Laboratory Tests Test 09/14/18 13:30 09/14/18 18:00 09/15/18 05:05 09/16/18 04:05 Urine Osmolality 118 mOsmol/kg (.) Urine Sodium <60 mmol/L (Not Estab.) Urine Potassium 6.7 mmol/L (Not Estab.) Urine Chloride <60 mmol/L (Not Estab.) Sodium Level 123 mmol/L (136-145) 126 mmol/L (136-145) 130 mmol/L (136-145) Potassium Level 3.5 mmol/L (3.5-5.1) 3.3 mmol/L (3.5-5.1) 4.5 mmol/L (3.5-5.1) Chloride Level 90 mmol/L (98-107) 92 mmol/L (98-107) 95 mmol/L (98-107) Carbon Dioxide Level 26 mmol/L (21-32) 26 mmol/L (21-32) 28 mmol/L (21-32) Anion Gap 7 (6-14) 8 (6-14) 7 (6-14) Blood Urea Nitrogen 9 mg/dL (7-20) 8 mg/dL (7-20) 17 mg/dL (7-20) Creatinine 0.7 mg/dL (0.6-1.0) 0.8 mg/dL (0.6-1.0) 0.8 mg/dL (0.6-1.0) Estimated GFR (Cockcroft-Gault) 79.7 68.3 68.3 Glucose Level 94 mg/dL (70-99) 86 mg/dL (70-99) 113 mg/dL (70-99) Calcium Level 7.9 mg/dL (8.5-10.1) 8.0 mg/dL (8.5-10.1) 8.7 mg/dL (8.5-10.1) White Blood Count 5.6 x10^3/uL (4.0-11.0) 5.5 x10^3/uL (4.0-11.0) Red Blood Count 2.79 x10^6/uL (3.50-5.40) 2.97 x10^6/uL (3.50-5.40) Hemoglobin 9.4 g/dL (12.0-15.5) 10.0 g/dL (12.0-15.5) Hematocrit 26.0 % (36.0-47.0) 27.9 % (36.0-47.0) Mean Corpuscular Volume 93 fL (79-100) 94 fL (79-100) Mean Corpuscular Hemoglobin 34 pg (25-35) 34 pg (25-35) Mean Corpuscular Hemoglobin Concent 36 g/dL (31-37) 36 g/dL (31-37) Red Cell Distribution Width 14.9 % (11.5-14.5) 14.7 % (11.5-14.5) Platelet Count 131 x10^3/uL (140-400) 140 x10^3/uL (140-400) Neutrophils (%) (Auto) 75 % (31-73) 75 % (31-73) Lymphocytes (%) (Auto) 16 % (24-48) 16 % (24-48) Monocytes (%) (Auto) 8 % (0-9) 8 % (0-9) Eosinophils (%) (Auto) 1 % (0-3) 1 % (0-3) Basophils (%) (Auto) 0 % (0-3) 0 % (0-3) Neutrophils # (Auto) 4.3 x10^3uL (1.8-7.7) 4.1 x10^3uL (1.8-7.7) Lymphocytes # (Auto) 0.9 x10^3/uL (1.0-4.8) 0.9 x10^3/uL (1.0-4.8) Monocytes # (Auto) 0.4 x10^3/uL (0.0-1.1) 0.4 x10^3/uL (0.0-1.1) Eosinophils # (Auto) 0.1 x10^3/uL (0.0-0.7) 0.1 x10^3/uL (0.0-0.7) Basophils # (Auto) 0.0 x10^3/uL (0.0-0.2) 0.0 x10^3/uL (0.0-0.2) BUN/Creatinine Ratio 10 (6-20) Magnesium Level 2.0 mg/dL (1.8-2.4) Total Bilirubin 0.5 mg/dL (0.2-1.0) Aspartate Amino Transf (AST/SGOT) 20 U/L (15-37) Alanine Aminotransferase (ALT/SGPT) 21 U/L (14-59) Alkaline Phosphatase 59 U/L (46-116) Total Protein 5.3 g/dL (6.4-8.2) Albumin 2.5 g/dL (3.4-5.0) Albumin/Globulin Ratio 0.9 (1.0-1.7) Laboratory Tests Test 09/16/18 04:05 White Blood Count 5.5 x10^3/uL (4.0-11.0) Red Blood Count 2.97 x10^6/uL (3.50-5.40) Hemoglobin 10.0 g/dL (12.0-15.5) Hematocrit 27.9 % (36.0-47.0) Mean Corpuscular Volume 94 fL (79-100) Mean Corpuscular Hemoglobin 34 pg (25-35) Mean Corpuscular Hemoglobin Concent 36 g/dL (31-37) Red Cell Distribution Width 14.7 % (11.5-14.5) Platelet Count 140 x10^3/uL (140-400) Neutrophils (%) (Auto) 75 % (31-73) Lymphocytes (%) (Auto) 16 % (24-48) Monocytes (%) (Auto) 8 % (0-9) Eosinophils (%) (Auto) 1 % (0-3) Basophils (%) (Auto) 0 % (0-3) Neutrophils # (Auto) 4.1 x10^3uL (1.8-7.7) Lymphocytes # (Auto) 0.9 x10^3/uL (1.0-4.8) Monocytes # (Auto) 0.4 x10^3/uL (0.0-1.1) Eosinophils # (Auto) 0.1 x10^3/uL (0.0-0.7) Basophils # (Auto) 0.0 x10^3/uL (0.0-0.2) Sodium Level 130 mmol/L (136-145) Potassium Level 4.5 mmol/L (3.5-5.1) Chloride Level 95 mmol/L (98-107) Carbon Dioxide Level 28 mmol/L (21-32) Anion Gap 7 (6-14) Blood Urea Nitrogen 17 mg/dL (7-20) Creatinine 0.8 mg/dL (0.6-1.0) Estimated GFR (Cockcroft-Gault) 68.3 Glucose Level 113 mg/dL (70-99) Calcium Level 8.7 mg/dL (8.5-10.1) Medications Current Medications Acetaminophen (Tylenol) 650 mg 1X ONCE PO Last administered on 09/14/18at 03:15 ; Start 09/14/18 at 03:30; Stop 09/14/18 at 03:31; Status DC Sodium Chloride 1,000 ml @ 1,000 mls/hr 1X ONCE IV Last administered on at 04:02; Start 09/14/18 at 04:00; Stop 09/14/18 at 04:59; Status DC Iohexol (Omnipaque 300 Mg/ml) 75 ml 1X ONCE IV Last administered on 09/14/18at 04:02; Start 09/14/18 at 04:00; Stop 09/14/18 at 04:01; Status DC Info (CONTRAST GIVEN -- Rx MONITORING) 1 each PRN DAILY PRN MC SEE COMMENTS; Start 09/14/18 at 04:00; Stop 09/16/18 at 03:59; Status DC Sodium Chloride 1,000 ml @ 125 mls/hr Q8H IV Last administered on 3/19/19at 05 :44; Start 09/14/18 at 05:00; Stop 09/14/18 at 12:31; Status DC Dextrose (Dextrose 50%-Water Syringe) 12.5 gm PRN Q15MIN PRN IV SEE COMMENTS; Start 09/14/18 at 07:45 Amlodipine Besylate (Norvasc) 5 mg DAILY PO Last administered on 09/16/18 10: 11; Start 09/14/18 at 10:00 Aspirin (Children'S Aspirin) 81 mg DAILY PO Last administered on 09/16/18 08: 29; Start 09/14/18 at 10:00 Atorvastatin Calcium (Lipitor) 10 mg HS PO Last administered on 09/15/18 20:25 ; Start 09/14/18 at 21:00 Docusate Sodium (Colace) 100 mg DAILY PO Last administered on 09/16/18 08:29; Start 09/14/18 at 10:00 Ferrous Sulfate (Feosol) 325 mg BID PO Last administered on 09/16/18 08:29; Start 09/14/18 at 10:00 Pantoprazole Sodium (Protonix) 40 mg DAILYAC PO Last administered on 09/16/18 08:29; Start 09/14/18 at 10:00 Vitamin B Complex (Folbic Tablet) 1 tab DAILY PO Last administered on 08:29; Start 09/14/18 at 10:00 Losartan Potassium (Cozaar) 100 mg DAILY PO ; Start 09/14/18 at 10:00; Stop at 15:24; Status DC Hydralazine HCl (Apresoline Inj) 10 mg PRN Q4HRS PRN IVP ELEVATED BP, SEE COMMENTS; Start 09/14/18 at 16:15 Potassium Chloride (Klor-Con) 10 meq DAILYWBKFT PO Last administered on 08:29; Start 09/15/18 at 11:30; Stop 09/16/18 at 13:20; Status DC Polyethylene Glycol (miraLAX PACKET) 17 gm PRN DAILY PRN PO CONSTIPATION Last administered on 09/16/18 09:54; Start 09/16/18 at 09:00 Acetaminophen (Tylenol) 650 mg PRN Q6HRS PRN PO pain Last administered on 3/21/ 19at 10:11; Start 09/16/18 at 10:00 Active Scripts Active Chlorthalidone (Chlorthalidone) 25 Mg Tablet 25 Mg PO DAILY 30 Days Aspirin 81 Mg Tab.chew 1 Tab PO DAILY Atacand (Candesartan Cilexetil) 32 Mg Tablet 32 Mg PO DAILY 30 Days Amlodipine Besylate 5 Mg Tablet 5 Mg PO DAILY 30 Days Feosol (Ferrous Sulfate) 325 Mg Tablet 325 Mg PO BID 30 Days Foltx Tablet (B12/Levomefolate Calcium/B-6) 1 Each Tablet 1 Each PO DAILY Reported Colace (Docusate Sodium) 100 Mg Capsule 100 Mg PO DAILY Atorvastatin Calcium 10 Mg Tablet 10 Mg PO HS Pantoprazole Sodium 40 Mg Tablet.dr 40 Mg PO DAILY Vitals/I & O Vital Sign - Last 24 Hours 09/15/18 09/15/18 09/15/18 09/15/18 15:00 19:29 20:00 22:28 Temp 97.8 97.7 98.0 97.8 97.7 98.0 Pulse 74 69 99 Resp 16 16 16 B/P (MAP) 101/53 (69) 117/57 (77) 143/58 (86) Pulse Ox 98 98 98 O2 Delivery Room Air Room Air Room Air Room Air 09/16/18 09/16/18 09/16/18 09/16/18 03:00 07:00 08:05 09:56 Temp 98.0 98.0 98.0 98.0 Pulse 74 60 Resp 16 16 B/P (MAP) 125/58 (80) 101/52 (68) 104/53 (70) Pulse Ox 98 97 O2 Delivery Room Air Room Air Room Air 09/16/18 09/16/18 10:11 10:52 Temp 97.9 97.9 Pulse 75 72 Resp 16 B/P (MAP) 126/51 (76) Pulse Ox 97 O2 Delivery Room Air Intake and Output 09/15/18 09/15/18 09/16/18 15:00 23:00 07:00 Intake Total 300 ml 120 ml Output Total 1050 ml 850 ml Balance 300 ml -930 ml -850 ml Nutrition Consultation Dietary Evaluation: Recommendations by RD: Protein supplementation Comments: Continue w/regular diet as ordered, honor food preferences, and provide snacks as requested REC Ensure BID (vanilla), will add to diet order Expected Outcomes/Goals: PO intake to meet >75% est needs Interpretation of weight loss: >10% in 6 months Malnutrition Findings: Food and Nutrition Intake (Sev: <50% est energy req 5days Weight Status: Appropriate CATE VARELA MD Sep 16, 2018 13:25
--- NOTE | 2018-09-16 15:39 | NUR ---
Page catheter removed at this time. Ordered to check post void residual. If residual >150 place Page catheter
[2018-09-16] MEDS: ATORVASTATIN CALCIUM 10 MG TABLET. PO SCH (19:42)
--- NOTE | 2018-09-16 19:45 | NUR ---
Patient up to bathroom to void. 200 cc clear yellow urine in hat. Post void bladder scan showed 58cc urine left in bladder after void.
[2018-09-17 02:48] VITALS: BP 144/62
[2018-09-17 04:24] LABS: CALCIUM 8.8 mg/dL (8.5-10.1); CREATININE 0.8 mg/dL (0.6-1.0); GFR 68.3; POTASSIUM 4.5 mmol/L (3.5-5.1)
[2018-09-17 06:58] VITALS: BP 121/59
[2018-09-17] MEDS: PANTOPRAZOLE 40 MG TABLET.DR. PO SCH (07:55)
--- NOTE | 2018-09-17 08:26 | PDOC ---
SUBJECTIVE Subjective Pt doing well. Per nursing the catheter was removed yesterday and the PVR was just 58. She has been voiding well this am. OBJECTIVE Objective Physical Exam: General appearance: Alert and Oriented Head: Normocephalic, without obvious abnormality Eyes: conjunctivae/corneas clear. PERRL, EOM's intact. Fundi benign Lungs: Regular Respirations, non labored breathing. : catheter is out, PVR just 58 Vital Signs Vital Signs Date Time Temp Pulse Resp B/P (MAP) Pulse Ox O2 Delivery O2 Flow Rate FiO2 09/17/18 06:58 98.4 79 18 121/59 (79) 99 Room Air 98.4 09/17/18 02:48 97.9 65 17 144/62 (89) 97 Room Air 97.9 09/16/18 23:06 98.0 87 16 158/77 (104) 98 Room Air 98.0 09/16/18 19:57 Room Air 09/16/18 19:31 98.2 98 16 159/64 (95) 97 Room Air 98.2 09/16/18 15:00 97.9 73 16 133/59 (83) 96 Room Air 97.9 09/16/18 10:52 97.9 72 16 126/51 (76) 97 Room Air 97.9 09/16/18 10:11 75 09/16/18 09:56 104/53 (70) I & O Intake and Output 09/17/18 07:00 Intake Total 1160 ml Output Total 3250 ml Balance -2090 ml Intake Oral 1160 ml Output Urine Total 3250 ml PHYSICAL EXAM Physical Exam Physical Exam: General appearance: Alert and Oriented Head: Normocephalic, without obvious abnormality Eyes: conjunctivae/corneas clear. PERRL, EOM's intact. Fundi benign Lungs: Regular Respirations, non labored breathing. : catheter is out, PVR just 58 ASSESSMENT/PLAN Assessment/Plan Keep Page catheter out for now Renal US to follow up on hydro= IMPRESSION: No hydronephrosis. Pt has a follow up appointment with Dr. Gordon of [facility] on 09/28/18 at 120 pm. Appointment card and new patient paperwork given to nurse. Will sign off at this time, but please call with questions or changes in patient condition. Problems: (1) Urinary retention COMMENT Lab Laboratory Tests Test 09/17/18 03:30 Sodium Level 130 mmol/L (136-145) Potassium Level 4.5 mmol/L (3.5-5.1) Chloride Level 95 mmol/L (98-107) Carbon Dioxide Level 30 mmol/L (21-32) Anion Gap 5 (6-14) Blood Urea Nitrogen 16 mg/dL (7-20) Creatinine 0.8 mg/dL (0.6-1.0) Estimated GFR (Cockcroft-Gault) 68.3 Glucose Level 107 mg/dL (70-99) Calcium Level 8.8 mg/dL (8.5-10.1) Nutrition Consultation Dietary Evaluation: Recommendations by RD: Protein supplementation Comments: Continue w/regular diet as ordered, honor food preferences, and provide snacks as requested REC Ensure BID (vanilla), will add to diet order Expected Outcomes/Goals: PO intake to meet >75% est needs Interpretation of weight loss: >10% in 6 months Malnutrition Findings: Food and Nutrition Intake (Sev: <50% est energy req 5days Weight Status: Appropriate KATIA GALARZA APRN Sep 17, 2018 08:26
[2018-09-17 09:24] VITALS: BP 121/59
[2018-09-17] MEDS: amLODIPine BESYLATE 5 MG TABLET PO SCH (09:24)
[2018-09-17] MEDS: ASPIRIN CHEWABLE 81 MG TABLET. PO SCH (09:24)
[2018-09-17] MEDS: FERROUS SULFATE 325 MG TABLET. PO SCH (09:24)
[2018-09-17] MEDS: VITAMIN B12,B9,B6 COMPLEX 1 TABLET. PO SCH (09:24)
[2018-09-17] MEDS: DOCUSATE SODIUM 100 MG CAPSULE. PO SCH (09:24)
--- NOTE | 2018-09-17 09:24 | SNU/HH DC ---
DISCHARGE ORDERS DISCHARGE INFORMATION: DISCHARGE DATE: Sep 17, 2018 FINAL DIAGNOSIS Hyponatremia HTN Urinary retention Hydronephrosis CONDITION ON DISCHARGE: Stable CODE STATUS: Code Status: Full POST DISCHARGE ORDERS: ACTIVITY ORDERS: No restrictions WEIGHT BEARING STATUS: No restrictions DIET AFTER DISCHARGE: Cardiac OTHER ORDERS: Check PVR q week CHECKS AFTER DISCHARGE: CHECKS AFTER DISCHARGE: Check blood press - daily TREATMENT/EQUIPMENT ORDERS: ADAPTIVE EQUIPMENT NEEDED: None Physical Therapy For: Evalulation/Treatment Occupational Therapy For: Evaluation/Treatment DISCHARGE MEDICATIONS: Home Meds Active Scripts Amlodipine Besylate (AMLODIPINE BESYLATE) 5 Mg Tablet, 5 MG PO DAILY for htn for 30 Days, #30 TAB Prov:CATE VARELA MD 09/02/18 Ferrous Sulfate (FEOSOL) 325 Mg Tablet, 325 MG PO BID for ANEMIA for 30 Days, # 60 TAB Prov:CATE VARELA MD 08/17/18 B12/Levomefolate Calcium/B-6 (FOLTX TABLET) 1 Each Tablet, 1 EACH PO DAILY, #30 TAB Prov:CATE VARELA MD 05/07/16 Reported Medications Docusate Sodium (COLACE) 100 Mg Capsule, 100 MG PO DAILY for constipation, CAP 09/14/18 Atorvastatin Calcium (ATORVASTATIN CALCIUM) 10 Mg Tablet, 10 MG PO HS for FOR CHOLESTEROL, #30 TAB 0 Refills 05/05/16 Pantoprazole Sodium (PANTOPRAZOLE SODIUM) 40 Mg Tablet.dr, 40 MG PO DAILY, TAB 05/05/16 Discontinued Scripts Chlorthalidone (CHLORTHALIDONE ) 25 Mg Tablet, 25 MG PO DAILY for DIURETIC for 30 Days, #30 TAB Prov:CATE VARELA MD 09/02/18 Aspirin (ASPIRIN) 81 Mg Tab.chew, 1 TAB PO DAILY for cad, #30 TAB 3 Refills Prov:CATE VARELA MD 09/02/18 Candesartan Cilexetil (ATACAND) 32 Mg Tablet, 32 MG PO DAILY for htn for 30 Days , #30 TAB Prov:CATE VARELA MD 09/02/18 CATE VARELA MD Sep 17, 2018 09:24
[2018-09-17] MEDS: POLYETHYLENE GLYCOL 3350 17 GM PACKET. PO PRN (09:25)
--- NOTE | 2018-09-17 09:37 | RAD ---
Indication:DX: Hydronephrosis; post op Page cath removal TECHNIQUE: Grayscale, color Doppler and spectral waveform is of the kidneys and bladder obtained. COMPARISON:None FINDINGS: Inferior pole of the right kidney is are visualized due to overlying bowel gas. The right kidney grossly measures 8.1 x 4.4 x 3.8 cm without hydronephrosis. Left kidney measures 9.1 x 5.0 x 3.6 cm without hydronephrosis. Urinary bladder is within normal limits. IMPRESSION: No hydronephrosis. Electronically signed by: Liborio Lopez DO (09/17/2018 9:34 AM) [facility]
--- NOTE | 2018-09-17 09:44 | NUR ---
SS following up with discharge planning. Discharge orders received for home healthcare. SS phoned and faxed discharge orders and referral to [facility], ; fax [phone]. Pt's RN notified.
--- NOTE | 2018-09-17 10:43 | NUR ---
Discharge Note: TITA ZAVALA JACKSON Discharge instructions and discharge home medications reviewed with Family Member and a copy given. All questions have been answered and understanding verbalized. The following instructions and handouts were given: N/V, Dizziness, Hyponatremia, Hydronephrosis, Urinary Retention Discontinued lines and drains: Peripheral IV intact. Patient discharged to Home w/services with Family Member via Wheelchair
--- NOTE | 2018-09-17 14:06 | DS ---
DATE OF DISCHARGE: 09/17/2018 ADMITTING DIAGNOSIS: Profound hyponatremia. DISMISSAL DIAGNOSIS: Profound hyponatremia. SECONDARY DIAGNOSES: 1. Hypertension. 2. Urinary retention. 3. Hydronephrosis. 4. Chronically abnormal troponin. 5. Anemia of chronic disease. HISTORY OF PRESENT ILLNESS AND HOSPITAL COURSE: This patient is an 82-year-old female who has had several admissions in the last several months for hypertension and possible non-ST elevated AR. The patient's medications were adjusted and the patient developed hyponatremia due to diuretic therapy. Her hyponatremia became profound and she became profoundly weak with a sodium of less than 109. Her diuretics were stopped and the patient was supplemented with normal saline. The patient returned back to baseline, but continued to have lower blood pressures and multiple blood pressure medications were discontinued. DISCHARGE MEDICATIONS: The patient was discharged on the following medications: Amlodipine 5 mg daily, atorvastatin 10 mg daily, B complex vitamins daily, Colace 100 mg daily, iron 325 mg b.i.d. and pantoprazole 40 mg daily. Aspirin, candesartan and chlorthalidone were discontinued on this admission. CATE VARELA MD DR: REESE/violet JOB#: [id number] / [id number]
== END 2018-09-17 10:30 | disposition home health service (06) | DRG 640 ==
LOC: ER 00:52 → 2 NORTH 04:38
PROVIDERS: ADMIT Family Medicine; ATTEND Family Medicine
PROC: 0T9B70Z Drainage of Bladder with Drainage Device, Via Natural or Artificial Opening (ICD-10-PCS; principal; 2018-09-14)
DX: E87.1 Hypo-osmolality and hyponatremia (principal); G93.41 Metabolic encephalopathy; I50.32 Chronic diastolic (congestive) heart failure; N13.30 Unspecified hydronephrosis; I95.9 Hypotension, unspecified; I11.0 Hypertensive heart disease with heart failure; E78.00 Pure hypercholesterolemia, unspecified; E11.9 Type 2 diabetes mellitus without complications; E78.5 Hyperlipidemia, unspecified; R10.2 Pelvic and perineal pain; K57.90 Diverticulosis of intestine, part unspecified, without perforation or abscess without bleeding; Z82.49 Family history of ischemic heart disease and other diseases of the circulatory system; M19.90 Unspecified osteoarthritis, unspecified site; I25.10 Atherosclerotic heart disease of native coronary artery without angina pectoris; D63.8 Anemia in other chronic diseases classified elsewhere; E86.9 Volume depletion, unspecified; E61.1 Iron deficiency; G89.29 Other chronic pain; Z83.3 Family history of diabetes mellitus; T50.2X5A Adverse effect of carbonic-anhydrase inhibitors, benzothiadiazides and other diuretics, initial encounter
CPT/HCPCS: 36415; 71045; 74177; 76770; 80048; 80053; 81001; 82436; 82962; 83735; 83930; 83935; 84133; 84300; 84443; 84484; 85025; 93005; 96360; J7030; Q9967; 97530; 97535; 99285-25

== ENCOUNTER 2018-09-30 21:10 | Emergency (ER) | payer MEDICARE, OTHER ==
[~2018-09-30 21:10] MED LIST changes: +DOCU-109 PO
== END 2018-09-30 21:32 | disposition left against medical advice (07) ==
LOC: ER 21:10
DX: I10 Essential (primary) hypertension (principal); Z53.21 Procedure and treatment not carried out due to patient leaving prior to being seen by health care provider

== ENCOUNTER 2019-01-23 00:39 | Inpatient (IN) | payer MEDICARE, OTHER ==
[~2019-01-23] VITALS: Ht 157.5 cm; Wt 57.7 kg
[~2019-01-23 00:39] MED LIST changes: -PANT40TA5 PO; +PANT40TA77 PO
[2019-01-23] MEDS ORDERED: cloNIDine HCL 0.1 MG TABLET PO ONE (04:15)
[2019-01-23 04:24] LABS: BASO % 0 % (0-3); EOS # 0.1 x10^3/uL (0.0-0.7); EOS % 2 % (0-3); HEMATOCRIT 34.4 % (36.0-47.0); HEMOGLOBIN 12.3 g/dL (12.0-15.5); LYMPH # 0.8 x10^3/uL (1.0-4.8); LYMPH % 12 % (24-48); MEAN CORPUSCULAR HEMOGLOBIN 35 pg (25-35); MEAN CORPUSCULAR HGB CONC 36 g/dL (31-37); MEAN CORPUSCULAR VOLUME 99 fL (79-100); MONO # 0.4 x10^3/uL (0.0-1.1); MONO % 7 % (0-9); NEUT # 4.9 x10^3/uL (1.8-7.7); NEUT % 79 % (31-73); PLATELET COUNT 141 x10^3/uL (140-400); RED BLOOD COUNT 3.48 x10^6/uL (3.50-5.40); RED CELL DISTRIBUTION WIDTH 12.2 % (11.5-14.5); WHITE BLOOD COUNT 6.2 x10^3/uL (4.0-11.0)
[2019-01-23 04:38] LABS: CALCIUM 9.3 mg/dL (8.5-10.1); CREATININE 0.8 mg/dL (0.6-1.0); GFR 68.2; POTASSIUM 3.5 mmol/L (3.5-5.1)
[2019-01-23 04:43] LABS: ALBUMIN 3.7 g/dL (3.4-5.0); ALBUMIN/GLOBULIN RATIO 1.1 (1.0-1.7); MAGNESIUM 2.4 mg/dL (1.8-2.4); TOTAL BILIRUBIN 0.5 mg/dL (0.2-1.0); TOTAL PROTEIN 7.2 g/dL (6.4-8.2)
--- NOTE | 2019-01-23 04:59 | PHYS DOC ---
Past Medical History Past Medical History: Diabetes-Type II, High Cholesterol, Hypertension Past Surgical History: Other Additional Past Surgical Histo: cataract Alcohol Use: None Drug Use: None Adult General Chief Complaint Chief Complaint: HYPERTENSION HPI HPI Patient is an 83-year-old female who presents with complaint of elevated blood pressure at home as well as mild headache. Patient states that she was also having symptoms like she had insect bites to her left chest. She denies actual p ain in her chest. She denies any nausea, vomiting or diaphoresis. Family indicates that patient has had some difficulty managing her blood pressure for some time. Patient takes her prescribed medications as directed. She states that there are no alleviating or exacerbating factors.[] Review of Systems Review of Systems Constitutional: Denies fever or chills [] Eyes: Denies change in visual acuity, redness, or eye pain [] Respiratory: Denies cough or shortness of breath [] Cardiovascular: No additional information not addressed in HPI [] GI: Denies abdominal pain, nausea, vomiting or diarrhea [] Neurologic: Complains of headache without focal weakness or sensory changes [] All other systems were reviewed and found to be within normal limits, except as documented in this note. Current Medications Current Medications Current Medications Medications (Trade) Dose Ordered Sig/[place] Start Time Stop Time Status Last Admin Dose Admin Clonidine HCl (Catapres) 0.1 mg 1X ONCE 01/23/19 04:15 01/23/19 04:16 DC 01/23/19 04:12 0.1 MG Allergies Allergies Allergies Coded Allergies Type Severity Reaction Last Updated Verified Penicillins Allergy Intermediate RASH 07/23/18 Yes morphine Adverse Reaction Mild N/V 07/23/18 Yes Physical Exam Physical Exam Constitutional: Well developed, well nourished, no acute distress, non-toxic appearance. [] HENT: Normocephalic, atraumatic, bilateral external ears normal, oropharynx mo ist, no oral exudates, nose normal. [] Eyes: PERRLA, EOMI, conjunctiva normal, no discharge. [] Neck: Normal range of motion, no tenderness, supple, no stridor. [] Cardiovascular:Heart rate regular rhythm, no murmur [] Lungs & Thorax: Bilateral breath sounds clear to auscultation [] Abdomen: Bowel sounds normal, soft, no tenderness. [] Skin: Warm, dry, no erythema, no rash. [] Extremities: No tenderness, no cyanosis, no clubbing, ROM intact, mild pitting edema. [] Neurologic: Alert and oriented X 3, no focal deficits noted. [] Current Patient Data Vital Signs Vital Signs Date Time Temp Pulse Resp B/P (MAP) Pulse Ox O2 Delivery O2 Flow Rate FiO2 01/23/19 05:00 68 16 99 01/23/19 04:12 186/84 01/23/19 01:00 97.9 Room Air 97.9 Lab Values Laboratory Tests Test 01/23/19 04:05 White Blood Count 6.2 x10^3/uL (4.0-11.0) Red Blood Count 3.48 x10^6/uL (3.50-5.40) L Hemoglobin 12.3 g/dL (12.0-15.5) Hematocrit 34.4 % (36.0-47.0) L Mean Corpuscular Volume 99 fL (79-100) Mean Corpuscular Hemoglobin 35 pg (25-35) Mean Corpuscular Hemoglobin Concent 36 g/dL (31-37) Red Cell Distribution Width 12.2 % (11.5-14.5) Platelet Count 141 x10^3/uL (140-400) Neutrophils (%) (Auto) 79 % (31-73) H Lymphocytes (%) (Auto) 12 % (24-48) L Monocytes (%) (Auto) 7 % (0-9) Eosinophils (%) (Auto) 2 % (0-3) Basophils (%) (Auto) 0 % (0-3) Neutrophils # (Auto) 4.9 x10^3/uL (1.8-7.7) Lymphocytes # (Auto) 0.8 x10^3/uL (1.0-4.8) L Monocytes # (Auto) 0.4 x10^3/uL (0.0-1.1) Eosinophils # (Auto) 0.1 x10^3/uL (0.0-0.7) Basophils # (Auto) 0.0 x10^3/uL (0.0-0.2) Sodium Level 137 mmol/L (136-145) Potassium Level 3.5 mmol/L (3.5-5.1) Chloride Level 99 mmol/L (98-107) Carbon Dioxide Level 28 mmol/L (21-32) Anion Gap 10 (6-14) Blood Urea Nitrogen 14 mg/dL (7-20) Creatinine 0.8 mg/dL (0.6-1.0) Estimated GFR (Cockcroft-Gault) 68.2 BUN/Creatinine Ratio 18 (6-20) Glucose Level 116 mg/dL (70-99) H Calcium Level 9.3 mg/dL (8.5-10.1) Magnesium Level 2.4 mg/dL (1.8-2.4) Total Bilirubin 0.5 mg/dL (0.2-1.0) Aspartate Amino Transferase (AST) 27 U/L (15-37) Alanine Aminotransferase (ALT) 26 U/L (14-59) Alkaline Phosphatase 128 U/L (46-116) H Troponin I Quantitative 0.142 ng/mL (0.000-0.055) Total Protein 7.2 g/dL (6.4-8.2) Albumin 3.7 g/dL (3.4-5.0) Albumin/Globulin Ratio 1.1 (1.0-1.7) Laboratory Tests 01/23/19 04:05 Laboratory Tests 01/23/19 04:05 EKG EKG [] Radiology/Procedures Radiology/Procedures [] Course & Med Decision Making Course & Med Decision Making Pertinent Labs and Imaging studies reviewed. (See chart for details) [] Dragon Disclaimer Dragon Disclaimer This electronic medical record was generated, in whole or in part, using a voice recognition dictation system. Departure Departure Impression: Primary Impression: Hypertensive crisis Additional Impression: Elevated troponin Disposition: 09 ADMITTED INPATIENT Admitting Physician: Sabina Wagoner Condition: GOOD Referrals: CATE VARELA MD (PCP) Problem Qualifiers PADMAJA ALVARADO Jr. DO Jan 23, 2019 04:59
[2019-01-23] MEDS ORDERED: ONDANSETRON PF 4 MG/2 ML VIAL. IV PRN (05:15)
[2019-01-23] MEDS ORDERED: fentaNYL PF VIAL 100 MCG/2 ML VIAL IV PRN (05:15)
[2019-01-23 05:27] LABS: BILIRUBIN,URINE NEGATIVE (NEG); CLARITY,URINE CLEAR; COLOR,URINE YELLOW; NITRITE,URINE NEGATIVE (NEG); PH,URINE 7.5; PROTEIN,URINE 100 mg/dL (NEG-TRACE); UROBILINOGEN,URINE 0.2 mg/dL (0.2 mg/dL)
[2019-01-23 05:34] LABS: BACTERIA,URINE 0 /HPF (0-FEW); SQUAMOUS EPITHELIAL CELL,UR FEW /LPF
[2019-01-23 07:00] VITALS: BP 129/56
--- NOTE | 2019-01-23 07:30 | NUR ---
PATIENT ADMITTED TO ROOM 250 FROM ED. PATIENT ORIENTED TO ROOM AND NURSE. PATIENTS FAMILY HAS GONE HOME AND UNABLE TO REACH PER TELEPHONE CONTACT. NO PATIENT BELONGINGS AT BEDSIDE OR ON PATIENT EXCEPT FOR CANE. CONFERENCE CONCIERGE PHONE USED TO ASK ADMISSION QUESTIONS. PATIENT HAS NO CHEST PAIN OR DISCOMFORT AT THIS TIME. PATIENT MEDICALLY STABLE AT THIS TIME. BREAKFAST TRAY ORDERED FOR PATIENT. WILL CONTINUE TO MONITOR PATIENT. CALL LIGHT IN REACH AND BED ALARM ON.
--- NOTE | 2019-01-23 07:33 | RAD ---
AP chest. HISTORY: Hypertension AP view was taken of the chest. Lungs are clear. Heart is normal in size. There is no pleural effusion. The aorta is tortuous. IMPRESSION: 1. No acute chest disease. Electronically signed by: Keith Holland MD (01/23/2019 7:30 AM) [facility]
[2019-01-23] MEDS ORDERED: CAND32TA19 PO (07:36)
[2019-01-23] MEDS ORDERED: BISA-42 PO (10:08)
[2019-01-23] MEDS ORDERED: ACET325T9 PO (10:08)
[2019-01-23] MEDS ORDERED: PSYL0.5215 PO (10:08)
[2019-01-23 11:00] VITALS: BP 135/56
[2019-01-23] MEDS ORDERED: cloNIDine HCL 0.1 MG TABLET PO PRN (12:00)
--- NOTE | 2019-01-23 12:35 | CONS ---
DATE OF CONSULTATION: 01/23/2019 REASON FOR CONSULTATION: Elevated blood pressure and elevated troponin. HISTORY OF PRESENT ILLNESS: The patient is a pleasant 83-year-old woman with past medical history as noted below, presents to the hospital in the setting of elevated blood pressure and headache. She was seen by her PCP approximately a week ago where her blood pressure was excellent. She was admitted to the hospital in 08/2018 with various ailments including acute renal insufficiency and hyponatremia as well as very labile blood pressures. Since then, she has been on amlodipine 5 mg daily and has done well. Currently, denies any chest pain, dyspnea, orthopnea and at home has been doing okay until yesterday when she presented with hypertensive emergency. She has also had a known chronic history of elevated troponin and most recently underwent a stress test in 08/2018, which did not reveal any significant pathology with normal ejection fraction. PAST MEDICAL HISTORY: 1. Hypertension. 2. Prior history of remote coronary disease, presumed by chart history. PAST SURGICAL HISTORY: Cholecystectomy and cataract removal. SOCIAL HISTORY: No alcohol, tobacco or illicit drug use. She lives with her family. CURRENT CARDIAC MEDICATIONS: Amlodipine 5 mg daily. ALLERGIES: PENICILLINS AND MORPHINE. REVIEW OF SYSTEMS: Limited due to the patient's inability to speak [place] well. Information was obtained with her son there as well. PHYSICAL EXAMINATION: GENERAL: Alert and oriented x 3, no acute distress. HEAD AND NECK: Unremarkable. LUNGS: Clear to auscultation. ABDOMEN: Soft, nontender. EXTREMITIES: No clubbing, cyanosis or edema. HEART: Regular rate and rhythm with a soft systolic murmur. SKIN: No breakdown. NEUROLOGIC: No focal deficits. MUSCULOSKELETAL: No trauma. PSYCHIATRIC: Normal mood and affect. DIAGNOSTIC STUDIES: Initial troponin elevated at 0.1, which is chronic for her. Creatinine and hemoglobin are within normal limits. Chest x-ray is grossly unremarkable. IMPRESSION: Hypertensive urgency, labile blood pressure likely due to her age. RECOMMENDATIONS: We will plan for initiation of amlodipine 5 mg b.i.d., monitor one more day. Use clonidine p.r.n. Again think about a clonidine patch as needed. Thank you for this consultation. Discussed with Dr. Wagoner. SHEREE BANEGAS MD DR: ANDRES/violet JOB#: [id number] / [id number]
[2019-01-23] MEDS ORDERED: BISACODYL 5 MG TABLET.DR. PO PRN (12:45)
--- NOTE | 2019-01-23 12:50 | PDOC ---
PROGRESS NOTES Subjective Subjective Patient reports some pain in low back and legs presently. Objective Objective Vital Signs Date Time Temp Pulse Resp B/P (MAP) Pulse Ox O2 Delivery O2 Flow Rate FiO2 01/23/19 11:00 98.0 60 16 135/56 (82) 96 Room Air 98.0 Physical Exam Abdomen: Normal bowel sounds, Soft, No tenderness Heart: Regular rate Extremities: No edema General: Alert, Oriented X3, No acute distress Lungs: Clear to auscultation Assessment Assessment Problems Medical Problems: (1) Elevated troponin Status: Acute (2) Hypertensive crisis Status: Acute (3) Malignant hypertension Status: Acute Plan Plan of Care 1. Hypertensive urgency - patient with hx of labile BP, seen in ER for elevated BP and headache. Much improved now. Dr Zimmer has increased her Amlodipine to BID, will watch her overnight on this. Orthostatic BP ordered. 2. OA with chronic back pain - continue Tylenol prn. 3. chronic constipation - continue home meds. Comment Review of Relevant I have reviewed the following items karen (where applicable) has been applied. Labs Laboratory Tests Test 01/23/19 04:05 01/23/19 05:15 01/23/19 08:00 01/23/19 11:00 White Blood Count 6.2 x10^3/uL (4.0-11.0) Red Blood Count 3.48 x10^6/uL (3.50-5.40) Hemoglobin 12.3 g/dL (12.0-15.5) Hematocrit 34.4 % (36.0-47.0) Mean Corpuscular Volume 99 fL (79-100) Mean Corpuscular Hemoglobin 35 pg (25-35) Mean Corpuscular Hemoglobin Concent 36 g/dL (31-37) Red Cell Distribution Width 12.2 % (11.5-14.5) Platelet Count 141 x10^3/uL (140-400) Neutrophils (%) (Auto) 79 % (31-73) Lymphocytes (%) (Auto) 12 % (24-48) Monocytes (%) (Auto) 7 % (0-9) Eosinophils (%) (Auto) 2 % (0-3) Basophils (%) (Auto) 0 % (0-3) Neutrophils # (Auto) 4.9 x10^3/uL (1.8-7.7) Lymphocytes # (Auto) 0.8 x10^3/uL (1.0-4.8) Monocytes # (Auto) 0.4 x10^3/uL (0.0-1.1) Eosinophils # (Auto) 0.1 x10^3/uL (0.0-0.7) Basophils # (Auto) 0.0 x10^3/uL (0.0-0.2) Sodium Level 137 mmol/L (136-145) Potassium Level 3.5 mmol/L (3.5-5.1) Chloride Level 99 mmol/L (98-107) Carbon Dioxide Level 28 mmol/L (21-32) Anion Gap 10 (6-14) Blood Urea Nitrogen 14 mg/dL (7-20) Creatinine 0.8 mg/dL (0.6-1.0) Estimated GFR (Cockcroft-Gault) 68.2 BUN/Creatinine Ratio 18 (6-20) Glucose Level 116 mg/dL (70-99) Calcium Level 9.3 mg/dL (8.5-10.1) Magnesium Level 2.4 mg/dL (1.8-2.4) Total Bilirubin 0.5 mg/dL (0.2-1.0) Aspartate Amino Transf (AST/SGOT) 27 U/L (15-37) Alanine Aminotransferase (ALT/SGPT) 26 U/L (14-59) Alkaline Phosphatase 128 U/L (46-116) Troponin I Quantitative 0.142 ng/mL (0.000-0.055) 0.134 ng/mL (0.000-0.055) 0.126 ng/mL (0.000-0.055) Total Protein 7.2 g/dL (6.4-8.2) Albumin 3.7 g/dL (3.4-5.0) Albumin/Globulin Ratio 1.1 (1.0-1.7) Urine Collection Type Unknown Urine Color Yellow Urine Clarity Clear Urine pH 7.5 Urine Specific [place] 1.010 Urine Protein 100 mg/dL (NEG-TRACE) Urine Glucose (UA) Negative mg/dL (NEG) Urine Ketones (Stick) Negative mg/dL (NEG) Urine Blood Small (NEG) Urine Nitrite Negative (NEG) Urine Bilirubin Negative (NEG) Urine Urobilinogen Dipstick 0.2 mg/dL (0.2 mg/dL) Urine Leukocyte Esterase Negative (NEG) Urine RBC 3-5 /HPF (0-2) Urine WBC 1-4 /HPF (0-4) Urine Squamous Epithelial Cells Few /LPF Urine Bacteria 0 /HPF (0-FEW) Laboratory Tests Test 01/23/19 04:05 01/23/19 05:15 01/23/19 08:00 01/23/19 11:00 White Blood Count 6.2 x10^3/uL (4.0-11.0) Red Blood Count 3.48 x10^6/uL (3.50-5.40) Hemoglobin 12.3 g/dL (12.0-15.5) Hematocrit 34.4 % (36.0-47.0) Mean Corpuscular Volume 99 fL (79-100) Mean Corpuscular Hemoglobin 35 pg (25-35) Mean Corpuscular Hemoglobin Concent 36 g/dL (31-37) Red Cell Distribution Width 12.2 % (11.5-14.5) Platelet Count 141 x10^3/uL (140-400) Neutrophils (%) (Auto) 79 % (31-73) Lymphocytes (%) (Auto) 12 % (24-48) Monocytes (%) (Auto) 7 % (0-9) Eosinophils (%) (Auto) 2 % (0-3) Basophils (%) (Auto) 0 % (0-3) Neutrophils # (Auto) 4.9 x10^3/uL (1.8-7.7) Lymphocytes # (Auto) 0.8 x10^3/uL (1.0-4.8) Monocytes # (Auto) 0.4 x10^3/uL (0.0-1.1) Eosinophils # (Auto) 0.1 x10^3/uL (0.0-0.7) Basophils # (Auto) 0.0 x10^3/uL (0.0-0.2) Sodium Level 137 mmol/L (136-145) Potassium Level 3.5 mmol/L (3.5-5.1) Chloride Level 99 mmol/L (98-107) Carbon Dioxide Level 28 mmol/L (21-32) Anion Gap 10 (6-14) Blood Urea Nitrogen 14 mg/dL (7-20) Creatinine 0.8 mg/dL (0.6-1.0) Estimated GFR (Cockcroft-Gault) 68.2 BUN/Creatinine Ratio 18 (6-20) Glucose Level 116 mg/dL (70-99) Calcium Level 9.3 mg/dL (8.5-10.1) Magnesium Level 2.4 mg/dL (1.8-2.4) Total Bilirubin 0.5 mg/dL (0.2-1.0) Aspartate Amino Transf (AST/SGOT) 27 U/L (15-37) Alanine Aminotransferase (ALT/SGPT) 26 U/L (14-59) Alkaline Phosphatase 128 U/L (46-116) Troponin I Quantitative 0.142 ng/mL (0.000-0.055) 0.134 ng/mL (0.000-0.055) 0.126 ng/mL (0.000-0.055) Total Protein 7.2 g/dL (6.4-8.2) Albumin 3.7 g/dL (3.4-5.0) Albumin/Globulin Ratio 1.1 (1.0-1.7) Urine Collection Type Unknown Urine Color Yellow Urine Clarity Clear Urine pH 7.5 Urine Specific [place] 1.010 Urine Protein 100 mg/dL (NEG-TRACE) Urine Glucose (UA) Negative mg/dL (NEG) Urine Ketones (Stick) Negative mg/dL (NEG) Urine Blood Small (NEG) Urine Nitrite Negative (NEG) Urine Bilirubin Negative (NEG) Urine Urobilinogen Dipstick 0.2 mg/dL (0.2 mg/dL) Urine Leukocyte Esterase Negative (NEG) Urine RBC 3-5 /HPF (0-2) Urine WBC 1-4 /HPF (0-4) Urine Squamous Epithelial Cells Few /LPF Urine Bacteria 0 /HPF (0-FEW) Medications Current Medications Clonidine HCl (Catapres) 0.1 mg 1X ONCE PO Last administered on 01/23/19at 04:12; Start 01/23/19 at 04:15; Stop 01/23/19 at 04:16; Status DC Ondansetron HCl (Zofran) 4 mg PRN Q8HRS PRN IV NAUSEA/VOMITING; Start 01/23/19 at 05:15; Stop 01/24/19 at 05:14 Fentanyl Citrate (Fentanyl 2ml Vial) 25 mcg PRN Q2HRS PRN IV PAIN; Start 01/23/19 at 05:15 Amlodipine Besylate (Norvasc) 5 mg BID PO ; Start 01/23/19 at 12:30 Clonidine HCl (Catapres) 0.1 mg PRN Q1HR PRN PO HYPERTENSION; Start 01/23/19 at 12:00 Acetaminophen (Tylenol) 1,000 mg Q8HRS PO ; Start 01/23/19 at 14:00 Atorvastatin Calcium (Lipitor) 10 mg HS PO ; Start 01/23/19 at 21:00 Bisacodyl (Dulcolax Tab) 10 mg PRN DAILY PRN PO CONSTIPATION; Start 01/23/19 at 12:45 Docusate Sodium (Colace) 100 mg DAILY PO ; Start 01/24/19 at 09:00 Ferrous Sulfate (Feosol) 325 mg BIDWMEALS PO ; Start 01/23/19 at 17:00 Pantoprazole Sodium (Protonix) 40 mg DAILYAC PO ; Start 01/23/19 at 13:00 Vitamin B Complex (Nikolai B) 1 tab DAILY PO ; Start 01/23/19 at 13:00 Psyllium Hydrophilic Mucilloid (Metamucil Fiber Packet) 1 pkt DAILY PO ; Start 01/23/19 at 13:00 Active Scripts Active Amlodipine Besylate 5 Mg Tablet 5 Mg PO DAILY 30 Days Feosol (Ferrous Sulfate) 325 Mg Tablet 325 Mg PO BID 30 Days Foltx Tablet (B12/Levomefolate Calcium/B-6) 1 Each Tablet 1 Each PO DAILY Reported Tylenol (Acetaminophen) 325 Mg Tablet 1,000 Mg PO Q8HRS Metamucil (Psyllium Husk) 0.52 Gm Capsule 0.52 Gm PO DAILY Dulcolax (Bisacodyl) 5 Mg Tablet.dr 10 Mg PO PRN DAILY PRN Colace (Docusate Sodium) 100 Mg Capsule 100 Mg PO DAILY Atorvastatin Calcium 10 Mg Tablet 10 Mg PO HS Pantoprazole Sodium (Pantoprazole Sodium) 40 Mg Tablet.dr 40 Mg PO DAILY Vitals/I & O Vital Sign - Last 24 Hours 01/23/19 01/23/19 01/23/19 01/23/19 01:00 04:12 05:00 06:43 Temp 97.9 98.2 97.9 98.2 Pulse 91 73 68 57 Resp 18 16 16 B/P (MAP) 219/96 (137) 186/84 Pulse Ox 97 99 98 O2 Delivery Room Air 01/23/19 01/23/19 01/23/19 07:00 08:00 11:00 Temp 97.7 98.0 97.7 98.0 Pulse 53 60 Resp 12 16 B/P (MAP) 129/56 (80) 135/56 (82) Pulse Ox 99 96 O2 Delivery Room Air Room Air Room Air VIVIAN SINGLETARY MD Jan 23, 2019 12:50
--- NOTE | 2019-01-23 13:25 | HP ---
ADMIT DATE: 01/23/2019 CHIEF COMPLAINT: Elevated blood pressure. HISTORY OF PRESENT ILLNESS: The patient is an 83-year-old female with a history of labile hypertension, who presented to the Emergency Room with the above complaint. She had apparently taken her blood pressure in the middle of the night at home and found it to be elevated with a systolic over 200. She had a mild headache and some mild left-sided chest pain accompanying this so she came to the Emergency Room. Initial blood pressure there was 186/84. Treatment was started and she was admitted for more care. PAST MEDICAL HISTORY: Labile hypertension, hyperlipidemia, congestive heart failure with mild diastolic dysfunction, diabetes mellitus type 2, diet controlled, history of previous renal insufficiency and hyponatremia, remote history of coronary artery disease, osteoarthritis with chronic back pain. PAST SURGICAL HISTORY: Laparoscopic cholecystectomy, cataract surgery. ALLERGIES: THE PATIENT IS ALLERGIC TO PENICILLINS AND MORPHINE. HOME MEDICATIONS: Tylenol p.r.n., amlodipine 5 mg daily, atorvastatin 10 mg daily, multivitamin daily, Dulcolax p.r.n., Colace daily, iron 325 mg b.i.d., pantoprazole 40 mg daily, Metamucil daily. FAMILY HISTORY: Noncontributory. SOCIAL HISTORY: The patient is . She lives at home with family members. She does not smoke cigarettes and does not drink alcohol to excess. REVIEW OF SYSTEMS: This is difficult to obtain due to the language barrier. She has apparently not felt ill. She has not had a cough or shortness of breath. She has not had other episodes of chest pain. Her blood pressure has not been high on other occasions recently when she has checked it at home. She has been taking her amlodipine once daily as advised. She has some intermittent lower abdominal pain and constipation, but is not experiencing this presently. She has some chronic low back pain and some pain in her legs. PHYSICAL EXAMINATION: GENERAL: The patient is alert and oriented x 3, sitting up in bed, eating lunch with a good appetite, in no acute distress. HEENT: PERRL, EOMI, sclerae clear. Oropharynx: Mucous membranes moist. NECK: Supple, without lymphadenopathy. CHEST: Clear to auscultation. CARDIOVASCULAR: Regular rhythm. ABDOMEN: Soft, nontender, normoactive bowel sounds are present. EXTREMITIES: Without edema. ASSESSMENT AND PLAN: 1. Hypertensive urgency. The patient does have a history of labile blood pressure and has been on multiple medications for this. When seen in our office recently, her blood pressure was 134/64 on her amlodipine. The patient received one dose of clonidine in the Emergency Department. Her blood pressure is now much improved. Dr. Zimmer has seen the patient in consultation due to her mildly elevated troponin of 0.1, which is apparently chronic for her. He recommends trial of increasing the amlodipine to b.i.d. and this has been ordered. We have also ordered orthostatic blood pressures for her and we will monitor her blood pressure in the hospital today. 2. Osteoarthritis with chronic back pain. Continue Tylenol p.r.n. 3. Chronic constipation. Continue home medications. VIVIAN SINGLETARY MD DR: MERCEDES/violet JOB#: [id number] / [id number] DOREEN
[2019-01-23] MEDS: amLODIPine BESYLATE 5 MG TABLET PO SCH ×2 (13:40→22:44)
[2019-01-23] MEDS: VITAMIN B COMPLEX TABLET. PO SCH (13:40)
[2019-01-23] MEDS: PSYLLIUM HUSK (SUGAR FREE) 1 PKT PACKET PO SCH (13:40)
[2019-01-23] MEDS: PANTOPRAZOLE 40 MG TABLET.DR. PO SCH (13:40)
[2019-01-23] MEDS: ACETAMINOPHEN 500 MG TABLET PO SCH ×2 (13:58→22:45)
[2019-01-23] MEDS ORDERED: ACETAMINOPHEN 325 MG TABLET. PO SCH (14:00)
[2019-01-23 15:00] VITALS: BP_SYST 144; BP_SYST 149; BP_SYST 165; BP_DIAS 63; BP_DIAS 64; BP_DIAS 74
--- NOTE | 2019-01-23 16:09 | EKG ---
[facility] [address] [place] [id number] Test Date: 2019-01-23 Test Time: 03:45:39 Pat Name: DEMI ZAVALA Department: Room: Gender: F Disintegrator: : 1935 Requested By: PADMAJA ALVARADO Order Number: [id number] Reading MD: Measurements Intervals [place] Rate: 81 P: 2 CT: 190 QRS: -24 QRSD: 92 T: 48 QT: 370 QTc: 430 Interpretive Statements SINUS RHYTHM LEFTWARD AXIS NO SPECIFIC ECG ABNORMALITIES RI6.01 Unconfirmed report No previous ECG available for comparison
[2019-01-23] MEDS: FERROUS SULFATE 325 MG TABLET. PO SCH (17:14)
[2019-01-23 19:25] VITALS: BP 192/82
[2019-01-23] MEDS ORDERED: ATORVASTATIN CALCIUM 10 MG TABLET. PO SCH (21:00)
[2019-01-23 23:30] VITALS: BP 130/63
[2019-01-24 03:35] VITALS: BP 131/65
[2019-01-24] MEDS: ACETAMINOPHEN 500 MG TABLET PO SCH ×2 (06:00→11:21)
[2019-01-24 07:30] VITALS: BP 135/63
[2019-01-24] MEDS: PANTOPRAZOLE 40 MG TABLET.DR. PO SCH (08:46)
[2019-01-24] MEDS: FERROUS SULFATE 325 MG TABLET. PO SCH (08:46)
[2019-01-24] MEDS: VITAMIN B COMPLEX TABLET. PO SCH (08:46)
[2019-01-24] MEDS: PSYLLIUM HUSK (SUGAR FREE) 1 PKT PACKET PO SCH (08:46)
[2019-01-24] MEDS: amLODIPine BESYLATE 5 MG TABLET PO SCH (08:47)
--- NOTE | 2019-01-24 08:58 | PDOC ---
PROGRESS NOTES Subjective Subjective Patient reports some back and leg pain, no other concerns at this time. Objective Objective Vital Signs Date Time Temp Pulse Resp B/P (MAP) Pulse Ox O2 Delivery O2 Flow Rate FiO2 01/24/19 07:30 97.6 50 14 135/63 (87) 97 Room Air 97.6 01/23/19 15:00 97.0 Intake and Output 01/24/19 06:59 Intake Total 500 ml Output Total 151 ml Balance 349 ml Intake Oral 500 ml Output Urine Total 151 ml # Voids 2 Physical Exam Abdomen: Normal bowel sounds, Soft, No tenderness Heart: Regular rate Extremities: No edema General: Alert, Oriented X3, No acute distress Lungs: Clear to auscultation Assessment Assessment Problems Medical Problems: (1) Constipation Status: Chronic (2) Elevated troponin Status: Acute (3) Hypertensive crisis Status: Acute (4) Malignant hypertension Status: Acute (5) OA (osteoarthritis) Status: Chronic Plan Plan of Care 1. Labile hypertension - BP elevated last evening, improved with PM dose of Amlodipine. Home today on Amlodipine BID (orthostatic BP's from this AM pending) if OK with Cardiology. 2. Elevated troponin - stable. This is apparently chronic for her, no complaints of chest pain. 3. OA with chronic back pain - continue Tylenol per Dr Pedraza. 4. CHF with diastolic dysfunction - compensated. Comment Review of Relevant I have reviewed the following items karen (where applicable) has been applied. Labs Laboratory Tests Test 01/23/19 04:05 01/23/19 05:15 01/23/19 08:00 01/23/19 11:00 White Blood Count 6.2 x10^3/uL (4.0-11.0) Red Blood Count 3.48 x10^6/uL (3.50-5.40) Hemoglobin 12.3 g/dL (12.0-15.5) Hematocrit 34.4 % (36.0-47.0) Mean Corpuscular Volume 99 fL (79-100) Mean Corpuscular Hemoglobin 35 pg (25-35) Mean Corpuscular Hemoglobin Concent 36 g/dL (31-37) Red Cell Distribution Width 12.2 % (11.5-14.5) Platelet Count 141 x10^3/uL (140-400) Neutrophils (%) (Auto) 79 % (31-73) Lymphocytes (%) (Auto) 12 % (24-48) Monocytes (%) (Auto) 7 % (0-9) Eosinophils (%) (Auto) 2 % (0-3) Basophils (%) (Auto) 0 % (0-3) Neutrophils # (Auto) 4.9 x10^3/uL (1.8-7.7) Lymphocytes # (Auto) 0.8 x10^3/uL (1.0-4.8) Monocytes # (Auto) 0.4 x10^3/uL (0.0-1.1) Eosinophils # (Auto) 0.1 x10^3/uL (0.0-0.7) Basophils # (Auto) 0.0 x10^3/uL (0.0-0.2) Sodium Level 137 mmol/L (136-145) Potassium Level 3.5 mmol/L (3.5-5.1) Chloride Level 99 mmol/L (98-107) Carbon Dioxide Level 28 mmol/L (21-32) Anion Gap 10 (6-14) Blood Urea Nitrogen 14 mg/dL (7-20) Creatinine 0.8 mg/dL (0.6-1.0) Estimated GFR (Cockcroft-Gault) 68.2 BUN/Creatinine Ratio 18 (6-20) Glucose Level 116 mg/dL (70-99) Calcium Level 9.3 mg/dL (8.5-10.1) Magnesium Level 2.4 mg/dL (1.8-2.4) Total Bilirubin 0.5 mg/dL (0.2-1.0) Aspartate Amino Transf (AST/SGOT) 27 U/L (15-37) Alanine Aminotransferase (ALT/SGPT) 26 U/L (14-59) Alkaline Phosphatase 128 U/L (46-116) Troponin I Quantitative 0.142 ng/mL (0.000-0.055) 0.134 ng/mL (0.000-0.055) 0.126 ng/mL (0.000-0.055) Total Protein 7.2 g/dL (6.4-8.2) Albumin 3.7 g/dL (3.4-5.0) Albumin/Globulin Ratio 1.1 (1.0-1.7) Urine Collection Type Unknown Urine Color Yellow Urine Clarity Clear Urine pH 7.5 Urine Specific [place] 1.010 Urine Protein 100 mg/dL (NEG-TRACE) Urine Glucose (UA) Negative mg/dL (NEG) Urine Ketones (Stick) Negative mg/dL (NEG) Urine Blood Small (NEG) Urine Nitrite Negative (NEG) Urine Bilirubin Negative (NEG) Urine Urobilinogen Dipstick 0.2 mg/dL (0.2 mg/dL) Urine Leukocyte Esterase Negative (NEG) Urine RBC 3-5 /HPF (0-2) Urine WBC 1-4 /HPF (0-4) Urine Squamous Epithelial Cells Few /LPF Urine Bacteria 0 /HPF (0-FEW) Laboratory Tests Test 01/23/19 11:00 Troponin I Quantitative 0.126 ng/mL (0.000-0.055) Medications Current Medications Clonidine HCl (Catapres) 0.1 mg 1X ONCE PO Last administered on 01/23/19at 04:12; Start 01/23/19 at 04:15; Stop 01/23/19 at 04:16; Status DC Ondansetron HCl (Zofran) 4 mg PRN Q8HRS PRN IV NAUSEA/VOMITING; Start 01/23/19 at 05:15; Stop 01/24/19 at 05:14; Status DC Fentanyl Citrate (Fentanyl 2ml Vial) 25 mcg PRN Q2HRS PRN IV PAIN; Start 12/28 02/14 at 05:15 Amlodipine Besylate (Norvasc) 5 mg BID PO Last administered on 01/23/19at 22:44; Start 01/23/19 at 12:30 Clonidine HCl (Catapres) 0.1 mg PRN Q1HR PRN PO HYPERTENSION Last administered on 01/23/19at 22:44; Start 01/23/19 at 12:00 Acetaminophen (Tylenol) 1,000 mg Q8HRS PO ; Start 01/23/19 at 14:00; Stop 01/23/19 at 14:00; Status DC Atorvastatin Calcium (Lipitor) 10 mg HS PO Last administered on 01/23/19at 22:45; Start 01/23/19 at 21:00 Bisacodyl (Dulcolax Tab) 10 mg PRN DAILY PRN PO CONSTIPATION; Start 01/23/19 at 12:45 Docusate Sodium (Colace) 100 mg DAILY PO ; Start 01/24/19 at 09:00 Ferrous Sulfate (Feosol) 325 mg BIDWMEALS PO Last administered on 01/23/19 17:14; Start 01/23/19 at 17:00 Pantoprazole Sodium (Protonix) 40 mg DAILYAC PO Last administered on 01/23/19at 13:40; Start 01/23/19 at 13:00 Vitamin B Complex (Nikolai B) 1 tab DAILY PO Last administered on 01/23/19 13:40; Start 01/23/19 at 13:00 Psyllium Hydrophilic Mucilloid (Metamucil Fiber Packet) 1 pkt DAILY PO Last administered on 01/23/19 13:40; Start 01/23/19 at 13:00 Acetaminophen (Tylenol) 1,000 mg Q8H PO Last administered on 01/23/19 22:45; Start 01/23/19 at 14:00 Active Scripts Active Amlodipine Besylate 5 Mg Tablet 5 Mg PO DAILY 30 Days Feosol (Ferrous Sulfate) 325 Mg Tablet 325 Mg PO BID 30 Days Foltx Tablet (B12/Levomefolate Calcium/B-6) 1 Each Tablet 1 Each PO DAILY Reported Tylenol (Acetaminophen) 325 Mg Tablet 1,000 Mg PO Q8HRS Metamucil (Psyllium Husk) 0.52 Gm Capsule 0.52 Gm PO DAILY Dulcolax (Bisacodyl) 5 Mg Tablet.dr 10 Mg PO PRN DAILY PRN Colace (Docusate Sodium) 100 Mg Capsule 100 Mg PO DAILY Atorvastatin Calcium 10 Mg Tablet 10 Mg PO HS Pantoprazole Sodium (Pantoprazole Sodium) 40 Mg Tablet.dr 40 Mg PO DAILY Vitals/I & O Vital Sign - Last 24 Hours 01/23/19 01/23/19 01/23/19 01/23/19 11:00 13:40 15:00 15:00 Temp 98.0 98.0 Pulse 60 60 68 64 Resp 16 B/P (MAP) 135/56 (82) 135/56 144/63 (90) 165/74 (104) Pulse Ox 96 O2 Delivery Room Air 01/23/19 01/23/19 01/23/19 01/23/19 15:00 19:25 20:00 22:44 Temp 97.4 97.9 97.4 97.9 Pulse 56 69 69 Resp 14 18 B/P (MAP) 149/64 (92) 192/82 (118) 192/82 Pulse Ox 96 O2 Delivery Room Air Room Air Room Air O2 Flow Rate 97.0 01/23/19 01/23/19 01/24/19 01/24/19 22:44 23:30 03:35 07:30 Temp 98.4 98.2 97.6 98.4 98.2 97.6 Pulse 69 58 49 50 Resp 18 18 14 B/P (MAP) 192/82 130/63 (85) 131/65 (87) 135/63 (87) Pulse Ox 96 96 97 O2 Delivery Room Air Room Air Room Air Intake and Output 01/23/19 01/23/19 01/24/19 14:59 22:59 06:59 Intake Total 200 ml 300 ml Output Total 150 ml 1 ml Balance 50 ml -1 ml 300 ml VIVIAN SINGLETARY MD Jan 24, 2019 08:58
[2019-01-24] MEDS ORDERED: DOCUSATE SODIUM 100 MG CAPSULE. PO SCH (09:00)
[2019-01-24] MEDS ORDERED: AMLO5TAB10 PO (09:01)
--- NOTE | 2019-01-24 09:14 | DS ---
DATE OF DISCHARGE: 01/24/2019 CHIEF COMPLAINT: Elevated blood pressure. HISTORY OF PRESENT ILLNESS: The patient is an 83-year-old female with a history of labile hypertension, who presented to the Emergency Room with the above complaint. She had apparently taken her blood pressure in the middle of the night at home and found it to be elevated with a systolic over 200. She had a mild headache and some mild left-sided chest pain accompanying this. So, she came to the Emergency Room. Initial blood pressure there was 186/84. Treatment was started and she was admitted for further care. HOSPITAL COURSE: The patient was seen in consultation by Dr. Zimmer, he recommended increasing her amlodipine to 5 mg b.i.d. and this was done. Her troponin continues mildly elevated at 0.126 to 0.142. This is apparently chronic for her and Dr. Zimmer does not feel that any further evaluation is indicated at this time. The patient had no further complaints of chest pain. Her blood pressure was elevated last night, but she then received the evening amlodipine and repeat blood pressures were much improved. She was not orthostatic last evening or this morning. The patient will be discharged to home today on the increased amlodipine. The patient's chronic medical conditions remained stable. She has diet-controlled diabetes. 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 Dr. Pedraza has her to take Tylenol for this and this will be continued. She is to continue her usual medications for her chronic constipation also. FINAL DIAGNOSES: 1. Hypertensive urgency with labile hypertension. 2. Elevated troponin, chronic. 3. Osteoarthritis with chronic back pain. 4. Congestive heart failure with diastolic dysfunction. 5. Diabetes mellitus type 2, diet controlled. DISCHARGE MEDICATIONS: Remain the same as at admission except that amlodipine 5 mg is increased to b.i.d. FOLLOWUP: Follow up with Dr. Pedraza in 2 weeks. Follow up with Cardiology as advised. VIVIAN SINGLETARY MD DR: MERCEDES/violet JOB#: [id number] / [id number] DOREEN
--- NOTE | 2019-01-24 10:27 | NUR ---
SS following for discharge planning. SS reviewed pt chart. Pt is from home and is currently on room air. No discharge needs noted at this time. Discharge order on the chart for home with self care.
[2019-01-24 11:00] VITALS: BP_SYST 122; BP_SYST 133; BP_SYST 138; BP_DIAS 52; BP_DIAS 57; BP_DIAS 97
--- NOTE | 2019-01-24 14:20 | PDOC ---
CARDIO Progress Notes Date and Time Date of Service 01/24/19 Time of Evaluation 1410 Subjective Subjective: No Chest Pain, No shortness of breath, No Palpitations Vitals Vitals Vital Signs Date Time Temp Pulse Resp B/P (MAP) Pulse Ox O2 Delivery O2 Flow Rate FiO2 01/24/19 11:00 52 138/97 (111) 01/24/19 11:00 98.2 14 97 Room Air 98.2 01/23/19 15:00 97.0 Weight Weight [ ] Input and Output Intake and Output Intake and Output 01/24/19 06:59 Intake Total 500 ml Output Total 151 ml Balance 349 ml Intake Oral 500 ml Output Urine Total 151 ml # Voids 2 Physical Exam HEENT: Neck Supple W Full Motion Chest: Symmetric LUNGS: Clear to Auscultation Heart: S1S2, RRR, no murmurs Abdomen: Soft N/T Extremities: No Edema Neurology: alert, oriented, follow commands Assessment Assessment 1. HTN urgency; now controlled 2. Mild troponin elevation; 0.142. Most probably type II, demand ischemia secondary to above. 3. DM2; diet controlled 4. HLP: statin therapy 5. Chronic diastolic CHF; clinically compensated 6. CKD Recommendations Continue Norvasc 5mg BID Home BP monitoring. Report of our office if SBP consistently > 160 May discharge from a CV standpoint and f/u in our office with Dr. Zimmer as previously scheduled. KONRAD LEWIS APRN Jan 24, 2019 14:20
--- NOTE | 2019-01-24 15:30 | NUR ---
Discharge: Teaching verbal and written. Patients family translated per patients request. Discharge instructions printed in [place] and in [place]. Reviewed medications, follow-up, hypertension, bradycardia, ect. All belongings with patient. Patient assisted off of unit via wheelchair accompanied by OMER Rincon and family members.
== END 2019-01-24 15:32 | disposition home or self-care (01) | DRG 305 ==
LOC: ER 00:39 → 2 SOUTH 05:03
PROVIDERS: ADMIT Family Medicine; ATTEND Family Medicine
DX: I16.0 Hypertensive urgency (principal); I50.32 Chronic diastolic (congestive) heart failure; E87.1 Hypo-osmolality and hyponatremia; I13.0 Hypertensive heart and chronic kidney disease with heart failure and stage 1 through stage 4 chronic kidney disease, or unspecified chronic kidney disease; I25.10 Atherosclerotic heart disease of native coronary artery without angina pectoris; N18.9 Chronic kidney disease, unspecified; G89.29 Other chronic pain; E78.5 Hyperlipidemia, unspecified; E11.22 Type 2 diabetes mellitus with diabetic chronic kidney disease; M47.816 Spondylosis without myelopathy or radiculopathy, lumbar region; M19.90 Unspecified osteoarthritis, unspecified site; E78.00 Pure hypercholesterolemia, unspecified; K59.09 Other constipation; Z98.49 Cataract extraction status, unspecified eye; Z90.49 Acquired absence of other specified parts of digestive tract; Z88.6 Allergy status to analgesic agent; Z88.0 Allergy status to penicillin; Z88.8 Allergy status to other drugs, medicaments and biological substances
CPT/HCPCS: 36415; 71045; 80053; 81001; 83735; 84484; 85025; 93005

== ENCOUNTER 2020-01-25 22:26 | Inpatient (IN) | payer MEDICARE, OTHER ==
[~2020-01-25] VITALS: Ht 149.9 cm; Wt 55.3 kg
[~2020-01-25 22:26] MED LIST changes: +ACET325T9 PO; +ASPI-886 PO; +ATOR10TA PO; +BISA-42 PO; +LISI10TA2 PO; +PANT40GR PO; +PSYL0.5215 PO
--- NOTE | 2020-01-25 23:12 | RAD ---
EXAM: AP View of the chest DATE: 01/25/2020 10:39 PM INDICATION: Chest pain COMPARISON: 03/22/2019, 05/30/2019 FINDINGS/ IMPRESSION: Mild cardiomegaly. Atherosclerotic calcifications of the tortuous aorta are seen. Patchy opacities left midlung and bilateral lung bases likely atelectasis. No lobar consolidation. No pleural effusion or pneumothorax. Mild leftward deviation of the trachea may be related to rotation and/or thoracic inlet/thyroid mass. This can be further assessed by ultrasound or CT if clinically indicated. Electronically signed by: Jamarcus Mccullough MD (01/25/2020 11:09 PM) DIYA
[2020-01-25 23:15] LABS: BASO % 0 % (0-3); EOS % 0 % (0-3); HEMATOCRIT 35.4 % (36.0-47.0); HEMOGLOBIN 12.7 g/dL (12.0-15.5); LYMPH # 0.9 x10^3/uL (1.0-4.8); LYMPH % 13 % (24-48); MEAN CORPUSCULAR HEMOGLOBIN 34 pg (25-35); MEAN CORPUSCULAR HGB CONC 36 g/dL (31-37); MEAN CORPUSCULAR VOLUME 96 fL (79-100); MONO # 0.4 x10^3/uL (0.0-1.1); MONO % 6 % (0-9); NEUT # 5.7 x10^3/uL (1.8-7.7); NEUT % 81 % (31-73); PLATELET COUNT 153 x10^3/uL (140-400); RED BLOOD COUNT 3.69 x10^6/uL (3.50-5.40); RED CELL DISTRIBUTION WIDTH 12.8 % (11.5-14.5)
[2020-01-25 23:22] LABS: CALCIUM 9.2 mg/dL (8.5-10.1); CREATININE 0.8 mg/dL (0.6-1.0); POTASSIUM 3.5 mmol/L (3.5-5.1)
[2020-01-25 23:28] LABS: ALBUMIN 3.9 g/dL (3.4-5.0); ALBUMIN/GLOBULIN RATIO 1.2 (1.0-1.7); TOTAL BILIRUBIN 0.8 mg/dL (0.2-1.0); TOTAL PROTEIN 7.1 g/dL (6.4-8.2)
[2020-01-25] MEDS ORDERED: ASPIRIN CHEWABLE 81 MG TABLET. PO ONE (23:30)
--- NOTE | 2020-01-25 23:47 | PHYS DOC ---
Past Medical History Past Medical History: Anxiety, Arthritis, Diabetes-Type II, High Cholesterol, Hypertension Past Surgical History: Other Additional Past Surgical Histo: cataract Smoking Status: Never Smoker Alcohol Use: None Drug Use: None General Adult EDM: Chief Complaint: CHEST PAIN-CARDIAC NATURE HPI: HPI: Patient is an 84-year-old female who presents with chest pain. She states is been ongoing throughout the day today. She states it is in the left side of her chest that is radiating into her arm. Currently, the pain has resolved. She denies any shortness of breath or dyspnea on exertion. She denies orthopnea. She has had no fever chills or sweats. No cough or congestion. She denies any hemoptysis. ] Review of Systems: Review of Systems: Constitutional: Denies fever or chills. [] Eyes: Denies change in visual acuity. [] HENT: Denies nasal congestion or sore throat. [] Respiratory: Denies cough or shortness of breath. [] Cardiovascular: Per HPI. [] GI: Denies abdominal pain, nausea, vomiting, bloody stools or diarrhea. [] : Denies dysuria. [] Musculoskeletal: Denies back pain or joint pain. [] Integument: Denies rash. [] Neurologic: Denies headache, focal weakness or sensory changes. [] Endocrine: Denies polyuria or polydipsia. [] Lymphatic: Denies swollen glands. [] Psychiatric: Denies depression or anxiety. [] Heart Score: HEART Score for Chest Pain: HEART Score for Chest Pain Response (Comments) Value History Moderately Suspicious 1 ECG Nonspecific Repolarizatio 1 Age > 65 2 Risk Factors >3 Risk Factors or Hx CAD 2 Troponin >1-<3x Normal Limit 1 Total 7 Risk Factors: Risk Factors: DM, Current or recent (<one month) smoker, HTN, HLP, family history of CAD, obesity. Risk Scores: Score 0 - 3: 2.5% MACE over next 6 weeks - Discharge Home Score 4 - 6: 20.3% MACE over next 6 weeks - Admit for Clinical Observation Score 7 - 10: 72.7% MACE over next 6 weeks - Early Invasive Strategies Current Medications: Current Medications Medications (Trade) Dose Ordered Sig/[place] Start Time Stop Time Status Last Admin Dose Admin Aspirin (Aspirin Chewable) 324 mg 1X ONCE 01/25/20 23:30 01/25/20 23:31 DC 01/25/20 23:00 324 MG Allergies: Allergies: Allergies Coded Allergies Type Severity Reaction Last Updated Verified Penicillins Allergy Intermediate RASH 07/23/18 Yes morphine Adverse Reaction Mild N/V 07/23/18 Yes Physical Exam: PE: Constitutional: Well developed, well nourished, no acute distress, non-toxic appearance. [] HENT: Normocephalic, atraumatic, bilateral external ears normal, oropharynx moist, no oral exudates, nose normal. [] Eyes: PERRLA, EOMI, conjunctiva normal, no discharge. [] Neck: Normal range of motion, no tenderness, supple, no stridor. [] Cardiovascular:Heart rate regular rhythm, no murmur [] Lungs & Thorax: Bilateral breath sounds clear to auscultation [] Abdomen: Bowel sounds normal, soft, no tenderness, no masses, no pulsatile masses. [] Skin: Warm, dry, no erythema, no rash. [] Back: No tenderness, no CVA tenderness. [] Extremities: No tenderness, no cyanosis, no clubbing, ROM intact, no edema. [] Neurologic: Alert and oriented X 3, normal motor function, normal sensory function, no focal deficits noted. [] Psychologic: Anxious. [] Current Patient Data: Labs: Laboratory Tests Test 01/25/20 23:05 White Blood Count 7.0 x10^3/uL (4.0-11.0) Red Blood Count 3.69 x10^6/uL (3.50-5.40) Hemoglobin 12.7 g/dL (12.0-15.5) Hematocrit 35.4 % (36.0-47.0) L Mean Corpuscular Volume 96 fL (79-100) Mean Corpuscular Hemoglobin 34 pg (25-35) Mean Corpuscular Hemoglobin Concent 36 g/dL (31-37) Red Cell Distribution Width 12.8 % (11.5-14.5) Platelet Count 153 x10^3/uL (140-400) Neutrophils (%) (Auto) 81 % (31-73) H Lymphocytes (%) (Auto) 13 % (24-48) L Monocytes (%) (Auto) 6 % (0-9) Eosinophils (%) (Auto) 0 % (0-3) Basophils (%) (Auto) 0 % (0-3) Neutrophils # (Auto) 5.7 x10^3/uL (1.8-7.7) Lymphocytes # (Auto) 0.9 x10^3/uL (1.0-4.8) L Monocytes # (Auto) 0.4 x10^3/uL (0.0-1.1) Eosinophils # (Auto) 0.0 x10^3/uL (0.0-0.7) Basophils # (Auto) 0.0 x10^3/uL (0.0-0.2) Sodium Level 129 mmol/L (136-145) L Potassium Level 3.5 mmol/L (3.5-5.1) Chloride Level 95 mmol/L (98-107) L Carbon Dioxide Level 27 mmol/L (21-32) Anion Gap 7 (6-14) Blood Urea Nitrogen 19 mg/dL (7-20) Creatinine 0.8 mg/dL (0.6-1.0) Estimated GFR (Cockcroft-Gault) 68.0 BUN/Creatinine Ratio 24 (6-20) H Glucose Level 125 mg/dL (70-99) H Calcium Level 9.2 mg/dL (8.5-10.1) Total Bilirubin 0.8 mg/dL (0.2-1.0) Aspartate Amino Transferase (AST) 27 U/L (15-37) Alanine Aminotransferase (ALT) 31 U/L (14-59) Alkaline Phosphatase 107 U/L (46-116) Troponin I Quantitative 0.147 ng/mL (0.000-0.055) MC-Vtq-T-Type Natriuretic Peptide 280 pg/mL (0-449) Total Protein 7.1 g/dL (6.4-8.2) Albumin 3.9 g/dL (3.4-5.0) Albumin/Globulin Ratio 1.2 (1.0-1.7) Laboratory Tests 01/25/20 23:05 Laboratory Tests 01/25/20 23:05 Vital Signs: Vital Signs Date Time Temp Pulse Resp B/P (MAP) Pulse Ox O2 Delivery O2 Flow Rate FiO2 01/25/20 22:29 98.3 83 20 211/83 (125) 99 Room Air 98.3 EKG: EKG: EKG: Normal sinus rhythm rate of [address]-T changes [] Radiology/Procedures: Radiology/Procedures: [] Impression: REASON: chest pain PROCEDURE: CHEST AP ONLY EXAM: AP View of the chest DATE: 01/25/2020 10:39 PM INDICATION: Chest pain COMPARISON: 03/22/2019, 05/30/2019 FINDINGS/ IMPRESSION: Mild cardiomegaly. Atherosclerotic calcifications of the tortuous aorta are seen. Patchy opacities left midlung and bilateral lung bases likely atelectasis. No lobar consolidation. No pleural effusion or pneumothorax. Mild leftward deviation of the trachea may be related to rotation and/or thoracic inlet/thyroid mass. This can be further assessed by ultrasound or CT if clinically indicated. Course & Med Decision Making: Course & Med Decision Making Pertinent Labs and Imaging studies reviewed. (See chart for details) [ED course: Evaluation reveals an 84-year-old female that has multiple risk fact ors who had some chest pain that radiated to her left arm she is been pain-free in the department she was given aspirin and Lovenox here. Will admit her to the hospital to have cardiology weigh in on best treatment approach going forward.] Felixon Disclaimer: Giuliana Disclaimer: This electronic medical record was generated, in whole or in part, using a voice recognition dictation system. Departure Departure Impression: Primary Impression: NSTEMI (non-ST elevated myocardial infarction) Disposition: 09 ADMITTED INPATIENT Admitting Physician: MALIHA Condition: GUARDED Referrals: CATE VARELA MD (PCP) Justicifation of Admission Dx: Justifications for Admission: Justification of Admission Dx: Yes Angina: New-Onset LATISHA REECE DO Jan 25, 2020 23:46
[2020-01-26] VITALS (7 sets, daily range): BP systolic 112–175; BP diastolic 56–78
[2020-01-26] MEDS ORDERED: ONDANSETRON PF 4 MG/2 ML VIAL. IV PRN
[2020-01-26] MEDS ORDERED: DEXTROSE 50% 25 GM / 50ML DISP.SYRIN. IV PRN
[2020-01-26] MEDS ORDERED: NITROGLYCERIN SUBLINGUAL 0.4 MG BOTTLE OF 25. SL PRN
[2020-01-26] MEDS ORDERED: ACETAMINOPHEN 500 MG TABLET PO PRN (01:00)
--- NOTE | 2020-01-26 03:02 | EKG ---
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
--- NOTE | 2020-01-26 04:46 | NUR ---
Admit from ED to [facility] room 254 via [facility]. Patient stood and ambulated from [place] in [place] to bathroom in room and then to her bed with a cane and standby assist. Alert. Tajik speaking. Used [employer] communication phone to communicate with patient. Admit for c/o of chest pain. Denies chest pain on admit to unit. Reviewed POC, admit questions and home med list. Orientated to room and call light. Resting in bed with call light at hand. Patient room across from nurses desk.
[2020-01-26] MEDS: INSULIN LISPRO 300 UNITS/3 ML VIAL. SQ SCH ×3 (08:00→17:00)
--- NOTE | 2020-01-26 08:13 | PDOC1 ---
History and Physical Date of Admission: Date of Admission DATE: 01/26/20 TIME: 08:05 Chief Complaint: Chief Complain: chest pain History of Present Illness: HPI: Patient is an 84-year-old Guinean-speaking female with past medical history of diabetes type 2, dyslipidemia, hypertension who presents with 5 out of 10 left- sided chest pain that travels to the left side of her arm. Patient describes th e pain as pinching and pulsating. Her arm felt like it was falling asleep. Currently the pain has resolved at this time. Denies shortness of breath, fevers, abdominal pains, nausea or vomiting, orthopnea, dysuria, or bloody stools. Past Medical/Surgical History: PMH/PSH: Past Medical History: Anxiety, Arthritis, Diabetes-Type II, High Cholesterol, Hypertension Past Surgical History: cataract Allergies: Allergies: Coded Allergies: Penicillins (Verified Allergy, Intermediate, RASH, 07/23/18) morphine (Verified Adverse Reaction, Mild, N/V, 07/23/18) Family History: Family History: Reviewed and none reported Social History: Social History: Denies smoking, alcohol, or drug abuse Current Medications: Current Medications Current Medications Aspirin (Aspirin Chewable) 324 mg 1X ONCE PO Last administered on 01/25/20at 23:00; Start 01/25/20 at 23:30; Stop 01/25/20 at 23:31; Status DC Enoxaparin Sodium (Lovenox 60mg Syringe) 60 mg 1X ONCE SQ Last administered on 01/26/20at 00:18; Start 01/26/20 at 00:00; Stop 01/26/20 at 00:01; Status DC Ondansetron HCl (Zofran) 4 mg PRN Q8HRS PRN IV NAUSEA/VOMITING 1ST CHOICE; Start 01/26/20 at 00:00; Stop 01/26/20 at 23:59 Nitroglycerin (Nitrostat) 0.4 mg PRN Q5MIN PRN SL CHEST PAIN; Start 01/26/20 at 00:00; Stop 01/26/20 at 23:59 Insulin Human Lispro (HumaLOG) 0-7 UNITS TIDWMEALS SQ ; Start 01/26/20 at 08:00 Dextrose (Dextrose 50%-Water Syringe) 12.5 gm PRN Q15MIN PRN IV SEE COMMENTS; Start 01/26/20 at 00:00 Acetaminophen (Tylenol) 500 mg PRN Q6HRS PRN PO MILD PAIN / TEMP > 100.3'F Last administered on 01/26/20at 01:08; Start 01/26/20 at 01:00 Active Scripts Active Aspirin Ec (Aspirin) 81 Mg Tablet. 81 Mg PO DAILYWBKFT 60 Days Lisinopril 10 Mg Tablet 10 Mg PO DAILY Amlodipine Besylate 5 Mg Tablet 5 Mg PO BID 30 Days Foltx Tablet (B12/Levomefolate Calcium/B-6) 1 Each Tablet 1 Each PO DAILY Reported Metoprolol Succinate ( Xl ) (Metoprolol Succinate) 25 Mg Tab.er.24h 1 Tab PO DAILY Atacand (Candesartan Cilexetil) 32 Mg Tablet 1 Tab PO DAILY Atorvastatin Calcium 10 Mg Tablet 10 Mg PO HS Pantoprazole Sodium (Pantoprazole Sodium) 40 Mg Tablet. 40 Mg PO DAILY ROS: Review of Systems Review of System REVIEW OF SYSTEMS: GENERAL: Denies weakness SKIN: No bruising, hair changes or rashes. EYES: No blurred, double or loss of vision. NOSE AND THROAT: No history of nosebleeds, hoarseness or sore throat. HEART: No history of palpitations, chest pain or shortness of breath on exertion. LUNGS: Denies cough, hemoptysis, wheezing or shortness of breath. GASTROINTESTINAL: Denies changes in appetite, nausea, vomiting, diarrhea or constipation. GENITOURINARY: No history of frequency, urgency, hesitancy or nocturia. NEUROLOGIC: Denies history of numbness, tingling, or tremor. PSYCHIATRIC: No history of panic, anxiety or depression. ENDOCRINE: No history of heat or cold intolerance, polyuria or polydipsia. EXTREMITIES: Denies joint pain, pain on walking or stiffness. Physical Exam: Vital Signs: Vital Signs Date Time Temp Pulse Resp B/P (MAP) Pulse Ox O2 Delivery O2 Flow Rate FiO2 01/26/20 02:49 98.1 55 18 112/63 (79) 96 Room Air 98.1 Physcial Exam: GEN: No apparent distress. Alert and oriented HEENT: Normal cephalic, atraumatic, external auditory canals are patent EYES: Extraocular muscles are intact, pupil are equally round and reactive to light and accommodation MUSCULOSKELETAL: Well developed , well nourished, good range of motion ENDOCRINE: No thyromegaly was palpated LYMPHATICS: No cervical chain or axillary nodes were noted HEMATOPOIETIC: No bruising NECK: Supple, no JVD, no thyromegaly was noted LUNGS: Clear to auscultation in all lung castillo without rhonchi or wheezing HEART: RRR, S!, S2 present. Peripheral pulses intact, no obvious murmurs noted ABDOMEN: Soft, nontender. Positive bowel sounds, no organomegaly, normal bowel sounds EXTREMITIES: Without clubbing, cyanosis, or edema. Pedal pulses intact. Negative Homans sign NEUROLOGIC: Normal speech and tone. A&O x 3, moves all extremities, no obvious focal deficits PSYCHIATRIC: Normal affect, normal mood. Stable SKIN: No ulcerations or rashes, good skin turgor, no jaundice VASCULAR: Good capillary refill, neurovascular bundle appears to be intact Labs: Labs: Laboratory Tests Test 01/25/20 23:05 01/26/20 02:50 01/26/20 06:00 01/26/20 07:55 White Blood Count 7.0 x10^3/uL (4.0-11.0) Red Blood Count 3.69 x10^6/uL (3.50-5.40) Hemoglobin 12.7 g/dL (12.0-15.5) Hematocrit 35.4 % (36.0-47.0) Mean Corpuscular Volume 96 fL (79-100) Mean Corpuscular Hemoglobin 34 pg (25-35) Mean Corpuscular Hemoglobin Concent 36 g/dL (31-37) Red Cell Distribution Width 12.8 % (11.5-14.5) Platelet Count 153 x10^3/uL (140-400) Neutrophils (%) (Auto) 81 % (31-73) Lymphocytes (%) (Auto) 13 % (24-48) Monocytes (%) (Auto) 6 % (0-9) Eosinophils (%) (Auto) 0 % (0-3) Basophils (%) (Auto) 0 % (0-3) Neutrophils # (Auto) 5.7 x10^3/uL (1.8-7.7) Lymphocytes # (Auto) 0.9 x10^3/uL (1.0-4.8) Monocytes # (Auto) 0.4 x10^3/uL (0.0-1.1) Eosinophils # (Auto) 0.0 x10^3/uL (0.0-0.7) Basophils # (Auto) 0.0 x10^3/uL (0.0-0.2) Sodium Level 129 mmol/L (136-145) Potassium Level 3.5 mmol/L (3.5-5.1) Chloride Level 95 mmol/L (98-107) Carbon Dioxide Level 27 mmol/L (21-32) Anion Gap 7 (6-14) Blood Urea Nitrogen 19 mg/dL (7-20) Creatinine 0.8 mg/dL (0.6-1.0) Estimated GFR (Cockcroft-Gault) 68.0 BUN/Creatinine Ratio 24 (6-20) Glucose Level 125 mg/dL (70-99) Calcium Level 9.2 mg/dL (8.5-10.1) Total Bilirubin 0.8 mg/dL (0.2-1.0) Aspartate Amino Transf (AST/SGOT) 27 U/L (15-37) Alanine Aminotransferase (ALT/SGPT) 31 U/L (14-59) Alkaline Phosphatase 107 U/L (46-116) Troponin I Quantitative 0.147 ng/mL (0.000-0.055) 0.149 ng/mL (0.000-0.055) 0.153 ng/mL (0.000-0.055) AF-Dhq-B-Type Natriuretic Peptide 280 pg/mL (0-449) Total Protein 7.1 g/dL (6.4-8.2) Albumin 3.9 g/dL (3.4-5.0) Albumin/Globulin Ratio 1.2 (1.0-1.7) Glucose (Fingerstick) 105 mg/dL (70-99) Laboratory Tests Test 01/25/20 23:05 01/26/20 02:50 01/26/20 06:00 01/26/20 07:55 White Blood Count 7.0 x10^3/uL (4.0-11.0) Red Blood Count 3.69 x10^6/uL (3.50-5.40) Hemoglobin 12.7 g/dL (12.0-15.5) Hematocrit 35.4 % (36.0-47.0) Mean Corpuscular Volume 96 fL (79-100) Mean Corpuscular Hemoglobin 34 pg (25-35) Mean Corpuscular Hemoglobin Concent 36 g/dL (31-37) Red Cell Distribution Width 12.8 % (11.5-14.5) Platelet Count 153 x10^3/uL (140-400) Neutrophils (%) (Auto) 81 % (31-73) Lymphocytes (%) (Auto) 13 % (24-48) Monocytes (%) (Auto) 6 % (0-9) Eosinophils (%) (Auto) 0 % (0-3) Basophils (%) (Auto) 0 % (0-3) Neutrophils # (Auto) 5.7 x10^3/uL (1.8-7.7) Lymphocytes # (Auto) 0.9 x10^3/uL (1.0-4.8) Monocytes # (Auto) 0.4 x10^3/uL (0.0-1.1) Eosinophils # (Auto) 0.0 x10^3/uL (0.0-0.7) Basophils # (Auto) 0.0 x10^3/uL (0.0-0.2) Sodium Level 129 mmol/L (136-145) Potassium Level 3.5 mmol/L (3.5-5.1) Chloride Level 95 mmol/L (98-107) Carbon Dioxide Level 27 mmol/L (21-32) Anion Gap 7 (6-14) Blood Urea Nitrogen 19 mg/dL (7-20) Creatinine 0.8 mg/dL (0.6-1.0) Estimated GFR (Cockcroft-Gault) 68.0 BUN/Creatinine Ratio 24 (6-20) Glucose Level 125 mg/dL (70-99) Calcium Level 9.2 mg/dL (8.5-10.1) Total Bilirubin 0.8 mg/dL (0.2-1.0) Aspartate Amino Transf (AST/SGOT) 27 U/L (15-37) Alanine Aminotransferase (ALT/SGPT) 31 U/L (14-59) Alkaline Phosphatase 107 U/L (46-116) Troponin I Quantitative 0.147 ng/mL (0.000-0.055) 0.149 ng/mL (0.000-0.055) 0.153 ng/mL (0.000-0.055) AB-Jos-U-Type Natriuretic Peptide 280 pg/mL (0-449) Total Protein 7.1 g/dL (6.4-8.2) Albumin 3.9 g/dL (3.4-5.0) Albumin/Globulin Ratio 1.2 (1.0-1.7) Glucose (Fingerstick) 105 mg/dL (70-99) Images: Images All labs, images, and reports were reviewed by me personally eXAM: AP View of the chest DATE: 01/25/2020 10:39 PM INDICATION: Chest pain COMPARISON: 03/22/2019, 05/30/2019 FINDINGS/ IMPRESSION: Mild cardiomegaly. Atherosclerotic calcifications of the tortuous aorta are seen. Patchy opacities left midlung and bilateral lung bases likely atelectasis. No lobar consolidation. No pleural effusion or pneumothorax. Mild leftward deviation of the trachea may be related to rotation and/or thoracic inlet/thyroid mass. This can be further assessed by ultrasound or CT if clinically indicated. Assessment/Plan Assessment/Plan Chest pain concerning for unstable angina/NSTEMI versus STEMI, rule out ACS Diabetes type 2 Dyslipidemia Hypertension VANESSA = 3 Repeat EKG Troponin trend is [id number] Continue aspirin, Cardiology consulted for predischarge stress testing or left heart cath Continue nitroglycerin as needed for pain Continue beta-disha if blood pressures allow Continue high intensity statins IV morphine as needed Continue full dose Lovenox Maintain O2 sats between 88 to 95% Trend troponins Repeat EKG in the a.m. Continue telemetry monitoring Monitor for electrolyte abnormalities Avoid NSAIDs Lovenox for DVT prophylaxis Cardiac diet Full code Discussed with RN and SW Dispo pending cardiology evaluation Justicifation of Admission Dx: Justifications for Admission: Justification of Admission Dx: Yes Angina: New-Onset NELLIE ALVARADO MD Jan 26, 2020 08:13
[2020-01-26] MEDS ORDERED: POTASSIUM BICARB 20 MEQ EFFERVESCENT TABLET. PO PRN (08:30)
[2020-01-26] MEDS ORDERED: POTASSIUM CHLORIDE 20 MEQ TABLET.ER. PO PRN (08:30)
[2020-01-26] MEDS ORDERED: POTASSIUM CHLORIDE 10MEQ 100 ML IV PRN ×2 (08:30)
[2020-01-26] MEDS ORDERED: POTASSIUM & SODIUM PHOSPHATES PACKET. PO PRN (09:00)
--- NOTE | 2020-01-26 09:21 | PDOC2 ---
HARIS BROOKS MATH TUTOR 01/26/20 0921: CARDIAC CONSULT DATE OF CONSULT Date of Consult DATE: 01/26/20 TIME: 09:13 REASON FOR CONSULT Reason for Consult: ACS REFERRING PHYSICIAN Referring Physician: Selene SOURCE Source: Chart review HISTORY OF PRESENT ILLNESS HISTORY OF PRESENT ILLNESS This is an 84 yo female admitted as she was not feeling good and with high BP. She lives with her daughter and her granddaughter also helps take care of her. She primarily speaks Romansh and does have have midchest pain and could not completley described it but it was a 3 in 0-10 scale. No n/v no palpitations. Id did speak with her granddaughter and has told me that in the last few days she has been checking her BP and it has been going up as high as 190-200 SBP and sometimes would feel dizzy. No HAs. Yesterday she does not feel good and asked to be brought to the hospital. Also she has been noted that she has been quite anxious and worries a lot. Also she is stubborn and would not utilize her walking device such as cane and had a mechanical nontraumatic fall 3 weeks agor as she lost her footing. No significant SOA. Juan emphasized her having high BP and anxious. Reports that she does not skip meds and compliant with her diet. PAST MEDICAL HISTORY Past Medical History Cardiovascular: CAD, HTN, ID, Hyperlipidemia, chronic troponin elevation Hepatobiliary: Cholelithiasis Psych: Depression Musculoskeletal: Osteoarthritis ENT: Other (cataract, CAMPO) Endocrine: Diabetes (2) PAST SURGICAL HISTORY Past Surgical History Cholecystectomy, Cataract Removal, [facility] FAMILY HISTORY Family History: Diabetes SOCIAL HISTORY Smoke: No ALCOHOL: none Drugs: None Lives: with Family CURRENT MEDICATIONS CURRENT MEDICATIONS Current Medications Medications (Trade) Dose Ordered Sig/[place] Route PRN Reason Start Time Stop Time Status Last Admin Dose Admin Aspirin (Aspirin Chewable) 324 mg 1X ONCE PO 01/25/20 23:30 01/25/20 23:31 DC 01/25/20 23:00 Enoxaparin Sodium (Lovenox 60mg Syringe) 60 mg 1X ONCE SQ 01/26/20 00:00 01/26/20 00:01 DC 01/26/20 00:18 Acetaminophen (Tylenol) 500 mg PRN Q6HRS PRN PO MILD PAIN / TEMP > 100.3'F 01/26/20 01:00 01/26/20 01:08 ALLERGIES ALLERGIES: Coded Allergies: Penicillins (Verified Allergy, Intermediate, RASH, 07/23/18) morphine (Verified Adverse Reaction, Mild, N/V, 07/23/18) ROS Review of System limited, language barrier, poor historian PHYSICAL EXAM General: Alert, Oriented X3, Cooperative, No acute distress HEENT: Atraumatic, Mucous membr. moist/pink Lungs: Clear to auscultation, Normal air movement Heart: Regular rate (SR), Normal S1, Normal S2, No murmurs Abdomen: Soft, No tenderness Extremities: No cyanosis, No edema Skin: No breakdown, No significant lesion Neuro: Normal speech, Sensation intact Psych/Mental Status: Mental status NL, Mood NL MUSCULOSKELETAL: Osteoarthritic changes both hands VITALS/I&O VITALS/I&O: Vital Signs Date Time Temp Pulse Resp B/P (MAP) Pulse Ox O2 Delivery O2 Flow Rate FiO2 01/26/20 07:00 97.8 61 14 145/67 (93) 97 Room Air 97.8 I & O 01/25/20 01/25/20 01/26/20 15:00 23:00 07:00 Intake Total 380 ml Output Total 750 ml Balance -370 ml LABS Lab: Laboratory Tests Test 01/25/20 23:05 01/26/20 02:50 01/26/20 06:00 01/26/20 07:55 White Blood Count 7.0 x10^3/uL (4.0-11.0) Red Blood Count 3.69 x10^6/uL (3.50-5.40) Hemoglobin 12.7 g/dL (12.0-15.5) Hematocrit 35.4 % (36.0-47.0) L Mean Corpuscular Volume 96 fL (79-100) Mean Corpuscular Hemoglobin 34 pg (25-35) Mean Corpuscular Hemoglobin Concent 36 g/dL (31-37) Red Cell Distribution Width 12.8 % (11.5-14.5) Platelet Count 153 x10^3/uL (140-400) Neutrophils (%) (Auto) 81 % (31-73) H Lymphocytes (%) (Auto) 13 % (24-48) L Monocytes (%) (Auto) 6 % (0-9) Eosinophils (%) (Auto) 0 % (0-3) Basophils (%) (Auto) 0 % (0-3) Neutrophils # (Auto) 5.7 x10^3/uL (1.8-7.7) Lymphocytes # (Auto) 0.9 x10^3/uL (1.0-4.8) L Monocytes # (Auto) 0.4 x10^3/uL (0.0-1.1) Eosinophils # (Auto) 0.0 x10^3/uL (0.0-0.7) Basophils # (Auto) 0.0 x10^3/uL (0.0-0.2) Sodium Level 129 mmol/L (136-145) L Potassium Level 3.5 mmol/L (3.5-5.1) Chloride Level 95 mmol/L (98-107) L Carbon Dioxide Level 27 mmol/L (21-32) Anion Gap 7 (6-14) Blood Urea Nitrogen 19 mg/dL (7-20) Creatinine 0.8 mg/dL (0.6-1.0) Estimated GFR (Cockcroft-Gault) 68.0 BUN/Creatinine Ratio 24 (6-20) H Glucose Level 125 mg/dL (70-99) H Calcium Level 9.2 mg/dL (8.5-10.1) Total Bilirubin 0.8 mg/dL (0.2-1.0) Aspartate Amino Transferase (AST) 27 U/L (15-37) Alanine Aminotransferase (ALT) 31 U/L (14-59) Alkaline Phosphatase 107 U/L (46-116) Troponin I Quantitative 0.147 ng/mL (0.000-0.055) 0.149 ng/mL (0.000-0.055) 0.153 ng/mL (0.000-0.055) VW-Wrm-Y-Type Natriuretic Peptide 280 pg/mL (0-449) Total Protein 7.1 g/dL (6.4-8.2) Albumin 3.9 g/dL (3.4-5.0) Albumin/Globulin Ratio 1.2 (1.0-1.7) Glucose (Fingerstick) 105 mg/dL (70-99) H Laboratory Tests 01/25/20 23:05 Laboratory Tests 01/25/20 23:05 ECHOCARDIOGRAM ECHOCARDIOGRAM <Conclusion> The left ventricular systolic function is normal and the ejection fraction is within normal range. The Ejection Fraction is >55%. There is normal LV segmental wall motion. Doppler and Color Flow revealed mild aortic regurgitation. DATE: 08/17/18 1147 HEART CATH HEART CATH CORONARY ANGIOGRAPHY: LM is a large caliber vessel with normal angiographic appearance. LAD is a moderate caliber vessel with normal angiographic appearance. LCx is a moderate caliber non-dominant vessel with mild 30% proximal stenosis. OM1 is a moderate caliber vessel with normal angiographic appearance. RCA is a large caliber dominant vessel with mild luminal irregularities of up to 20% RPDA and RPL are moderate caliber vessels with normal angiographic appearance. Conclusion 1. Normal LVEDP. 2. No significant coronary disease. 3. Type 2 NSTEMI Recommendations Aggressive Medical Therapy DATE: 03/22/19 1103 ASSESSMENT/PLAN ASSESSMENT/PLAN 1. Chest pain: No EKG changes. Suspect possibly from high BP and anxeity 2. Chronic troponin elevation: multiple prior admissions with trop at 0.1 mean. Prior LHC with minimal disease in 02/2019. Possibly from high BP and microvascular disease 3. HTN urgency: improved 4. Anxiety 5. Hyperlipidemia; statin 6. DM2 Recommendations 1. TTE, today. Appears to be that her BP is much better controlled when inpt and I would suspect there is some noncompliant component in regards to this. She has no BROWN per past imaging. I talked to the daughter and she will bring all her medications bottles 2. Will need to address her anxiety issues and will defer to PCP 3. DASH diet. Resume home BP meds. 4. ASA, statin therapy SHEREE BANEGAS MD 01/26/20 1714: CARDIAC CONSULT ASSESSMENT/PLAN ASSESSMENT/PLAN Pt. seen and examined. Agree with above CLAIM MANAGER note. Supportive care. HARIS BROOKS APRN Jan 26, 2020 09:21 SHEREE BANEGAS MD Jan 26, 2020 17:14
[2020-01-26 09:39] LABS: CREATININE 0.8 mg/dL (0.6-1.0); MAGNESIUM 1.9 mg/dL (1.8-2.4); POTASSIUM 3.5 mmol/L (3.5-5.1)
[2020-01-26 09:46] LABS: CALCIUM 8.8 mg/dL (8.5-10.1)
[2020-01-26 09:47] LABS: CHOLESTEROL/HDL RATIO 1.7
--- NOTE | 2020-01-26 12:03 | EKG ---
[facility] [address] [place] [address] Test Date: 2020-01-26 Test Time: 12:01:20 Pat Name: DEMI ZAVALA Department: Room: 254 1 Gender: F Circulation Man: CAITLIN : 1935 Requested By: NELLIE ALVARADO Order Number: [id number] Reading MD: Measurements Intervals [place] Rate: 61 P: -29 [place]: 208 QRS: -34 QRSD: 92 T: 71 QT: 420 QTc: 424 Interpretive Statements SINUS RHYTHM ABNORMAL LEFT AXIS DEVIATION LEFT ANTERIOR FASCICULAR BLOCK T ABNORMALITY IN HIGH LATERAL LEADS ABNORMAL ECG RI6.02 Compared to ECG 01/25/2020 22:33:58 Left anterior fascicular block now present Myocardial infarct finding no longer present T-wave abnormality still present
--- NOTE | 2020-01-26 12:44 | NUR ---
SS following for discharge planning. SS reviewed pt chart and discussed with pt RN. Pt is from home and is currently on room air. SS will continue to follow for discharge planning.
[2020-01-26] MEDS ORDERED: METOPROLOL SUCC 24HR ER 25 MG TAB.ER.24H. PO SCH (13:00)
[2020-01-26] MEDS ORDERED: LISINOPRIL 10 MG TABLET PO SCH (13:00)
[2020-01-26] MEDS ORDERED: FOLI20CA PO (13:12)
[2020-01-26] MEDS ORDERED: HYDR-2868 PO (13:26)
[2020-01-26] MEDS: amLODIPine BESYLATE 5 MG TABLET PO SCH ×2 (13:42→20:11)
[2020-01-26] MEDS: ASPIRIN ENTERIC COATED 81 MG TABLET.DR. PO SCH (13:42)
[2020-01-26] MEDS ORDERED: hydrALAZINE 20 MG/ML VIAL. IVP PRN (13:45)
--- NOTE | 2020-01-26 14:42 | CARD ---
MR#: [id number] Date of Study: 01/26/2020 Ordering Physician: HARIS BROOKS, Referring Physician: HARIS BROOKS, Tech: Karla Hernandez APPROVED REPORT EXAM: Two-dimensional and M-mode echocardiogram with Doppler and color Doppler. Other Information Quality : AverageHR: 64bpm INDICATION Chest Pain Congestive Heart Failure Elevated Troponin RISK FACTORS Hypertension Hyperlipidemia Diabetes 2D DIMENSIONS RVDd3.4 (2.9-3.5cm)Left Atrium(2D)3.2 (1.6-4.0cm) IVSd1.1 (0.7-1.1cm)Aortic Root(2D)2.7 (2.0-3.7cm) LVDd4.5 (3.9-5.9cm)LVOT Diameter1.9 (1.8-2.4cm) PWd1.1 (0.7-1.1cm)LVDs2.8 (2.5-4.0cm) FS (%) 39.3 %SV65.9 ml LVEF(%)69.9 (>50%) Aortic Valve AoV Peak Ar.143.6cm/sAoV VTI29.4cm AO Peak GR.8.3mmHgLVOT Peak Ar.85.6cm/s LVOT VTI 20.03cmAO Mean GR.4mmHg GLENDY (VMAX)1.30wm3ZHT (VTI)1.95cm2 AI P 1/2 Vqbf130xy Mitral Valve MV E Dmorumvq40.9cm/sMV DECEL [id number] MV A Iskzvfjp892.8cm/sMV E Mean Gr.2mmHg MV EFL89mgU/A Ratio0.4 MVA (PHT)2.65cm2 TDI E/Lateral E'5.1E/Medial E'6.8 Pulmonary Valve PV Peak Mfjbgrod59.3cm/sPV Peak Grad.4mmHg Tricuspid Valve RAP [id number] Pulmonary Vein S1 Qawmvxqz23.9cm/sD2 Woghrtwv11.3cm/s PVa [id number] LEFT VENTRICLE The left ventricle is normal size. There is borderline to mild concentric left ventricular hypertroph y. The left ventricular systolic function is normal and the ejection fraction is within normal range. The Ejection Fraction is >55%. There is normal LV segmental wall motion. Transmitral Doppler flow pa ttern is Grade I-abnormal relaxation pattern. RIGHT VENTRICLE The right ventricle is normal size. There is normal right ventricular wall thickness. The right ventr icular systolic function is normal. ATRIA The left atrium size is normal. The right atrium size is normal. The interatrial septum is intact wit h no evidence for an atrial septal defect or patent foramen ovale as noted on 2-D or Doppler imaging. AORTIC VALVE The aortic valve is thickened but opens well. Doppler and Color Flow revealed mild to moderate aortic regurgitation. There is no significant aortic valvular stenosis. MITRAL VALVE The mitral valve is thickened but opens well. There is no evidence of mitral valve prolapse. There is no mitral valve stenosis. Doppler and Color-flow revealed trace mitral regurgitation. TRICUSPID VALVE The tricuspid valve is normal in structure and function. Doppler and Color Flow revealed no tricuspid valve regurgitation noted. There is no tricuspid valve stenosis. PULMONIC VALVE The pulmonic valve is not well visualized. Doppler and Color Flow revealed no pulmonic valvular regur gitation. There is no pulmonic valvular stenosis. GREAT VESSELS The aortic root is normal in size. The IVC is normal in size and collapses >50% with inspiration. PERICARDIAL EFFUSION There is no evidence of significant pericardial effusion. Critical Notification Critical Value: No <Conclusion> The left ventricular systolic function is normal and the ejection fraction is within normal range. Th e Ejection Fraction is >55%. There is normal LV segmental wall motion. Doppler and Color Flow revealed mild to moderate aortic regurgitation. Signed by : Ankit Zimmer, Electronically Approved : 01/26/2020 14:41:34
[2020-01-26] MEDS: PANTOPRAZOLE 40 MG TABLET.DR. PO SCH (17:10)
[2020-01-26] MEDS ORDERED: ATORVASTATIN CALCIUM 10 MG TABLET. PO SCH (21:00)
[2020-01-27 03:29] VITALS: BP 134/54
[2020-01-27 05:25] LABS: CALCIUM 8.6 mg/dL (8.5-10.1); CREATININE 0.8 mg/dL (0.6-1.0); POTASSIUM 3.6 mmol/L (3.5-5.1)
[2020-01-27 07:00] VITALS: BP 137/58
[2020-01-27] MEDS: INSULIN LISPRO 300 UNITS/3 ML VIAL. SQ SCH ×2 (08:00→12:00)
[2020-01-27] MEDS: ASPIRIN ENTERIC COATED 81 MG TABLET.DR. PO SCH (08:05)
[2020-01-27] MEDS: PANTOPRAZOLE 40 MG TABLET.DR. PO SCH (08:05)
[2020-01-27] MEDS: amLODIPine BESYLATE 5 MG TABLET PO SCH (08:05)
[2020-01-27 10:30] VITALS: BP_SYST 123; BP_SYST 124; BP_DIAS 45; BP_DIAS 56
--- NOTE | 2020-01-27 11:52 | DISCH ---
DISCHARGE INSTRUCTIONS Condition on Discharge Condition on Discharge: Stable Activity After Discharge Activity Instructions for Disc: No restrictions, Activity as tolerated Bathing Instructions: Shower-keep dressing dry Lifting Instructions after Dis: No heavy lifting, No pulling or pushing, Do not lift >10 pounds, Add. restrict see below Exercise Instruction after Dis: Progress as tolerated Driving Instructions after Dis: Other, see below Weight Bearing Status after Di: No restrictions, As tolerated Diet after Discharge Diet after Discharge: Cardiac Diet Texture: Regular Liquid Texture: Thin Liquid Swallowing Supervision: None needed Checks after Discharge Checks after discharge: Check blood press - daily, Check your Temp as needed Follow-Up Follow up with: PCP within 1 week of discharge regarding your chest pain and anxiety Follow Up With: Cardiology Treatment/Equipment after DC Adaptive Equipment Issued: None NELLIE ALVARADO MD Jan 27, 2020 11:52
--- NOTE | 2020-01-27 12:58 | PDOC ---
HARIS BROOKS FORESTRY BIOLOGY SPECIALIST 01/27/20 1258: CARDIO Progress Notes Date and Time Date of Service 01/27/2020 Time of Evaluation 0930 Subjective Subjective: No Chest Pain, No shortness of breath, No Palpitations Vitals Vitals Vital Signs Date Time Temp Pulse Resp B/P (MAP) Pulse Ox O2 Delivery O2 Flow Rate FiO2 01/27/20 10:30 97.7 62 16 124/56 (78) 95 Room Air 97.7 Weight Weight [ ] Input and Output Intake and Output Intake and Output 01/27/20 07:00 Intake Total 460 ml Balance 460 ml Intake Oral 460 ml # Voids 7 Laboratory Labs Laboratory Tests Test 01/26/20 17:09 01/26/20 20:13 01/27/20 03:26 01/27/20 07:38 Glucose (Fingerstick) 108 mg/dL (70-99) 103 mg/dL (70-99) 86 mg/dL (70-99) Sodium Level 134 mmol/L (136-145) Potassium Level 3.6 mmol/L (3.5-5.1) Chloride Level 99 mmol/L (98-107) Carbon Dioxide Level 28 mmol/L (21-32) Anion Gap 7 (6-14) Blood Urea Nitrogen 18 mg/dL (7-20) Creatinine 0.8 mg/dL (0.6-1.0) Estimated GFR (Cockcroft-Gault) 68.0 Glucose Level 79 mg/dL (70-99) Calcium Level 8.6 mg/dL (8.5-10.1) Test 01/27/20 11:39 Glucose (Fingerstick) 112 mg/dL (70-99) Physical Exam HEENT: Neck Supple W Full Motion Chest: Symmetric LUNGS: Clear to Auscultation Heart: S1S2, RRR (SR no ectopies) Abdomen: Soft N/T Extremities: No Calf Tenderness Neurology: alert, oriented, follow commands Assessment Assessment 1. Chest pain: No EKG changes. Suspect possibly from high BP and anxeity. EF and WM nml. No CP further 2. Chronic troponin elevation: multiple prior admissions with trop at 0.1 mean. Prior LHC with minimal disease in 02/2019. Possibly from high BP and microvascular disease 3. HTN urgency: controlled 4. Anxiety 5. Hyperlipidemia; statin 6. DM2 Recommendations 1. BP is much better controlled when inpt and I would suspect there is some noncompliant component in regards to this. She has no BROWN per past imaging.I reviewed her current med list and I discussed with her granddaughter to s upervise her med intake. May continue hydralazine PRN per trend as needed. DASH diet. Encouraged HBPM with diary. 2. Will need to address her anxiety issues and will defer to PCP 3. ASA, statin therapy 4. Follow up in office. May DC today Justicifation of Admission Dx: Justifications for Admission: Justification of Admission Dx: Yes Angina: New-Onset SHEREE BANEGAS MD 01/28/20 1050: CARDIO Progress Notes Plan Plan Late entry for 01/27/2020 Pt. seen and examined. Agree with above. Spoke to granddaughter. Thanks HARIS BROOKS FORESTRY BIOLOGY SPECIALIST Jan 27, 2020 12:58 SHEREE BANEGAS MD Jan 28, 2020 10:50
[2020-01-27] MEDS ORDERED: HYDR-2868 PO (14:02)
--- NOTE | 2020-01-27 14:10 | NUR ---
SS following up with discharge planning. Discharge order on the chart for home with self care. Request was made to provide pt's family with information on adult daycare and adult caregiving. SS met with family and discussed. Resources provided. Pt's RN notified.
--- NOTE | 2020-01-27 15:03 | NUR ---
Discharge Note: TITA ZAVALA [facility] Discharge instructions and discharge home medications reviewed with Family Member and a copy given. All questions have been answered and understanding verbalized. The following instructions and handouts were given: Dash diet, hypertension Discontinued lines and drains: IV catheter removed intact. Patient discharged to Home with self care via wheelchair.
--- NOTE | 2020-01-27 18:16 | PDOC3 ---
[facility]-Discharge Summary Date of Admission: Date of Admission: Jan 26, 2020 Date of Discharge: Date of Discharge: Jan 27, 2020 Admission Diagnosis: Admitting Diagnosis: Chest pain concerning for unstable angina/NSTEMI versus STEMI, rule out ACS Diabetes type 2 Dyslipidemia Hypertension Discharge Diagnosis: Discharge Diagnosis: Chest pain, ACS ruled out Diabetes type 2 Dyslipidemia Hypertension Consults: Consults: Cardiology Hospital Course: Hospital Course: 84-year-old Hebrew-speaking female with past medical history of diabetes type 2, dyslipidemia, hypertension who presents with 5 out of 10 left-sided chest pain that travels to the left side of her arm. Patient describes the pain as pinching and pulsating. Her arm felt like it was falling asleep. Currently the pain has resolved at this time. Denies shortness of breath, fevers, abdominal pains, nausea or vomiting, orthopnea, dysuria, or bloody stools. Patient was admitted for further care and seen by cardiology. Echo was completed which showed EF and wall motion was normal. Prior left heart cath did show minimal disease in February 2019. Multiple prior admissions with elevated troponins. This is likely due to elevated blood pressure and microvascular disease. Patient does also have a history of anxiety in which she will need to follow-up with her PCP for CBT versus pharmacotherapy. Discussion was spent with the granddaughter for approximately 30 minutes discussing placement for her grandmother. In the past grandmother has refused home health care. An option was placed for the granddaughter to possibly consider for the grandmother to go to adult daycare. Patient remained chest free on the day of discharge. The rest of the hospital course was uneventful. Disposition: Disposition/Orders: D/C to Home Activity: Activity: Resume previous activity Diet: Diet: Cardiac Medications: Home Meds Active Scripts Amlodipine Besylate (AMLODIPINE BESYLATE) 5 Mg Tablet, 5 MG PO BID for HTN for 30 Days, #60 TAB Prov:VIVIAN SINGLETARY MD 01/24/19 B12/Levomefolate Calcium/B-6 (FOLTX TABLET) 1 Each Tablet, 1 EACH PO DAILY, #30 TAB Prov:CATE VARELA MD 05/07/16 Reported Medications Hydralazine Hcl (HYDRALAZINE HCL) 25 Mg Tablet, 25 MG PO BID PRN for ELEVATED BP, SEE COMMENTS, #90 TAB 5 Refills 01/27/20 Folic Acid (FOLIC ACID) 20 Mg Capsule, 1 CAP PO DAILY for for 30 Days, #30 CAP 0 Refills 01/26/20 Atorvastatin Calcium (ATORVASTATIN CALCIUM) 10 Mg Tablet, 10 MG PO HS for FOR CHOLESTEROL, #30 TAB 0 Refills 05/05/16 Pantoprazole Sodium (PANTOPRAZOLE SODIUM ) 40 Mg Tablet.dr, 40 MG PO DAILY, TAB 05/05/16 Scheduled Amlodipine Besylate (Amlodipine Besylate), 5 MG PO BID Atorvastatin Calcium (Atorvastatin Calcium), 10 MG PO HS, (Reported) B12/Levomefolate Calcium/B-6 (Foltx Tablet), 1 EACH PO DAILY Folic Acid (Folic Acid), 1 CAP PO DAILY, (Reported) Pantoprazole Sodium (Pantoprazole Sodium ), 40 MG PO DAILY, (Reported) Scheduled PRN Hydralazine Hcl (Hydralazine Hcl), 25 MG PO BID PRN for ELEVATED BP, SEE COMMENTS, (Reported) Total Time: Total Time: Total time spent was 45 minutes in preparing scripts, discharge planning with SWI and RN and preparing this discharge summary Justicifation of Admission Dx: Justifications for Admission: Justification of Admission Dx: Yes Angina: New-Onset NELLIE ALVARADO MD Jan 27, 2020 18:16
== END 2020-01-27 15:29 | disposition home or self-care (01) | DRG 287 ==
LOC: ER 22:26 → 2 SOUTH 23:41
PROVIDERS: ADMIT Internal Medicine; ATTEND Internal Medicine
PROC: B246ZZZ Ultrasonography of Right and Left Heart (ICD-10-PCS; principal; 2020-01-26)
PROC: 4A023N7 Measurement of Cardiac Sampling and Pressure, Left Heart, Percutaneous Approach (ICD-10-PCS; 2020-01-26)
PROC: B2111ZZ Fluoroscopy of Multiple Coronary Arteries using Low Osmolar Contrast (ICD-10-PCS; 2020-01-26)
DX: R07.9 Chest pain, unspecified (principal); I16.0 Hypertensive urgency; I25.10 Atherosclerotic heart disease of native coronary artery without angina pectoris; F32.9 Major depressive disorder, single episode, unspecified; M19.90 Unspecified osteoarthritis, unspecified site; F41.9 Anxiety disorder, unspecified; E78.5 Hyperlipidemia, unspecified; E11.9 Type 2 diabetes mellitus without complications; E78.00 Pure hypercholesterolemia, unspecified; I10 Essential (primary) hypertension; Z98.49 Cataract extraction status, unspecified eye; Z88.0 Allergy status to penicillin; Z88.5 Allergy status to narcotic agent; I25.2 Old myocardial infarction; Z83.3 Family history of diabetes mellitus
CPT/HCPCS: 36415; 71045; 80048; 80053; 80061; 82962; 83735; 83880; 84484; 85025; 93005; 93306; 96372; 99285; J1650; J1815; G0378

== ENCOUNTER → 2020-02-07 | Outpatient (CLI) | payer MEDICARE, OTHER ==
[2020-01-27 10:30] VITALS: BP 124/56
[~2020-02-07] MED LIST changes: +FOLI20CA PO
--- NOTE | 2020-02-07 12:12 | CARD ---
MR#: [id number] Date of Study: 02/07/2020 Ordering Physician: SHEREE BANEGAS, Referring Physician: SHEREE BANEGAS, Tech: Dahlia Olivares [facility] APPROVED REPORT EXAM: Two-dimensional and M-mode echocardiogram with Doppler and color Doppler. Other Information Quality : Good INDICATION Cardiac Disease: CAD 2D DIMENSIONS RVDd2.7 (2.9-3.5cm)Left Atrium(2D)3.7 (1.6-4.0cm) IVSd1.4 (0.7-1.1cm)Aortic Root(2D)2.4 (2.0-3.7cm) LVDd3.8 (3.9-5.9cm)LVOT Diameter2.3 (1.8-2.4cm) PWd1.2 (0.7-1.1cm)LVDs2.6 (2.5-4.0cm) FS (%) 31.1 %SV37.6 ml LVEF(%)59.5 (>50%) Aortic Valve AoV Peak Ar.161.9cm/sAoV VTI38.8cm AO Peak GR.10.5mmHgLVOT Peak Ar.109.1cm/s AO Mean GR.6mmHgAVA (VMAX)2.74cm2 GLENDY (VTI)2.29sf2JX P 1/2 Yomr916qd Mitral Valve MV E Rpjxhaxq37.7cm/sMV DECEL [id number] MV A Tokbsmwq702.5cm/sE/A Ratio0.6 Tricuspid Valve TR P. Fcbzndkk630ow/sRAP PMWCIRGL5xaFw TR Peak Gr.83bkOaIUDR79zkBp Pulmonary Vein S1 Mfbwnyhj64.5cm/sD2 Oncfxbvb15.2cm/s LEFT VENTRICLE The left ventricle is normal size. There is mild concentric left ventricular hypertrophy. The left ve ntricular systolic function is normal and the ejection fraction is within normal range. The Ejection Fraction is 60-65%. There is normal LV segmental wall motion. Transmitral Doppler flow pattern is Gra de I-abnormal relaxation pattern. RIGHT VENTRICLE The right ventricle is normal size. The right ventricular systolic function is normal. ATRIA The left atrium size is normal. The right atrium size is normal. The interatrial septum is intact wit h no evidence for an atrial septal defect or patent foramen ovale as noted on 2-D or Doppler imaging. AORTIC VALVE The aortic valve is mildly thickened but opens well. Doppler and Color Flow revealed mild to moderate aortic regurgitation. There is no significant aortic valvular stenosis. MITRAL VALVE The mitral valve is calcified but opens well. Posterior mitral annular calcification is mild to moder ate. There is no evidence of mitral valve prolapse. There is no mitral valve stenosis. Doppler and Co jose Flow revealed no mitral valve regurgitation noted. TRICUSPID VALVE The tricuspid valve is normal in structure and function. Doppler and Color Flow revealed trace tricus pid regurgitation. The PA pressure was estimated at 29 mmHg. There is no tricuspid valve stenosis. PULMONIC VALVE The pulmonic valve is not well visualized. Doppler and Color Flow revealed no pulmonic valvular regur gitation. There is no pulmonic valvular stenosis. GREAT VESSELS The aortic root is normal in size. The ascending aorta is normal in size. The IVC is normal in size a nd collapses >50% with inspiration. PERICARDIAL EFFUSION There is no evidence of significant pericardial effusion. Critical Notification Critical Value: No <Conclusion> The left ventricular systolic function is normal and the ejection fraction is within normal range. T he Ejection Fraction is 60-65%. There is normal LV segmental wall motion. Doppler and Color Flow revealed mild to moderate aortic regurgitation. Signed by : Sheree Banegas, Electronically Approved : 02/07/2020 12:12:07
== END | disposition home or self-care (01) ==
LOC: NM 11:13
PROVIDERS: ATTEND Internal Medicine Cardiovascular Disease
DX: I08.0 Rheumatic disorders of both mitral and aortic valves (principal); I25.10 Atherosclerotic heart disease of native coronary artery without angina pectoris
CPT/HCPCS: 93306

== ENCOUNTER → 2020-02-09 | Outpatient (CLI) | payer MEDICARE, OTHER ==
[2020-01-27 10:30] VITALS: BP 124/56
[~2020-02-09] MED LIST changes: +REGADENOSON 0.4 MG/5 ML DISP.SYRIN. IV ONE
--- NOTE | 2020-02-10 07:32 | RAD ---
MR#: [id number] Date of Study: 02/09/2020 Ordering Physician: SHEREE ZIMMER, Referring Physician: JAMES DEVLIN Tech: RT Raisa Adam) (N) APPROVED REPORT Test Type: Pharmacological Stress Nurse/Tech: Lynsey Ulloa RN Test Indications: CAD Cardiac History: Hypertension, Diabetes Medications: See Electronic Medical Record Medical History: See Electronic Medical Record Resting ECG: SR Resting Heart Rate: 61 bpm Resting Blood Pressure: 159/54mmHg Pretest Chest Pain: No chest pain Nurse/Tech Notes S1,S2 and lungs slightly diminished in the bases. Consent: The procedure was explained to the patient in lay terms. Informed consent was witnessed. Carlito eout was entered into [employer]. History and Stress Test performed by RT Kia (R) (N) Pharm. Details Pharmacologic stress testing was performed using 0.4mg per 5ml of regadenoson given intravenously ove r 7-10 seconds. Stress Symptoms Headache POST EXERCISE Reason for Termination: Infusion complete Target HR: No Max HR: 86 bpm 76% of Maximum Predicted HR: 113 bpm Max Blood Pressure: 143/46mmHg Blood Pressure response to exercise: Normal blood pressure response during stress. Heart Rate response to exercise: WNL Chest Pain: No. Arrhythmia: No. ST Change: No. INTERPRETATION Stress EKG Conclusion: No evidence of stress induced EKG changes. Imaging Protocol IMAGE PROTOCOL: Rest Tc-99m/stress Tc-99m 1 day Rest: Stress: Viability: Radiopharm.Tc99m BlbhmjctwBe60h Sestamibi Efns00cYd 30.3mCi Duration 15min. 15min. Img Date 02/09/2020 02/09/2020 Inj-Img Pzfd21gvd. 60min. Rest Admin Site:IV - Left AntecubitalAdministrator:RT Kia (Jose Miguel)(N) Stress Admin Site: IV - Left AntecubitalAdministrator: RT Alyx (Jose Miguel)(N) STRESS DATA End Diast. Vol.40.0mlLVEDV index BSA26.0ml End Syst. Vol.3.0mlLVESV index BSA2.0ml Myocardial Mass87.0gEject. Wuqunchp79.0% Stress Scores Regional WT3.00Summed WT20.00 Regional WM0.00Summed WM0.00 The rest and stress images show normal perfusion, normal contraction and thickening. LV Perf. Quant 17 Seg. SSS1.00 17 Seg. SRS1.00 17 Seg. SDS1.00 Stress Defect Extent (% LAD)0.00Rest Defect Extent (% LAD)3.10Rev. Defect Extent (% LAD)0.00 Stress Defect Extent (% LCX) 0.00Rest Defect Extent (% LCX)0.00Rev. Defect Extent (% LCX)0.00 Stress Defect Extent (% RCA)0.00Rest Defect Extent (% RCA)3.30Rev. Defect Extent (% RCA)0.00 Stress Defect Extent (% YADRIA)0.00Rest Defect Extent (% YADIRA)5.20Rev. Defect Extent (% YADIRA)0.00 Other Information Quality:Good Risk Assessment: Low Risk Conclusion 1. No evidence of EKG changes with stress testing. 2. Normal perfusion at stress/rest. 3. Low risk study. 4. EF > 60%. Signed by : Sheree Zimmer, Electronically Approved : 02/10/2020 07:31:39
== END | disposition home or self-care (01) ==
LOC: NM 09:41
PROVIDERS: ATTEND Internal Medicine Cardiovascular Disease
DX: I25.10 Atherosclerotic heart disease of native coronary artery without angina pectoris (principal); I10 Essential (primary) hypertension; E11.9 Type 2 diabetes mellitus without complications
CPT/HCPCS: 78452; 93017; A9500; J2785

== ENCOUNTER 2020-02-25 18:23 | Inpatient (IN) | payer MEDICARE, OTHER ==
[~2020-02-25] VITALS: Ht 160 cm; Wt 45.5 kg
[~2020-02-25 18:23] MED LIST changes: -REGADENOSON 0.4 MG/5 ML DISP.SYRIN. IV ONE
[2020-02-25] MEDS ORDERED: HYDROcodone/APAP 5/325MG 1 TAB TABLET PO ONE (19:15)
--- NOTE | 2020-02-25 19:15 | PHYS DOC ---
Past Medical History Past Medical History: Anxiety, Arthritis, Diabetes-Type II, High Cholesterol, Hypertension Past Surgical History: Other Additional Past Surgical Histo: cataract Smoking Status: Never Smoker Alcohol Use: None Drug Use: None General Adult EDM: Chief Complaint: MECHANICAL FALL HPI: HPI: The history was obtained from the patient. Patient is a 84-year-old female with PMH szv-uhcsxqh-hxunifbuh diabetes, anxiety, arthritis, hypertension who presents with a chief complaint of fall. Patient states she experienced a non-syncopal fall approximately 2 weeks ago. She has been ambulatory since the fall. States she has had left hip and left flank pain since falling. She also notes that she struck her head and she does have a bruise of her forehead. She is not take blood thinners. She ambulates without assistance at baseline. She has been ambulatory since the fall. She notes that her pain is been difficult to control with home medications including Tylenol and ibuprofen. She denies neck pain. She does note some sacral pain. She notes bilateral hip pain as well. Denies any deformities. Denies numbness or tingling. Denies any prodromal syncopal events prior to falling. Denies chest pain or shortness of breath. No other complaints. Review of Systems: Review of Systems: Constitutional: Denies fever or chills. [] Eyes: Denies change in visual acuity. [] HENT: Denies nasal congestion or sore throat. [] Respiratory: Denies cough or shortness of breath. [] Cardiovascular: Denies chest pain or edema. [] GI: Denies abdominal pain, nausea, vomiting, bloody stools or diarrhea. [] : Denies dysuria. [] Musculoskeletal: Positive for hip pain and fall. Integument: Denies rash. [] Neurologic: Denies headache, focal weakness or sensory changes. [] Endocrine: Denies polyuria or polydipsia. [] Lymphatic: Denies swollen glands. [] Psychiatric: Denies depression or anxiety. [] Heart Score: Risk Factors: Risk Factors: DM, Current or recent (<one month) smoker, HTN, HLP, family history of CAD, obesity. Risk Scores: Score 0 - 3: 2.5% MACE over next 6 weeks - Discharge Home Score 4 - 6: 20.3% MACE over next 6 weeks - Admit for Clinical Observation Score 7 - 10: 72.7% MACE over next 6 weeks - Early Invasive Strategies Current Medications: Current Medications Medications (Trade) Dose Ordered Sig/Austin Start Time Stop Time Status Last Admin Dose Admin Acetaminophen/ Hydrocodone Bitart (Lortab 5/325) 1 tab 1X ONCE 02/25/20 19:15 02/25/20 19:16 02/25/20 19:11 1 TAB Allergies: Allergies: Allergies Coded Allergies Type Severity Reaction Last Updated Verified Penicillins Allergy Intermediate RASH 07/23/18 Yes morphine Adverse Reaction Mild N/V 07/23/18 Yes Physical Exam: PE: Physical Exam Trauma: Primary Survey: Airway: Intact. Speaks in normal voice and phonation. Breathing: Breath sounds are clear and equal bilaterally. Circulation: Regular rhythm, 2+ and symmetric radial, DP and PT pulses. Disability: GCS on arrival was 15. Pupils 3 mm, ERRL Exposure: Complete exposure obtained and described in detail below. Secondary Survey: General: Awake, alert, appropriate, and in no acute distress HENT: Atraumatic. TMs clear bilaterally, no hemotympanum. No periorbital tenderness or deformity. No obvious craniofacial trauma. Midface is stable. No apparent dental or tongue/oropharyngeal injury. No septal hematoma. Neck: C-spine: no midline tenderness. Without step-off, deformity, abrasion, ecchymosis, or other signs of trauma. Paraspinal musculature with no tenderness and/or hypertonicity. Eyes: Pupils 3 mm ERRL, EOMI grossly, no evidence of ocular trauma, conjunctivae normal Respiratory: CTAB without wheezing, rhonchi, or rales. No distress. Chest wall with no tenderness to palpation. No crepitus, ecchymosis, or flail segment present. Cardiovascular: Regular rhythm without murmurs noted. 2+ and symmetric radial, DP and PT pulses. GI: Soft, non-tender, non-distended Musculoskeletal: T-spine: no midline tenderness. Without step-off, deformity, abrasion, ecchymosis, or other signs of trauma. Paraspinal musculature with no tenderness and/or hypertonicity. L-spine: Mild midline tenderness. Without step-off, deformity, abrasion, ec chymosis, or other signs of trauma. Paraspinal musculature with no tenderness and/or hypertonicity. RUE: Active ROM, no obvious deformity, no gross weakness or sensory deficits, warm & well-perfused LUE: Active ROM, no obvious deformity, no gross weakness or sensory deficits, warm & well-perfused RLE: Active ROM, no obvious deformity, no gross weakness or sensory deficits, warm & well-perfused LLE: Active ROM, no obvious deformity, no gross weakness or sensory deficits, warm & well-perfused Integument: Without abrasions, contusions, or lacerations. Neurologic: GCS on arrival as noted above. No obvious focal motor or sensory deficits on examination. Gait not assessed due to acuity of trauma assessment. Current Patient Data: Vital Signs: Vital Signs Date Time Temp Pulse Resp B/P (MAP) Pulse Ox O2 Delivery O2 Flow Rate FiO2 02/25/20 18:41 98.1 87 16 159/70 (99) 95 Room Air 98.1 EKG: EKG: [] Radiology/Procedures: Radiology/Procedures: [facility] [address] [place] [address] IMAGING REPORT Signed PATIENT: DEMI ZAVALAACCOUNT: [id number] : 1935 LOCATION: ER AGE: 84 SEX: F EXAM STATUS: REG ER ORD. PHYSICIAN: AAYUSH RIOS DO REASON: PROCEDURE: CT LUMBAR SPINE RECONSTRUCTION Exam: CT of chest, abdomen and pelvis without contrast. CT thoracic and lumbar spine INDICATION: Fall TECHNIQUE: Sequential axial images through the chest, abdomen and pelvis obtained without IV contrast. Sagittal and coronal reformatted images were reconstructed from the axial data and reviewed. Cone-down reconstructed images of the thoracic and lumbar spine were also reviewed. Comparisons: Chest x-ray 12/26/2019 FINDINGS: Visualized portions of the thyroid are unremarkable. No enlarged mediastinal lymph nodes are identified. Heart size is normal. No pericardial effusion. Mild coronary artery calcifications. Thoracic aorta has a normal course and caliber. Pulmonary artery is not enlarged. Airways are patent. No consolidation or pneumothorax. No suspicious lung nodules. No pleural effusion or thickening. Evaluation of solid organs is limited secondary to noncontrast technique. Liver, spleen, pancreas and adrenals are unremarkable. Gallbladder is surgically absent. There is mild bilateral pelvocaliectasis. No renal or ureteral calculi are identified. Bladder is partially distended and appears thin-walled. Uterus is not enlarged. No abnormal adnexal mass. Diverticulosis is noted at the sigmoid colon without evidence of acute diverticulitis. Remainder of the large and small bowel are unremarkable. Appendix is is not definitively identified. No free intra-abdominal air or fluid. No obstruction. Abdominal aorta has a normal course and caliber. No enlarged abdominal lymph nodes are identified. Mildly displaced comminuted fracture of the inferior left pubic rami. Additionally there is a fracture of the superior pubic rami on the left adjacent to the acetabulum. Joint spaces appear well maintained. There are mildly displaced bilateral sacral glory fractures. Thoracolumbar spine: Vertebral body heights and alignment are well-maintained. Fracture to the thoracolumbar spine is not identified. Mild multilevel degenerative disc disease throughout the lumbar spine with bilateral facet arthropathy greatest at L4-L5 and L5-S1. IMPRESSION: 1. Mildly displaced bilateral sacral glory fractures. 2. Mildly displaced comminuted fracture of the inferior left pubic rami. Fracture of the superior pubic rami on the left adjacent to the acetabulum. 3. Negative CT thoracic and lumbar spine for acute traumatic injury. Exposure: One or more of the following in the visualized dose reduction techniques were utilized for this examination: 1. Automated exposure control 2. Adjustment of the MA and/or KV according to patient size 3. Use of iterative of reconstructive technique Electronically signed by: Morro Phelps MD (02/25/2020 8:48 PM) [id number] DICTATED and SIGNED BY: MORRO PHELPS MD DATE: 02/25/202047 [] Course & Med Decision Making: Course & Med Decision Making Pertinent Labs and Imaging studies reviewed. (See chart for details) Patient is an 84-year-old female who presents with bilateral hip pain and low back pain status post mechanical fall approximate [address] imaging does reveal multiple pelvic fractures including left-sided suprapubic and inferior pubic rami fractures. As well as bilateral sacral glory fractures. No other acute traumatic abnormalities identified. I did discuss the case with sales recruitment specialist Dr. Ford. He did recommend hospitalization for pain control and further orthopedic evaluation. Patient and son at bedside were updated on plan of care. She will be hospitalized. Dragon Disclaimer: Dragroger Disclaimer: This electronic medical record was generated, in whole or in part, using a voice recognition dictation system. Departure Departure Impression: Primary Impression: Fracture of superior ramus of left pubis Qualified Codes: S32.512A - Fracture of superior rim of left pubis, initial encounter for closed fracture Additional Impressions: Fracture of left inferior pubic ramus Qualified Codes: S32.592A - Other specified fracture of left pubis, initial encounter for closed fracture Sacral fracture Qualified Codes: S32.10XA - Unspecified fracture of sacrum, initial encounter for closed fracture Fall Qualified Codes: W19.XXXA - Unspecified fall, initial encounter Disposition: ADMITTED INPATIENT Condition: STABLE Referrals: CATE VARELA MD (PCP) Justicifation of Admission Dx: Justifications for Admission: Justification of Admission Dx: Yes Angina: New-Onset Comments: pelvic fractures AAYUSH RIOS DO Feb 25, 2020 19:15
--- NOTE | 2020-02-25 20:24 | RAD ---
Examination: CT head and cervical spine without contrast CT HEAD INDICATION: Reason: fall / Spl. Instructions: / History: COMPARISON: None Available. Exposure: One or more of the following individualized dose reduction techniques were utilized for this examination: 1. Automated exposure control 2. Adjustment of the mA and/or kV according to patient size 3. Use of iterative reconstruction technique TECHNIQUE: 5 mm contiguous axial images were obtained from the skull base to the vertex in both bone and soft tissue algorithm. FINDINGS: Mild bilateral periventricular white matter hypodensities likely chronic small vessel ischemic disease. No evidence of acute intracranial hemorrhage. No extra-axial fluid collections. No mass effect or midline shift. Ventricular size is appropriate. Basal cisterns are patent. No fractures identified.Falcon-white differentiation is preserved.Globes and orbits are within normal limits. Paranasal sinuses and mastoid air cells are clear. IMPRESSION: No acute intracranial findings. CT CERVICAL SPINE INDICATION: Reason: fall / Spl. Instructions: / History: COMPARISON: None Available. Technique: 2.5 mm contiguous axial images were obtained from the skull base through the cervicothoracic junction in both bone and soft tissue algorithm. Additional sagittal and coronal reconstructions were also performed. FINDINGS: Vertebral body height and alignment are maintained. Cervical lordosis is preserved. The lateral masses of C1 are aligned upon C2. No fractures identified. The bony canal is patent throughout. Moderate intervertebral disc height loss identified in the cervical spine likely degenerative changes. The paraspinous soft tissues are unremarkable. Visualized intracranial contents are unremarkable. Lung apices are clear. IMPRESSION: 1. No acute fracture the cervical spine. Correlate clinically. 2. Moderate degenerative changes cervical spine. Electronically signed by: Andrea Chung MD (02/25/2020 8:21 PM) [id number]
--- NOTE | 2020-02-25 20:51 | RAD ---
Exam: CT of chest, abdomen and pelvis without contrast. CT thoracic and lumbar spine INDICATION: Fall TECHNIQUE: Sequential axial images through the chest, abdomen and pelvis obtained without IV contrast. Sagittal and coronal reformatted images were reconstructed from the axial data and reviewed. Cone-down reconstructed images of the thoracic and lumbar spine were also reviewed. Comparisons: Chest x-ray 12/26/2019 FINDINGS: Visualized portions of the thyroid are unremarkable. No enlarged mediastinal lymph nodes are identified. Heart size is normal. No pericardial effusion. Mild coronary artery calcifications. Thoracic aorta has a normal course and caliber. Pulmonary artery is not enlarged. Airways are patent. No consolidation or pneumothorax. No suspicious lung nodules. No pleural effusion or thickening. Evaluation of solid organs is limited secondary to noncontrast technique. Liver, spleen, pancreas and adrenals are unremarkable. Gallbladder is surgically absent. There is mild bilateral pelvocaliectasis. No renal or ureteral calculi are identified. Bladder is partially distended and appears thin-walled. Uterus is not enlarged. No abnormal adnexal mass. Diverticulosis is noted at the sigmoid colon without evidence of acute diverticulitis. Remainder of the large and small bowel are unremarkable. Appendix is is not definitively identified. No free intra-abdominal air or fluid. No obstruction. Abdominal aorta has a normal course and caliber. No enlarged abdominal lymph nodes are identified. Mildly displaced comminuted fracture of the inferior left pubic rami. Additionally there is a fracture of the superior pubic rami on the left adjacent to the acetabulum. Joint spaces appear well maintained. There are mildly displaced bilateral sacral glory fractures. Thoracolumbar spine: Vertebral body heights and alignment are well-maintained. Fracture to the thoracolumbar spine is not identified. Mild multilevel degenerative disc disease throughout the lumbar spine with bilateral facet arthropathy greatest at L4-L5 and L5-S1. IMPRESSION: 1. Mildly displaced bilateral sacral glory fractures. 2. Mildly displaced comminuted fracture of the inferior left pubic rami. Fracture of the superior pubic rami on the left adjacent to the acetabulum. 3. Negative CT thoracic and lumbar spine for acute traumatic injury. Exposure: One or more of the following in the visualized dose reduction techniques were utilized for this examination: 1. Automated exposure control 2. Adjustment of the MA and/or KV according to patient size 3. Use of iterative of reconstructive technique Electronically signed by: Morro Oconnell MD (02/25/2020 8:48 PM) [id number]
[2020-02-25] MEDS ORDERED: MORPHINE SULFATE 4 MG/ML VIAL. IV PRN (21:45)
[2020-02-25] MEDS ORDERED: ONDANSETRON PF 4 MG/2 ML VIAL. IV PRN (21:45)
--- NOTE | 2020-02-25 22:01 | RAD ---
Exam: Pelvis 1 view INDICATION: Fall TECHNIQUE: Frontal view of the pelvis Comparisons: None FINDINGS: Diffuse osteopenia. Mild displaced fracture involving the left superior and inferior pubic rami. Soft tissues are unremarkable. Joint spaces are well-maintained. IMPRESSION: Mildly displaced fractures involving the left superior and inferior pubic rami. Electronically signed by: Morro Oconnell MD (02/25/2020 9:58 PM) [id number]
[2020-02-25] MEDS ORDERED: fentaNYL PF VIAL 100 MCG/2 ML VIAL IVP PRN (22:15)
[2020-02-25 23:53] VITALS: BP 154/65
[2020-02-26] MEDS ORDERED: ALPR0.254 PO (02:19)
[2020-02-26] MEDS ORDERED: HYDR-2868 PO (02:19)
[2020-02-26 03:00] VITALS: BP 131/56
[2020-02-26] MEDS ORDERED: SERT25TA PO (03:03)
[2020-02-26] MEDS ORDERED: ACET500T33 PO (03:05)
[2020-02-26 07:00] VITALS: BP 107/59
[2020-02-26] MEDS ORDERED: ONDANSETRON PF 4 MG/2 ML VIAL. IVP PRN (07:15)
[2020-02-26 07:50] LABS: BASO % 0 % (0-3); EOS # 0.1 x10^3/uL (0.0-0.7); EOS % 2 % (0-3); HEMOGLOBIN 11.7 g/dL (12.0-15.5); LYMPH # 0.7 x10^3/uL (1.0-4.8); LYMPH % 13 % (24-48); MEAN CORPUSCULAR HEMOGLOBIN 35 pg (25-35); MEAN CORPUSCULAR HGB CONC 36 g/dL (31-37); MEAN CORPUSCULAR VOLUME 97 fL (79-100); MONO # 0.3 x10^3/uL (0.0-1.1); MONO % 6 % (0-9); NEUT # 4.2 x10^3/uL (1.8-7.7); NEUT % 79 % (31-73); PLATELET COUNT 132 x10^3/uL (140-400); RED CELL DISTRIBUTION WIDTH 13.3 % (11.5-14.5); WHITE BLOOD COUNT 5.3 x10^3/uL (4.0-11.0)
[2020-02-26] MEDS: IV NORMAL SALINE 1000ML BAG 1,000 ML IV SCH ×2 (08:04→22:29)
--- NOTE | 2020-02-26 08:07 | PDOC1 ---
History and Physical Date of Service: DOS: DATE: 02/26/20 TIME: 08:04 Chief Complaint: Chief Complain: fall History of Present Illness: HPI: 84-year-old female with PMH [id number] diabetes, anxiety, arthritis, hypertension who presents with a chief complaint of fall. Patient states she experienced a non-syncopal fall approximately 2 weeks ago. Son took her to [facility] emergency and they said images were taken and they told her that it was just arthritis. She has been ambulatory since the fall. States she has had left hip and left flank pain since falling. She also notes that she struck her head and she does have a bruise of her forehead. She is not take blood thinners. She ambulates without assistance at baseline. She has been ambulatory since the fall. She notes that her pain is been difficult to control with home medications including Tylenol and ibuprofen. She denies neck pain. She does note some sacral pain. She notes bilateral hip pain as well. Denies any deformities. Denies numbness or tingling. Denies any prodromal syncopal events prior to falling. Denies chest pain or shortness of breath. No other complaints. Past Medical/Surgical History: PMH/PSH: Past Medical History: Anxiety, Arthritis, Diabetes-Type II, High Cholesterol, Hypertension Past Surgical History: cataract Allergies: Allergies: Coded Allergies: Penicillins (Verified Allergy, Intermediate, RASH, 07/23/18) morphine (Verified Adverse Reaction, Mild, N/V, 07/23/18) Family History: Family History: Reviewed and non reported Social History: Social History: Smoking Status: Never Smoker Alcohol Use: None Drug Use: None Current Medications: Current Medications Current Medications Acetaminophen/ Hydrocodone Bitart (Lortab 5/325) 1 tab 1X ONCE PO Last administered on 02/25/20at 19:11; Start 02/25/20 at 19:15; Stop 02/25/20 at 19:16; Status DC Ondansetron HCl (Zofran) 4 mg PRN Q8HRS PRN IV NAUSEA/VOMITING 1ST CHOICE Last administered on 02/25/20at 23:39; Start 02/25/20 at 21:45; Stop 02/26/20 at 07:15; Status DC Morphine Sulfate (Morphine Sulfate) 4 mg PRN Q2HR PRN IV SEVERE PAIN 7-10; Start 02/25/20 at 21:45; Stop 02/26/20 at 21:44; Status UNV Fentanyl Citrate (Fentanyl 2ml Vial) 50 mcg PRN Q2HR PRN IVP SEVERE PAIN 7-10 Last administered on 02/25/20at 23:09; Start 02/25/20 at 22:15; Stop 02/26/20 at 07:15; Status DC Fentanyl Citrate (Fentanyl 2ml Vial) 50 mcg PRN Q2HR PRN IVP PAIN; Start 02/26/20 at 07:15 Sodium Chloride 1,000 ml @ 60 mls/hr [id number] IV ; Start 02/26/20 at 07:15 Ondansetron HCl (Zofran) 4 mg PRN Q8HRS PRN IVP NAUSEA/VOMITING; Start 02/26/20 at 07:15 Active Scripts Active Amlodipine Besylate 5 Mg Tablet 5 Mg PO BID 30 Days Foltx Tablet (B12/Levomefolate Calcium/B-6) 1 Each Tablet 1 Each PO DAILY Reported Tylenol Extra Strength (Acetaminophen) 500 Mg Tablet 500 Mg PO PRN Q6-8HRS Zoloft (Sertraline Hcl) 25 Mg Tablet 1 Tab PO DAILY Alprazolam 0.25 Mg Tablet 1 Tab PO PRN BID Hydralazine Hcl 25 Mg Tablet 1 Tab PO TID Atorvastatin Calcium 10 Mg Tablet 10 Mg PO HS Pantoprazole Sodium (Pantoprazole Sodium) 40 Mg Tablet. 40 Mg PO DAILY ROS: Review of Systems Review of System REVIEW OF SYSTEMS: GENERAL: Denies weakness SKIN: No bruising, hair changes or rashes. EYES: No blurred, double or loss of vision. NOSE AND THROAT: No history of nosebleeds, hoarseness or sore throat. HEART: No history of palpitations, chest pain or shortness of breath on exertion. LUNGS: Denies cough, hemoptysis, wheezing or shortness of breath. GASTROINTESTINAL: Denies changes in appetite, nausea, vomiting, diarrhea or constipation. GENITOURINARY: No history of frequency, urgency, hesitancy or nocturia. NEUROLOGIC: Denies history of numbness, tingling, or tremor. PSYCHIATRIC: No history of panic, anxiety or depression. ENDOCRINE: No history of heat or cold intolerance, polyuria or polydipsia. EXTREMITIES: Denies joint pain, pain on walking or stiffness. Physical Exam: Vital Signs: Vital Signs Date Time Temp Pulse Resp B/P (MAP) Pulse Ox O2 Delivery O2 Flow Rate FiO2 02/26/20 06:40 Room Air 02/26/20 03:00 98.4 68 19 131/56 (81) 95 98.4 Physcial Exam: GEN: No apparent distress. Alert and oriented HEENT: Normal cephalic, atraumatic, external auditory canals are patent EYES: Extraocular muscles are intact, pupil are equally round and reactive to light and accommodation MUSCULOSKELETAL: Well developed , well nourished, good range of motion ENDOCRINE: No thyromegaly was palpated LYMPHATICS: No cervical chain or axillary nodes were noted HEMATOPOIETIC: No bruising NECK: Supple, no JVD, no thyromegaly was noted LUNGS: Clear to auscultation in all lung castillo without rhonchi or wheezing HEART: RRR, S!, S2 present. Peripheral pulses intact, no obvious murmurs noted ABDOMEN: Soft, nontender. Positive bowel sounds, no organomegaly, normal bowel sounds EXTREMITIES: Without clubbing, cyanosis, or edema. Pedal pulses intact. Negative Homans sign Groin tenderness NEUROLOGIC: Normal speech and tone. A&O x 3, moves all extremities, no obvious focal deficits PSYCHIATRIC: Normal affect, normal mood. Stable SKIN: No ulcerations or rashes, good skin turgor, no jaundice VASCULAR: Good capillary refill, neurovascular bundle appears to be intact Labs: Labs: Laboratory Tests Test 02/26/20 07:25 White Blood Count 5.3 x10^3/uL (4.0-11.0) Red Blood Count 3.40 x10^6/uL (3.50-5.40) Hemoglobin 11.7 g/dL (12.0-15.5) Hematocrit 33.0 % (36.0-47.0) Mean Corpuscular Volume 97 fL (79-100) Mean Corpuscular Hemoglobin 35 pg (25-35) Mean Corpuscular Hemoglobin Concent 36 g/dL (31-37) Red Cell Distribution Width 13.3 % (11.5-14.5) Platelet Count 132 x10^3/uL (140-400) Neutrophils (%) (Auto) 79 % (31-73) Lymphocytes (%) (Auto) 13 % (24-48) Monocytes (%) (Auto) 6 % (0-9) Eosinophils (%) (Auto) 2 % (0-3) Basophils (%) (Auto) 0 % (0-3) Neutrophils # (Auto) 4.2 x10^3/uL (1.8-7.7) Lymphocytes # (Auto) 0.7 x10^3/uL (1.0-4.8) Monocytes # (Auto) 0.3 x10^3/uL (0.0-1.1) Eosinophils # (Auto) 0.1 x10^3/uL (0.0-0.7) Basophils # (Auto) 0.0 x10^3/uL (0.0-0.2) Laboratory Tests Test 02/26/20 07:25 White Blood Count 5.3 x10^3/uL (4.0-11.0) Red Blood Count 3.40 x10^6/uL (3.50-5.40) Hemoglobin 11.7 g/dL (12.0-15.5) Hematocrit 33.0 % (36.0-47.0) Mean Corpuscular Volume 97 fL (79-100) Mean Corpuscular Hemoglobin 35 pg (25-35) Mean Corpuscular Hemoglobin Concent 36 g/dL (31-37) Red Cell Distribution Width 13.3 % (11.5-14.5) Platelet Count 132 x10^3/uL (140-400) Neutrophils (%) (Auto) 79 % (31-73) Lymphocytes (%) (Auto) 13 % (24-48) Monocytes (%) (Auto) 6 % (0-9) Eosinophils (%) (Auto) 2 % (0-3) Basophils (%) (Auto) 0 % (0-3) Neutrophils # (Auto) 4.2 x10^3/uL (1.8-7.7) Lymphocytes # (Auto) 0.7 x10^3/uL (1.0-4.8) Monocytes # (Auto) 0.3 x10^3/uL (0.0-1.1) Eosinophils # (Auto) 0.1 x10^3/uL (0.0-0.7) Basophils # (Auto) 0.0 x10^3/uL (0.0-0.2) Images: Images Pelvic Xr IMPRESSION: Mildly displaced fractures involving the left superior and inferior pubic rami. CT Head - negative findings CT chest/ABD/Pelvix IMPRESSION: 1. Mildly displaced bilateral sacral glory fractures. 2. Mildly displaced comminuted fracture of the inferior left pubic rami. Fracture of the superior pubic rami on the left adjacent to the acetabulum. 3. Negative CT thoracic and lumbar spine for acute traumatic injury. Assessment/Plan Assessment/Plan 1. Mildly displaced bilateral sacral glory fractures. 2. Mildly displaced comminuted fracture of the inferior left pubic rami. Fracture of the superior pubic rami on the left adjacent to the acetabulum. Admit to medicine IV pain control Ortho consult PT/OT Lovenox for DVT prophylaxis Disposition: PT/OT and for placement home vs rehab Justifications for Admission Other Justification NELLIE ALVARADO MD Feb 26, 2020 08:07
[2020-02-26] MEDS ORDERED: DEXTROSE 50% 25 GM / 50ML DISP.SYRIN. IV PRN (08:15)
[2020-02-26 08:23] LABS: CALCIUM 8.2 mg/dL (8.5-10.1); CREATININE 0.8 mg/dL (0.6-1.0); POTASSIUM 3.5 mmol/L (3.5-5.1)
[2020-02-26] MEDS: fentaNYL PF VIAL 100 MCG/2 ML VIAL IVP PRN ×2 (09:56→22:30)
--- NOTE | 2020-02-26 10:24 | PDOC2 ---
CONSULT Date of Consult Date of Consult DATE: 02/26/20 TIME: 10:22 Source Source: Caregiver, Chart review, Patient History of Present Illness Reason for Visit: The history was obtained from the patient, the patient's family who translated, and from chart review. Patient is a 84-year-old female with PMH [id number] diabetes, anxiety, arthritis, hypertension who presents with a chief complaint of fall. Patient states she experienced a non-syncopal fall approximately 2 weeks ago. She has been ambulatory since the fall. States she has had left hip and left flank pain since falling. She also notes that she struck her head and she does have a bruise of her forehead. She is not take blood thinners. She ambulates without assistance at baseline although she has been using a walker. She has been ambulatory since the fall. She notes that her pain is been difficult to control with home medications including Tylenol and ibuprofen. She denies neck pain. She does note some sacral pain. She notes bilateral hip pain as well. Denies any deformities. Denies numbness or tingling. Denies any prodromal syncopal events prior to falling. Denies chest pain or shortness of breath. No other complaints. Past Medical History Cardiovascular: CAD, HTN, DE, Hyperlipidemia GI: Diverticulosis Hepatobiliary: Cholelithiasis Psych: Depression Musculoskeletal: Osteoarthritis Endocrine: Diabetes Past Surgical History Past Surgical History: Cholecystectomy, Cataract Removal Family History Family History: Diabetes Social History ALCOHOL: none Drugs: None Lives: with Family Current Problem List Problem List Problems Medical Problems: (1) Fall Status: Acute (2) Fracture of left inferior pubic ramus Status: Acute (3) Fracture of superior ramus of left pubis Status: Acute (4) Sacral fracture Status: Acute Current Medications Current Medications Current Medications Acetaminophen/ Hydrocodone Bitart (Lortab 5/325) 1 tab 1X ONCE PO Last administered on 02/25/20at 19:11; Start 02/25/20 at 19:15; Stop 02/25/20 at 19:16; Status DC Ondansetron HCl (Zofran) 4 mg PRN Q8HRS PRN IV NAUSEA/VOMITING 1ST CHOICE Last administered on 02/25/20at 23:39; Start 02/25/20 at 21:45; Stop 02/26/20 at 07:15; Status DC Morphine Sulfate (Morphine Sulfate) 4 mg PRN Q2HR PRN IV SEVERE PAIN 7-10; Start 02/25/20 at 21:45; Stop 02/26/20 at 21:44; Status UNV Fentanyl Citrate (Fentanyl 2ml Vial) 50 mcg PRN Q2HR PRN IVP SEVERE PAIN 7-10 Last administered on 02/25/20at 23:09; Start 02/25/20 at 22:15; Stop 02/26/20 at 07:15; Status DC Fentanyl Citrate (Fentanyl 2ml Vial) 50 mcg PRN Q2HR PRN IVP PAIN Last administered on 02/26/20at 09:56; Start 02/26/20 at 07:15 Sodium Chloride 1,000 ml @ 60 mls/hr [id number] IV Last administered on 02/26/20at 08:04; Start 02/26/20 at 07:15 Ondansetron HCl (Zofran) 4 mg PRN Q8HRS PRN IVP NAUSEA/VOMITING; Start 02/26/20 at 07:15 Insulin Human Lispro (HumaLOG) 0-5 UNITS TIDWMEALS SQ ; Start 02/26/20 at 12:00 Dextrose (Dextrose 50%-Water Syringe) 12.5 gm PRN Q15MIN PRN IV SEE COMMENTS; Start 02/26/20 at 08:15 Active Scripts Active Amlodipine Besylate 5 Mg Tablet 5 Mg PO BID 30 Days Foltx Tablet (B12/Levomefolate Calcium/B-6) 1 Each Tablet 1 Each PO DAILY Reported Tylenol Extra Strength (Acetaminophen) 500 Mg Tablet 500 Mg PO PRN Q6-8HRS Zoloft (Sertraline Hcl) 25 Mg Tablet 1 Tab PO DAILY Alprazolam 0.25 Mg Tablet 1 Tab PO PRN BID Hydralazine Hcl 25 Mg Tablet 1 Tab PO TID Atorvastatin Calcium 10 Mg Tablet 10 Mg PO HS Pantoprazole Sodium (Pantoprazole Sodium) 40 Mg Tablet.dr 40 Mg PO DAILY Allergies Allergies: Coded Allergies: Penicillins (Verified Allergy, Intermediate, RASH, 07/23/18) morphine (Verified Adverse Reaction, Mild, N/V, 07/23/18) ROS Review of System Constitutional: Denies fever or chills. Eyes: Denies change in visual acuity. HENT: Denies nasal congestion or sore throat. Respiratory: Denies cough or shortness of breath. Cardiovascular: Denies chest pain or edema. GI: Denies abdominal pain, nausea, vomiting, bloody stools or diarrhea. : Denies dysuria. Musculoskeletal: Positive for hip pain and fall. Integument: Denies rash. Neurologic: Denies headache, focal weakness or sensory changes. Endocrine: Denies polyuria or polydipsia. Lymphatic: Denies swollen glands. Psychiatric: Denies depression or anxiety. Physical Exam General: Alert, Cooperative HEENT: Atraumatic Lungs: Normal air movement Heart: Regular rate Abdomen: Soft Extremities: No edema, Normal pulses, Other (There is no lower extremity rotation or shortening. She describes groin pain with active range of motion. She does have tenderness bilaterally in the sacral area. No evidence of deanne rovascular injury. The skin is intact over the fractures.) Skin: No breakdown, No significant lesion Neuro: Normal tone, Sensation intact MUSCULOSKELETAL: Abnormal exam of left (Pelvis as above. She is able to dorsiflex and plantarflex the toes without difficulty although she describes occasional pain radiating down the left leg which could be due to the sacral fractures.) Vitals VITALS Vital Signs Date Time Temp Pulse Resp B/P (MAP) Pulse Ox O2 Delivery O2 Flow Rate FiO2 02/26/20 09:56 Room Air 02/26/20 07:00 98.0 67 16 107/59 (75) 94 98.0 Labs Labs Laboratory Tests Test 02/26/20 07:25 White Blood Count 5.3 x10^3/uL (4.0-11.0) Red Blood Count 3.40 x10^6/uL (3.50-5.40) Hemoglobin 11.7 g/dL (12.0-15.5) Hematocrit 33.0 % (36.0-47.0) Mean Corpuscular Volume 97 fL (79-100) Mean Corpuscular Hemoglobin 35 pg (25-35) Mean Corpuscular Hemoglobin Concent 36 g/dL (31-37) Red Cell Distribution Width 13.3 % (11.5-14.5) Platelet Count 132 x10^3/uL (140-400) Neutrophils (%) (Auto) 79 % (31-73) Lymphocytes (%) (Auto) 13 % (24-48) Monocytes (%) (Auto) 6 % (0-9) Eosinophils (%) (Auto) 2 % (0-3) Basophils (%) (Auto) 0 % (0-3) Neutrophils # (Auto) 4.2 x10^3/uL (1.8-7.7) Lymphocytes # (Auto) 0.7 x10^3/uL (1.0-4.8) Monocytes # (Auto) 0.3 x10^3/uL (0.0-1.1) Eosinophils # (Auto) 0.1 x10^3/uL (0.0-0.7) Basophils # (Auto) 0.0 x10^3/uL (0.0-0.2) Sodium Level 136 mmol/L (136-145) Potassium Level 3.5 mmol/L (3.5-5.1) Chloride Level 99 mmol/L (98-107) Carbon Dioxide Level 31 mmol/L (21-32) Anion Gap 6 (6-14) Blood Urea Nitrogen 14 mg/dL (7-20) Creatinine 0.8 mg/dL (0.6-1.0) Estimated GFR (Cockcroft-Gault) 68.0 Glucose Level 101 mg/dL (70-99) Calcium Level 8.2 mg/dL (8.5-10.1) Laboratory Tests Test 02/26/20 07:25 White Blood Count 5.3 x10^3/uL (4.0-11.0) Red Blood Count 3.40 x10^6/uL (3.50-5.40) Hemoglobin 11.7 g/dL (12.0-15.5) Hematocrit 33.0 % (36.0-47.0) Mean Corpuscular Volume 97 fL (79-100) Mean Corpuscular Hemoglobin 35 pg (25-35) Mean Corpuscular Hemoglobin Concent 36 g/dL (31-37) Red Cell Distribution Width 13.3 % (11.5-14.5) Platelet Count 132 x10^3/uL (140-400) Neutrophils (%) (Auto) 79 % (31-73) Lymphocytes (%) (Auto) 13 % (24-48) Monocytes (%) (Auto) 6 % (0-9) Eosinophils (%) (Auto) 2 % (0-3) Basophils (%) (Auto) 0 % (0-3) Neutrophils # (Auto) 4.2 x10^3/uL (1.8-7.7) Lymphocytes # (Auto) 0.7 x10^3/uL (1.0-4.8) Monocytes # (Auto) 0.3 x10^3/uL (0.0-1.1) Eosinophils # (Auto) 0.1 x10^3/uL (0.0-0.7) Basophils # (Auto) 0.0 x10^3/uL (0.0-0.2) Sodium Level 136 mmol/L (136-145) Potassium Level 3.5 mmol/L (3.5-5.1) Chloride Level 99 mmol/L (98-107) Carbon Dioxide Level 31 mmol/L (21-32) Anion Gap 6 (6-14) Blood Urea Nitrogen 14 mg/dL (7-20) Creatinine 0.8 mg/dL (0.6-1.0) Estimated GFR (Cockcroft-Gault) 68.0 Glucose Level 101 mg/dL (70-99) Calcium Level 8.2 mg/dL (8.5-10.1) Images Images Report reviewed, images independently reviewed. The CT scan shows the inferior pubic ramus fracture on series 4 image 64. Nondisplaced sacral ala fracture is seen on series 4 image 47. Report reviewed and images independently reviewed of the AP pelvis x-ray. The superior and inferior pubic rami fractures are seen, minimally displaced. [facility] [address] [place] [address] IMAGING REPORT Signed PATIENT: DEMI ZAVALA ACCOUNT: [id number] : 1935 LOCATION: ER AGE: 84 SEX: F EXAM STATUS: REG ER ORD. PHYSICIAN: AAYUSH RIOS DO REASON: fall PROCEDURE: CT CHEST ABDOMEN PELVIS WO Exam: CT of chest, abdomen and pelvis without contrast. CT thoracic and lumbar spine INDICATION: Fall TECHNIQUE: Sequential axial images through the chest, abdomen and pelvis obtained without IV contrast. Sagittal and coronal reformatted images were reconstructed from the axial data and reviewed. Cone-down reconstructed images of the thoracic and lumbar spine were also reviewed. Comparisons: Chest x-ray 12/26/2019 FINDINGS: Visualized portions of the thyroid are unremarkable. No enlarged mediastinal lymph nodes are identified. Heart size is normal. No pericardial effusion. Mild coronary artery calcifications. Thoracic aorta has a normal course and caliber. Pulmonary artery is not enlarged. Airways are patent. No consolidation or pneumothorax. No suspicious lung nodules. No pleural effusion or thickening. Evaluation of solid organs is limited secondary to noncontrast technique. Liver, spleen, pancreas and adrenals are unremarkable. Gallbladder is surgically absent. There is mild bilateral pelvocaliectasis. No renal or ureteral calculi are identified. Bladder is partially distended and appears thin-walled. Uterus is not enlarged. No abnormal adnexal mass. Diverticulosis is noted at the sigmoid colon without evidence of acute diverticulitis. Remainder of the large and small bowel are unremarkable. Appendix is is not definitively identified. No free intra-abdominal air or fluid. No obstruction. Abdominal aorta has a normal course and caliber. No enlarged abdominal lymph nodes are identified. Mildly displaced comminuted fracture of the inferior left pubic rami. Additionally there is a fracture of the superior pubic rami on the left adjacent to the acetabulum. Joint spaces appear well maintained. There are mildly displaced bilateral sacral glory fractures. Thoracolumbar spine: Vertebral body heights and alignment are well-maintained. Fracture to the thoracolumbar spine is not identified. Mild multilevel degenerative disc disease throughout the lumbar spine with bilateral facet arthropathy greatest at L4-L5 and L5-S1. IMPRESSION: 1. Mildly displaced bilateral sacral glory fractures. 2. Mildly displaced comminuted fracture of the inferior left pubic rami. Fracture of the superior pubic rami on the left adjacent to the acetabulum. 3. Negative CT thoracic and lumbar spine for acute traumatic injury. Exposure: One or more of the following in the visualized dose reduction techniques were utilized for this examination: 1. Automated exposure control 2. Adjustment of the MA and/or KV according to patient size 3. Use of iterative of reconstructive technique Electronically signed by: Morro Phelps MD (02/25/2020 8:48 PM) [id number] DICTATED and SIGNED BY: MORRO PHELPS MD DATE: 02/25/202047 [facility] [address] [place] [address] IMAGING REPORT Signed PATIENT: DEMI ZAVALA ACCOUNT: [id number] : 1935 LOCATION: ER AGE: 84 SEX: F EXAM STATUS: REG ER ORD. PHYSICIAN: AAYUSH RIOS DO REASON: fall PROCEDURE: PELVIS Exam: Pelvis 1 view INDICATION: Fall TECHNIQUE: Frontal view of the pelvis Comparisons: None FINDINGS: Diffuse osteopenia. Mild displaced fracture involving the left superior and inferior pubic rami. Soft tissues are unremarkable. Joint spaces are well-maintained. IMPRESSION: Mildly displaced fractures involving the left superior and inferior pubic rami. Electronically signed by: Morro Phelps MD (02/25/2020 9:58 PM) [id number] DICTATED and SIGNED BY: MORRO PHELPS MD DATE: 02/25/202157 Assessment/Plan Assessment/Plan I discussed treatment options with her. Minimally displaced pubic ramus fractures in the elderly patients are almost universally treated nonoperatively. Use of a walker is recommended, with weightbearing as tolerated. These pubic rami fractures usually heal uneventfully, in about 6 weeks. The sacral fractures can be more problematic. I discussed the spectrum of her pain, and she does have quite a bit of pain in the sacral area which is causing difficulty walking. These fractures are more difficult to heal, and frequently benefit from what is called a sacroplasty. This is an interventional radiology procedure where bone cement is used to stabilize the sacral fractures. She and her family stated interest in that procedure and I will have that ordered, az rose the interventional radiologist agrees with sacroplasty after the patient understands the risks and benefits. There can be risks such as nerve injury with sacroplasty and she will need to discuss the risks and benefits with the radiologist. Ultimately she will also benefit from DVT prophylaxis, but I would delay the use of blood thinners until after sacroplasty decision/treatment to minimize potential procedural hematoma. ELBA YO MD Feb 26, 2020 10:24
[2020-02-26] MEDS ORDERED: ALPRAZolam 0.25 MG TABLET PO PRN (10:45)
[2020-02-26 11:00] VITALS: BP 124/46
[2020-02-26] MEDS: amLODIPine BESYLATE 5 MG TABLET PO SCH ×2 (12:00→21:28)
[2020-02-26] MEDS: SERTRALINE 25 MG TABLET. PO SCH (12:00)
[2020-02-26] MEDS: INSULIN LISPRO 300 UNITS/3 ML VIAL. SQ SCH ×2 (12:00→17:00)
[2020-02-26] MEDS: PANTOPRAZOLE 40 MG TABLET.DR. PO SCH (12:00)
[2020-02-26] MEDS: VITAMIN B12,B9,B6 COMPLEX 1 TABLET. PO SCH (12:00)
[2020-02-26 15:00] VITALS: BP 136/68
[2020-02-26] MEDS: ACETAMINOPHEN 500 MG TABLET PO PRN (16:06)
[2020-02-26] MEDS: hydrALAZINE 25 MG TABLET PO SCH ×2 (16:06→21:26)
[2020-02-26 19:30] VITALS: BP 151/50
[2020-02-26] MEDS: ATORVASTATIN CALCIUM 10 MG TABLET. PO SCH (21:28)
[2020-02-26] MEDS: ENOXAPARIN 30 MG/0.3 ML SYRINGE. SQ SCH (22:29)
[2020-02-26 23:26] VITALS: BP 122/47
[2020-02-27 03:30] VITALS: BP 125/50
[2020-02-27] MEDS: fentaNYL PF VIAL 100 MCG/2 ML VIAL IVP PRN ×3 (04:10→20:21)
[2020-02-27 07:00] VITALS: BP 139/48
[2020-02-27] MEDS: INSULIN LISPRO 300 UNITS/3 ML VIAL. SQ SCH ×3 (08:00→16:32)
--- NOTE | 2020-02-27 08:24 | PDOC ---
Provider Note Date of Service: DATE: 02/27/20 TIME: 08:21 Provider Note NOTE Bilateral essentially nondisplaced, bilateral sacral alar fractures on recent CT. Patient with significant pain and decreased mobility, in part due to fracture related pain. This is despite conservative treatment measures. Per medicare requirements, advanced imaging (MRI or Bone scan) is needed within 30 days of vertebral/sacral augmentation to confirm acuity. Will discuss with family, and order MRI, with expectation for bilateral sacroplasty. Justifications for Admission Other Justification NICKIE AUSTIN MD Feb 27, 2020 08:24
[2020-02-27] MEDS: SERTRALINE 25 MG TABLET. PO SCH ×2 (09:00→11:13)
[2020-02-27] MEDS: PANTOPRAZOLE 40 MG TABLET.DR. PO SCH ×2 (09:00→11:15)
[2020-02-27] MEDS: amLODIPine BESYLATE 5 MG TABLET PO SCH ×3 (09:00→20:32)
[2020-02-27] MEDS: hydrALAZINE 25 MG TABLET PO SCH ×4 (09:00→20:31)
[2020-02-27] MEDS: VITAMIN B12,B9,B6 COMPLEX 1 TABLET. PO SCH ×2 (09:00→11:13)
--- NOTE | 2020-02-27 10:10 | NUR ---
SW following. Discussed with RN, pt from home with daughter, room air, ada diet. COVID-19 pending, NPO for surgery today or tomorrow (02/28/2020). SW will continue to follow.
[2020-02-27 11:00] VITALS: BP 128/52
[2020-02-27] MEDS: IV NORMAL SALINE 1000ML BAG 1,000 ML IV SCH (14:37)
[2020-02-27 15:00] VITALS: BP 140/66
--- NOTE | 2020-02-27 16:56 | PDOC ---
PROGRESS NOTES Date of Service: DATE: 02/27/20 TIME: 16:56 Chief Complaint Chief Complaint Fall History of Present Illness History of Present Illness Patient states her pain is controlled with medication. She does report some constipation. Discussed sacroplasty after MRI in the morning. Vitals Vitals Vital Signs Date Time Temp Pulse Resp B/P (MAP) Pulse Ox O2 Delivery O2 Flow Rate FiO2 02/27/20 15:00 98.0 79 18 140/66 (90) 94 Room Air 98.0 Physical Exam General: Alert, Cooperative Heart: Regular rate Abdomen: Soft Extremities: No edema, Normal pulses, Other (There is no lower extremity rotation or shortening. She describes groin pain with active range of motion. She does have tenderness bilaterally in the sacral area. No evidence of n eurovascular injury. The skin is intact over the fractures.) Skin: No breakdown, No significant lesion Labs LABS Laboratory Tests Test 02/26/20 20:49 02/27/20 08:04 02/27/20 10:57 02/27/20 16:25 Glucose (Fingerstick) 119 mg/dL (70-99) 80 mg/dL (70-99) 85 mg/dL (70-99) 111 mg/dL (70-99) Review of Systems Review of Systems Constipation. Denies fever, denies chest pain, denies shortness of breath. Assessment and Plan Assessmemt and Plan Problems Medical Problems: (1) Fall Status: Acute (2) Fracture of left inferior pubic ramus Status: Acute (3) Fracture of superior ramus of left pubis Status: Acute (4) Sacral fracture Status: Acute Comment Review of Relevant I have reviewed the following items karen (where applicable) has been applied. Labs Laboratory Tests Test 02/26/20 06:27 02/26/20 07:25 02/26/20 12:10 02/26/20 16:49 Coronavirus (PCR) Not detected (Not Detected) White Blood Count 5.3 x10^3/uL (4.0-11.0) Red Blood Count 3.40 x10^6/uL (3.50-5.40) Hemoglobin 11.7 g/dL (12.0-15.5) Hematocrit 33.0 % (36.0-47.0) Mean Corpuscular Volume 97 fL (79-100) Mean Corpuscular Hemoglobin 35 pg (25-35) Mean Corpuscular Hemoglobin Concent 36 g/dL (31-37) Red Cell Distribution Width 13.3 % (11.5-14.5) Platelet Count 132 x10^3/uL (140-400) Neutrophils (%) (Auto) 79 % (31-73) Lymphocytes (%) (Auto) 13 % (24-48) Monocytes (%) (Auto) 6 % (0-9) Eosinophils (%) (Auto) 2 % (0-3) Basophils (%) (Auto) 0 % (0-3) Neutrophils # (Auto) 4.2 x10^3/uL (1.8-7.7) Lymphocytes # (Auto) 0.7 x10^3/uL (1.0-4.8) Monocytes # (Auto) 0.3 x10^3/uL (0.0-1.1) Eosinophils # (Auto) 0.1 x10^3/uL (0.0-0.7) Basophils # (Auto) 0.0 x10^3/uL (0.0-0.2) Sodium Level 136 mmol/L (136-145) Potassium Level 3.5 mmol/L (3.5-5.1) Chloride Level 99 mmol/L (98-107) Carbon Dioxide Level 31 mmol/L (21-32) Anion Gap 6 (6-14) Blood Urea Nitrogen 14 mg/dL (7-20) Creatinine 0.8 mg/dL (0.6-1.0) Estimated GFR (Cockcroft-Gault) 68.0 Glucose Level 101 mg/dL (70-99) Calcium Level 8.2 mg/dL (8.5-10.1) Glucose (Fingerstick) 124 mg/dL (70-99) 93 mg/dL (70-99) Test 02/26/20 20:49 02/27/20 08:04 02/27/20 10:57 02/27/20 16:25 Glucose (Fingerstick) 119 mg/dL (70-99) 80 mg/dL (70-99) 85 mg/dL (70-99) 111 mg/dL (70-99) Laboratory Tests Test 02/26/20 20:49 02/27/20 08:04 02/27/20 10:57 8/31/20 16:25 Glucose (Fingerstick) 119 mg/dL (70-99) 80 mg/dL (70-99) 85 mg/dL (70-99) 111 mg/dL (70-99) Medications Current Medications Acetaminophen/ Hydrocodone Bitart (Lortab 5/325) 1 tab 1X ONCE PO Last administered on 02/25/20at 19:11; Start 02/25/20 at 19:15; Stop 02/25/20 at 19:16; Status DC Ondansetron HCl (Zofran) 4 mg PRN Q8HRS PRN IV NAUSEA/VOMITING 1ST CHOICE Last administered on 02/25/20at 23:39; Start 02/25/20 at 21:45; Stop 02/26/20 at 07:15; Status DC Morphine Sulfate (Morphine Sulfate) 4 mg PRN Q2HR PRN IV SEVERE PAIN 7-10; Start 02/25/20 at 21:45; Stop 02/26/20 at 21:44; Status UNV Fentanyl Citrate (Fentanyl 2ml Vial) 50 mcg PRN Q2HR PRN IVP SEVERE PAIN 7-10 Last administered on 02/25/20at 23:09; Start 02/25/20 at 22:15; Stop 02/26/20 at 07:15; Status DC Fentanyl Citrate (Fentanyl 2ml Vial) 50 mcg PRN Q2HR PRN IVP PAIN Last administered on 02/27/20at 10:55; Start 02/26/20 at 07:15 Sodium Chloride 1,000 ml @ 60 mls/hr [id number] IV Last administered on 02/27/20at 14:37; Start 02/26/20 at 07:15 Ondansetron HCl (Zofran) 4 mg PRN Q8HRS PRN IVP NAUSEA/VOMITING; Start 02/26/20 at 07:15 Insulin Human Lispro (HumaLOG) 0-5 UNITS TIDWMEALS SQ ; Start 02/26/20 at 12:00 Dextrose (Dextrose 50%-Water Syringe) 12.5 gm PRN Q15MIN PRN IV SEE COMMENTS; Start 02/26/20 at 08:15 Acetaminophen (Tylenol) 500 mg PRN Q6HRS PRN PO FEVER Last administered on 02/26/20at 16:06; Start 02/26/20 at 10:45 Alprazolam (Xanax) 0.25 mg PRN BID PRN PO ANXIETY / AGITATION; Start 02/26/20 at 10:45 Amlodipine Besylate (Norvasc) 5 mg BID PO Last administered on 02/27/20 11:15; Start 02/26/20 at 12:00 Atorvastatin Calcium (Lipitor) 10 mg HS PO Last administered on 02/26/20at 21:28; Start 02/26/20 at 21:00 Hydralazine HCl (Apresoline) 25 mg TID PO Last administered on 02/27/20at 11:14; Start 02/26/20 at 14:00 Pantoprazole Sodium (Protonix) 40 mg DAILY PO Last administered on 02/27/20 11:15; Start 02/26/20 at 12:00 Sertraline HCl (Zoloft) 25 mg DAILY PO Last administered on 02/27/20at 11:13; Start 02/26/20 at 12:00 Vitamin B Complex (Folbic Tablet) 1 tab DAILY PO Last administered on 02/27/20at 11:13; Start 02/26/20 at 12:00 Enoxaparin Sodium (Lovenox 30mg Syringe) 30 mg Q24H SQ Last administered on 02/26/20at 22:29; Start 02/26/20 at 22:00 Active Scripts Active Amlodipine Besylate 5 Mg Tablet 5 Mg PO BID 30 Days Foltx Tablet (B12/Levomefolate Calcium/B-6) 1 Each Tablet 1 Each PO DAILY Reported Tylenol Extra Strength (Acetaminophen) 500 Mg Tablet 500 Mg PO PRN Q6-8HRS Zoloft (Sertraline Hcl) 25 Mg Tablet 1 Tab PO DAILY Alprazolam 0.25 Mg Tablet 1 Tab PO PRN BID Hydralazine Hcl 25 Mg Tablet 1 Tab PO TID Atorvastatin Calcium 10 Mg Tablet 10 Mg PO HS Pantoprazole Sodium (Pantoprazole Sodium) 40 Mg Tablet.dr 40 Mg PO DAILY Vitals/I & O Vital Sign - Last 24 Hours 02/26/20 02/26/20 02/26/20 02/26/20 19:30 20:00 21:26 21:28 Temp 98.2 98.2 Pulse 70 70 70 Resp 18 B/P (MAP) 151/50 (83) 151/50 151/50 Pulse Ox 93 O2 Delivery Room Air Room Air 02/26/20 02/26/20 02/26/20 02/27/20 22:30 23:00 23:26 03:30 Temp 98.3 98.8 98.3 98.8 Pulse 68 57 Resp 16 20 B/P (MAP) 122/47 (72) 125/50 (75) Pulse Ox 93 93 94 O2 Delivery Room Air Room Air Room Air Room Air 02/27/20 02/27/20 02/27/20 02/27/20 04:10 04:40 07:00 10:30 Temp 97.8 97.8 Pulse 62 Resp 16 18 B/P (MAP) 139/48 (78) Pulse Ox 94 94 94 O2 Delivery Room Air Room Air Room Air Room Air 02/27/20 02/27/20 02/27/20 02/27/20 10:55 11:00 11:14 11:15 Temp 97.4 97.4 Pulse 60 64 62 Resp 20 18 B/P (MAP) 128/52 (77) 128/52 128/52 Pulse Ox 94 O2 Delivery Room Air Room Air 02/27/20 02/27/20 02/27/20 11:30 13:47 15:00 Temp 98.0 98.0 Pulse 82 79 Resp 16 18 B/P (MAP) 123/50 140/66 (90) Pulse Ox 94 O2 Delivery Room Air Room Air Intake and Output 02/26/20 02/26/20 02/27/20 15:00 23:00 07:00 Intake Total 540 ml Output Total 550 ml Balance -10 ml Justicifation of Admission Dx: Justifications for Admission: Justification of Admission Dx: Yes Angina: New-Onset COREY ORTIZ MD Feb 27, 2020 16:56
[2020-02-27] MEDS: POLYETHYLENE GLYCOL 3350 17 GM PACKET. PO SCH (18:00)
[2020-02-27 19:00] VITALS: BP 163/74
[2020-02-27] MEDS: ATORVASTATIN CALCIUM 10 MG TABLET. PO SCH (20:31)
[2020-02-27] MEDS: ENOXAPARIN 30 MG/0.3 ML SYRINGE. SQ SCH (20:32)
[2020-02-27 23:00] VITALS: BP 158/65
[2020-02-28] VITALS (25 sets, daily range): BP systolic 140–204; BP diastolic 54–73
[2020-02-28 06:36] LABS: BASO % 0 % (0-3); EOS # 0.1 x10^3/uL (0.0-0.7); EOS % 2 % (0-3); HEMATOCRIT 30.3 % (36.0-47.0); HEMOGLOBIN 10.7 g/dL (12.0-15.5); LYMPH % 16 % (24-48); MEAN CORPUSCULAR HEMOGLOBIN 35 pg (25-35); MEAN CORPUSCULAR HGB CONC 35 g/dL (31-37); MEAN CORPUSCULAR VOLUME 98 fL (79-100); MONO # 0.4 x10^3/uL (0.0-1.1); MONO % 7 % (0-9); NEUT # 4.6 x10^3/uL (1.8-7.7); NEUT % 75 % (31-73); PLATELET COUNT 139 x10^3/uL (140-400); RED CELL DISTRIBUTION WIDTH 12.9 % (11.5-14.5); WHITE BLOOD COUNT 6.2 x10^3/uL (4.0-11.0)
[2020-02-28] MEDS: IV NORMAL SALINE 1000ML BAG 1,000 ML IV SCH (06:37)
[2020-02-28 07:01] LABS: CALCIUM 8.5 mg/dL (8.5-10.1); CREATININE 0.5 mg/dL (0.6-1.0); POTASSIUM 3.8 mmol/L (3.5-5.1)
[2020-02-28] MEDS: INSULIN LISPRO 300 UNITS/3 ML VIAL. SQ SCH ×3 (08:00→16:47)
[2020-02-28 08:16] LABS: PROTHROMBIN TIME PATIENT 13.8 SEC (11.7-14.0)
[2020-02-28] MEDS: hydrALAZINE 25 MG TABLET PO SCH ×3 (09:00→21:06)
--- NOTE | 2020-02-28 09:43 | NUR ---
SW following. Discussed with RN, pt from home with daughter, room air, ada diet. Pt likely having a kyphoplasty today. PT/OT for after Kypho. SW will continue to follow.
[2020-02-28] MEDS ORDERED: LIDOCAINE 1% Multi-Dose 20 ML VIAL. ONE (10:03)
[2020-02-28] MEDS ORDERED: MIDAZOLAM HCL/PF 2 MG/2 ML VIAL. ONE (10:34)
[2020-02-28] MEDS ORDERED: fentaNYL PF VIAL 100 MCG/2 ML VIAL ONE (10:34)
[2020-02-28] MEDS ORDERED: ceFAZolin SODIUM IV Push 1 GM VIAL. IVP ONE ×2 (10:34→10:45)
[2020-02-28] MEDS ORDERED: ONDANSETRON PF 4 MG/2 ML VIAL. ONE (10:34)
[2020-02-28] MEDS ORDERED: ONDANSETRON PF 4 MG/2 ML VIAL. IVP ONE (10:45)
[2020-02-28] MEDS ORDERED: LIDOCAINE 1% Multi-Dose 20 ML VIAL. INJ ONE (10:45)
[2020-02-28] MEDS ORDERED: MIDAZOLAM HCL/PF 2 MG/2 ML VIAL. IV ONE (10:45)
[2020-02-28] MEDS ORDERED: fentaNYL PF VIAL 100 MCG/2 ML VIAL IV ONE (10:45)
--- NOTE | 2020-02-28 11:50 | NUR ---
Returned to unit by bed from IR. Pt had Sacroplasty. Dressings lower back d/i. VS stable. O2 at 2l per n/c. Resting flat for next 2 hours. Daughter at bedside. Resting. Cont. monitor.
--- NOTE | 2020-02-28 12:02 | RAD ---
MRI PELVIS WITHOUT IV CONTRAST CLINICAL HISTORY: Pelvic and sacral fractures TECHNIQUE: Multiplanar multisequential images obtained through the sacrum without intravenous contrast. COMPARISON: Pelvic radiographs and CT L-spine 02/25/2020 FINDINGS: Redemonstration of nondisplaced bilateral sacral alae fractures with associated marrow edema. SI joints maintained. Partially visualized left superior and inferior pubic rami fractures. Remote bilateral L5 spondylolysis and remote fracture of the L5 spinous process grade 1 L5-S1 anterolisthesis. No suspicious marrow replacing lesion. Paraspinal soft tissues unremarkable. IMPRESSION: REDEMONSTRATION OF NONDISPLACED BILATERAL SACRAL ALAE FRACTURES AND PARTIALLY VISUALIZED LEFT SUPERIOR AND INFERIOR PUBIC RAMI FRACTURES. Electronically signed by: Noe Crandall DO (02/28/2020 11:59 AM) [id number]
--- NOTE | 2020-02-28 13:22 | RAD ---
And CT-guided Sacroplasty, bilaterally. 02/28/2020 11:14 AM Indication: bilateral sacral fractures, intractable pain limiting activities of daily living. Fracture pathologic, secondary to bone demineralization. Pain is severe and persists despite conservative treatment measures. Discussion Moderate sedation: The patient was appropriately monitored by a qualified independent observer throughout the course of the moderate sedation. [id number] sedation time:55 minutes Consent: The risks and benefits of the procedure were discussed with the patient and her daughter. Informed consent was obtained. The patient was brought to the fluoroscopy suite and placed in the prone position. A timeout procedure was performed. Preprocedural antibiotics were administered. Procedure: The overlying skin was prepped and draped in the usual sterile fashion. All elements of maximal sterile barrier technique including the use of a cap, mask, sterile gown, sterile gloves, large sterile sheet, appropriate hand hygiene, and 2% chlorhexidine for cutaneous antisepsis (or acceptable alternative antiseptic per current guidelines) were followed for this procedure. CT imaging of the sacrum was performed. 1% lidocaine was administered for local anesthesia. Trochars were advanced into the sacrum directed towards the ala bilaterally. Once adequate position been obtained contrast opacified polymethylmethacrylate was then and intermittently, very slowly introduced via the access cannulae. Progress was frequently checked with CT imaging. Once adequate filling had been achieved the needles were removed and manual pressure was held. No significant extravasation or complication was identified. Sterile dressing was applied. Patient tolerated the procedure well, without apparent complication. Impression: CT-guided bilateral Sacroplasty PQRS Compliance Statement: One or more of the following individualized dose reduction techniques were utilized for this examination: 1. Automated exposure control 2. Adjustment of the mA and/or kV according to patient size 3. Use of iterative reconstruction technique
--- NOTE | 2020-02-28 13:52 | NUR ---
PT/OT request for orders Screen complete. Request PT/OT eval and treat orders if you agree. Tigre Medeiros PT
--- NOTE | 2020-02-28 15:09 | PDOC ---
PROGRESS NOTES Date of Service: DATE: 02/28/20 TIME: 15:05 Chief Complaint Chief Complaint Fall History of Present Illness History of Present Illness Patient evaluated bedside with family present, status post sacral plasty and MRI. Patient reports improvement in her sacral pain, however reports left hip pain. Discussed with patient and family that her fractures were healed to the best of her ability, any further pain will have to be managed with medications and physical therapy. Vitals Vitals Vital Signs Date Time Temp Pulse Resp B/P (MAP) Pulse Ox O2 Delivery O2 Flow Rate FiO2 02/28/20 12:03 97.6 56 19 149/56 (87) 97 Room Air 97.6 02/28/20 11:40 2.0 Physical Exam General: Alert, Cooperative Heart: Regular rate Abdomen: Soft Extremities: No edema, Normal pulses, Other (There is no lower extremity rotation or shortening. She describes groin pain with active range of motion. She does have tenderness bilaterally in the sacral area. No evidence of neurovascular injury. The skin is intact over the fractures.) Skin: No breakdown, No significant lesion Labs LABS Laboratory Tests Test 02/27/20 16:25 02/27/20 20:52 02/28/20 05:05 02/28/20 07:28 Glucose (Fingerstick) 111 mg/dL (70-99) 102 mg/dL (70-99) 92 mg/dL (70-99) White Blood Count 6.2 x10^3/uL (4.0-11.0) Red Blood Count 3.10 x10^6/uL (3.50-5.40) Hemoglobin 10.7 g/dL (12.0-15.5) Hematocrit 30.3 % (36.0-47.0) Mean Corpuscular Volume 98 fL (79-100) Mean Corpuscular Hemoglobin 35 pg (25-35) Mean Corpuscular Hemoglobin Concent 35 g/dL (31-37) Red Cell Distribution Width 12.9 % (11.5-14.5) Platelet Count 139 x10^3/uL (140-400) Neutrophils (%) (Auto) 75 % (31-73) Lymphocytes (%) (Auto) 16 % (24-48) Monocytes (%) (Auto) 7 % (0-9) Eosinophils (%) (Auto) 2 % (0-3) Basophils (%) (Auto) 0 % (0-3) Neutrophils # (Auto) 4.6 x10^3/uL (1.8-7.7) Lymphocytes # (Auto) 1.0 x10^3/uL (1.0-4.8) Monocytes # (Auto) 0.4 x10^3/uL (0.0-1.1) Eosinophils # (Auto) 0.1 x10^3/uL (0.0-0.7) Basophils # (Auto) 0.0 x10^3/uL (0.0-0.2) Prothrombin Time 13.8 SEC (11.7-14.0) Prothromb Time International Ratio 1.1 (0.8-1.1) Activated Partial Thromboplast Time 44 SEC (24-38) Sodium Level 136 mmol/L (136-145) Potassium Level 3.8 mmol/L (3.5-5.1) Chloride Level 102 mmol/L (98-107) Carbon Dioxide Level 27 mmol/L (21-32) Anion Gap 7 (6-14) Blood Urea Nitrogen 12 mg/dL (7-20) Creatinine 0.5 mg/dL (0.6-1.0) Estimated GFR (Cockcroft-Gault) 117.0 Glucose Level 86 mg/dL (70-99) Calcium Level 8.5 mg/dL (8.5-10.1) Test 02/28/20 12:00 Glucose (Fingerstick) 94 mg/dL (70-99) Assessment and Plan Assessmemt and Plan Problems Medical Problems: (1) Fall Status: Acute (2) Fracture of left inferior pubic ramus Status: Acute (3) Fracture of superior ramus of left pubis Status: Acute (4) Sacral fracture Status: Acute Comment Review of Relevant I have reviewed the following items karen (where applicable) has been applied. Labs Laboratory Tests Test 02/26/20 16:49 02/26/20 20:49 02/27/20 08:04 02/27/20 10:57 Glucose (Fingerstick) 93 mg/dL (70-99) 119 mg/dL (70-99) 80 mg/dL (70-99) 85 mg/dL (70-99) Test 02/27/20 16:25 02/27/20 20:52 02/28/20 05:05 02/28/20 07:28 Glucose (Fingerstick) 111 mg/dL (70-99) 102 mg/dL (70-99) 92 mg/dL (70-99) White Blood Count 6.2 x10^3/uL (4.0-11.0) Red Blood Count 3.10 x10^6/uL (3.50-5.40) Hemoglobin 10.7 g/dL (12.0-15.5) Hematocrit 30.3 % (36.0-47.0) Mean Corpuscular Volume 98 fL (79-100) Mean Corpuscular Hemoglobin 35 pg (25-35) Mean Corpuscular Hemoglobin Concent 35 g/dL (31-37) Red Cell Distribution Width 12.9 % (11.5-14.5) Platelet Count 139 x10^3/uL (140-400) Neutrophils (%) (Auto) 75 % (31-73) Lymphocytes (%) (Auto) 16 % (24-48) Monocytes (%) (Auto) 7 % (0-9) Eosinophils (%) (Auto) 2 % (0-3) Basophils (%) (Auto) 0 % (0-3) Neutrophils # (Auto) 4.6 x10^3/uL (1.8-7.7) Lymphocytes # (Auto) 1.0 x10^3/uL (1.0-4.8) Monocytes # (Auto) 0.4 x10^3/uL (0.0-1.1) Eosinophils # (Auto) 0.1 x10^3/uL (0.0-0.7) Basophils # (Auto) 0.0 x10^3/uL (0.0-0.2) Prothrombin Time 13.8 SEC (11.7-14.0) Prothromb Time International Ratio 1.1 (0.8-1.1) Activated Partial Thromboplast Time 44 SEC (24-38) Sodium Level 136 mmol/L (136-145) Potassium Level 3.8 mmol/L (3.5-5.1) Chloride Level 102 mmol/L (98-107) Carbon Dioxide Level 27 mmol/L (21-32) Anion Gap 7 (6-14) Blood Urea Nitrogen 12 mg/dL (7-20) Creatinine 0.5 mg/dL (0.6-1.0) Estimated GFR (Cockcroft-Gault) 117.0 Glucose Level 86 mg/dL (70-99) Calcium Level 8.5 mg/dL (8.5-10.1) Test 02/28/20 12:00 Glucose (Fingerstick) 94 mg/dL (70-99) Laboratory Tests Test 02/27/20 16:25 02/27/20 20:52 02/28/20 05:05 02/28/20 07:28 Glucose (Fingerstick) 111 mg/dL (70-99) 102 mg/dL (70-99) 92 mg/dL (70-99) White Blood Count 6.2 x10^3/uL (4.0-11.0) Red Blood Count 3.10 x10^6/uL (3.50-5.40) Hemoglobin 10.7 g/dL (12.0-15.5) Hematocrit 30.3 % (36.0-47.0) Mean Corpuscular Volume 98 fL (79-100) Mean Corpuscular Hemoglobin 35 pg (25-35) Mean Corpuscular Hemoglobin Concent 35 g/dL (31-37) Red Cell Distribution Width 12.9 % (11.5-14.5) Platelet Count 139 x10^3/uL (140-400) Neutrophils (%) (Auto) 75 % (31-73) Lymphocytes (%) (Auto) 16 % (24-48) Monocytes (%) (Auto) 7 % (0-9) Eosinophils (%) (Auto) 2 % (0-3) Basophils (%) (Auto) 0 % (0-3) Neutrophils # (Auto) 4.6 x10^3/uL (1.8-7.7) Lymphocytes # (Auto) 1.0 x10^3/uL (1.0-4.8) Monocytes # (Auto) 0.4 x10^3/uL (0.0-1.1) Eosinophils # (Auto) 0.1 x10^3/uL (0.0-0.7) Basophils # (Auto) 0.0 x10^3/uL (0.0-0.2) Prothrombin Time 13.8 SEC (11.7-14.0) Prothromb Time International Ratio 1.1 (0.8-1.1) Activated Partial Thromboplast Time 44 SEC (24-38) Sodium Level 136 mmol/L (136-145) Potassium Level 3.8 mmol/L (3.5-5.1) Chloride Level 102 mmol/L (98-107) Carbon Dioxide Level 27 mmol/L (21-32) Anion Gap 7 (6-14) Blood Urea Nitrogen 12 mg/dL (7-20) Creatinine 0.5 mg/dL (0.6-1.0) Estimated GFR (Cockcroft-Gault) 117.0 Glucose Level 86 mg/dL (70-99) Calcium Level 8.5 mg/dL (8.5-10.1) Test 02/28/20 12:00 Glucose (Fingerstick) 94 mg/dL (70-99) Medications Current Medications Acetaminophen/ Hydrocodone Bitart (Lortab 5/325) 1 tab 1X ONCE PO Last administered on 02/25/20at 19:11; Start 02/25/20 at 19:15; Stop 02/25/20 at 19:16; Status DC Ondansetron HCl (Zofran) 4 mg PRN Q8HRS PRN IV NAUSEA/VOMITING 1ST CHOICE Last administered on 02/25/20at 23:39; Start 02/25/20 at 21:45; Stop 02/26/20 at 07:15; Status DC Morphine Sulfate (Morphine Sulfate) 4 mg PRN Q2HR PRN IV SEVERE PAIN 7-10; Start 02/25/20 at 21:45; Stop 02/26/20 at 21:44; Status UNV Fentanyl Citrate (Fentanyl 2ml Vial) 50 mcg PRN Q2HR PRN IVP SEVERE PAIN 7-10 Last administered on 02/25/20at 23:09; Start 02/25/20 at 22:15; Stop 02/26/20 at 07:15; Status DC Fentanyl Citrate (Fentanyl 2ml Vial) 50 mcg PRN Q2HR PRN IVP PAIN Last administered on 02/27/20at 20:21; Start 02/26/20 at 07:15 Sodium Chloride 1,000 ml @ 60 mls/hr [id number] IV Last administered on 02/28/20at 06:37; Start 02/26/20 at 07:15 Ondansetron HCl (Zofran) 4 mg PRN Q8HRS PRN IVP NAUSEA/VOMITING; Start 02/26/20 at 07:15 Insulin Human Lispro (HumaLOG) 0-5 UNITS TIDWMEALS SQ ; Start 02/26/20 at 12:00 Dextrose (Dextrose 50%-Water Syringe) 12.5 gm PRN Q15MIN PRN IV SEE COMMENTS; Start 02/26/20 at 08:15 Acetaminophen (Tylenol) 500 mg PRN Q6HRS PRN PO FEVER Last administered on 02/26/20at 16:06; Start 02/26/20 at 10:45 Alprazolam (Xanax) 0.25 mg PRN BID PRN PO ANXIETY / AGITATION; Start 02/26/20 at 10:45 Amlodipine Besylate (Norvasc) 5 mg BID PO Last administered on 02/27/20 20:32; Start 02/26/20 at 12:00 Atorvastatin Calcium (Lipitor) 10 mg HS PO Last administered on 02/27/20at 20:31; Start 02/26/20 at 21:00 Hydralazine HCl (Apresoline) 25 mg TID PO Last administered on 02/27/20 20:31; Start 02/26/20 at 14:00 Pantoprazole Sodium (Protonix) 40 mg DAILY PO Last administered on 02/27/20 11:15; Start 02/26/20 at 12:00 Sertraline HCl (Zoloft) 25 mg DAILY PO Last administered on 02/27/20 11:13; Start 02/26/20 at 12:00 Vitamin B Complex (Folbic Tablet) 1 tab DAILY PO Last administered on 02/27/20 11:13; Start 02/26/20 at 12:00 Enoxaparin Sodium (Lovenox 30mg Syringe) 30 mg Q24H SQ Last administered on 02/27/20 20:32; Start 02/26/20 at 22:00 Polyethylene Glycol (miraLAX PACKET) 17 gm DAILY PO Last administered on 02/27/20at 18:00; Start 02/27/20 at 18:00 Lidocaine HCl (Lidocaine 1% 20ml Vial) 20 ml STK-MED ONCE .ROUTE ; Start 02/28/20 at 10:03; Stop 02/28/20 at 10:03; Status DC Cefazolin Sodium (Ancef) 1 gm STK-MED ONCE IVP ; Start 02/28/20 at 10:34; Stop 02/28/20 at 10:34; Status DC Midazolam HCl (Versed) 2 mg STK-MED ONCE .ROUTE ; Start 02/28/20 at 10:34; Stop 02/28/20 at 10:34; Status DC Fentanyl Citrate (Fentanyl 2ml Vial) 100 mcg STK-MED ONCE .ROUTE ; Start 02/28/20 at 10:34; Stop 02/28/20 at 10:34; Status DC Ondansetron HCl (Zofran) 4 mg STK-MED ONCE .ROUTE ; Start 02/28/20 at 10:34; Stop 02/28/20 at 10:35; Status DC Midazolam HCl (Versed) 2 mg 1X ONCE IV Last administered on 02/28/20at 10:45; Start 02/28/20 at 10:45; Stop 02/28/20 at 10:59; Status DC Fentanyl Citrate (Fentanyl 2ml Vial) 100 mcg 1X ONCE IV Last administered on 02/28/20at 10:45; Start 02/28/20 at 10:45; Stop 02/28/20 at 10:59; Status DC Cefazolin Sodium (Ancef) 1 gm 1X ONCE IVP Last administered on 02/28/20at 10:45; Start 02/28/20 at 10:45; Stop 02/28/20 at 10:59; Status DC Lidocaine HCl (Lidocaine 1% 20ml Vial) 20 ml 1X ONCE INJ Last administered on 02/28/20at 10:45; Start 02/28/20 at 10:45; Stop 02/28/20 at 10:59; Status DC Ondansetron HCl (Zofran) 4 mg 1X ONCE IVP Last administered on 02/28/20at 10:45; Start 02/28/20 at 10:45; Stop 02/28/20 at 10:59; Status DC Active Scripts Active Amlodipine Besylate 5 Mg Tablet 5 Mg PO BID 30 Days Foltx Tablet (B12/Levomefolate Calcium/B-6) 1 Each Tablet 1 Each PO DAILY Reported Tylenol Extra Strength (Acetaminophen) 500 Mg Tablet 500 Mg PO PRN Q6-8HRS Zoloft (Sertraline Hcl) 25 Mg Tablet 1 Tab PO DAILY Alprazolam 0.25 Mg Tablet 1 Tab PO PRN BID Hydralazine Hcl 25 Mg Tablet 1 Tab PO TID Atorvastatin Calcium 10 Mg Tablet 10 Mg PO HS Pantoprazole Sodium (Pantoprazole Sodium) 40 Mg Tablet.dr 40 Mg PO DAILY Vitals/I & O Vital Sign - Last 24 Hours 02/27/20 02/27/20 02/27/20 02/27/20 19:00 20:21 20:31 20:32 Temp 98.4 98.4 Pulse 85 85 85 Resp 18 22 B/P (MAP) 163/74 (103) 163/74 163/74 Pulse Ox 96 O2 Delivery Room Air Room Air 02/27/20 02/27/20 02/28/20 02/28/20 21:00 23:00 02:58 07:50 Temp 98.8 98.9 98.4 98.8 98.9 98.4 Pulse 83 74 73 Resp 20 18 18 19 B/P (MAP) 158/65 (96) 140/59 (86) 147/63 (91) Pulse Ox 94 93 95 O2 Delivery Room Air Room Air Room Air 02/28/20 02/28/20 02/28/20 02/28/20 08:20 10:45 10:45 10:50 Pulse 82 64 Resp 12 18 13 Pulse Ox 100 100 100 O2 Delivery Room Air Nasal Cannula Room Air Nasal Cannula O2 Flow Rate 2.0 2.0 02/28/20 02/28/20 02/28/20 02/28/20 10:55 11:00 11:05 11:10 Pulse 63 62 58 59 Resp 15 12 11 12 Pulse Ox 100 100 100 100 O2 Delivery Nasal Cannula Nasal Cannula Nasal Cannula Nasal Cannula O2 Flow Rate 2.0 2.0 2.0 2.0 02/28/20 02/28/20 02/28/20 02/28/20 11:15 11:20 11:25 11:30 Pulse 57 56 60 57 Resp 14 14 13 12 Pulse Ox 100 100 100 100 O2 Delivery Nasal Cannula Nasal Cannula Nasal Cannula Nasal Cannula O2 Flow Rate 2.0 2.0 2.0 2.0 02/28/20 02/28/20 02/28/20 02/28/20 11:35 11:40 11:40 12:03 Temp 97.6 97.6 Pulse 59 59 59 56 Resp 13 13 13 19 B/P (MAP) 149/56 (87) Pulse Ox 100 100 100 97 O2 Delivery Nasal Cannula Nasal Cannula Nasal Cannula Room Air O2 Flow Rate 2.0 2.0 2.0 Intake and Output0 02/27/20 02/27/20 02/28/20 15:00 23:00 07:00 Intake Total 240 ml 150 ml Output Total 900 ml Balance 240 ml 150 ml -[address]-guided Sacroplasty, bilaterally. 02/28/2020 11:14 AM Indication: bilateral sacral fractures, intractable pain limiting activities of daily living. Fracture pathologic, secondary to bone demineralization. Pain is severe and persists despite conservative treatment measures. Discussion Moderate sedation: The patient was appropriately monitored by a qualified independent observer throughout the course of the moderate sedation. [id number] sedation time:55 minutes Consent: The risks and benefits of the procedure were discussed with the patient and her daughter. Informed consent was obtained. The patient was brought to the fluoroscopy suite and placed in the prone position. A timeout procedure was performed. Preprocedural antibiotics were administered. Procedure: The overlying skin was prepped and draped in the usual sterile fashion. All elements of maximal sterile barrier technique including the use of a cap, mask, sterile gown, sterile gloves, large sterile sheet, appropriate hand hygiene, and 2% chlorhexidine for cutaneous antisepsis (or acceptable alternative antiseptic per current guidelines) were followed for this procedure. CT imaging of the sacrum was performed. 1% lidocaine was administered for local anesthesia. Trochars were advanced into the sacrum directed towards the ala bilaterally. Once adequate position been obtained contrast opacified polymethylmethacrylate was then and intermittently, very slowly introduced via the access cannulae. Progress was frequently checked with CT imaging. Once adequate filling had been achieved the needles were removed and manual pressure was held. No significant extravasation or complication was identified. Sterile dressing was applied. Patient tolerated the procedure well, without apparent complication. Impression: CT-guided bilateral Sacroplasty Justicifation of Admission Dx: Justifications for Admission: Justification of Admission Dx: Yes Angina: New-Onset COREY ORTIZ MD Feb 28, 2020 15:09
[2020-02-28] MEDS: VITAMIN B12,B9,B6 COMPLEX 1 TABLET. PO SCH (15:12)
[2020-02-28] MEDS: amLODIPine BESYLATE 5 MG TABLET PO SCH ×2 (15:12→21:07)
[2020-02-28] MEDS: SERTRALINE 25 MG TABLET. PO SCH (15:13)
[2020-02-28] MEDS: PANTOPRAZOLE 40 MG TABLET.DR. PO SCH (15:13)
[2020-02-28] MEDS: POLYETHYLENE GLYCOL 3350 17 GM PACKET. PO SCH (15:20)
[2020-02-28] MEDS: ACETAMINOPHEN 500 MG TABLET PO PRN ×2 (16:46→22:49)
[2020-02-28] MEDS: traMADol 50 MG TABLET PO PRN ×2 (16:46→22:49)
[2020-02-28] MEDS: ATORVASTATIN CALCIUM 10 MG TABLET. PO SCH (21:05)
[2020-02-28] MEDS: ENOXAPARIN 30 MG/0.3 ML SYRINGE. SQ SCH (22:50)
[2020-02-29 03:00] VITALS: BP 123/51
[2020-02-29] MEDS: IV NORMAL SALINE 1000ML BAG 1,000 ML IV SCH ×2 (03:01→18:35)
[2020-02-29 04:42] LABS: BASO % 0 % (0-3); EOS # 0.1 x10^3/uL (0.0-0.7); EOS % 2 % (0-3); HEMATOCRIT 28.9 % (36.0-47.0); HEMOGLOBIN 10.2 g/dL (12.0-15.5); LYMPH # 0.8 x10^3/uL (1.0-4.8); LYMPH % 15 % (24-48); MEAN CORPUSCULAR HEMOGLOBIN 34 pg (25-35); MEAN CORPUSCULAR HGB CONC 35 g/dL (31-37); MEAN CORPUSCULAR VOLUME 97 fL (79-100); MONO # 0.4 x10^3/uL (0.0-1.1); MONO % 7 % (0-9); NEUT # 4.2 x10^3/uL (1.8-7.7); NEUT % 76 % (31-73); PLATELET COUNT 128 x10^3/uL (140-400); RED BLOOD COUNT 2.98 x10^6/uL (3.50-5.40); RED CELL DISTRIBUTION WIDTH 12.9 % (11.5-14.5); WHITE BLOOD COUNT 5.5 x10^3/uL (4.0-11.0)
[2020-02-29 04:55] LABS: CALCIUM 8.3 mg/dL (8.5-10.1); CREATININE 0.7 mg/dL (0.6-1.0); GFR 79.3; POTASSIUM 3.6 mmol/L (3.5-5.1)
[2020-02-29 07:00] VITALS: BP 140/57
[2020-02-29] MEDS: INSULIN LISPRO 300 UNITS/3 ML VIAL. SQ SCH ×3 (08:00→16:56)
[2020-02-29] MEDS: PANTOPRAZOLE 40 MG TABLET.DR. PO SCH (08:26)
[2020-02-29] MEDS: SERTRALINE 25 MG TABLET. PO SCH (08:26)
[2020-02-29] MEDS: VITAMIN B12,B9,B6 COMPLEX 1 TABLET. PO SCH (08:26)
[2020-02-29] MEDS: POLYETHYLENE GLYCOL 3350 17 GM PACKET. PO SCH (08:27)
[2020-02-29] MEDS: hydrALAZINE 25 MG TABLET PO SCH ×3 (08:27→21:11)
[2020-02-29] MEDS: amLODIPine BESYLATE 5 MG TABLET PO SCH ×2 (08:27→21:10)
--- NOTE | 2020-02-29 09:45 | NUR ---
SW following. Discussed with RN, pt had kyphoplasty 02/28/2020. PT/OT ordered for today. SW will continue to follow.
[2020-02-29 11:00] VITALS: BP 132/57
[2020-02-29] MEDS: ACETAMINOPHEN 500 MG TABLET PO PRN ×2 (11:26→21:10)
[2020-02-29 15:00] VITALS: BP 153/68
[2020-02-29] MEDS: traMADol 50 MG TABLET PO PRN (15:54)
--- NOTE | 2020-02-29 17:35 | PDOC ---
PROGRESS NOTES Date of Service: DATE: 02/29/20 TIME: 17:33 Chief Complaint Chief Complaint Fall History of Present Illness History of Present Illness Status post sacroplasty. Patient still reports pain in her hip, but is controlled with medication. Denies any fever or shortness of breath. Discussed with RN. Vitals Vitals Vital Signs Date Time Temp Pulse Resp B/P (MAP) Pulse Ox O2 Delivery O2 Flow Rate FiO2 02/29/20 16:54 Room Air 02/29/20 15:00 98.4 64 18 153/68 (96) 92 98.4 02/28/20 11:40 2.0 Physical Exam General: Alert, Cooperative Heart: Regular rate Abdomen: Soft Extremities: No edema, Normal pulses, Other (There is no lower extremity rotation or shortening. She describes groin pain with active range of motion. She does have tenderness bilaterally in the sacral area. No evidence of neurovascular injury. The skin is intact over the fractures.) Skin: No breakdown, No significant lesion Labs LABS Laboratory Tests Test 02/28/20 20:43 02/29/20 04:00 02/29/20 07:19 02/29/20 11:14 Glucose (Fingerstick) 96 mg/dL (70-99) 82 mg/dL (70-99) 98 mg/dL (70-99) White Blood Count 5.5 x10^3/uL (4.0-11.0) Red Blood Count 2.98 x10^6/uL (3.50-5.40) Hemoglobin 10.2 g/dL (12.0-15.5) Hematocrit 28.9 % (36.0-47.0) Mean Corpuscular Volume 97 fL (79-100) Mean Corpuscular Hemoglobin 34 pg (25-35) Mean Corpuscular Hemoglobin Concent 35 g/dL (31-37) Red Cell Distribution Width 12.9 % (11.5-14.5) Platelet Count 128 x10^3/uL (140-400) Neutrophils (%) (Auto) 76 % (31-73) Lymphocytes (%) (Auto) 15 % (24-48) Monocytes (%) (Auto) 7 % (0-9) Eosinophils (%) (Auto) 2 % (0-3) Basophils (%) (Auto) 0 % (0-3) Neutrophils # (Auto) 4.2 x10^3/uL (1.8-7.7) Lymphocytes # (Auto) 0.8 x10^3/uL (1.0-4.8) Monocytes # (Auto) 0.4 x10^3/uL (0.0-1.1) Eosinophils # (Auto) 0.1 x10^3/uL (0.0-0.7) Basophils # (Auto) 0.0 x10^3/uL (0.0-0.2) Sodium Level 134 mmol/L (136-145) Potassium Level 3.6 mmol/L (3.5-5.1) Chloride Level 102 mmol/L (98-107) Carbon Dioxide Level 28 mmol/L (21-32) Anion Gap 4 (6-14) Blood Urea Nitrogen 13 mg/dL (7-20) Creatinine 0.7 mg/dL (0.6-1.0) Estimated GFR (Cockcroft-Gault) 79.3 Glucose Level 88 mg/dL (70-99) Calcium Level 8.3 mg/dL (8.5-10.1) Test 02/29/20 16:22 Glucose (Fingerstick) 123 mg/dL (70-99) Review of Systems Review of Systems Hip pain. Denies shortness of breath, denies cough, denies fever. Assessment and Plan Assessmemt and Plan Problems Medical Problems: (1) Fall Status: Acute (2) Fracture of left inferior pubic ramus Status: Acute (3) Fracture of superior ramus of left pubis Status: Acute (4) Sacral fracture Status: Acute Comment Review of Relevant I have reviewed the following items karen (where applicable) has been applied. Labs Laboratory Tests Test 02/27/20 20:52 02/28/20 05:05 02/28/20 07:28 02/28/20 12:00 Glucose (Fingerstick) 102 mg/dL (70-99) 92 mg/dL (70-99) 94 mg/dL (70-99) White Blood Count 6.2 x10^3/uL (4.0-11.0) Red Blood Count 3.10 x10^6/uL (3.50-5.40) Hemoglobin 10.7 g/dL (12.0-15.5) Hematocrit 30.3 % (36.0-47.0) Mean Corpuscular Volume 98 fL (79-100) Mean Corpuscular Hemoglobin 35 pg (25-35) Mean Corpuscular Hemoglobin Concent 35 g/dL (31-37) Red Cell Distribution Width 12.9 % (11.5-14.5) Platelet Count 139 x10^3/uL (140-400) Neutrophils (%) (Auto) 75 % (31-73) Lymphocytes (%) (Auto) 16 % (24-48) Monocytes (%) (Auto) 7 % (0-9) Eosinophils (%) (Auto) 2 % (0-3) Basophils (%) (Auto) 0 % (0-3) Neutrophils # (Auto) 4.6 x10^3/uL (1.8-7.7) Lymphocytes # (Auto) 1.0 x10^3/uL (1.0-4.8) Monocytes # (Auto) 0.4 x10^3/uL (0.0-1.1) Eosinophils # (Auto) 0.1 x10^3/uL (0.0-0.7) Basophils # (Auto) 0.0 x10^3/uL (0.0-0.2) Prothrombin Time 13.8 SEC (11.7-14.0) Prothromb Time International Ratio 1.1 (0.8-1.1) Activated Partial Thromboplast Time 44 SEC (24-38) Sodium Level 136 mmol/L (136-145) Potassium Level 3.8 mmol/L (3.5-5.1) Chloride Level 102 mmol/L (98-107) Carbon Dioxide Level 27 mmol/L (21-32) Anion Gap 7 (6-14) Blood Urea Nitrogen 12 mg/dL (7-20) Creatinine 0.5 mg/dL (0.6-1.0) Estimated GFR (Cockcroft-Gault) 117.0 Glucose Level 86 mg/dL (70-99) Calcium Level 8.5 mg/dL (8.5-10.1) Test 02/28/20 16:38 02/28/20 20:43 02/29/20 04:00 02/29/20 07:19 Glucose (Fingerstick) 124 mg/dL (70-99) 96 mg/dL (70-99) 82 mg/dL (70-99) White Blood Count 5.5 x10^3/uL (4.0-11.0) Red Blood Count 2.98 x10^6/uL (3.50-5.40) Hemoglobin 10.2 g/dL (12.0-15.5) Hematocrit 28.9 % (36.0-47.0) Mean Corpuscular Volume 97 fL (79-100) Mean Corpuscular Hemoglobin 34 pg (25-35) Mean Corpuscular Hemoglobin Concent 35 g/dL (31-37) Red Cell Distribution Width 12.9 % (11.5-14.5) Platelet Count 128 x10^3/uL (140-400) Neutrophils (%) (Auto) 76 % (31-73) Lymphocytes (%) (Auto) 15 % (24-48) Monocytes (%) (Auto) 7 % (0-9) Eosinophils (%) (Auto) 2 % (0-3) Basophils (%) (Auto) 0 % (0-3) Neutrophils # (Auto) 4.2 x10^3/uL (1.8-7.7) Lymphocytes # (Auto) 0.8 x10^3/uL (1.0-4.8) Monocytes # (Auto) 0.4 x10^3/uL (0.0-1.1) Eosinophils # (Auto) 0.1 x10^3/uL (0.0-0.7) Basophils # (Auto) 0.0 x10^3/uL (0.0-0.2) Sodium Level 134 mmol/L (136-145) Potassium Level 3.6 mmol/L (3.5-5.1) Chloride Level 102 mmol/L (98-107) Carbon Dioxide Level 28 mmol/L (21-32) Anion Gap 4 (6-14) Blood Urea Nitrogen 13 mg/dL (7-20) Creatinine 0.7 mg/dL (0.6-1.0) Estimated GFR (Cockcroft-Gault) 79.3 Glucose Level 88 mg/dL (70-99) Calcium Level 8.3 mg/dL (8.5-10.1) Test 02/29/20 11:14 02/29/20 16:22 Glucose (Fingerstick) 98 mg/dL (70-99) 123 mg/dL (70-99) Laboratory Tests Test 02/28/20 20:43 02/29/20 04:00 02/29/20 07:19 02/29/20 11:14 Glucose (Fingerstick) 96 mg/dL (70-99) 82 mg/dL (70-99) 98 mg/dL (70-99) White Blood Count 5.5 x10^3/uL (4.0-11.0) Red Blood Count 2.98 x10^6/uL (3.50-5.40) Hemoglobin 10.2 g/dL (12.0-15.5) Hematocrit 28.9 % (36.0-47.0) Mean Corpuscular Volume 97 fL (79-100) Mean Corpuscular Hemoglobin 34 pg (25-35) Mean Corpuscular Hemoglobin Concent 35 g/dL (31-37) Red Cell Distribution Width 12.9 % (11.5-14.5) Platelet Count 128 x10^3/uL (140-400) Neutrophils (%) (Auto) 76 % (31-73) Lymphocytes (%) (Auto) 15 % (24-48) Monocytes (%) (Auto) 7 % (0-9) Eosinophils (%) (Auto) 2 % (0-3) Basophils (%) (Auto) 0 % (0-3) Neutrophils # (Auto) 4.2 x10^3/uL (1.8-7.7) Lymphocytes # (Auto) 0.8 x10^3/uL (1.0-4.8) Monocytes # (Auto) 0.4 x10^3/uL (0.0-1.1) Eosinophils # (Auto) 0.1 x10^3/uL (0.0-0.7) Basophils # (Auto) 0.0 x10^3/uL (0.0-0.2) Sodium Level 134 mmol/L (136-145) Potassium Level 3.6 mmol/L (3.5-5.1) Chloride Level 102 mmol/L (98-107) Carbon Dioxide Level 28 mmol/L (21-32) Anion Gap 4 (6-14) Blood Urea Nitrogen 13 mg/dL (7-20) Creatinine 0.7 mg/dL (0.6-1.0) Estimated GFR (Cockcroft-Gault) 79.3 Glucose Level 88 mg/dL (70-99) Calcium Level 8.3 mg/dL (8.5-10.1) Test 02/29/20 16:22 Glucose (Fingerstick) 123 mg/dL (70-99) Medications Current Medications Acetaminophen/ Hydrocodone Bitart (Lortab 5/325) 1 tab 1X ONCE PO Last administered on 02/25/20at 19:11; Start 02/25/20 at 19:15; Stop 02/25/20 at 19: 16; Status DC Ondansetron HCl (Zofran) 4 mg PRN Q8HRS PRN IV NAUSEA/VOMITING 1ST CHOICE Last administered on 02/25/20at 23:39; Start 02/25/20 at 21:45; Stop 02/26/20 at 07:15; Status DC Morphine Sulfate (Morphine Sulfate) 4 mg PRN Q2HR PRN IV SEVERE PAIN 7-10; Start 02/25/20 at 21:45; Stop 02/26/20 at 21:44; Status UNV Fentanyl Citrate (Fentanyl 2ml Vial) 50 mcg PRN Q2HR PRN IVP SEVERE PAIN 7-10 Last administered on 02/25/20at 23:09; Start 02/25/20 at 22:15; Stop 02/26/20 at 07:15; Status DC Fentanyl Citrate (Fentanyl 2ml Vial) 50 mcg PRN Q2HR PRN IVP PAIN Last administered on 02/27/20at 20:21; Start 02/26/20 at 07:15 Sodium Chloride 1,000 ml @ 60 mls/hr [id number] IV Last administered on 02/29/20at 03:01; Start 02/26/20 at 07:15 Ondansetron HCl (Zofran) 4 mg PRN Q8HRS PRN IVP NAUSEA/VOMITING; Start 02/26/20 at 07:15 Insulin Human Lispro (HumaLOG) 0-5 UNITS TIDWMEALS SQ ; Start 02/26/20 at 12:00 Dextrose (Dextrose 50%-Water Syringe) 12.5 gm PRN Q15MIN PRN IV SEE COMMENTS; Start 02/26/20 at 08:15 Acetaminophen (Tylenol) 500 mg PRN Q6HRS PRN PO FEVER Last administered on 02/29/20at 11:26; Start 02/26/20 at 10:45 Alprazolam (Xanax) 0.25 mg PRN BID PRN PO ANXIETY / AGITATION; Start 02/26/20 at 10:45 Amlodipine Besylate (Norvasc) 5 mg BID PO Last administered on 02/29/20at 08:27; Start 02/26/20 at 12:00 Atorvastatin Calcium (Lipitor) 10 mg HS PO Last administered on 02/28/20at 21:05; Start 02/26/20 at 21:00 Hydralazine HCl (Apresoline) 25 mg TID PO Last administered on 02/29/20at 13:20; Start 02/26/20 at 14:00 Pantoprazole Sodium (Protonix) 40 mg DAILY PO Last administered on 02/29/20at 08:26; Start 02/26/20 at 12:00 Sertraline HCl (Zoloft) 25 mg DAILY PO Last administered on 02/29/20at 08:26; Start 02/26/20 at 12:00 Vitamin B Complex (Folbic Tablet) 1 tab DAILY PO Last administered on 02/29/20at 08:26; Start 02/26/20 at 12:00 Enoxaparin Sodium (Lovenox 30mg Syringe) 30 mg Q24H SQ Last administered on 02/28/20at 22:50; Start 02/26/20 at 22:00 Polyethylene Glycol (miraLAX PACKET) 17 gm DAILY PO Last administered on 0at 08:27; Start 02/27/20 at 18:00 Lidocaine HCl (Lidocaine 1% 20ml Vial) 20 ml STK-MED ONCE .ROUTE ; Start 02/28/20 at 10:03; Stop 02/28/20 at 10:03; Status DC Cefazolin Sodium (Ancef) 1 gm STK-MED ONCE IVP ; Start 02/28/20 at 10:34; Stop 02/28/20 at 10:34; Status DC Midazolam HCl (Versed) 2 mg STK-MED ONCE .ROUTE ; Start 02/28/20 at 10:34; Stop 02/28/20 at 10:34; Status DC Fentanyl Citrate (Fentanyl 2ml Vial) 100 mcg STK-MED ONCE .ROUTE ; Start 02/28/20 at 10:34; Stop 02/28/20 at 10:34; Status DC Ondansetron HCl (Zofran) 4 mg STK-MED ONCE .ROUTE ; Start 02/28/20 at 10:34; Stop 02/28/20 at 10:35; Status DC Midazolam HCl (Versed) 2 mg 1X ONCE IV Last administered on 02/28/20at 10:45; Start 02/28/20 at 10:45; Stop 02/28/20 at 10:59; Status DC Fentanyl Citrate (Fentanyl 2ml Vial) 100 mcg 1X ONCE IV Last administered on 02/28/20at 10:45; Start 02/28/20 at 10:45; Stop 02/28/20 at 10:59; Status DC Cefazolin Sodium (Ancef) 1 gm 1X ONCE IVP Last administered on 02/28/20at 10:45; Start 02/28/20 at 10:45; Stop 02/28/20 at 10:59; Status DC Lidocaine HCl (Lidocaine 1% 20ml Vial) 20 ml 1X ONCE INJ Last administered on 02/28/20at 10:45; Start 02/28/20 at 10:45; Stop 02/28/20 at 10:59; Status DC Ondansetron HCl (Zofran) 4 mg 1X ONCE IVP Last administered on 02/28/20at 10:45; Start 02/28/20 at 10:45; Stop 02/28/20 at 10:59; Status DC Tramadol HCl (Ultram) 50 mg PRN Q6HRS PRN PO PAIN Last administered on 02/29/20at 15:54; Start 02/28/20 at 16:45 Active Scripts Active Amlodipine Besylate 5 Mg Tablet 5 Mg PO BID 30 Days Foltx Tablet (B12/Levomefolate Calcium/B-6) 1 Each Tablet 1 Each PO DAILY Reported Tylenol Extra Strength (Acetaminophen) 500 Mg Tablet 500 Mg PO PRN Q6-8HRS Zoloft (Sertraline Hcl) 25 Mg Tablet 1 Tab PO DAILY Alprazolam 0.25 Mg Tablet 1 Tab PO PRN BID Hydralazine Hcl 25 Mg Tablet 1 Tab PO TID Atorvastatin Calcium 10 Mg Tablet 10 Mg PO HS Pantoprazole Sodium (Pantoprazole Sodium) 40 Mg Tablet.dr 40 Mg PO DAILY Vitals/I & O Vital Sign - Last 24 Hours 02/28/20 02/28/20 02/28/20 02/28/20 17:45 19:00 20:00 21:06 Temp 98.3 98.3 Pulse 74 74 Resp 18 B/P (MAP) 143/59 (87) 143/59 Pulse Ox 91 O2 Delivery Room Air Room Air Room Air 02/28/20 02/28/20 02/28/20 02/29/20 21:07 22:49 23:00 00:00 Temp 98.0 98.0 Pulse 74 74 Resp 18 B/P (MAP) 143/59 151/69 (96) Pulse Ox 92 O2 Delivery Room Air Room Air Room Air 02/29/20 02/29/20 02/29/20 02/29/20 03:00 07:00 08:00 08:27 Temp 97.9 98.5 97.9 98.5 Pulse 56 67 67 Resp 18 18 B/P (MAP) 123/51 (75) 140/57 (84) 140/57 Pulse Ox 90 89 O2 Delivery Room Air Room Air Room Air 02/29/20 02/29/20 02/29/20 02/29/20 08:27 11:00 13:20 15:00 Temp 98.5 98.4 98.5 98.4 Pulse 67 65 65 64 Resp 18 18 B/P (MAP) 140/57 132/57 (82) 132/57 153/68 (96) Pulse Ox 91 92 O2 Delivery Room Air Room Air 02/29/20 02/29/20 15:54 16:54 O2 Delivery Room Air Room Air Intake and Output 02/28/20 02/28/20 02/29/20 15:00 23:00 07:00 Output Total 600 ml 1275 ml Balance -600 ml -1275 ml Justicifation of Admission Dx: Justifications for Admission: Justification of Admission Dx: Yes Angina: New-Onset COREY ORTIZ MD Feb 29, 2020 17:34
[2020-02-29 19:00] VITALS: BP 124/43
[2020-02-29] MEDS: ATORVASTATIN CALCIUM 10 MG TABLET. PO SCH (21:11)
[2020-02-29] MEDS: ENOXAPARIN 30 MG/0.3 ML SYRINGE. SQ SCH (21:12)
[2020-02-29 23:00] VITALS: BP 154/67
[2020-03-01 03:00] VITALS: BP 140/61
[2020-03-01 07:00] VITALS: BP 146/55
[2020-03-01 07:44] LABS: BASO % 0 % (0-3); EOS # 0.1 x10^3/uL (0.0-0.7); EOS % 3 % (0-3); HEMATOCRIT 29.6 % (36.0-47.0); HEMOGLOBIN 10.5 g/dL (12.0-15.5); LYMPH # 0.7 x10^3/uL (1.0-4.8); LYMPH % 17 % (24-48); MEAN CORPUSCULAR HEMOGLOBIN 35 pg (25-35); MEAN CORPUSCULAR HGB CONC 35 g/dL (31-37); MEAN CORPUSCULAR VOLUME 98 fL (79-100); MONO # 0.2 x10^3/uL (0.0-1.1); MONO % 5 % (0-9); NEUT # 3.2 x10^3/uL (1.8-7.7); NEUT % 75 % (31-73); PLATELET COUNT 125 x10^3/uL (140-400); RED BLOOD COUNT 3.03 x10^6/uL (3.50-5.40); RED CELL DISTRIBUTION WIDTH 13.1 % (11.5-14.5); WHITE BLOOD COUNT 4.2 x10^3/uL (4.0-11.0)
[2020-03-01] MEDS: INSULIN LISPRO 300 UNITS/3 ML VIAL. SQ SCH ×3 (08:00→16:28)
[2020-03-01 08:05] LABS: CALCIUM 8.2 mg/dL (8.5-10.1); CREATININE 0.6 mg/dL (0.6-1.0); GFR 94.8; POTASSIUM 3.9 mmol/L (3.5-5.1)
[2020-03-01] MEDS: POLYETHYLENE GLYCOL 3350 17 GM PACKET. PO SCH (08:38)
[2020-03-01] MEDS: PANTOPRAZOLE 40 MG TABLET.DR. PO SCH (08:39)
[2020-03-01] MEDS: SERTRALINE 25 MG TABLET. PO SCH (08:39)
[2020-03-01] MEDS: hydrALAZINE 25 MG TABLET PO SCH ×3 (08:39→21:14)
[2020-03-01] MEDS: amLODIPine BESYLATE 5 MG TABLET PO SCH ×2 (08:39→21:14)
[2020-03-01] MEDS: VITAMIN B12,B9,B6 COMPLEX 1 TABLET. PO SCH (08:39)
[2020-03-01] MEDS: IV NORMAL SALINE 1000ML BAG 1,000 ML IV SCH (08:40)
--- NOTE | 2020-03-01 10:09 | NUR ---
ALEXIS following. Discussed with RN, PT recommending SNU, OT recommending Home Health. Pt has medicaid, will need acute rehab recommendation if appropriate. ALEXIS discussed with therapy department. ALEXIS will continue to follow. Addendum: 03/01/20 at 1230 by FLORENCE ESPINOZA PT/OT recommending acute rehab. ALEXIS attempted to contact pt's granddaughter, Krystin - [employer] box full. ALEXIS sent text message to Krystin's phone requesting a call back. Krystin is no longer visiting with pt. ALEXIS notified RN to have Krystin call ALEXIS if she calls the nurses station. RN will notify ALEXIS if Krystin returns. Addendum: 03/01/20 at 1439 by FLORENCE ESPINOZA Pt's granddaughter, Krystin contacted ALEXIS, would like pt to go to acute rehab. Would like referral to [facility]. SW faxed referral to [facility], awaiting acceptance decision, and insurance auth. SW will continue to follow. RN notified.
[2020-03-01 11:00] VITALS: BP 140/59
--- NOTE | 2020-03-01 11:00 | PDOC ---
[employer] PROGRESS NOTE Date of Service DOS: DATE: 03/01/20 TIME: 10:59 Chief Complaint Chief Complaint Fall History of Present Illness History of Present Illness Status post sacroplasty. Discussed with patient and family their preference for rehab, acute inpatient rehab versus home rehab. Patient family would prefer acute inpatient rehab, but will have to agree with what ever the patient wants will cover. Pain control. Denies any fever or shortness of breath. Discussed with RN. Vitals/I&O Vitals/I&O: Vital Signs Date Time Temp Pulse Resp B/P (MAP) Pulse Ox O2 Delivery O2 Flow Rate FiO2 03/01/20 08:39 60 146/55 03/01/20 08:00 Room Air 03/01/20 07:00 98.5 18 92 98.5 03/01/20 03:00 2.0 I & O 02/29/20 02/29/20 03/01/20 15:00 23:00 07:00 Intake Total 200 ml Output Total 750 ml 1800 ml Balance -750 ml -1600 ml Physical Exam General: Alert, Cooperative Heart: Regular rate Abdomen: Soft Extremities: No edema, Normal pulses, Other (There is no lower extremity rotation or shortening. She describes groin pain with active range of motion. She does have tenderness bilaterally in the sacral area. No evidence of neurovascular injury. The skin is intact over the fractures.) Skin: No breakdown, No significant lesion Labs Labs: Laboratory Tests Test 02/29/20 11:14 02/29/20 16:22 02/29/20 20:19 03/01/20 07:20 Glucose (Fingerstick) 98 mg/dL (70-99) 123 mg/dL (70-99) 101 mg/dL (70-99) White Blood Count 4.2 x10^3/uL (4.0-11.0) Red Blood Count 3.03 x10^6/uL (3.50-5.40) Hemoglobin 10.5 g/dL (12.0-15.5) Hematocrit 29.6 % (36.0-47.0) Mean Corpuscular Volume 98 fL (79-100) Mean Corpuscular Hemoglobin 35 pg (25-35) Mean Corpuscular Hemoglobin Concent 35 g/dL (31-37) Red Cell Distribution Width 13.1 % (11.5-14.5) Platelet Count 125 x10^3/uL (140-400) Neutrophils (%) (Auto) 75 % (31-73) Lymphocytes (%) (Auto) 17 % (24-48) Monocytes (%) (Auto) 5 % (0-9) Eosinophils (%) (Auto) 3 % (0-3) Basophils (%) (Auto) 0 % (0-3) Neutrophils # (Auto) 3.2 x10^3/uL (1.8-7.7) Lymphocytes # (Auto) 0.7 x10^3/uL (1.0-4.8) Monocytes # (Auto) 0.2 x10^3/uL (0.0-1.1) Eosinophils # (Auto) 0.1 x10^3/uL (0.0-0.7) Basophils # (Auto) 0.0 x10^3/uL (0.0-0.2) Sodium Level 136 mmol/L (136-145) Potassium Level 3.9 mmol/L (3.5-5.1) Chloride Level 102 mmol/L (98-107) Carbon Dioxide Level 29 mmol/L (21-32) Anion Gap 5 (6-14) Blood Urea Nitrogen 9 mg/dL (7-20) Creatinine 0.6 mg/dL (0.6-1.0) Estimated GFR (Cockcroft-Gault) 94.8 Glucose Level 85 mg/dL (70-99) Calcium Level 8.2 mg/dL (8.5-10.1) Test 03/01/20 07:24 Glucose (Fingerstick) 83 mg/dL (70-99) Assessment and Plan Assessmemt and Plan Problems Medical Problems: (1) Fall Status: Acute (2) Fracture of left inferior pubic ramus Status: Acute (3) Fracture of superior ramus of left pubis Status: Acute (4) Sacral fracture Status: Acute Comment Review of Relevant I have reviewed the following items karen (where applicable) has been applied. Justifications for Admission Other Justification COREY ORTIZ MD Mar 01, 2020 11:00
[2020-03-01] MEDS: traMADol 50 MG TABLET PO PRN ×2 (11:13→21:15)
[2020-03-01 15:00] VITALS: BP 158/65
[2020-03-01] MEDS: ACETAMINOPHEN 500 MG TABLET PO PRN (16:12)
[2020-03-01 19:25] VITALS: BP 159/74
[2020-03-01] MEDS: ATORVASTATIN CALCIUM 10 MG TABLET. PO SCH (21:14)
[2020-03-01] MEDS: ENOXAPARIN 30 MG/0.3 ML SYRINGE. SQ SCH (21:34)
[2020-03-01 23:15] VITALS: BP 148/60
[2020-03-02] MEDS: ACETAMINOPHEN 500 MG TABLET PO PRN ×3 (01:32→16:01)
[2020-03-02 03:10] VITALS: BP 134/48
[2020-03-02] MEDS: IV NORMAL SALINE 1000ML BAG 1,000 ML IV SCH ×2 (03:55→20:35)
[2020-03-02 05:13] LABS: BASO % 1 % (0-3); EOS # 0.2 x10^3/uL (0.0-0.7); EOS % 3 % (0-3); HEMOGLOBIN 10.2 g/dL (12.0-15.5); LYMPH % 19 % (24-48); MEAN CORPUSCULAR HEMOGLOBIN 34 pg (25-35); MEAN CORPUSCULAR HGB CONC 35 g/dL (31-37); MEAN CORPUSCULAR VOLUME 98 fL (79-100); MONO # 0.4 x10^3/uL (0.0-1.1); MONO % 8 % (0-9); NEUT # 3.6 x10^3/uL (1.8-7.7); NEUT % 69 % (31-73); PLATELET COUNT 129 x10^3/uL (140-400); RED BLOOD COUNT 2.95 x10^6/uL (3.50-5.40); RED CELL DISTRIBUTION WIDTH 13.1 % (11.5-14.5); WHITE BLOOD COUNT 5.2 x10^3/uL (4.0-11.0)
[2020-03-02 05:23] LABS: CALCIUM 8.6 mg/dL (8.5-10.1); CREATININE 0.7 mg/dL (0.6-1.0); GFR 79.3; POTASSIUM 3.7 mmol/L (3.5-5.1)
[2020-03-02 07:00] VITALS: BP 137/59
[2020-03-02] MEDS: INSULIN LISPRO 300 UNITS/3 ML VIAL. SQ SCH ×3 (07:57→16:47)
[2020-03-02] MEDS: PANTOPRAZOLE 40 MG TABLET.DR. PO SCH (08:15)
[2020-03-02] MEDS: VITAMIN B12,B9,B6 COMPLEX 1 TABLET. PO SCH (08:16)
[2020-03-02] MEDS: hydrALAZINE 25 MG TABLET PO SCH ×3 (08:16→21:05)
[2020-03-02] MEDS: POLYETHYLENE GLYCOL 3350 17 GM PACKET. PO SCH (08:16)
[2020-03-02] MEDS: SERTRALINE 25 MG TABLET. PO SCH (08:16)
[2020-03-02] MEDS: traMADol 50 MG TABLET PO PRN ×3 (08:16→21:05)
[2020-03-02] MEDS: amLODIPine BESYLATE 5 MG TABLET PO SCH ×2 (08:16→21:05)
--- NOTE | 2020-03-02 09:33 | NUR ---
ALEXIS following. Discussed with RN, pt accepted at [facility], pending insurance auth. ALEXIS will continue to follow. Addendum: 03/02/20 at 1542 by FLORENCE ESPINOZA ALEXIS spoke with Kashif at [facility], still pending insurance auth. Pt can discharge to [facility] over the weekend if insurance comes through. Information added to weekend discharge list. RN notified.
[2020-03-02 11:00] VITALS: BP 123/52
--- NOTE | 2020-03-02 13:41 | PDOC ---
[employer] PROGRESS NOTE Date of Service DOS: DATE: 03/02/20 TIME: 13:40 Chief Complaint Chief Complaint Fall History of Present Illness History of Present Illness Status post sacroplasty. Patient states her pain is controlled. Discussed with patient that we are waiting for insurance clearance before we could pursue inpatient rehab. She is denying that insurance we will proceed with home PT. Vitals/I&O Vitals/I&O: Vital Signs Date Time Temp Pulse Resp B/P (MAP) Pulse Ox O2 Delivery O2 Flow Rate FiO2 03/02/20 13:06 71 123/52 03/02/20 11:00 97.6 18 93 Room Air 97.6 I & O0 03/01/20 03/01/20 03/02/20 15:00 23:00 07:00 Intake Total 350 ml 120 ml 360 ml Output Total 2050 ml 425 ml Balance 350 ml -1930 ml -65 ml Physical Exam General: Alert, Cooperative Heart: Regular rate Abdomen: Soft Extremities: No edema, Normal pulses, Other (There is no lower extremity rotation or shortening. She describes groin pain with active range of motion. She does have tenderness bilaterally in the sacral area. No evidence of neurovascular injury. The skin is intact over the fractures.) Skin: No breakdown, No significant lesion Labs Labs: Laboratory Tests Test 03/01/20 16:26 03/01/20 20:53 03/02/20 04:30 03/02/20 07:34 Glucose (Fingerstick) 119 mg/dL (70-99) 106 mg/dL (70-99) 88 mg/dL (70-99) White Blood Count 5.2 x10^3/uL (4.0-11.0) Red Blood Count 2.95 x10^6/uL (3.50-5.40) Hemoglobin 10.2 g/dL (12.0-15.5) Hematocrit 29.0 % (36.0-47.0) Mean Corpuscular Volume 98 fL (79-100) Mean Corpuscular Hemoglobin 34 pg (25-35) Mean Corpuscular Hemoglobin Concent 35 g/dL (31-37) Red Cell Distribution Width 13.1 % (11.5-14.5) Platelet Count 129 x10^3/uL (140-400) Neutrophils (%) (Auto) 69 % (31-73) Lymphocytes (%) (Auto) 19 % (24-48) Monocytes (%) (Auto) 8 % (0-9) Eosinophils (%) (Auto) 3 % (0-3) Basophils (%) (Auto) 1 % (0-3) Neutrophils # (Auto) 3.6 x10^3/uL (1.8-7.7) Lymphocytes # (Auto) 1.0 x10^3/uL (1.0-4.8) Monocytes # (Auto) 0.4 x10^3/uL (0.0-1.1) Eosinophils # (Auto) 0.2 x10^3/uL (0.0-0.7) Basophils # (Auto) 0.0 x10^3/uL (0.0-0.2) Sodium Level 134 mmol/L (136-145) Potassium Level 3.7 mmol/L (3.5-5.1) Chloride Level 100 mmol/L (98-107) Carbon Dioxide Level 29 mmol/L (21-32) Anion Gap 5 (6-14) Blood Urea Nitrogen 13 mg/dL (7-20) Creatinine 0.7 mg/dL (0.6-1.0) Estimated GFR (Cockcroft-Gault) 79.3 Glucose Level 83 mg/dL (70-99) Calcium Level 8.6 mg/dL (8.5-10.1) Test 03/02/20 11:17 Glucose (Fingerstick) 92 mg/dL (70-99) Review of Systems Review of Systems: Left hip pain. Denies fever, denies nausea, denies vomiting, denies shortness of breath. Assessment and Plan Assessmemt and Plan Problems Medical Problems: (1) Fall Status: Acute (2) Fracture of left inferior pubic ramus Status: Acute (3) Fracture of superior ramus of left pubis Status: Acute (4) Sacral fracture Status: Acute Comment Review of Relevant I have reviewed the following items karen (where applicable) has been applied. Justifications for Admission Other Justification COREY ORTIZ MD Mar 02, 2020 13:41
[2020-03-02 15:00] VITALS: BP 124/63
[2020-03-02 19:00] VITALS: BP 162/73
[2020-03-02] MEDS: ATORVASTATIN CALCIUM 10 MG TABLET. PO SCH (21:05)
[2020-03-02] MEDS: ENOXAPARIN 30 MG/0.3 ML SYRINGE. SQ SCH (21:45)
[2020-03-02 23:00] VITALS: BP 133/61
[2020-03-03] MEDS: ACETAMINOPHEN 500 MG TABLET PO PRN ×2 (00:25→21:27)
[2020-03-03 03:00] VITALS: BP 137/61
[2020-03-03] MEDS: traMADol 50 MG TABLET PO PRN ×2 (03:17→15:06)
[2020-03-03 04:46] LABS: BASO % 0 % (0-3); EOS # 0.2 x10^3/uL (0.0-0.7); EOS % 3 % (0-3); HEMATOCRIT 28.5 % (36.0-47.0); LYMPH # 0.8 x10^3/uL (1.0-4.8); LYMPH % 14 % (24-48); MEAN CORPUSCULAR HEMOGLOBIN 34 pg (25-35); MEAN CORPUSCULAR HGB CONC 35 g/dL (31-37); MEAN CORPUSCULAR VOLUME 97 fL (79-100); MONO # 0.4 x10^3/uL (0.0-1.1); MONO % 7 % (0-9); NEUT # 4.3 x10^3/uL (1.8-7.7); NEUT % 76 % (31-73); PLATELET COUNT 127 x10^3/uL (140-400); RED BLOOD COUNT 2.94 x10^6/uL (3.50-5.40); RED CELL DISTRIBUTION WIDTH 13.1 % (11.5-14.5); WHITE BLOOD COUNT 5.6 x10^3/uL (4.0-11.0)
[2020-03-03 05:06] LABS: CALCIUM 7.8 mg/dL (8.5-10.1); CREATININE 0.9 mg/dL (0.6-1.0); GFR 59.4; POTASSIUM 3.9 mmol/L (3.5-5.1)
[2020-03-03 07:00] VITALS: BP 136/57
[2020-03-03] MEDS: INSULIN LISPRO 300 UNITS/3 ML VIAL. SQ SCH ×3 (08:00→17:00)
[2020-03-03] MEDS: SERTRALINE 25 MG TABLET. PO SCH (10:07)
[2020-03-03] MEDS: PANTOPRAZOLE 40 MG TABLET.DR. PO SCH (10:07)
[2020-03-03] MEDS: POLYETHYLENE GLYCOL 3350 17 GM PACKET. PO SCH (10:07)
[2020-03-03] MEDS: amLODIPine BESYLATE 5 MG TABLET PO SCH ×2 (10:09→21:26)
[2020-03-03] MEDS: VITAMIN B12,B9,B6 COMPLEX 1 TABLET. PO SCH (10:10)
[2020-03-03] MEDS: hydrALAZINE 25 MG TABLET PO SCH ×3 (10:11→21:26)
[2020-03-03 11:00] VITALS: BP 140/57
--- NOTE | 2020-03-03 12:53 | PDOC ---
[employer] PROGRESS NOTE Date of Service DOS: DATE: 03/03/20 TIME: 12:52 Chief Complaint Chief Complaint Fall History of Present Illness History of Present Illness Status post sacroplasty. Patient states her pain is controlled. Still waiting for insurance clearance before we could pursue inpatient rehab. If not, will proceed with home PT. Vitals/I&O Vitals/I&O: Vital Signs Date Time Temp Pulse Resp B/P (MAP) Pulse Ox O2 Delivery O2 Flow Rate FiO2 03/03/20 11:00 98.0 68 16 140/57 (84) 95 Room Air 98.0 I & O 03/02/20 03/02/20 03/03/20 15:00 23:00 07:00 Intake Total 250 ml Balance 250 ml Physical Exam General: Alert, Cooperative Heart: Regular rate Abdomen: Soft Extremities: No edema, Normal pulses, Other (There is no lower extremity rotation or shortening. She describes groin pain with active range of motion. She does have tenderness bilaterally in the sacral area. No evidence of neurovascular injury. The skin is intact over the fractures.) Skin: No breakdown, No significant lesion Labs Labs: Laboratory Tests Test 03/02/20 16:39 03/02/20 20:09 03/03/20 04:25 03/03/20 07:06 Glucose (Fingerstick) 107 mg/dL (70-99) 116 mg/dL (70-99) 80 mg/dL (70-99) White Blood Count 5.6 x10^3/uL (4.0-11.0) Red Blood Count 2.94 x10^6/uL (3.50-5.40) Hemoglobin 10.0 g/dL (12.0-15.5) Hematocrit 28.5 % (36.0-47.0) Mean Corpuscular Volume 97 fL (79-100) Mean Corpuscular Hemoglobin 34 pg (25-35) Mean Corpuscular Hemoglobin Concent 35 g/dL (31-37) Red Cell Distribution Width 13.1 % (11.5-14.5) Platelet Count 127 x10^3/uL (140-400) Neutrophils (%) (Auto) 76 % (31-73) Lymphocytes (%) (Auto) 14 % (24-48) Monocytes (%) (Auto) 7 % (0-9) Eosinophils (%) (Auto) 3 % (0-3) Basophils (%) (Auto) 0 % (0-3) Neutrophils # (Auto) 4.3 x10^3/uL (1.8-7.7) Lymphocytes # (Auto) 0.8 x10^3/uL (1.0-4.8) Monocytes # (Auto) 0.4 x10^3/uL (0.0-1.1) Eosinophils # (Auto) 0.2 x10^3/uL (0.0-0.7) Basophils # (Auto) 0.0 x10^3/uL (0.0-0.2) Sodium Level 136 mmol/L (136-145) Potassium Level 3.9 mmol/L (3.5-5.1) Chloride Level 101 mmol/L (98-107) Carbon Dioxide Level 30 mmol/L (21-32) Anion Gap 5 (6-14) Blood Urea Nitrogen 21 mg/dL (7-20) Creatinine 0.9 mg/dL (0.6-1.0) Estimated GFR (Cockcroft-Gault) 59.4 Glucose Level 86 mg/dL (70-99) Calcium Level 7.8 mg/dL (8.5-10.1) Test 03/03/20 11:07 Glucose (Fingerstick) 126 mg/dL (70-99) Assessment and Plan Assessmemt and Plan Problems Medical Problems: (1) Fall Status: Acute (2) Fracture of left inferior pubic ramus Status: Acute (3) Fracture of superior ramus of left pubis Status: Acute (4) Sacral fracture Status: Acute Comment Review of Relevant I have reviewed the following items karen (where applicable) has been applied. Justifications for Admission Other Justification COREY ORTIZ MD Mar 03, 2020 12:53
[2020-03-03] MEDS: IV NORMAL SALINE 1000ML BAG 1,000 ML IV SCH (13:15)
[2020-03-03 15:00] VITALS: BP 193/56
[2020-03-03] MEDS: fentaNYL PF VIAL 100 MCG/2 ML VIAL IVP PRN (18:26)
[2020-03-03 19:00] VITALS: BP 136/59
[2020-03-03] MEDS: ATORVASTATIN CALCIUM 10 MG TABLET. PO SCH (21:25)
[2020-03-03] MEDS: ENOXAPARIN 30 MG/0.3 ML SYRINGE. SQ SCH (21:25)
[2020-03-03 23:00] VITALS: BP 134/56
[2020-03-04 03:00] VITALS: BP 152/70
[2020-03-04 07:00] VITALS: BP 150/56
[2020-03-04] MEDS: INSULIN LISPRO 300 UNITS/3 ML VIAL. SQ SCH ×3 (08:00→17:00)
[2020-03-04] MEDS: POLYETHYLENE GLYCOL 3350 17 GM PACKET. PO SCH (08:12)
[2020-03-04] MEDS: traMADol 50 MG TABLET PO PRN ×2 (08:15→14:45)
[2020-03-04] MEDS: PANTOPRAZOLE 40 MG TABLET.DR. PO SCH (08:15)
[2020-03-04] MEDS: VITAMIN B12,B9,B6 COMPLEX 1 TABLET. PO SCH (08:15)
[2020-03-04] MEDS: hydrALAZINE 25 MG TABLET PO SCH ×3 (08:16→20:26)
[2020-03-04] MEDS: SERTRALINE 25 MG TABLET. PO SCH (08:16)
[2020-03-04] MEDS: amLODIPine BESYLATE 5 MG TABLET PO SCH ×2 (08:19→20:27)
[2020-03-04] MEDS: fentaNYL PF VIAL 100 MCG/2 ML VIAL IVP PRN (09:47)
[2020-03-04 11:00] VITALS: BP 114/47
--- NOTE | 2020-03-04 13:24 | PDOC ---
[facility] PROGRESS NOTE Date of Service DOS: DATE: 03/04/20 TIME: 13:23 Chief Complaint Chief Complaint Fall History of Present Illness History of Present Illness Status post sacroplasty. Patient is resting comfortably. Still waiting for insurance clearance before we could pursue inpatient rehab, unfortunately given the holiday this may not happen until Thursday. If not, will proceed with home P T. Vitals/I&O Vitals/I&O: Vital Signs Date Time Temp Pulse Resp B/P (MAP) Pulse Ox O2 Delivery O2 Flow Rate FiO2 03/04/20 11:00 97.8 68 18 114/47 (69) 92 Room Air 97.8 03/04/20 09:47 2.0 Physical Exam General: Alert, Cooperative Heart: Regular rate Abdomen: Soft Extremities: No edema, Normal pulses, Other (There is no lower extremity rotation or shortening. She describes groin pain with active range of motion. She does have tenderness bilaterally in the sacral area. No evidence of neurovascular injury. The skin is intact over the fractures.) Skin: No breakdown, No significant lesion Labs Labs: Laboratory Tests Test 03/03/20 16:38 03/03/20 20:52 03/04/20 07:32 03/04/20 11:17 Glucose (Fingerstick) 102 mg/dL (70-99) 95 mg/dL (70-99) 87 mg/dL (70-99) 107 mg/dL (70-99) Assessment and Plan Assessmemt and Plan Problems Medical Problems: (1) Fall Status: Acute (2) Fracture of left inferior pubic ramus Status: Acute (3) Fracture of superior ramus of left pubis Status: Acute (4) Sacral fracture Status: Acute Comment Review of Relevant I have reviewed the following items karen (where applicable) has been applied. Justifications for Admission Other Justification COREY ORTIZ MD Mar 04, 2020 13:24
[2020-03-04 15:00] VITALS: BP 150/62
[2020-03-04 19:00] VITALS: BP 123/57
[2020-03-04] MEDS: ATORVASTATIN CALCIUM 10 MG TABLET. PO SCH (20:26)
[2020-03-04] MEDS: ACETAMINOPHEN 500 MG TABLET PO PRN (20:26)
[2020-03-04] MEDS: ENOXAPARIN 30 MG/0.3 ML SYRINGE. SQ SCH (20:27)
[2020-03-04 23:00] VITALS: BP 138/48
[2020-03-05] MEDS: traMADol 50 MG TABLET PO PRN ×3 (00:25→20:46)
[2020-03-05 03:00] VITALS: BP 128/51
[2020-03-05 07:00] VITALS: BP 139/56
[2020-03-05] MEDS: INSULIN LISPRO 300 UNITS/3 ML VIAL. SQ SCH ×3 (07:42→17:00)
[2020-03-05] MEDS: PANTOPRAZOLE 40 MG TABLET.DR. PO SCH (08:55)
[2020-03-05] MEDS: hydrALAZINE 25 MG TABLET PO SCH ×3 (08:55→20:46)
[2020-03-05] MEDS: SERTRALINE 25 MG TABLET. PO SCH (08:55)
[2020-03-05] MEDS: amLODIPine BESYLATE 5 MG TABLET PO SCH ×2 (08:55→20:45)
[2020-03-05] MEDS: VITAMIN B12,B9,B6 COMPLEX 1 TABLET. PO SCH (08:55)
[2020-03-05] MEDS: POLYETHYLENE GLYCOL 3350 17 GM PACKET. PO SCH (09:00)
[2020-03-05 11:16] VITALS: BP 135/53
[2020-03-05] MEDS: ACETAMINOPHEN 500 MG TABLET PO PRN (13:14)
--- NOTE | 2020-03-05 14:54 | PDOC ---
[facility] PROGRESS NOTE Date of Service DOS: DATE: 03/05/20 TIME: 14:52 Chief Complaint Chief Complaint Fall status post sacralplasty on 02/28/2020 History of Present Illness History of Present Illness Status post sacroplasty. Patient is resting comfortably. Still waiting for insurance clearance before we could pursue inpatient rehab, unfortunately given the holiday this may not happen until Thursday. If not, will proceed with home PT. 03/05/2020 No acute events overnight. Patient seen and examined on her recliner. Patient was tolerating breakfast. Patient does endorse some groin pain during movement. Patient has been working well with PT. Patient's chart, labs, images were reviewed and discussed with RN Vitals/I&O Vitals/I&O: Vital Signs Date Time Temp Pulse Resp B/P (MAP) Pulse Ox O2 Delivery O2 Flow Rate FiO2 03/05/20 13:14 71 135/53 03/05/20 11:16 98.6 16 94 Room Air 98.6 03/04/20 09:47 2.0 I & O 03/04/20 03/04/20 03/05/20 14:59 22:59 06:59 Intake Total 150 ml 150 ml 100 ml Balance 150 ml 150 ml 100 ml Physical Exam Physical Exam: GEN: No apparent distress. Alert and oriented HEENT: Normal cephalic, atraumatic, external auditory canals are patent NECK: Supple, no JVD, no thyromegaly was noted LUNGS: Bilateral crackles HEART: RRR, S1, S2 present. Peripheral pulses intact, no obvious murmurs noted ABDOMEN: Soft, nontender. Positive bowel sounds, no organomegaly, normal bowel sounds EXTREMITIES: There is no lower extremity rotation or shortening. She does have tenderness bilaterally in the sacral area. No pedal edema General: Alert, Cooperative Heart: Regular rate Abdomen: Soft Extremities: No edema, Normal pulses, Other (There is no lower extremity rotation or shortening. She describes groin pain with active range of motion. She does have tenderness bilaterally in the sacral area. No evidence of neurovascular injury. The skin is intact over the fractures.) Skin: No breakdown, No significant lesion Labs Labs: Laboratory Tests Test 03/04/20 16:22 03/04/20 20:09 03/05/20 07:44 03/05/20 11:41 Glucose (Fingerstick) 100 mg/dL (70-99) 120 mg/dL (70-99) 87 mg/dL (70-99) 114 mg/dL (70-99) Assessment and Plan Assessmemt and Plan Problems Medical Problems: (1) Fall Status: Acute (2) Fracture of left inferior pubic ramus Status: Acute (3) Fracture of superior ramus of left pubis Status: Acute (4) Sacral fracture Status: Acute Comment Review of Relevant I have reviewed the following items karen (where applicable) has been applied. Justifications for Admission Other Justification NELLIE ALVARADO MD Mar 05, 2020 14:54
[2020-03-05 15:23] VITALS: BP 138/67
[2020-03-05 19:30] VITALS: BP 156/75
[2020-03-05] MEDS: ATORVASTATIN CALCIUM 10 MG TABLET. PO SCH (20:45)
[2020-03-05] MEDS: ENOXAPARIN 30 MG/0.3 ML SYRINGE. SQ SCH (21:53)
[2020-03-05 22:40] VITALS: BP 145/61
[2020-03-06] MEDS: traMADol 50 MG TABLET PO PRN ×2 (03:46→14:25)
[2020-03-06 03:50] VITALS: BP 145/61
[2020-03-06 07:00] VITALS: BP 146/52
[2020-03-06] MEDS: INSULIN LISPRO 300 UNITS/3 ML VIAL. SQ SCH ×2 (07:34→12:00)
[2020-03-06] MEDS: VITAMIN B12,B9,B6 COMPLEX 1 TABLET. PO SCH (08:46)
[2020-03-06] MEDS: SERTRALINE 25 MG TABLET. PO SCH (08:46)
[2020-03-06] MEDS: amLODIPine BESYLATE 5 MG TABLET PO SCH (08:46)
[2020-03-06] MEDS: ACETAMINOPHEN 500 MG TABLET PO PRN (08:46)
[2020-03-06] MEDS: hydrALAZINE 25 MG TABLET PO SCH ×2 (08:46→14:25)
[2020-03-06] MEDS: POLYETHYLENE GLYCOL 3350 17 GM PACKET. PO SCH (08:46)
[2020-03-06] MEDS: PANTOPRAZOLE 40 MG TABLET.DR. PO SCH (08:46)
--- NOTE | 2020-03-06 10:10 | NUR ---
ALEXIS following. Discussed with RN, ALEXIS received voicemail from [facility] advising of insurance denial for acute rehab. ALEXIS attempting to contact family to advise of denial, and plan to return home with home health. ALEXIS will continue to follow. Addendum: 03/06/20 at 1248 by FLORENCE ESPINOZA Betsy from [employer] contacted ALEXIS to discuss referral to be sent to [facility] as [email or web address] has been working on a contract with [facility]. ALEXIS confirmed with [facility] - they are accepting [employer] on a case by case basis. ALEXIS faxed referral to [facility], they cannot accept at this time. Plan for pt to discharge home with home health, if ALEXIS can find a company to provide home health. ALEXIS will continue to follow. Addendum: 03/06/20 at 1326 by FLORENCE ESPINOZA ALEXIS phoned and faxed home health referral to [facility]. RN notified. Addendum: 03/06/20 at 1413 by FLORENCE ESPINOZA [facility] is not in network with pt's insurance. [facility] cannot accept pt, [facility] cannot accept pt at this time, [facility] does not take medicaid. [facility] does not travel to [facility]. [facility] does not take pt's insurance. [facility] does not provide home health care. [facility] only takes [employer] when pt discharges from their hospital. Pt will have to discharge home with self care and follow up with PCP. RN notified.
[2020-03-06 11:00] VITALS: BP 135/58
--- NOTE | 2020-03-06 12:32 | SNU/HH DC ---
DISCHARGE WITH HOME HEALTH DISCHARGE INFORMATION: Discharge Date: Mar 06, 2020 Final Diagnosis: Problems Medical Problems: (1) Fall Status: Acute (2) Fracture of left inferior pubic ramus Status: Acute (3) Fracture of superior ramus of left pubis Status: Acute (4) Sacral fracture Status: Acute Condition on Discharge: Stable CODE STATUS: Code Status: Full HOME HEALTH: Face to Face: I certify this patient is under my care and that I, or a nurse practitioner or physician's team assistant working with me, had a face to face encounter that meets the physician face to face encounter requirements with this patient on []. Medical Complications: Falls, Other (Status post sacral plasty) Snf For: Assess & Educate Safety, Medication Management, Pain Management RN For Eval/Treatment: Yes Physical Therapy For: Evalulation/Treatment Occupational Therapy For: Evaluation/Treatment Home Health Aide For: Self-care VARNISH REMOVER For: Community Resources Pt Meets Homebound Status: Poor coordination w/ amb., Unsteady balance w/ amb,, Frequent falls w/ injury, Unable to negotiate home POST DISCHARGE ORDERS: Activity Instructions for Disc: Activity as tolerated Weight Bearing Status after Di: No restrictions, As tolerated Bathing Instructions: Shower-keep dressing dry DIET AFTER DISCHARGE: Cardiac Wound/Incision Care: No wound care needed DC TO SNF OTHER: Check PVR q week CHECKS AFTER DISCHARGE: Checks after discharge: Check blood press - daily FOLLOW-UP: Follow up with: PCP within 1 week of discharge Additional Instructions: CBC and CMP within 1 week of discharge TREATMENT/EQUIPMENT ORDERS: Adaptive Equipment Issued: None CERTIFICATION STATEMENT: Certification Statement: Certification Statement: Based on the above finding, I certify that this patient is confined to the home and needs intermittent detention care, physical therapy and/or speech therapy, or continues to need occupational therapy.~ This patient is under my care, and I have initiated the establishment of the plan of care.~ This patient will be followed by myself or a community physician who will periodically review the plan of care. Home Meds Active Scripts Amlodipine Besylate (AMLODIPINE BESYLATE) 5 Mg Tablet, 5 MG PO BID for HTN for 30 Days, #60 TAB Prov:VIVIAN SINGLETARY MD 01/24/19 B12/Levomefolate Calcium/B-6 (FOLTX TABLET) 1 Each Tablet, 1 EACH PO DAILY, #30 TAB Prov:CATE VARELA MD 05/07/16 Reported Medications Acetaminophen (TYLENOL EXTRA STRENGTH) 500 Mg Tablet, 500 MG PO PRN Q6-8HRS for PAIN, TAB 02/26/20 Sertraline Hcl (ZOLOFT) 25 Mg Tablet, 1 TAB PO DAILY for DEPRESSION, #30 TAB 2 Refills 02/26/20 Hydralazine Hcl (HYDRALAZINE HCL) 25 Mg Tablet, 1 TAB PO TID for ELEVATED BLOOD PRESSURE, #90 TAB 5 Refills 02/26/20 Atorvastatin Calcium (ATORVASTATIN CALCIUM) 10 Mg Tablet, 10 MG PO HS for FOR CHOLESTEROL, #30 TAB 0 Refills 05/05/16 Pantoprazole Sodium (PANTOPRAZOLE SODIUM ) 40 Mg Tablet.dr, 40 MG PO DAILY, TAB 05/05/16 Discontinued Reported Medications Alprazolam (ALPRAZOLAM) 0.25 Mg Tablet, 1 TAB PO PRN BID for ANXIETY, #60 TAB 02/26/20 NELLIE ALVARADO MD Mar 06, 2020 12:32
[2020-03-06 15:00] VITALS: BP 151/64
--- NOTE | 2020-03-06 17:18 | NUR ---
Daughter and patient verbalized understanding of discharge instructions for home with follow up with Primary care in 1 to 2 days. Patient able to ambulate with personal walker to main entrance, daughter awaiting to transport with private vehicle. Tramadol 50 mg script called in to [facility].
--- NOTE | 2020-03-06 17:49 | PDOC3 ---
[facility]-Discharge Summary Date of Admission: Date of Admission: Feb 26, 2020 Date of Discharge: Date of Discharge: Mar 06, 2020 Admission Diagnosis: Admitting Diagnosis: 1. Mildly displaced bilateral sacral glory fractures. 2. Mildly displaced comminuted fracture of the inferior left pubic rami. Fracture of the superior pubic rami on the left adjacent to the acetabulum. Discharge Diagnosis: Discharge Diagnosis: Fall Acute Fracture of left inferior pubic ramus Acute Fracture of superior ramus of left pubis Acute Sacral fracture Low BMI Consults: Consults: Orthopedics Interventional Radiology Hospital Course: Hospital Course: 84-year-old female with PMH [id number] diabetes, anxiety, arthritis, hypertension who presents with a chief complaint of fall. Patient states she experienced a non-syncopal fall approximately 2 weeks ago. Son took her to [facility] emergency and they said images were taken and they told her that it was just arthritis. She has been ambulatory since the fall. States she has had left hip and left flank pain since falling. She also notes that she struck her head and she does have a bruise of her forehead. She is not take blood thinners. She ambulates without assistance at baseline. She has been ambulatory since the fall. She notes that her pain is been difficult to control with home medications including Tylenol and ibuprofen. She denies neck pain. She does note some sacral pain. She notes bilateral hip pain as well. Denies any deformities. Denies numbness or tingling. Denies any prodromal syncopal events prior to falling. Denies chest pain or shortness of breath. No other complaints. Patient was admitted for further evaluation from orthopedics. She was evaluated and orthopedics stated she would not need any procedures from there standpoint, and the patient may benefit a minimally invasive procedure. She was evaluated by IR and underwent sacroplasty. Patient was working well with PT afterwards and her pain was well controlled. She improved to the point of practically reaching her baseline. She was awaiting insurance approval for rehab, but before this could happen patient was ready for discharge to home. She will be evaluated by home health services that can be reinitiated by her PCP for possible home PT/OT. The rest of her hospital course was uneventful. Disposition: Disposition/Orders: D/C to Home w/ HH Activity: Activity: Resume previous activity Diet: Diet: Regular Medications: Home Meds Active Scripts Amlodipine Besylate (AMLODIPINE BESYLATE) 5 Mg Tablet, 5 MG PO BID for HTN for 30 Days, #60 TAB Prov:VIVIAN SINGLETARY MD 01/24/19 B12/Levomefolate Calcium/B-6 (FOLTX TABLET) 1 Each Tablet, 1 EACH PO DAILY, #30 TAB Prov:CATE VARELA MD 05/07/16 Reported Medications Acetaminophen (TYLENOL EXTRA STRENGTH) 500 Mg Tablet, 500 MG PO PRN Q6-8HRS for PAIN, TAB 02/26/20 Sertraline Hcl (ZOLOFT) 25 Mg Tablet, 1 TAB PO DAILY for DEPRESSION, #30 TAB 2 Refills 02/26/20 Hydralazine Hcl (HYDRALAZINE HCL) 25 Mg Tablet, 1 TAB PO TID for ELEVATED BLOOD PRESSURE, #90 TAB 5 Refills 02/26/20 Atorvastatin Calcium (ATORVASTATIN CALCIUM) 10 Mg Tablet, 10 MG PO HS for FOR CHOLESTEROL, #30 TAB 0 Refills 05/05/16 Pantoprazole Sodium (PANTOPRAZOLE SODIUM ) 40 Mg Tablet.dr, 40 MG PO DAILY, TAB 05/05/16 Discontinued Reported Medications Alprazolam (ALPRAZOLAM) 0.25 Mg Tablet, 1 TAB PO PRN BID for ANXIETY, #60 TAB 02/26/20 Scheduled Acetaminophen (Tylenol Extra Strength), 500 MG PO PRN Q6-8HRS, (Reported) Amlodipine Besylate (Amlodipine Besylate), 5 MG PO BID Atorvastatin Calcium (Atorvastatin Calcium), 10 MG PO HS, (Reported) B12/Levomefolate Calcium/B-6 (Foltx Tablet), 1 EACH PO DAILY Hydralazine Hcl (Hydralazine Hcl), 1 TAB PO TID, (Reported) Pantoprazole Sodium (Pantoprazole Sodium ), 40 MG PO DAILY, (Reported) Sertraline Hcl (Zoloft), 1 TAB PO DAILY, (Reported) Discontinued Medications Alprazolam (Alprazolam), 1 TAB PO PRN BID, (Reported) Total Time: Total Time: Total time spent was 40 minutes in preparing scripts, discharge planning with SW and RN, and preparing this discharge summary. Justicifation of Admission Dx: Justifications for Admission: Justification of Admission Dx: Yes Angina: New-Onset NELLIE ALVARADO MD Mar 06, 2020 17:49
== END 2020-03-06 17:05 | disposition home health service (06) | DRG 516 ==
LOC: ER 18:23 → 4 NORTH 22:07 → ED HOLD 22:34 → 4 NORTH 02-26 00:15
PROVIDERS: ADMIT Family Medicine; ATTEND Family Medicine
PROC: 0QU13JZ Supplement Sacrum with Synthetic Substitute, Percutaneous Approach (ICD-10-PCS; principal; 2020-02-28)
DX: S32.10XA Unspecified fracture of sacrum, initial encounter for closed fracture (principal); Z68.1 Body mass index [BMI] 19.9 or less, adult; S32.592A Other specified fracture of left pubis, initial encounter for closed fracture; S32.512A Fracture of superior rim of left pubis, initial encounter for closed fracture; I10 Essential (primary) hypertension; E11.9 Type 2 diabetes mellitus without complications; E78.00 Pure hypercholesterolemia, unspecified; E78.5 Hyperlipidemia, unspecified; I25.119 Atherosclerotic heart disease of native coronary artery with unspecified angina pectoris; K59.00 Constipation, unspecified; M19.90 Unspecified osteoarthritis, unspecified site; M53.3 Sacrococcygeal disorders, not elsewhere classified; S00.83XA Contusion of other part of head, initial encounter; W18.30XA Fall on same level, unspecified, initial encounter; Z83.3 Family history of diabetes mellitus; F32.9 Major depressive disorder, single episode, unspecified; F41.9 Anxiety disorder, unspecified; K57.90 Diverticulosis of intestine, part unspecified, without perforation or abscess without bleeding; Z79.84 Long term (current) use of oral hypoglycemic drugs; W18.39XA Other fall on same level, initial encounter; Y93.89 Activity, other specified; Y92.89 Other specified places as the place of occurrence of the external cause; Y99.8 Other external cause status; Z20.828 Contact with and (suspected) exposure to other viral communicable diseases; Z88.8 Allergy status to other drugs, medicaments and biological substances; R63.4 Abnormal weight loss
CPT/HCPCS: 22511; 36415; 70450; 71250; 72125; 72170; 72195; 74176; 80048; 82962; 85025; 85610; 85730; 96361; 96374; 96375; 99152; 99153; 99285; C1713; J0690; J1650; J2250; J2405; J3010; J3490; J7030; 97110-GP; 97116-GP; 97530-GO; 97530-GP; 97535-GO; G0378; U0003-CS

== ENCOUNTER 2021-10-05 19:36 | Inpatient (IN) | payer MEDICARE, OTHER ==
[~2021-10-05] VITALS: Ht 165.1 cm; Wt 53.5 kg
[~2021-10-05 19:36] MED LIST changes: +ACET500T33 PO; +ALPR0.254 PO; +AMLO-186 PO; -AMLO5TAB10 PO; +CAND32TA21 PO; -CAND32TA4 PO; -FOLI20CA PO; +FOLIC ACID20 MG PO; +LISI10TA16 PO; -LISI10TA2 PO; +SERT25TA PO
[2021-10-05 20:43] LABS: HEMATOCRIT 33.7 % (36.0-47.0); HEMOGLOBIN 11.7 g/dL (12.0-15.5); RED BLOOD COUNT 3.49 x10^6/uL (3.50-5.40); RED CELL DISTRIBUTION WIDTH 13.5 % (11.5-14.5); WHITE BLOOD COUNT 8.2 x10^3/uL (4.0-11.0)
[2021-10-05 20:55] LABS: CALCIUM 8.9 mg/dL (8.5-10.1); CREATININE 1.1 mg/dL (0.6-1.0); GFR 46.9; POTASSIUM 4.2 mmol/L (3.5-5.1)
[2021-10-05] MEDS ORDERED: IOHEXOL 350 MG/ML 100 ML VIAL. IV ONE (21:30)
--- NOTE | 2021-10-05 22:09 | RAD ---
Exam: CT head CTA head and neck INDICATION: Headache TECHNIQUE: Sequential axial images through the head were obtained without the administration of IV co ntrast. Sequential axial images through the head and neck were obtained following the administration of 60 mL of Isovue-370. 3-D reformatted images were reconstructed from the axial data and reviewed. Exposure: One or more of the following in the visualized dose reduction techniques were utilized for this examination: 1. Automated exposure control 2. Adjustment of the MA and/or KV according to patient size 3. Use of iterative of reconstructive technique Comparisons: 02/25/2020 FINDINGS: Head: No focal parenchymal lesion or hemorrhage is identified. There is no midline shift or sulcal effaceme nt. No acute vascular territory infarction is identified. Falcon-white distinction is preserved. The ventricular system is within normal limits without compression hydrocephalus. The basal cisterns are well maintained. The visualized portions of the paranasal sinuses and mastoid air cells are well-pneumatized. No acute fractures. CTA neck: Visualized portions of thoracic aorta are unremarkable. Standard three-vessel arch anatomy. Right common carotid artery is patent without evidence of stenosis, occlusion or aneurysm. Minimal pl aque at the origin of the right internal carotid artery without significant stenosis. Left common carotid artery is patent without evidence of stenosis, occlusion or aneurysm. Mild plaque at the origin left internal carotid artery without significant stenosis. Right vertebral artery is patent to basilar confluence without evidence of stenosis, occlusion or ane urysm. Left vertebral artery is patent to basilar confluence without evidence of stenosis, occlusion or aneu rysm. Visualized paraspinal soft tissues are unremarkable. CTA HEAD: Calcified plaque at the cavernous segments of the right internal carotid artery. There is a 7 mm aneu rysm which projects inferiorly arising off the supraclinoid segment of the right internal carotid art mike. Right MCA is patent. Right JUAN PABLO is patent. Mild calcified plaque at the cavernous segment of the left internal carotid artery without significan t stenosis. Left MCA is patent. Left JUAN PABLO is patent. His artery is patent without evidence of stenosis, occlusion or aneurysm. event set up specialist are patent bilaterally . Visualized portions of the dural venous sinuses are patent. IMPRESSION: 1. Mild small vessel ischemic change, technically age indeterminate without recent prior imaging. 2. 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 3. Mild calcified plaque at the cavernous segments of the internal carotid arteries bilaterally. 4. Mild plaque at the origin of the internal carotid arteries bilaterally without significant stenos is. Electronically signed by: Morro Oconnell MD (10/05/2021 10:07 PM) [facility]
[2021-10-05] MEDS ORDERED: MORPHINE SULFATE 2 MG/ML INJ. IVP ONE (23:30)
[2021-10-05] MEDS ORDERED: CONTRAST GIVEN. MC PRN (23:30)
--- NOTE | 2021-10-05 23:31 | PHYS DOC ---
Past Medical History Past Medical History: Anxiety, Arthritis, Diabetes-Type II, High Cholesterol, Hypertension Additional Past Medical Histor: diet control DM Past Surgical History: Hip Replacement Additional Past Surgical Histo: cataract Smoking Status: Never Smoker Alcohol Use: None Drug Use: None General Adult EDM: Chief Complaint: HYPERGLYCEMIA HPI: HPI: Patient is a 86 year old female who presents with headache. Onset yesterday. Sudden onset and it was the worst headache she has ever had. A lot of the history is obtained through the son. They are both Citizen [place]-speaking. Patient has had some nausea but no vomiting. They are also concerned that her blood sugar was elevated at home. She has been possibly diagnosed with diabetes but is only on home exercise at this time. History of hypertension and hyperlipidemia. No other injuries or problems at this time. No chest pain or shortness of breath. Review of Systems: Review of Systems: Constitutional: Denies fever or chills. [] Eyes: Denies change in visual acuity. [] HENT: Denies nasal congestion or sore throat. [] Respiratory: Denies cough or shortness of breath. [] Cardiovascular: Denies chest pain or edema. [] GI: Denies abdominal pain, nausea, vomiting, bloody stools or diarrhea. [] : Denies dysuria. [] Musculoskeletal: Denies back pain or joint pain. [] Integument: Denies rash. [] Neurologic: Positive for headache Endocrine: Denies polyuria or polydipsia. [] Lymphatic: Denies swollen glands. [] Psychiatric: Denies depression or anxiety. [] Heart Score: C/O Chest Pain: No Risk Factors: Risk Factors: DM, Current or recent (<one month) smoker, HTN, HLP, family history of CAD, obesity. Risk Scores: Score 0 - 3: 2.5% MACE over next 6 weeks - Discharge Home Score 4 - 6: 20.3% MACE over next 6 weeks - Admit for Clinical Observation Score 7 - 10: 72.7% MACE over next 6 weeks - Early Invasive Strategies Current Medications: Current Medications Medications (Trade) Dose Ordered Sig/Austin Start Time Stop Time Status Last Admin Dose Admin Info (CONTRAST GIVEN -- Rx MONITORING) 1 each PRN DAILY PRN 10/05/21 23:30 10/07/21 23:29 Iohexol (Omnipaque 350 Mg/ml) 75 ml 1X ONCE 10/05/21 21:30 10/05/21 21:31 DC 10/05/21 21:31 60 ML Morphine Sulfate (Morphine Sulfate) 2 mg 1X ONCE 10/05/21 23:30 10/05/21 23:31 Nicardipine HCl 50 mg/Sodium Chloride 250 ml @ 25 mls/hr CONT PRN 10/05/21 23:15 Allergies: Allergies: Allergies Coded Allergies Type Severity Reaction Last Updated Verified Penicillins Allergy Intermediate RASH 10/05/21 Yes morphine Adverse Reaction Mild N/V 10/05/21 Yes Physical Exam: PE: Constitutional: Well developed, well nourished, appears to be in mild painful distress HENT: Normocephalic, atraumatic, bilateral external ears normal, oropharynx moist, no oral exudates, nose normal. [] Eyes: PERRLA, EOMI, conjunctiva normal, no discharge. [] Neck: Normal range of motion, no tenderness, supple, no stridor. [] Cardiovascular:Heart rate regular rhythm, no murmur [] Lungs & Thorax: Bilateral breath sounds clear to auscultation [] Abdomen: Bowel sounds normal, soft, no tenderness, no masses, no pulsatile masses. [] Skin: Warm, dry, no erythema, no rash. [] Back: No tenderness, no CVA tenderness. [] Extremities: No tenderness, no cyanosis, no clubbing, ROM intact, no edema. [] Neurologic: Alert and oriented X 3, normal motor function, normal sensory function, no focal deficits noted. [] Psychologic: Affect normal, judgement normal, mood normal. [] Current Patient Data: Labs: Laboratory Tests Test 10/05/21 20:10 10/05/21 20:34 White Blood Count 8.2 x10^3/uL (4.0-11.0) Red Blood Count 3.49 x10^6/uL (3.50-5.40) L Hemoglobin 11.7 g/dL (12.0-15.5) L Hematocrit 33.7 % (36.0-47.0) L Mean Corpuscular Volume 97 fL (79-100) Mean Corpuscular Hemoglobin 34 pg (25-35) Mean Corpuscular Hemoglobin Concent 35 g/dL (31-37) Red Cell Distribution Width 13.5 % (11.5-14.5) Platelet Count 139 x10^3/uL (140-400) L Sodium Level 130 mmol/L (136-145) L Potassium Level 4.2 mmol/L (3.5-5.1) Chloride Level 97 mmol/L (98-107) L Carbon Dioxide Level 25 mmol/L (21-32) Anion Gap 8 (6-14) Blood Urea Nitrogen 31 mg/dL (7-20) H Creatinine 1.1 mg/dL (0.6-1.0) H Estimated GFR (Cockcroft-Gault) 46.9 Glucose Level 181 mg/dL (70-99) H Calcium Level 8.9 mg/dL (8.5-10.1) Troponin I High Sensitivity 191 ng/L (4-50) H Glucose (Fingerstick) 166 mg/dL (70-99) H Laboratory Tests 10/05/21 20:10 Laboratory Tests 10/05/21 20:10 Vital Signs: Vital Signs Date Time Temp Pulse Resp B/P (MAP) Pulse Ox O2 Delivery O2 Flow Rate FiO2 10/05/21 19:38 98.7 78 18 175/76 (109) 96 Room Air 98.7 EKG: EKG: [] Radiology/Procedures: Radiology/Procedures: [] Course & Med Decision Making: Course & Med Decision Making Pertinent Labs and Imaging studies reviewed. (See chart for details) Given CT scan findings of a 7 mm right ICA aneurysm I contacted neurosurgery. They stated that they cannot perform any intervention at our facility. Therefore the patient will be transferred to . I will begin aggressive blood pressure control with a systolic less than 160. The patient is otherwise hemodynamically stable and breathing on her own. She does not require any mechanical ventilation at this time. Other than her elevated blood pressure the rest of her vital signs are stable. Her troponin is slightly elevated however I would not place her on any aspirin or any anticoagulation at this time without neurosurgical consultation. The elevated troponin could be due to a unseen subarachnoid hemorrhage which can sometimes cause it to be bumped. EKG does not show any acute changes indicative of a STEMI. Dragon Disclaimer: Dragon Disclaimer: This electronic medical record was generated, in whole or in part, using a voice recognition dictation system. Departure Departure Impression: Primary Impression: Right internal carotid artery aneurysm Additional Impressions: Subarachnoid hemorrhage Hypertensive emergency Elevated troponin Disposition: 02 SHORT TERM HOSPITAL Condition: STABLE Referrals: CATE VARELA MD (PCP) EUGENE BECKETT MD Oct 05, 2021 23:31
[2021-10-06] VITALS (10 sets, daily range): BP systolic 112–148; BP diastolic 38–65
[2021-10-06] MEDS ORDERED: HYDROmorphone 2 MG/ML INJ. IVP ONE
[2021-10-06] MEDS ORDERED: LIDOCAINE 1% Multi-Dose 20 ML VIAL. ONE (00:49)
[2021-10-06 01:36] LABS: CSF CLARITY CLEAR; CSF COLOR COLORLESS
[2021-10-06 01:37] LABS: CSF RBC COUNT 0 /cmm (Not Established); CSF WBC COUNT 0 /cmm (Not Established)
[2021-10-06] MEDS ORDERED: ASPIRIN CHEWABLE 81 MG TABLET. PO ONE (02:30)
[2021-10-06 02:36] LABS: ALBUMIN 3.2 g/dL (3.4-5.0); DIRECT BILIRUBIN 0.2 mg/dL (0.0-0.2); TOTAL BILIRUBIN 0.6 mg/dL (0.2-1.0); TOTAL PROTEIN 6.8 g/dL (6.4-8.2)
[2021-10-06] MEDS ORDERED: CONTRAST GIVEN. MC PRN (02:45)
--- NOTE | 2021-10-06 02:49 | RAD ---
EXAM: CT Abdomen and Pelvis with IV contrast CLINICAL HISTORY: Abdominal pain COMPARISON: none TECHNIQUE: Helical CT of the abdomen and pelvis was performed following the administration of intrave nous contrast. Axial, coronal and sagittal reformatted images were generated. PQRS compliance statement - One or more of the following individualized dose reduction techniques wer e utilized for this study: 1. Automated exposure control 2. Adjustment of the mA and/or kV according to patient size 3. Use of iterative reconstruction technique FINDINGS: Lower Chest: Linear opacities left lower lobe and lingula likely scarring/atelectasis. Abdomen and Pelvis: No focal liver lesion. Cholecystectomy clips are seen. No biliary ductal dilatation. Pancreas, spleen and adrenal glands are unremarkable. Symmetric nephrograms. No focal renal lesion. No hydronephrosis . No hydroureter. Bladder is unremarkable. Colonic diverticulosis without CT evidence for acute diverticulitis. Moderate colonic stool content i s seen. No small or large bowel dilatation. Appendix is normal. Thickening of the right colon may be seen with colitis. Trace fat-containing periumbilical hernia. No abdominal or pelvic lymphadenopathy. No abdominal or pe lvic ascites. Bones: Leftward curvature lumbar spine. Multilevel degenerative changes of spine are seen. IMPRESSION: 1. There is thickening of the right colon may be seen with colitis. Underlying colonic mass can also have this appearance can be correlated with colonoscopy. 2. No bowel obstruction. 3. Aorta is normal in caliber with atherosclerotic calcifications. Electronically signed by: Jamarcus Mccullough MD (10/06/2021 2:47 AM) [facility]
[2021-10-06] MEDS ORDERED: IV NORMAL SALINE 500ML BAG 500 ML IV ONE (03:00)
[2021-10-06] MEDS ORDERED: IOHEXOL 300 MG/ML 100ML VIAL. IV ONE (03:00)
[2021-10-06 03:16] LABS: ACETAMIN 6.9 mcg/ml (10-30); ETHANOL < 10 mg/dL (0-10)
--- NOTE | 2021-10-06 07:22 | RAD ---
EXAM: ULTRASOUND ABDOMEN LIMITED CLINICAL HISTORY: Reason: epigastric pain with elevated liver function tests COMPARISON: CT abdomen pelvis from October 06 TECHNIQUE: Limited ultrasound examination of the right upper quadrant of the abdomen was performed. FINDINGS: Sound was used to evaluate the right upper quadrant of the abdomen. Pancreas is poorly visualized. Li moustapha is within normal limits in size and appearance although incompletely evaluated. There is flow in the portal vein with color imaging. Vena cava at the liver was unremarkable. Common duct was upper no rmal measuring 8 mm but the patient's had a cholecystectomy. Right kidney was 10.2 cm in length witho ut hydronephrosis. IMPRESSION: 1. Previous cholecystectomy. 2. Poor visualization of the pancreas. 3. Common bile duct upper normal at 8 mm. 4. No focal liver lesion noted. Electronically signed by: Keith Holland MD (10/06/2021 7:20 AM) [id number]
[2021-10-06] MEDS ORDERED: CYCL1DRO OU (09:25)
--- NOTE | 2021-10-06 10:43 | NUR ---
Neurosurgery called, stated they have no surgical plans for pt, that she can call their office and they will send a referral to to follow up with their Neurosurgeon on an outpatient basis. They stated the pt just needs to keep SBP <150.
[2021-10-06] MEDS ORDERED: ACETAMINOPHEN 325 MG TABLET. PO PRN (13:15)
[2021-10-06] MEDS ORDERED: METO25TA2 PO (13:51)
[2021-10-06] MEDS ORDERED: hydrALAZINE 25 MG TABLET PO SCH (14:00)
--- NOTE | 2021-10-06 14:36 | NUR ---
discharge instructions reviewed with pt daughter, granddaughter and pt. all questions answered. neurosurgery number provided and instructions to call to get referral to [facility]. RX sent electronically to RX. Instructions to closely monitor blood pressure and call if greater than 150
--- NOTE | 2021-10-06 15:01 | NUR ---
pt wheeled out, all belongings with pt, discharge instructions sent with pt. piv and tele were dc'd ptd
--- NOTE | 2021-10-06 16:15 | SSS ---
DATE OF SERVICE: 10/06/2021 ADMIT DATE: 10/06/2021 CHIEF COMPLAINT: Hyperglycemia, headache. HISTORY OF PRESENT ILLNESS: The patient is a pleasant 86-year-old female who presented with headache and hyperglycemia. 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 The patient was admitted overnight for observation. This morning, she is doing well and wants to go home. Her pressures are down. We did consult Neurosurgery. They are okay with her going to follow up at . PAST MEDICAL HISTORY: Anxiety, arthritis, diabetes, hypertension, hyperlipidemia, hip replacement, cataract surgery. ALLERGIES: PENICILLIN AND MORPHINE. FAMILY HISTORY: Diabetes. SOCIAL HISTORY: She does not drink, smoke or take drugs. MEDICATIONS: Reviewed, please refer to the [facility]. REVIEW OF SYSTEMS: GENERAL: No history of weight change, weakness or fevers. SKIN: No bruising, hair changes or rashes. EYES: No blurred, double or loss of vision. NOSE AND THROAT: No history of nosebleeds, hoarseness or sore throat. HEART: No history of palpitations, chest pain or shortness of breath on exertion. LUNGS: Denies cough, hemoptysis, wheezing or shortness of breath. GASTROINTESTINAL: Denies changes in appetite, nausea, vomiting, diarrhea or constipation. GENITOURINARY: No history of frequency, urgency, hesitancy or nocturia. NEUROLOGIC: Denies history of numbness, tingling, tremor or weakness. PSYCHIATRIC: No history of panic, anxiety or depression. ENDOCRINE: No history of heat or cold intolerance, polyuria or polydipsia. EXTREMITIES: Denies muscle weakness, joint pain, pain on walking or stiffness. PHYSICAL EXAMINATION: VITALS: Within normal limits and are stable. GENERAL: No apparent distress. Alert and oriented. HEENT: Normal cephalic atraumatic, external auditory canals are patent. EYES: Extraocular muscles are intact, pupils are equally round and reactive to light and accommodation. MUSCULOSKELETAL: Well developed, well nourished, good range of motion. ENDOCRINE: No thyromegaly was palpated. LYMPHATICS: No cervical chain or axillary nodes were noted. HEMATOPOIETIC: No bruising. NECK: Supple, no JVD, no thyromegaly was noted. LUNGS: Clear to auscultation in all lung castillo without rhonchi or wheezing. HEART: RRR, S1, S2 present. Peripheral pulses intact, no obvious murmurs were noted. ABDOMEN: Soft, nontender. Positive bowel sounds no organomegaly, normal bowel sounds. EXTREMITIES: Without any cyanosis, clubbing, or edema. Pedal pulses intact, Homans sign is negative. NEUROLOGIC: Normal speech, normal tone. A and O x 3, moves all extremities, no obvious focal deficits. PSYCHIATRIC: Normal affect, normal mood. Stable. SKIN: No ulcerations or rashes, good skin turgor, no jaundice. VASCULAR: Good capillary refill, neurovascular bundle appears to be intact. 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 Clinically, she looks great. Her pressures are normalizing. I am going to discharge. I am going to resume her home medications and I add in metoprolol 25 mg a day. DISPOSITION: Home. ACTIVITY: As tolerated. DIET: Low sodium. MEDICATIONS: Metoprolol XL 25 mg a day, p.r.n. Tylenol, amlodipine 5 b.i.d., atorvastatin 10 a day, B12, Restasis eyedrops, hydralazine 25 t.i.d., Protonix 40 a day and sertraline 25 a day. Total time [address]: ZOHREH/violet TID: [id number]
--- NOTE | 2021-10-07 00:50 | EKG ---
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
--- NOTE | 2021-10-08 06:06 | EKG ---
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
== END 2021-10-06 15:03 | disposition home or self-care (01) | DRG 92 ==
LOC: ER 19:36 → 1 WEST ICU 10-06 04:37
PROVIDERS: ADMIT Internal Medicine; ATTEND Internal Medicine
PROC: 00JU3ZZ Inspection of Spinal Canal, Percutaneous Approach (ICD-10-PCS; principal; 2021-10-06)
DX: I67.1 Cerebral aneurysm, nonruptured (principal); I16.1 Hypertensive emergency; E11.65 Type 2 diabetes mellitus with hyperglycemia; E78.00 Pure hypercholesterolemia, unspecified; E78.5 Hyperlipidemia, unspecified; I10 Essential (primary) hypertension; Z96.649 Presence of unspecified artificial hip joint; F41.9 Anxiety disorder, unspecified; R77.8 Other specified abnormalities of plasma proteins; R51.9 Headache, unspecified; Z88.5 Allergy status to narcotic agent; Z79.899 Other long term (current) drug therapy; Z83.3 Family history of diabetes mellitus; Z88.0 Allergy status to penicillin
CPT/HCPCS: 36415; 70450; 70496; 70498; 74177; 76705; 80048; 80076; 80329; 82945; 82962; 83605; 83690; 84157; 84484; 85027; 87075; 89051; 93005; 96361; 96365; 96375; G0480; J1170; J3490; J7040; J7050; Q9967; 99285-25; G0378; J7030